=== PATIENT | female | born 1950 | race Two or more races ===

== ENCOUNTER 2020-04-13 10:28 | Outpatient (REF) | payer MEDICARE, SELFPAY ==
--- NOTE | 2020-04-13 10:34 | MM_ITS ---
EXAMINATION: BONE DENSITOMETRY CLINICAL INDICATION: Collapsed vertebra. COMPARISON: Previous BD dated 12/25/2017 and baseline BD dated 03/28/2012. TECHNIQUE: Using a [employer] DXA System (software version: 13.1) manufactured by [employer], dual-energy x-ray absorptiometry was performed of the lumbar spine and left hip. The images are of good technical quality. Summary results are attached. FINDINGS: AP SPINE L1-L4, excluding L1: The data at L1 is excluded due to degenerative changes which may cause overestimation of the lumbar bone mineral density. Current: BMD 0.957 g/cm2, Z-score -0.9, T-score -2.0, osteopenia, 7.9% decrease from previous, 1.7% increase from baseline (<5% change is not significant). Prior: BMD 1.039 g/cm2. Baseline: BMD 0.941 g/cm2. LEFT FEMUR, NECK: Current: BMD 0.922 g/cm2, Z-score 0.6, T-score -0.8, normal. Prior: BMD 0.940 g/cm2. Baseline: BMD 0.954 g/cm2. LEFT FEMUR, TOTAL: Current: BMD 1.115 g/cm2, Z-score 2.0, T-score 0.9, normal, 0.7% increase from previous, 3.0% increase from baseline (<5% change is not significant). Prior: BMD 1.107 g/cm2. Baseline: BMD 1.083 g/cm2. IDENTIFIED RISK FACTORS: None listed. HISTORY OF FRACTURE: None listed. MEDICATIONS: Calcium. IMPRESSION: 1. DIAGNOSIS: Osteopenia based on the lowest T-score value of -2.0 in the lumbar spine applying World Health Organization criteria. 2. 10-YEAR FRACTURE RISK PREDICTION, FRAX: Major osteoporotic fracture (clinical spine, forearm, hip or shoulder) 4.6%. Hip fracture 0.5%. 3. Treatment Recommendations: NOF guidelines recommend consideration for treatment in postmenopausal women and men age 50 and older presenting with the following: -A hip or vertebral (clinical or morphometric) fracture. -T-score less than or equal to -2.5 at the femoral neck or spine after appropriate evaluation to exclude secondary causes. -Low bone mass at the hip or spine and a 10-year fracture probability by FRAX of greater than or equal to 3% for hip fracture or greater than or equal to 20% for major osteoporotic fracture based on the [place] adapted WHO algorithm. 4. Other Recommendations: All treatment decisions require clinical judgment and consideration of individual patient factors, including patient preferences, comorbidities, previous drug use, risk factors not captured in the FRAX model (e.g. frailty, falls, vitamin D deficiency, increased bone turnover, interval significant decline in bone density) and possible under or overestimation of fracture risk by FRAX. Additional medical evaluation for secondary cause of low bone mineral density may be appropriate. FUTURE SCAN RECOMMENDATION: People with diagnosed cases of osteoporosis or at high risk for fracture should have regular bone mineral density tests. For patients eligible for Medicare, routine testing is allowed once every 2 years. The testing frequency can be increased to one year for patients who have rapidly progressing disease, those who are receiving or discontinuing medical therapy to restore bone mass, or have additional risk factors.
== END 2020-04-13 10:29 | disposition home or self-care (01) ==
LOC: HO.MAMMO 10:28
PROVIDERS: PCP Internal Medicine; Visit Provider Internal Medicine
DX: Z13.820 Encounter for screening for osteoporosis (principal); M85.80 Other specified disorders of bone density and structure, unspecified site; M48.54XA Collapsed vertebra, not elsewhere classified, thoracic region, initial encounter for fracture; Z79.899 Other long term (current) drug therapy
CPT/HCPCS: 77080

== ENCOUNTER → 2020-04-15 09:30 | Outpatient (REF) | payer MEDICARE, SELFPAY ==
--- NOTE | 2020-04-15 09:30 | CA_ITS ---
Transthoracic Echocardiogram Patient (Last, First, Middle): Chrissy Graff, Gender: Female Date of : 1950 Age: 70 Procedure Date: 04/15/2020 Procedure Type: Transthoracic Echocardiogram Location: OP Height: 157.48 cm Weight: 82.56 kg BSA: 1.84 m2 Heart Rate: bpm BP: 140 / 72 mmHg Stone Gluer: CHAZ Referring MD: Fidel Love MD Symptoms: l10 Essential hypertension Study Quality: Fair ECG Rhythm: Sinus Conclusions: - The left ventricular systolic function is normal. The visually estimated ejection fraction is between 60-65%. - There is mild calcification of the aortic valve. - There is mild dilatation of the ascending aorta measuring 4.00 cm. Findings Left Ventricle Normal left ventricular cavity size. There is normal left ventricular wall thickness. The left ventricular systolic function is normal. The visually estimated ejection fraction is between 60-65%. There is no evidence of regional wall motion abnormalities. E/E prime ratio is between 8 and 15 consistent with indeterminate filling pressures. Evidence suggests grade I (mild) diastolic dysfunction. Right Ventricle Normal right ventricular cavity size and systolic function. Atria The left atrium is mildly dilated. The right atrium is normal in size. Aortic Valve There is mild calcification of the aortic valve. There is no aortic valve stenosis. There is trace (trivial) aortic valve regurgitation. Mitral Valve The mitral valve appears normal. There is trace mitral valve regurgitation. There is no mitral valve stenosis. Pulmonic Valve The pulmonic valve was not well visualized. Tricuspid Valve Normal tricuspid valve structure. There is mild tricuspid valve regurgitation. The pulmonary artery systolic pressure is normal. Great Vessels There is mild dilatation of the ascending aorta measuring 4.00 cm. Venous The inferior vena cava is normal in size and collapses greater than 50% with inspiration. Pericardium/Pleural There is no evidence of pericardial effusion. Prior Study Comparison No prior study available for comparison. Measurements 2D Linear Measurements IVSd: 0.94 0.6-0.9/0.6-1.0 cm LVIDd: 4.34 3.9-5.3/4.2-5.9 cm LVIDd Index: 2.36 2.4-3.2/2.2-3.1 cm/m2 LVIDs: 3.00 2.0-3.6 cm LVPWd: 1.25 0.7-1.1 cm Ao Root: 3.10 2.1-3.5 cm LA Diam: 4.40 2.7-3.8/3.0-4.0 cm LAIDs Index: 2.39 1.5-2.3 cm/m2 LV Mass: 204.03 67-162/88-224 g LV Mass Index: 110.89 43-95/49-115 g/m2 LVOT Diam: 2.10 3.0+(-)1.3 cm 2D Systolic Function EF 4C: 58.20 >55% EF 2C: 55.50 >55% EF BiP: 56.00 >55% Mitral Valve MV Pk E: 0.62 MV PK A: 0.84 MV Decel Time: 290.00 E/A: 0.70 E'Lateral: 6.67 E'Medial: 5.80 E/E' Med: 10.60 E/E' Lat: 9.20 PHT: 85.00 MVA PHT: 2.59 Decel Fergus: 2.12 Aortic Valve AoV Pk Giancarlo: 1.36 AoV Pk Grad: 7.00 LVOT LVOT Pk Giancarlo: 1.06 LVOT Mn Giancarlo: 0.73 LVOT VTI: 0.26 LVOT Pk Grad: 4.00 LVOT Mn Grad: 2.00 LVOT Diam: 2.10 LVOT Area: 3.46 Diastolic Function MV Pk E: 0.62 MV Pk A: 0.84 E/A: 0.70 E'Medial: 5.80 E/E' Med: 10.60 E' Laterial: 6.67 E/E' Lat: 9.20 Tricuspid Valve TR Pk Giancarlo: 2.29 TR Pk Grad: 21.00 RA Press: 3.00 RVSP: 24.00 Great Vessels Aorta Ao Root-2D: 3.10 2.0-3.7 cm Ao Asc: 4.00 2.1-3.4 cm Ao Arch: 3.40 Updated in Other Vendor System with Status of Final Angelo Medellin MD electronically signed on 04/17/2020 10:23:20 AM with status of Final
== END ==
LOC: HO.CARD 09:30
PROVIDERS: PCP Internal Medicine; Visit Provider Internal Medicine
DX: I10 Essential (primary) hypertension (principal)
CPT/HCPCS: 93306

== ENCOUNTER 2021-02-24 08:09 | Outpatient (REF) | payer MEDICARE, SELFPAY | END 2021-02-24 08:10 | disposition home or self-care (01) | LOC: HO.HOSX 08:09 | PROVIDERS: Visit Provider Physician Assistant | DX: Z13.89 Encounter for screening for other disorder (principal) ==

== ENCOUNTER 2022-03-28 14:22 | Outpatient (REF) | payer OTHER, SELFPAY ==
--- NOTE | ~2022-03-28 | US_ITS ---
EXAMINATION: US RETROPERITONEAL LIMITED (RENAL ONLY) CLINICAL INFORMATION: Abdominal pain. COMPARISON: None TECHNIQUE: Real-time imaging of the kidneys. Technically extremely limited study secondary to body habitus. FINDINGS: RIGHT KIDNEY: 12.2 x 6.9 x 5.6 cm (SAG x AP x TRV). The kidney is normal in size, contour, and echogenicity. Renal cortical thickness is normal. No calculi or focal parenchymal lesions. No hydronephrosis. LEFT KIDNEY: 11.1 x 5.3 x 4.0 cm (SAG x AP x TRV). The kidney is normal in size, contour, and echogenicity. Renal cortical thickness is normal. No renal calculi or hydronephrosis. There is a parapelvic cyst versus pelvic fullness measuring 1.12 x 0.7 x 0.9 cm. US/US renal BI IMPRESSION: There is a parapelvic cyst versus pelvic fullness left kidney measuring 1.1 cm. No radiopaque renal calculi or hydronephrosis in either kidney.
== END 2022-03-28 14:23 | disposition home or self-care (01) ==
LOC: HO.US 14:22
PROVIDERS: Visit Provider Internal Medicine
DX: R10.9 Unspecified abdominal pain (principal)
CPT/HCPCS: 76775

== ENCOUNTER 2022-04-26 08:56 | Outpatient (REF) | payer OTHER, SELFPAY ==
--- NOTE | 2022-04-26 | EMG_ITS ---
Please see scanned EMG / Nerve Conduction Report. MTDD
--- NOTE | ~2022-04-26 | CT_ITS ---
EXAMINATION: CT ABDOMEN AND PELVIS WITHOUT AND WITH CONTRAST CLINICAL INFORMATION: Renal cyst COMPARISON: Previous renal ultrasound March 2022 TECHNIQUE: Multidetector volumetric imaging was performed of the abdomen and pelvis before and after the IV administration of 85 mL of Omnipaque 300 intravenous contrast. Sagittal and coronal reformatted images were obtained on the technologist's workstation. This CT examination was performed using dose optimization techniques as appropriate, variously including the following: *Automated exposure control *Adjustment of mA and/or kV according to patient size (this includes techniques or standardized protocols for targeted exams where dose is matched to indication/reason for exam; i.e. extremities or head) *Use of iterative reconstruction technique DLP: 787 mGy-cm FINDINGS: LUNG BASES: The visualized lung bases are unremarkable. LIVER, GALLBLADDER, AND BILIARY TREE: The liver is normal in size, and shape. The liver is low in attenuation suggestive of fatty infiltration. No focal hepatic lesion or biliary ductal dilatation is present. The gallbladder is unremarkable with no evidence of radiopaque gallstones, gallbladder wall thickening, or obvious pericholecystic inflammatory changes. PANCREAS: Unremarkable SPLEEN: Unremarkable ADRENAL GLANDS: Unremarkable KIDNEYS AND URETERS: There is a small 7 mm low-attenuation lesion in the lower pole of the left kidney. This is not well-visualized precontrast. Hounsfield units postcontrast measure 11 suggestive of a cyst. There is cortical thinning or scarring in the lower pole of the right kidney. The right kidney is otherwise normal. BLADDER: Unremarkable GASTROINTESTINAL TRACT: Diverticulosis of the colon. The small and large bowel are otherwise unremarkable. The appendix is is not seen. ABDOMINAL WALL: No significant hernia is appreciated. LYMPH NODES: Normal VASCULAR: Unremarkable PELVIC VISCERA: Unremarkable OSSEOUS STRUCTURES: Moderate to severe old-appearing T12 vertebral body compression fracture. CT/CT abdomen pelvis wo/w IV con IMPRESSION: Fatty liver. Small left renal cyst. Diverticulosis of the colon. Old T12 vertebral body compression fracture. Fleischner guidelines were followed.
[2022-04-26] MEDS: iohexoL 350 MG/ML 100 ML INFUS..BTL 85 ML IV (09:47)
[2022-04-27 13:21] LABS: Creatinine POC 0.6 mg/dL (0.5-1.4); GFR POC > 60
== END 2022-04-26 08:57 | disposition home or self-care (01) ==
LOC: HO.CT 08:56
PROVIDERS: Visit Provider Internal Medicine
DX: G56.03 Carpal tunnel syndrome, bilateral upper limbs (principal)
CPT/HCPCS: 74178; 82565; 95885; 95910; Q9967

== ENCOUNTER → 2023-07-12 19:00 | Outpatient (BNV) | payer OTHER, SELFPAY | PROVIDERS: Visit Provider Psychiatry & Neurology Neurology | DX: G47.33 Obstructive sleep apnea (adult) (pediatric) (principal) | CPT/HCPCS: 95810 ==

== ENCOUNTER → 2023-07-12 19:30 | Outpatient (REF) | payer OTHER, SELFPAY | LOC: HO.SL 19:30 | PROVIDERS: Visit Provider Internal Medicine | DX: G47.33 Obstructive sleep apnea (adult) (pediatric) (principal) | CPT/HCPCS: 95810 ==

== ENCOUNTER 2023-11-30 12:40 | Outpatient (AMB) | payer OTHER, SELFPAY ==
--- NOTE | 2023-11-30 12:50 | A.OFFVIS_ITS ---
Vital Signs 11/30/23 12:51 Height 5 ft 3 in Weight 199 lb BMI 35.2 BP 150/82 H Blood Pressure Location Lt brachial Position Sitting Pulse 97 Pulse Source Pulse Oximeter Pulse Oximetry (%) 95 Oxygen Delivery Method Room Air Intake Visit Reasons: E-HISTOLOGY TECHNOLOGIST: Sleep Proposal Specialist Required: No Accompanied by: Daughter Allergies No Known Allergies Allergy (Verified 11/30/23 12:54) Medication List - Last Reconciled 11/30/23 by JOEL Luke acetaminophen-codeine 300-30 mg 1 tab PO Q6H PRN alendronate mg PO amlodipine 5 mg PO DAILY calcium carbonate-vitamin D3 600 mg-10 mcg (400 unit) 1 tab PO BID fexofenadine 180 mg PO DAILY levocetirizine 5 mg PO DAILY lisinopril 40 mg PO DAILY metoprolol succinate ER 25 mg PO DAILY paroxetine HCl 20 mg PO DAILY prednisolone acetate 1% drps ophthalmic (eye) simvastatin 40 mg PO BEDTIME HPI Comments Details: 73-yr-old female presents for new in-person patient visit for sleep consultation and to discuss results of her recent in-lab PSG results. Pt is accompanied by her dtr, who assists w/ Bulgarian interprettaion per pt request. Pt underwent in-lab sleep study d/t snoring, apneas, daytime tiredness and fatigue. In-lab PSG results were c/w severe obstructive sleep apnea w/ AHI 37/hr, O2 caleb 82%, and PLMS 38/hr w/ PLMS arousal index of 8/hr. Pt denies s/s restless legs, cramps. She does endorse worsening bilateral hand pain and numbness, especially after waking up. Had normal EMG/NCS approx 2 yrs ago, but the numbness is especially worse now. Has difficulty picking things up as well. States she has [facility] Social History (Updated 11/30/23 @ 13:00 by CLARISA Arthur) Alcohol intake: never Patient Tobacco Use Status: Never used Tobacco Physical Exam Vital Signs: Last Vital Signs Pulse 97 11/30/23 12:51 BP 150/82 H 11/30/23 12:51 Pulse Ox 95 11/30/23 12:51 Oxygen Delivery Method Room Air 11/30/23 12:51 BMI result Body Mass Index 35.2 Const General: no acute distress Orientation/consciousness: patient oriented x3 HEENT Other: Mallampati stage Resp Effort & Inspection: normal respiratory effort and able to speak in complete sentences Auscultation: clear to auscultation bilaterally Cardio Rate: regular rate Rhythm: regular rhythm Heart sounds: S1 normal heart sound present and S2 normal heart sound present Neuro Other: BUE- negative tinnel, phalen, medial compression tests General: patient oriented x3 and deep tendon reflexes 2+ bilaterally Cranial nerves: Yes CN's II-XII intact bilaterally Cognition (Neuro): normal cognition Gait exam (Neuro): Normal gait present Motor exam (neuro): 5/5 motor strength present throughout Psych Mental Status: mental status grossly normal Speech and movement: Clear speech present Attitude: cooperative Assessment & Plan Assessment & Plan (1) Severe obstructive sleep apnea: Code(s): G47.33 - Obstructive sleep apnea (adult) (pediatric) Category: Medical (2) Nocturnal hypoxemia: Code(s): G47.34 - Idiopathic sleep related nonobstructive alveolar hypoventilation Category: Medical (3) Bilateral hand numbness: Code(s): R20.0 - Anesthesia of skin Category: Medical (4) Bilateral hand pain: Code(s): M79.641 - Pain in right hand; M79.642 - Pain in left hand Category: Medical Plan For severe KATHY w/ nocturnal hypoxemia: Pt advised to undergo in-lab PAP titration study to determine optimal pressure settings to reduce severity of severe obstructive sleep apneas and nocturnal hypoxemias, as well as to see if the PLMS arousal index reduces to PAP tx. For BUE numbness and pain: Will order BUE EMG/NCS. In the meantime, pt may try OTC bilateral carpal tunnel splint while sleeping. Will request recent labs from PCP- if not done, consider b-12/folate, TSH, vit D, iron studies f/u upon review of above and in 6 months or sooner prn. Orders: Orders NE electromyogram (EMG) 11/30/23 M79.641 - Pain in right hand, M79.642 - Pain in left hand, R20.0 - Anesthesia of skin NE nerve conduction velocity 11/30/23 M79.641 - Pain in right hand, M79.642 - Pain in left hand, R20.0 - Anesthesia of skin RT PSG in-lab sleep titration 11/30/23 G47.33 - Obstructive sleep apnea (adult) (pediatric), G47.34 - Idiopathic sleep related nonobstructive alveolar hypoventilation Coding Level of Care Code New Pt Level 4 (02732) Diagnoses Severe obstructive sleep apnea G47.33 Nocturnal hypoxemia G47.34 Bilateral hand numbness R20.0 Bilateral hand pain M79.641; M79.642
[2023-11-30 12:51] VITALS: BP 150/82; PULSE 97; O2SAT 95; BMI 35.2
== END 2023-11-30 13:57 | disposition home or self-care (01) ==
PROVIDERS: PCP Internal Medicine; Visit Provider Nurse Practitioner Family
DX: G47.33 Obstructive sleep apnea (adult) (pediatric) (principal); G47.34 Idiopathic sleep related nonobstructive alveolar hypoventilation; R20.0 Anesthesia of skin; M79.641 Pain in right hand; M79.642 Pain in left hand
CPT/HCPCS: 99204

== ENCOUNTER → 2023-11-30 12:40 | Outpatient (BNVA) | payer OTHER, SELFPAY | PROVIDERS: PCP Internal Medicine; Visit Provider Nurse Practitioner Family | DX: G47.33 Obstructive sleep apnea (adult) (pediatric) (principal); G47.34 Idiopathic sleep related nonobstructive alveolar hypoventilation; R20.0 Anesthesia of skin; M79.641 Pain in right hand; M79.642 Pain in left hand | CPT/HCPCS: 99202 ==

== ENCOUNTER 2023-12-06 16:18 | Outpatient (REF) | payer OTHER, SELFPAY ==
--- NOTE | ~2023-12-06 | XR_ITS ---
EXAMINATION: XR CHEST 2 VIEWS CLINICAL INFORMATION: Dyspnea on exertion. COMPARISON: None. TECHNIQUE: Frontal and lateral views of the chest were obtained. FINDINGS: The heart, great vessels, pulmonary vasculature and mediastinum are normal. The lungs show no focal infiltrate, effusion or pneumothorax. There is no acute osseous abnormality. There are left humeral orthopedic anchors. There is a moderate thoracic levoscoliosis. XR/XR chest 2V IMPRESSION: No active cardiopulmonary disease.
[2023-12-06 17:44] LABS: Hematocrit 39.3 % (37.0-47.0); Mean Corpuscular HGB Conc 33.1 g/dl (31.0-35.0); Mean Corpuscular Hemoglobin 29.5 pg (27.0-33.0); Mean Corpuscular Volume 89.1 fL (80.0-98.0); Platelet Count 264 X10*3/uL (160-400); Red Blood Count 4.41 X10*6/uL (4.20-5.50); Red Cell Distribution Width 14.5 % (11.0-16.0)
[2023-12-06 17:46] LABS: Appearance Urine Clear; Color Urine Yellow; Glucose Urine UA Negative (Negative); Leukocyte Esterase Urine Trace (Negative); Nitrite Urine Negative (Negative); PH 5.5 (5.0-9.0); Specific Gravity - Urine 1.015 (1.005-1.025); UMIC TRIGGER UA YES; Urine Blood Negative (Negative); Urine Ketones Negative (Negative); Urine Protein 100 (2+) mg/dL (Neg-Trace)
[2023-12-06 18:18] LABS: TSH reflex Free T4 1.08 uIU/mL (0.32-4.0)
[2023-12-06 18:38] LABS: Bacteria Urine None Seen (None Seen); Hyaline Casts Urine 0-2 /LPF (0-2); Squamous Epithelial Cell Urine 0-2 /HPF (0-2); WBC Urine 0-5 /HPF (0-5)
== END 2023-12-06 16:19 | disposition home or self-care (01) ==
LOC: HO.CHCLDS 16:18
PROVIDERS: PCP Internal Medicine; Visit Provider Internal Medicine
DX: R06.09 Other forms of dyspnea (principal); T14.8XXA Other injury of unspecified body region, initial encounter; X58.XXXA Exposure to other specified factors, initial encounter; Y93.9 Activity, unspecified; Y92.9 Unspecified place or not applicable; Y99.9 Unspecified external cause status
CPT/HCPCS: 36415; 71046; 81001; 84443; 85027

== ENCOUNTER 2024-01-11 12:27 | Outpatient (REF) | payer OTHER, SELFPAY ==
--- NOTE | 2024-01-11 12:32 | EMG_ITS ---
Chief complaint: Bilateral hand numbness. EMG done [place] [address] Borja reviewed, showed bilateral moderate to severe Carpal Tunnel Syndrome. Reason for referral: Evaluate for Carpal Tunnel Syndrome Referred by: Nadine Olvera NP Procedure done: Bilateral upper extremities NCS/EMG Precautions and/or limitations: None Daughter helped with translation. The limb temperature was monitored continuously and remained between 32-36 degrees C during the performance of the NCS. Nerve Conduction Studies Anti Sensory Summary Table ?Stim Site NR Onset (ms) Norm Onset (ms) Peak (ms) Norm Peak (ms) O-P Amp (?V) Norm O-P Amp Site1 Site2 Delta-0 (ms) Dist (cm) Giancarlo (m/s) Norm Giancarlo (m/s) Left Median Anti Sensory (2nd Digit) Wrist NR <3.6 >10 Wrist 2nd Digit 14.0 Right Median Anti Sensory (2nd Digit) Wrist NR <3.6 >10 Wrist 2nd Digit 14.0 Right Radial Anti Sensory (Thumb) Forearm ? 1.5 2.1 <3.1 17.1 Forearm Thumb 1.5 0.0 Left Ulnar Anti Sensory (5th Digit) Wrist ? 1.7 3.0 <3.7 8.0 >15.0 Wrist 5th Digit 1.7 14.0 82 Right Ulnar Anti Sensory (5th Digit) Wrist ? 0.9 2.9 <3.7 16.9 >15.0 Wrist 5th Digit 0.9 14.0 156 Motor Summary Table ?Stim Site NR Onset (ms) Norm Onset (ms) O-P Amp (mV) Norm O-P Amp iAmp (mV) Amp (1st) (%) Site1 Site2 Delta-0 (ms) Dist (cm) Giancarlo (m/s) Norm Giancarlo (m/s) Left Median Motor (Abd Poll Brev) Wrist ? 8.2 <3.9 5.2 >4.5 5.9 100.0 Elbow Wrist 0.5 21.0 420 >45 Elbow ? 8.7 4.5 5.3 86.5 Right Median Motor (Abd Poll Brev) Wrist ? 7.4 <3.9 4.3 >4.5 5.1 100.0 Elbow Wrist 3.1 21.0 68 >45 Elbow ? 10.5 4.0 4.8 93.0 Left Ulnar Motor (Abd Dig Minimi) Wrist ? 2.4 <3.0 5.4 >5 6.3 100.0 B Elbow Wrist 2.9 18.0 62 >45 B Elbow ? 5.3 4.4 5.3 81.5 A Elbow B Elbow 1.9 10.0 53 >45 A Elbow ? 7.2 4.5 5.3 83.3 Right Ulnar Motor (Abd Dig Minimi) Wrist ? 2.5 <3.0 6.9 >5 8.1 100.0 B Elbow Wrist 3.0 18.5 62 >45 B Elbow ? 5.5 5.5 6.7 79.7 A Elbow B Elbow 1.5 10.0 67 >45 A Elbow ? 7.0 5.5 6.8 79.7 EMG ?Side Muscle Nerve Root Ins Act Fibs Psw Amp Dur Poly Recrt Int Pat Comment Right 1stDorInt Ulnar C8-T1 Nml Nml Nml Nml Nml 0 Nml Complete Right FlexCarRad Median C6-7 Nml Nml Nml Nml Nml 0 Nml Complete Right Biceps Musculocut C5-6 Nml Nml Nml Nml Nml 0 Nml Complete Right Triceps Radial C6-7-8 Nml Nml Nml Nml Nml 0 Nml Complete Right Deltoid Axillary C5-6 Nml Nml Nml Nml Nml 0 Nml Complete Left 1stDorInt Ulnar C8-T1 Nml Nml Nml Nml Nml 0 Nml Complete Left FlexCarRad Median C6-7 Nml Nml Nml Nml Nml 0 Nml Complete Left Biceps Musculocut C5-6 Nml Nml Nml Nml Nml 0 Nml Complete Left Triceps Radial C6-7-8 Nml Nml Nml Nml Nml 0 Nml Complete Left Deltoid Axillary C5-6 Nml Nml Nml Nml Nml 0 Nml Complete FINDINGS: Right median motor nerve showed prolonged distal latency, small amplitude and slow conduction velocity. Left median motor nerve showed prolonged distal latency, normal amplitude and normal conduction velocity. Bilateral median sensory nerves showed absent response. All other nerves tested were within normal. Concentric needle EMG was performed in selected muscles of the bilateral upper extremities. Study did not reveal signs of electric abnormalities as shown in the table above. IMPRESSION: 1. This is an abnormal study. 2. There is electrodiagnostic evidence for bilateral moderate-severe median neuropathy at the wrist, consistent with carpal tunnel syndrome. 3. There is no electrodiagnostic evidence for ulnar neuropathy, brachial plexopathy, or cervical radiculopathy. Thank you for your kind referral. Mariana Fernando MD, NNAMDI Board Certified, [place] Board of Physical Medicine and Rehabilitation (ABPMR) Board Certified, [place] Board of Electrodiagnostic Medicine (ABEM) CODIN [id number] x 2 MTDD
== END 2024-01-11 12:28 | disposition home or self-care (01) ==
LOC: HO.NEURO 12:27
PROVIDERS: PCP Internal Medicine; Visit Provider Nurse Practitioner Family
DX: R20.0 Anesthesia of skin (principal); M79.641 Pain in right hand; M79.642 Pain in left hand
CPT/HCPCS: 95886; 95911

== ENCOUNTER → 2024-01-11 12:32 | Outpatient (BNV) | payer OTHER, SELFPAY | PROVIDERS: PCP Internal Medicine; Visit Provider Physical Medicine & Rehabilitation | DX: R20.0 Anesthesia of skin (principal); R20.2 Paresthesia of skin; G56.03 Carpal tunnel syndrome, bilateral upper limbs | CPT/HCPCS: 95886; 95911 ==

== ENCOUNTER → 2024-01-28 19:30 | Outpatient (REF) | payer OTHER, SELFPAY | LOC: HO.SL 19:30 | PROVIDERS: PCP Internal Medicine; Visit Provider Internal Medicine | DX: G47.33 Obstructive sleep apnea (adult) (pediatric) (principal); G47.34 Idiopathic sleep related nonobstructive alveolar hypoventilation | CPT/HCPCS: 95811 ==

== ENCOUNTER → 2024-01-28 22:43 | Outpatient (BNV) | payer OTHER, SELFPAY | PROVIDERS: PCP Internal Medicine; Visit Provider Internal Medicine | DX: G47.33 Obstructive sleep apnea (adult) (pediatric) (principal) | CPT/HCPCS: 95811 ==

== ENCOUNTER 2024-02-22 13:33 | Outpatient (AMB) | payer OTHER, SELFPAY ==
--- NOTE | 2024-02-22 14:07 | MHC.OFFVIS ---
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 EMG done on 01/11/2024. Left is worse than her right hand. Patient reports she has pain, numbness and tingling throughout the entire day. She gets woken up from her sleep because of these symptoms. She occasionally has pain with gripping and grasping but this is not all the time. She is also having pain at the base of her thumb that radiates up the thumb of her right hand. She would like to discuss surgery if necessary and start with her left hand first. Pre-diabetic patient. 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 The patient reports that she experiences dense numbness in bilateral hands, and is regularly awoken from sleep by both numbness and pain. The patient also reports that she experiences significant pain with grasping of bilateral hands. Of note, the patient also complains of locking and catching of the right thumb, that she states has become quite painful over the last 2-3 months. No other acute complaints or concerns at this time. The patient states that if she were to need to have surgery, she would like to start with the left side. [facility] Social History (Updated 02/22/24 @ 14:17 by YOGI Olivarez) Alcohol intake: never Patient Tobacco Use Status: Never used Tobacco Current occupational status: retired Review of Systems Const All systems reviewed & are unremarkable except as noted in HPI and below Physical Exam Extrem Other: Neuro: Decreased sensation in the median nerve distribution of bilateral hands. Normal sensation to all other digits in bilateral hands today. No thenar or intrinsic wasting. Weakened APB muscle firing and good finger cross. Vascular: Capillary refill brisk. ROM: There is noted to be visible and palpable locking and catching of the right thumb, with tenderness to palpation over the A1 jennifer and a palpable defect in the flexor tendon Patient can make a fist and extend all other digits without difficulty. Skin: No lacerations or abrasions noted. General: No ecchymosis. No erythema or evidence of infection. Results Reviewed Results Reviewed: IMPRESSION: 1. This is an abnormal study. 2. There is electrodiagnostic evidence for bilateral moderate-severe median neuropathy at the wrist, consistent with carpal tunnel syndrome. 3. There is no electrodiagnostic evidence for ulnar neuropathy, brachial plexopathy, or cervical radiculopathy. Mariana Fernando MD, NNAMDI 01/11/24 0825 Assessment & Plan Assessment & Plan (1) Bilateral carpal tunnel syndrome: Code(s): G56.03 - Carpal tunnel syndrome, bilateral upper limbs Category: Medical (2) Trigger thumb, right thumb: Code(s): M65.311 - Trigger thumb, right thumb Category: Medical Plan 1. Carpal tunnel syndrome, right Symptoms constant, daily, worse at night 2. Right trigger thumb I educated the patient about the condition. I discussed both operative and nonoperative treatment options. The patient would like to proceed with surgery. Patient initially wanted to proceed with surgical intervention in the left side 1st, however after discussion of treatment options available for trigger thumb, the patient would like to proceed with the right side 1st so that she can have surgical release of the right trigger thumb in addition to right carpal tunnel release The risks and benefits of operative treatment were discussed with the patient and the patient wishes to proceed with surgery. These risks include, but are not limited to, risk of damage to blood vessels, nerves, tendons, infection, recurrence, incomplete relief of preoperative symptoms, persistent pain, possible need for further surgery, and the risks associated with regional blocks and/or anesthesia. Plan is to take the patient to the operating room at some point in the next few weeks for the following procedures: 1. Right carpal tunnel release under local anesthesia 2. Right trigger thumb release under local anesthesia All of the preoperative paperwork including the consent was discussed today. All of the patient's questions were answered in the clinic today. The patient understands that they will be in contact with our surgical nurse to discuss scheduling their procedure. Patient denies diabetes, blood thinners, asthma, heart issues, lung issues, kidney issues, or current smoking. Patient reports that she is prediabetic, but that her A1c readings has been very well controlled 2. Carpal tunnel syndrome, left Symptoms constant, daily, worse at night At this time, after discussion of treatment options for trigger thumb, the patient would like to proceed with surgery on the right side 1st so that she can have surgical release of right trigger thumb Patient would like to proceed with surgical intervention on the left once the right has started its recovery. Patient is informed that we can get her signed up for left carpal tunnel release at postoperative visit from right carpal tunnel release if she is recovering well Patient is amenable to this plan Patient will follow-up after carpal tunnel release for postoperative assessment, sooner with any acute concerns Coding Level of Care Code New Pt Level 4 (10884) Diagnoses Bilateral carpal tunnel syndrome G56.03 Trigger thumb, right thumb M65.311
== END 2024-02-22 14:45 | disposition home or self-care (01) ==
PROVIDERS: PCP Internal Medicine
DX: G56.03 Carpal tunnel syndrome, bilateral upper limbs (principal); M65.311 Trigger thumb, right thumb
CPT/HCPCS: 99204

== ENCOUNTER → 2024-02-22 13:33 | Outpatient (BNVA) | payer OTHER, SELFPAY | PROVIDERS: PCP Internal Medicine | DX: G56.03 Carpal tunnel syndrome, bilateral upper limbs (principal); M65.311 Trigger thumb, right thumb | CPT/HCPCS: 99202 ==

== ENCOUNTER 2024-03-13 13:02 | Outpatient (REF) | payer OTHER, SELFPAY | END 2024-03-13 13:03 | disposition home or self-care (01) | LOC: HO.CHCLNP 13:02 | PROVIDERS: Visit Provider Pediatrics | DX: S81.801A Unspecified open wound, right lower leg, initial encounter (principal) | CPT/HCPCS: 87070; 87205 ==

== ENCOUNTER 2024-03-31 13:00 | Day surgery (SDC) | payer OTHER, SELFPAY ==
--- OUTSIDE RECORDS SUMMARY | 2024-03-31 13:03 | XMS_ITS | Continuity of Care Document ---
Author Organization [facility] Address [address] [facility] [place] [address]- Care Team Providers Care Luster Repairer Name Role Phone Ivan JACKSON, Fidel Primary Care Physician Encounter 12/23/22 - 12/30/22 [facility] [address], [address] [place] [address]- Attending Physician: Fidel Love MD Admitting Physician: Ivan JACKSON , Fidel Referring Physician: Fidel Love MD Allergies, Adverse Reactions, Alerts No Known Allergies Medications fluoxetine 20 mg oral tablet 20, mg, 1, tablet, By Mouth, Daily, 30, tablet, 1, 1, 11/29/07 15:48:55, Print LEO Number, [id number], Constant Indicator Start Date: 11/29/07 Stop Date: 01/28/08 Status: Ordered metoprolol 25 mg oral tablet 25, mg, 1, tablet, By Mouth, 2 times a day, 60, tablet, 6, 6, 01/06/08 10:50:58, Print LEO Number, [address] [address], [id number], Constant Indicator Start Date: 01/06/08 Stop Date: 08/03/08 Status: Ordered multivitamin Multiple Vitamins oral tablet 1, tablet, By Mouth, Daily, 100, 6, 6, 01/06/08 10:53:53, Print LEO Number, [address] [address], [id number], Constant Indicator Start Date: 01/06/08 Status: Ordered NuLYTELY with Flavor Packs oral powder for reconstitution 240 mL, By Mouth, Every 10 minutes, # 4,000 mL, 0 Refills, Maintenance, 04/29/15 9:13:05, 240 mL ByMouth Every 10 minutes Start Date: 04/29/15 Status: Ordered pravastatin 20 mg oral tablet 20, mg, 1, tablet, By Mouth, Daily, 30, tablet, 6, 6, 01/06/08 10:50:17, Print LEO Number, [address] [address], [email or web address], Constant Indicator Start Date: 01/06/08 Stop Date: 08/03/08 Status: Ordered ranitidine 75 mg oral tablet 75, mg, 1, tablet, By Mouth, 2 times a day, 60, tablet, 2, 2, 12/18/07 12:14:01, Print LEO Number, [address] [address], [email or web address], Constant Indicator Start Date: 12/18/07 Stop Date: 03/17/08 Status: Ordered simethicone 80 mg oral tablet, chewable See Instructions, 100, tablet, 1, 1, 12/18/07 12:14:35, sig one or two tabs PO q 6 hrs prn, Print LEO Number, [address] [id number], Constant Indicator Start Date: 12/18/07 Status: Ordered trazodone 50 mg oral tablet 50, mg, 1, tablet, By Mouth, 3 times a day, 0, 0, 12/04/07 10:49:25, Print LEO Number, 68, ConstantIndicator Start Date: 12/04/07 Status: Ordered Problem List Condition Confirmation Course Effective Dates Status Health Status Informant Anal stenosis Confirmed Active Bad memory Confirmed Active Benign hypertension Confirmed Active Burning epigastric pain Confirmed Active Depression Confirmed Active Dyspepsia Confirmed 12/20/07 Active Encounter for diagnostic colonoscopy due to change in bowel habits Confirmed Active Hypercholesterolemia Confirmed 12/20/07 Active Internal hemorrhoids Confirmed Active Onychomycosis Confirmed Active Well female adult Confirmed Active Results Radiology Reports * Exam Date Time Procedure Performing Provider Status 12/23/22 8:54 AM MM Digital Mammo Screening Fozia Sutherland nne; Auth (Verified) Notes: (MM Digital Mammo Screening) Reason For Exam: Z12.31 ROUTINE SCREENING RESULT: MM Digital Mammo Screening PROCEDURE: MM Digital Mammo Screening INDICATION: Screening for breast cancer. COMPARISON: Multiple priors, most recent 08/15/2021 TECHNIQUE: Full-field digital CC and MLO 3D tomosynthesis images of both breasts were acquired. Computer-aided detection (CAD) was utilized in the interpretation of this study. DENSITY: The breast tissue contains scattered areas of fibroglandular density. FINDINGS: No suspicious masses, suspicious microcalcifications, or areas of architectural distortion are seen in either breast to suggest malignancy. IMPRESSION: No mammographic evidence of malignancy. RECOMMENDATION: Annual mammographic screening BI-RADS: 1 (Negative) Lay letter mailed to patient WSN: [id number] Ordering Physician: Fidel Love MD Dictated By: Maurice Walden MD Dictated Date/Time: 12/25/22 3:28 pm Reviewed By: Maurice Walden MD Signed By: Maurice Walden MD Signed Date/Time: 12/25/22 3:28 pm Transcribed By: TWIN Paid Search Analyst Date/Time: 12/25/22 3:26 pm Birads: Patient Care team information Care Team Personnel Name: Fidel Love MD Position: [facility] Outreach Member Role: PCP Address: Address: [address] [place] [address]- Name: Gennaro Multani MD Position: [facility] Renal MD Member Role: Lifetime Consulting Physician Address: Address: [address] [place], [place] [address] [place] [address]- Name: Jenna Bruce RN Position: [facility] Hospital Housekeeping Room Inspector Member Role: Primary Care Nurse Care Team Related Persons Name: RANDOLPH CUNNINGHAM Address: [address] [address]
--- OUTSIDE RECORDS SUMMARY | 2024-03-31 13:03 | XMS_ITS | Continuity of Care Document ---
Author Organization [facility] Address [address] [facility], [address] Floor, [address] [place] [address]- Care Team Providers Care Tap Dancer Name Role Phone Ivan JACKSON, Fidel Primary Care Physician [facility] [id number] Date(s): 04/27/23 - 05/27/23 [facility] [address], [address], [address] [place] [address]- Attending Physician: Estefani Cisneros Admitting Physician: AdmtrEstefani Referring Physician: AdmtrEstefani Allergies, Adverse Reactions, Alerts No Known Allergies Medications calcium-vitamin D 600 mg-400 intl units oral tablet 0 Refills, Maintenance, 04/27/23 12:35:00 EDT, Partial fill upon patient request if the prescription is for a schedule II opioid drug. Start Date: 04/27/23 Status: Ordered fluoxetine 20 mg oral tablet 20, mg, 1, tablet, By Mouth, Daily, 30, tablet, 1, 1, 11/29/07 15:48:55, Print LEO Number, [id number], Constant Indicator Start Date: 11/29/07 Stop Date: 01/28/08 Status: Ordered metoprolol 25 mg oral tablet 25, mg, 1, tablet, By Mouth, 2 times a day, 60, tablet, 6, 6, 01/06/08 10:50:58, Print LEO Number, [address] [address], [id number], Constant Indicator Start Date: 01/06/08 Stop Date: 08/03/08 Status: Ordered multivitamin Multiple Vitamins oral tablet 1, tablet, By Mouth, Daily, 100, 6, 6, 01/06/08 10:53:53, Print LEO Number, [address] [address], [id number], Constant Indicator Start Date: 01/06/08 Status: Ordered NuLYTELY with Flavor Packs oral powder for reconstitution 240 mL, By Mouth, Every 10 minutes, # 4,000 mL, 0 Refills, Maintenance, 04/29/15 9:13:05, 240 mL ByMouth Every 10 minutes Start Date: 04/29/15 Status: Ordered pravastatin 20 mg oral tablet 20, mg, 1, tablet, By Mouth, Daily, 30, tablet, 6, 6, 01/06/08 10:50:17, Print LEO Number, [address] [address], [id number], Constant Indicator Start Date: 01/06/08 Stop Date: 08/03/08 Status: Ordered ranitidine 75 mg oral tablet 75, mg, 1, tablet, By Mouth, 2 times a day, 60, tablet, 2, 2, 12/18/07 12:14:01, Print LEO Number, [address] [address], [id number], Constant Indicator Start Date: 12/18/07 Stop Date: 03/17/08 Status: Ordered simethicone 80 mg oral tablet, chewable See Instructions, 100, tablet, 1, 1, 12/18/07 12:14:35, sig one or two tabs PO q 6 hrs prn, Print LEO Number, [address] [address], Constant Indicator Start Date: 12/18/07 Status: Ordered [...] Internal hemorrhoids Confirmed Active Onychomycosis Confirmed Active Severe obesity (BMI 35.0-39.9) with comorbidity Confirmed Active Well female adult Confirmed Active Social History Social History Type Response Smoking Status Never (less than 100 in lifetime) entered on: 04/27/23 Sex Patient Care team information Care Team Personnel Name: Fidel Love MD Position: [facility] Outreach Member Role: PCP Address: Address: [address] [place] [address]- Name: Gennaro Multani MD Position: [facility] Renal MD Member Role: Lifetime Consulting Physician Address: Address: [address] [place] [address] [address] [facility] [place] [address]- Name: Teo SMART, Jenna Hare Position: [facility] Hospital Employee Counselor Member Role: Primary Care Nurse Care Team Related Persons Name: RANDOLPH CUNNINGHAM Address: [address] [address]
--- OUTSIDE RECORDS SUMMARY | 2024-03-31 13:03 | XMS_ITS | Continuity of Care Document ---
Author Organization [facility] Barbara [facility] Address [address] [facility], 4t [place] [address]- Care Team Providers Care Wastewater Treatment Engineer Name Role Phone Ivan JACKSON, [facility] Primary Care Physician [id number] Date(s): 03/28/23 - 06/30/23 [facility] Barbara [facility]ana[facility] [address] [facility], 4th Floor [place], [place] [address] Attending Physician: Not on Staff, Attending MD Referring Physician: Not on Staff, Referring MD Allergies, Adverse Reactions, Alerts No Known [...] 1, 1, 11/29/07 15:48:55, Print LEO Number, [id number], Constant Indicator Start Date: 11/29/07 Stop Date: 01/28/08 Status: Ordered metoprolol 25 mg oral tablet 25, mg, 1, tablet, By Mouth, 2 times a day, 60, tablet, 6, 6, 01/06/08 10:50:58, Print LEO Number, [address] [address], [id number], Constant Indicator Start Date: 01/06/08 Stop Date: 08/03/08 Status: Ordered multivitamin Multiple Vitamins oral tablet 1, tablet, By Mouth, Daily, 100, 6, 6, 01/06/08 10:53:53, Print LEO Number, [address] [address], [email or web address], Constant Indicator Start Date: 01/06/08 Status: Ordered NuLYTELY with Flavor Packs oral powder for reconstitution 240 mL, By Mouth, Every 10 minutes, # 4,000 mL, 0 Refills, Maintenance, 04/29/15 9:13:05, 240 mL ByMouth Every 10 minutes Start Date: 04/29/15 Status: Ordered pravastatin 20 mg oral tablet 20, mg, 1, tablet, By Mouth, Daily, 30, tablet, 6, 6, 01/06/08 10:50:17, Print LEO Number, [address] [address], [id number], Constant Indicator Start Date: 01/06/08 Stop Date: 08/03/08 Status: Ordered ranitidine 75 mg oral tablet 75, mg, 1, tablet, By Mouth, 2 times a day, 60, tablet, 2, 2, 12/18/07 12:14:01, Print LEO Number, [address] [address], [id number], Constant Indicator Start Date: 12/18/07 Stop Date: 03/17/08 Status: Ordered simethicone 80 mg oral tablet, chewable See Instructions, 100, tablet, 1, 1, 12/18/07 12:14:35, sig one or two tabs PO q 6 hrs prn, Print LEO Number, [address] [address], Constant Indicator Start Date: 12/18/07 Status: Ordered [...] Team Personnel Name: Fidel Love MD Position: [facility] Outreach Member Role: PCP Address: Address: [address] [place] [address]- Name: Gennaro Multani MD Position: [facility] Renal MD Member Role: Lifetime Consulting Physician Address: Address: [address] [place] [address] [address] [facility] [place] [address]- Name: Teo SMART, Jenna Hare Position: [facility] Hospital Vulcan Crewmember Member Role: Primary Care Nurse Care Team Related Persons Name: RANDOLPH CUNNINGHAM Address: [address] [place] [address]
--- OUTSIDE RECORDS SUMMARY | 2024-03-31 13:03 | XMS_ITS | Continuity of Care Document ---
Author Organization [facility] Address [address] [facility], [address] Floor, [address] [place] [address]- Care Team Providers Care Er Registrar Name Role Phone Ivan JACKSON, Fidel Primary Care Physician Encounter [facility] Date(s): 01/03/23 - 02/02/23 [facility] [address] [facility], 3rd Floor, [address] [place] [address]- Allergies, Adverse Reactions, Alerts No Known Allergies Medications fluoxetine 20 mg oral tablet 20, mg, 1, tablet, By Mouth, Daily, 30, tablet, 1, 1, 11/29/07 15:48:55, Print LEO Number, [id number], Constant Indicator Start Date: 11/29/07 Stop Date: 01/28/08 Status: Ordered metoprolol 25 mg oral tablet 25, mg, 1, tablet, By Mouth, 2 times a day, 60, tablet, 6, 6, 01/06/08 10:50:58, Print LEO Number, [address] [address], [id number], Constant Indicator Start Date: 01/06/08 Stop Date: 08/03/08 Status: Ordered multivitamin Multiple Vitamins oral tablet 1, tablet, By Mouth, Daily, 100, 6, 6, 01/06/08 10:53:53, Print LEO Number, [address] [address], [id number], Constant Indicator Start Date: 01/06/08 Status: Ordered NuLYTELY with Flavor Packs oral powder for reconstitution 240 mL, By Mouth, Every 10 minutes, # 4,000 mL, 0 Refills, Maintenance, 04/29/15 9:13:05, 240 mL ByMouth Every 10 minutes Start Date: 04/29/15 Status: Ordered pravastatin 20 mg oral tablet 20, mg, 1, tablet, By Mouth, Daily, 30, tablet, 6, 6, 01/06/08 10:50:17, Print LEO Number, [address] [address], [id number], Constant Indicator Start Date: 01/06/08 Stop Date: 08/03/08 Status: Ordered ranitidine 75 mg oral tablet 75, mg, 1, tablet, By Mouth, 2 times a day, 60, tablet, 2, 2, 12/18/07 12:14:01, Print LEO Number, [address] [address], [id number], Constant Indicator Start Date: 12/18/07 Stop Date: 03/17/08 Status: Ordered simethicone 80 mg oral tablet, chewable See Instructions, 100, tablet, 1, 1, 12/18/07 12:14:35, sig one or two tabs PO q 6 hrs prn, Print LEO Number, [address] [address], Constant Indicator Start Date: 12/18/07 Status: Ordered [...] Confirmed Active Well female adult Confirmed Active Patient Care team information Care Team Personnel Name: Fidel Love MD Position: [facility] Outreach Member Role: PCP Address: Address: [address] [place] [address]- Name: Gennaro Multani MD Position: [facility] Renal MD Member Role: Lifetime Consulting Physician Address: Address: [address] [place], [place] [address]E [facility] [place] [address]- Name: Jenna Bruce RN Position: [facility] Harness Cutter Member Role: Primary Care Nurse Care Team Related Persons Name: RANDOLPH CUNNINGHAM Address: [address] [address]
--- OUTSIDE RECORDS SUMMARY | 2024-03-31 13:03 | XMS_ITS | Continuity of Care Document ---
Author Organization [facility] Manuel [facility] Address [address] [facility], [address] [place] [address]- Care Team Providers Care Tracer Bullet Section Supervisor Name Role Phone Ivan JACKSON, Fidel Primary Care Physician [id number] Date(s): 06/22/23 - 07/22/23 [facility] [address] [facility], 4th Floor [place], [place] [address] Attending Physician: Estefani Cisneros Admitting Physician: Estefani Cisneros Referring Physician: AdmtrEstefani Allergies, Adverse Reactions, Alerts [...] 1, 1, 11/29/07 15:48:55, Print LEO Number, [id number], Constant Indicator Start Date: 11/29/07 Stop Date: 01/28/08 Status: Ordered metoprolol 25 mg oral tablet 25, mg, 1, tablet, By Mouth, 2 times a day, 60, tablet, 6, 6, 01/06/08 10:50:58, Print LEO Number, [address] [address], [id number], Constant Indicator Start Date: 01/06/08 Stop Date: 08/03/08 Status: Ordered multivitamin Multiple Vitamins oral tablet 1, tablet, By Mouth, Daily, 100, 6, 6, 01/06/08 10:53:53, Print LEO Number, [address] [address], [id number], Constant Indicator Start Date: 01/06/08 Status: Ordered NuLYTELY with Flavor Packs oral powder for reconstitution 240 mL, By Mouth, Every 10 minutes, # 4,000 mL, 0 Refills, Maintenance, 04/29/15 9:13:05, 240 mL ByMouth Every 10 minutes Start Date: 04/29/15 Status: Ordered pravastatin 20 mg oral tablet 20, mg, 1, tablet, By Mouth, Daily, 30, tablet, 6, 6, 01/06/08 10:50:17, Print LEO Number, [address] [address], [id number], Constant Indicator Start Date: 01/06/08 Stop Date: 08/03/08 Status: Ordered ranitidine 75 mg oral tablet 75, mg, 1, tablet, By Mouth, 2 times a day, 60, tablet, 2, 2, 12/18/07 12:14:01, Print LEO Number, [address] [address], [id number], Constant Indicator Start Date: 12/18/07 Stop Date: 03/17/08 Status: Ordered simethicone 80 mg oral tablet, chewable See Instructions, 100, tablet, 1, 1, 12/18/07 12:14:35, sig one or two tabs PO q 6 hrs prn, Print LEO Number, [address] [address], Constant Indicator Start Date: 12/18/07 Status: Ordered [...] Name: Fidel Love MD Position: [facility] Outreach Member Role: PCP Address: Address: [address] [place] [address]- Name: Gennaro Multani MD Position: [facility] Renal MD Member Role: Lifetime Consulting Physician Address: Address: [address] [place], [place] [address]E [facility] [place] [address]- Name: Teo SMART, Jenna Hare Position: [facility] Hospital Territory Account Manager Member Role: Primary Care Nurse Care Team Related Persons Name: RANDOLPH CUNNINGHAM Address: [address] [address]
--- OUTSIDE RECORDS SUMMARY | 2024-03-31 13:03 | XMS_ITS | Continuity of Care Document ---
Author Organization [facility] Address [address] [place] [address]- Care Team Providers Care Supervisor Fib[employer]lass Boat Assembly Name Role Phone Fidel Love MD Primary Care Physician [id number] Date(s): 01/01/23 - 01/31/23 [facility] [address] [place] [address]- Allergies, Adverse Reactions, Alerts No Known Allergies Medications fluoxetine 20 mg oral tablet 20, mg, 1, tablet, By Mouth, Daily, 30, tablet, 1, 1, 11/29/07 15:48:55, Print LEO Number, [id number], Constant Indicator Start Date: 11/29/07 Stop Date: 01/28/08 Status: Ordered metoprolol 25 mg oral tablet 25, mg, 1, tablet, By Mouth, 2 times a day, 60, tablet, 6, 6, 01/06/08 10:50:58, Print LEO Number, [address] [address], [id number], Constant Indicator Start Date: 01/06/08 Stop Date: 08/03/08 Status: Ordered multivitamin Multiple Vitamins oral tablet 1, tablet, By Mouth, Daily, 100, 6, 6, 01/06/08 10:53:53, Print LEO Number, [address] [address], [id number], Constant Indicator Start Date: 01/06/08 Status: Ordered NuLYTELY with Flavor Packs oral powder for reconstitution 240 mL, By Mouth, Every 10 minutes, # 4,000 mL, 0 Refills, Maintenance, 04/29/15 9:13:05, 240 mL ByMouth Every 10 minutes Start Date: 04/29/15 Status: Ordered pravastatin 20 mg oral tablet 20, mg, 1, tablet, By Mouth, Daily, 30, tablet, 6, 6, 01/06/08 10:50:17, Print LEO Number, [address] [address], [id number], Constant Indicator Start Date: 01/06/08 Stop Date: 08/03/08 Status: Ordered ranitidine 75 mg oral tablet 75, mg, 1, tablet, By Mouth, 2 times a day, 60, tablet, 2, 2, 12/18/07 12:14:01, Print LEO Number, [address] [address], [id number], Constant Indicator Start Date: 12/18/07 Stop Date: 03/17/08 Status: Ordered simethicone 80 mg oral tablet, chewable See Instructions, 100, tablet, 1, 1, 12/18/07 12:14:35, sig one or two tabs PO q 6 hrs prn, Print LEO Number, [address] [id number], Constant Indicator Start Date: 12/18/07 Status: Ordered [...] Team Personnel Name: Fidel Love MD Position: [facility] Outreach Member Role: PCP Address: Address: [address] [place] [address]- [place] Name: Gennaro Multani MD Position: [facility] Renal MD Member Role: Lifetime Consulting Physician Address: Address: [address] [place] [address] [address] [facility] [place] [address]- Name: Jenna Bruce RN Position: [facility] Hospital Welder Assembler Member Role: Primary Care Nurse Care Team Related Persons Name: RANDOLPH CUNNINGHAM Address: home [address] [place] [address] [place] [address]
--- OUTSIDE RECORDS SUMMARY | 2024-03-31 13:03 | XMS_ITS | Continuity of Care Document ---
Author Organization [facility] Address [address] [place] [address], [address] [place] [address]- Care Team Providers Care Maintenance Mechanic Helper Name Role Phone Fidel Love MD Primary Care Physician [id number] Date(s): 12/29/22 - 06/02/23 [facility] Arana[facility] [address] [place] [address], [address] [place] [address]- Attending Physician: Not on Staff, Attending MD Referring Physician: Fidel Love MD Allergies, Adverse [...] 1, 1, 11/29/07 15:48:55, Print LEO Number, [id number], Constant Indicator Start Date: 11/29/07 Stop Date: 01/28/08 Status: Ordered metoprolol 25 mg oral tablet 25, mg, 1, tablet, By Mouth, 2 times a day, 60, tablet, 6, 6, 01/06/08 10:50:58, Print LEO Number, [address] [address], [id number], Constant Indicator Start Date: 01/06/08 Stop Date: 08/03/08 Status: Ordered multivitamin Multiple Vitamins oral tablet 1, tablet, By Mouth, Daily, 100, 6, 6, 01/06/08 10:53:53, Print LEO Number, [address] [address], [id number], Constant Indicator Start Date: 01/06/08 Status: Ordered NuLYTELY with Flavor Packs oral powder for reconstitution 240 mL, By Mouth, Every 10 minutes, # 4,000 mL, 0 Refills, Maintenance, 04/29/15 9:13:05, 240 mL ByMouth Every 10 minutes Start Date: 04/29/15 Status: Ordered pravastatin 20 mg oral tablet 20, mg, 1, tablet, By Mouth, Daily, 30, tablet, 6, 6, 01/06/08 10:50:17, Print LEO Number, [address] [address], [id number], Constant Indicator Start Date: 01/06/08 Stop Date: 08/03/08 Status: Ordered ranitidine 75 mg oral tablet 75, mg, 1, tablet, By Mouth, 2 times a day, 60, tablet, 2, 2, 12/18/07 12:14:01, Print LEO Number, [address] [address], [id number], Constant Indicator Start Date: 12/18/07 Stop Date: 03/17/08 Status: Ordered simethicone 80 mg oral tablet, chewable See Instructions, 100, tablet, 1, 1, 12/18/07 12:14:35, sig one or two tabs PO q 6 hrs prn, Print LEO Number, [address] [address], Constant Indicator Start Date: 12/18/07 Status: Ordered [...] Team Personnel Name: Fidel Love MD Position: [facility] Outreach Member Role: PCP Address: Address: [address] [place] [address]- Name: Gennaro Multani MD Position: [facility] Renal MD Member Role: Lifetime Consulting Physician Address: Address: [address] [place] [address] [address] [facility] [place] [address]- Name: Teo SMART, Jenna Hare Position: [facility] Hospital Bolter Helper Member Role: Primary Care Nurse Care Team Related Persons Name: RANDOLPH CUNNINGHAM Address: [address] [place] [address]
--- OUTSIDE RECORDS SUMMARY | 2024-03-31 13:03 | XMS_ITS | Continuity of Care Document ---
Author Organization [facility] Address [address] [place] [address]- Care Team Providers Care Lasting Room Supervisor Name Role Phone Fidel Love MD Primary Care Physician [id number] Date(s): 10/26/22 - 11/25/22 [facility] [address] [place] [address]- Allergies, Adverse Reactions, Alerts No Known Allergies Medications fluoxetine 20 mg oral tablet 20, mg, 1, tablet, By Mouth, Daily, 30, tablet, 1, 1, 11/29/07 15:48:55, Print LEO Number, [id number], Constant Indicator Start Date: 11/29/07 Stop Date: 01/28/08 Status: Ordered metoprolol 25 mg oral tablet 25, mg, 1, tablet, By Mouth, 2 times a day, 60, tablet, 6, 6, 01/06/08 10:50:58, Print LEO Number, [address] [address], [id number], Constant Indicator Start Date: 01/06/08 Stop Date: 08/03/08 Status: Ordered multivitamin Multiple Vitamins oral tablet 1, tablet, By Mouth, Daily, 100, 6, 6, 01/06/08 10:53:53, Print LEO Number, [address] [address], [id number], Constant Indicator Start Date: 01/06/08 Status: Ordered NuLYTELY with Flavor Packs oral powder for reconstitution 240 mL, By Mouth, Every 10 minutes, # 4,000 mL, 0 Refills, Maintenance, 04/29/15 9:13:05, 240 mL ByMouth Every 10 minutes Start Date: 04/29/15 Status: Ordered pravastatin 20 mg oral tablet 20, mg, 1, tablet, By Mouth, Daily, 30, tablet, 6, 6, 01/06/08 10:50:17, Print LEO Number, [address] [address], [id number], Constant Indicator Start Date: 01/06/08 Stop Date: 08/03/08 Status: Ordered ranitidine 75 mg oral tablet 75, mg, 1, tablet, By Mouth, 2 times a day, 60, tablet, 2, 2, 12/18/07 12:14:01, Print LEO Number, [address] [address], [id number], Constant Indicator Start Date: 12/18/07 Stop Date: 03/17/08 Status: Ordered simethicone 80 mg oral tablet, chewable See Instructions, 100, tablet, 1, 1, 12/18/07 12:14:35, sig one or two tabs PO q 6 hrs prn, Print LEO Number, [address] [address], Constant Indicator Start Date: 12/18/07 Status: Ordered [...] team information Care Team Personnel Name: Fidel oLve MD [facility] Outreach Member Role: PCP Address: Address: [address] [place] [address]- [place] Name: Gennaro Multani MD [facility] Renal MD Member Role: Lifetime Consulting Physician Address: Address: [address] [place] [address] [address] [facility] [place] [address]- [place] Name: Jenna Bruce RN [facility] Hospital Tubular Riveter Member Role: Primary Care Nurse Care Team Related Persons Name: RANDOLPH CUNNINGHAM Address: [address] [address]
--- OUTSIDE RECORDS SUMMARY | 2024-03-31 13:03 | XMS_ITS | Continuity of Care Document ---
Author Organization [facility] Manuel nSprys [facility] Address [address] [place] [address], [address] [place] [address]- Care Team Providers Care Mix Mill Tender Name Role Phone Ivan JACKSON, Fidel Primary Care Physician [phone] [id number](s): [facility] - [facility] [address] [facility], 4th Floor [place], [place] [address] Attending Physician: Rosemary Rosario MD Referring Physician: Fidel Love MD Allergies, [...] 1, 1, 11/29/07 15:48:55, Print LEO Number, [id number], Constant Indicator Start Date: 11/29/07 Stop Date: 01/28/08 Status: Ordered metoprolol 25 mg oral tablet 25, mg, 1, tablet, By Mouth, 2 times a day, 60, tablet, 6, 6, 01/06/08 10:50:58, Print LEO Number, [address] [address], [id number], Constant Indicator Start Date: 01/06/08 Stop Date: 08/03/08 Status: Ordered multivitamin Multiple Vitamins oral tablet 1, tablet, By Mouth, Daily, 100, 6, 6, 01/06/08 10:53:53, Print LEO Number, [address] [address], [id number], Constant Indicator Start Date: 01/06/08 Status: Ordered NuLYTELY with Flavor Packs oral powder for reconstitution 240 mL, By Mouth, Every 10 minutes, # 4,000 mL, 0 Refills, Maintenance, 04/29/15 9:13:05, 240 mL ByMouth Every 10 minutes Start Date: 04/29/15 Status: Ordered pravastatin 20 mg oral tablet 20, mg, 1, tablet, By Mouth, Daily, 30, tablet, 6, 6, 01/06/08 10:50:17, Print LEO Number, [address] [address], [id number], Constant Indicator Start Date: 01/06/08 Stop Date: 08/03/08 Status: Ordered ranitidine 75 mg oral tablet 75, mg, 1, tablet, By Mouth, 2 times a day, 60, tablet, 2, 2, 12/18/07 12:14:01, Print LEO Number, [address] [address], [id number], Constant Indicator Start Date: 12/18/07 Stop Date: 03/17/08 Status: Ordered simethicone 80 mg oral tablet, chewable See Instructions, 100, tablet, 1, 1, 12/18/07 12:14:35, sig one or two tabs PO q 6 hrs prn, Print LEO Number, [address] [address], Constant Indicator Start Date: 12/18/07 Status: Ordered [...] Confirmed Active Well female adult Confirmed Active Vital Signs Most recent to oldest [Reference Range]: 1 Height 154.00 cm (06/22/23 1:46 PM) Weight 86.36 kg (06/22/23 1:46 PM) Pulse Rate [55-90 bpm] 74 bpm (06/22/23 1:46 PM) Body Mass Index [18.5-24.99 kg/m2] 36.41 kg/m2 *>HHI* (06/22/23 1:46 PM) Blood Pressure [90-138/55-84 mm Hg] 147/ 64mm Hg *H* (06/22/23 1:46 PM) Respiratory Rate [16-30 br/min] 18 br/mi n (06/22/23 1:46 PM) Blood pressure sites Arm, left (06/22/23 1:46 PM) Dry Weight Obtained Via Standing scale (06/22/23 1:46 PM) Social History Social History Type Response Smoking Status Never (less than 100 in lifetime) entered on: 04/27/23 Sex Patient Care team information Care Team Personnel Name: Fidel Love MD Position: [facility] Outreach Member Role: PCP Address: Address: [address] [place] [address]- Name: Gennaro Multani MD Position: [facility] Renal MD Member Role: Lifetime Consulting Physician Address: Address: [address] [place] [address] [address] [facility] [place] [place] [address]- Name: Jenna Bruce RN Position: [facility] Hospital Program Eligibility Specialist Member Role: Primary Care Nurse Care Team Related Persons Name: RANDOLPH CUNNINGHAM Address: home [address] [place] [address]
[2024-03-31 13:44] VITALS: BP 118/63; PULSE 86; RESP 16; TEMP 36.4; O2SAT 95
[2024-03-31 13:58] VITALS: BMI 35.6
--- NOTE | 2024-03-31 14:41 | MHC.SHP ---
Pre-Procedural Eval Section A - 24 Hr Update-Section A only Date of Service: 03/31/24 The patient is an INPATIENT: No Changes since office visit: No Cold of Flu in the past 2 weeks, No New Medical Problems, No Changes in Medication and No Patient answered all questions The patient has been examined within 24 hours of the surgical procedure. The History & Physical has been completed within 30 days and I have reviewed it.: Yes Section B - Complete if H&P > 30 days Chief Complaint: Carpal tunnel syndrome, right upper limb Allergies: Allergies Allergy/AdvReac Type Severity Reaction Status Date / Time latex Allergy Intermediate Rash Verified 02/22/24 14:16 Plan Diagnosis/Plan: Unchanged I have reviewed the history and physical and performed a pertinent physical examination on my patient. No changes have occurred unless specified. Time Spent With Patient Time: Total time managing care of this patient today ____ minutes.
--- NOTE | 2024-03-31 14:42 | W.PM.OPN ---
Operative Note Operative Note Date of Service: 03/31/24 Narrative: Preop diagnosis: 1. Right Carpal tunnel syndrome 2. Right trigger thumb Postop diagnosis: same Procedure: 1. Right Carpal tunnel release 2. Right trigger thumb release Surgeon: Sujata Gates MD Supervisor Agricultural Education: None Anesthesia: local block using 1% lidocaine with epinephrine Findings: Thickened transverse carpal ligament. EBL: Less than 5 mL Specimens: None Complications: None Disposition: Brought to recovery room in stable condition Plan: Follow-up for 10-14 days for wound check and suture removal Indications: The patient is 73 years old, with a right trigger thumb and right carpal tunnel syndrome that has been unresponsive to nonoperative management. The risks and benefits of operative treatment including but not limited to risk of damage to blood vessels, nerves, tendons, infection, persistent pain, persistent symptoms, or possible need for additional surgery were discussed with the patient and the patient wishes to proceed with surgery. Procedure: Once consent was obtained a local block was performed using a combination of 1% lidocaine with epinephrine. The patient was then brought back to the operating suite and placed on the operative table in supine position. The right upper extremity was prepped and draped in a standard surgical fashion. Once assured that we had a good block, a 1.5 cm oblique incision was made centered over the A1 jennifer of the right thumb. The incision was made through the skin to the subcutaneous tissues using a #15 blade. Careful dissection was made down to the level of the A1 jennifer using tenotomy scissors, with care being taken to protect the nearby neurovascular structures. A longitudinal incision was made in the A1 jennifer 1st using a #15 blade, then using tenotomy scissors under direct visualization. The A1 jennifer was noted to be thickened. Following our A1 jennifer release, we no longer saw any locking or catching of the digit with flexion and extension. Once assured that we had a good block, a 2.0 cm longitudinal incision was made centered over the carpal tunnel. The incision was made through the skin to the subcutaneous tissues using a #15 blade. Dissection was made down to the level of the transverse carpal ligament with care being taken to protect the palmar cutaneous nerve. Once the transverse carpal ligament was clearly visualized, a longitudinal incision was made in the transverse carpal ligament 1st using a #15 blade, then using tenotomy scissors under direct visualization. Care was taken to look for and protect the motor branch of the median nerve when seen in this area. Once satisfied with our carpal tunnel release the wound was copiously irrigated with normal saline and hemostasis was obtained with a brief period of local pressure. The skin edges were reapproximated with some 5.0 nylon suture material and a sterile dressing was applied. The patient appears to have tolerated the procedure well and with no complications. All digits were well vascularized at the conclusion of the case.
[2024-03-31 17:19] VITALS: BP 146/72; PULSE 80; RESP 16; TEMP 36.6; O2SAT 95
== END 2024-03-31 17:19 | disposition home or self-care (01) ==
PROVIDERS: PCP Internal Medicine; Visit Provider Orthopaedic Surgery
PROC: (CPT 64721; principal; 2024-03-31 16:50)
PROC: (CPT 26055; 2024-03-31 16:50)
DX: G56.01 Carpal tunnel syndrome, right upper limb (principal); M65.311 Trigger thumb, right thumb; R20.0 Anesthesia of skin; R20.2 Paresthesia of skin; Z91.040 Latex allergy status
CPT/HCPCS: 64721; 26055; J0171; J2003

== ENCOUNTER → 2024-03-31 13:00 | Outpatient (BNV) | payer OTHER, SELFPAY | PROVIDERS: PCP Internal Medicine; Visit Provider Orthopaedic Surgery | DX: M65.311 Trigger thumb, right thumb (principal); G56.01 Carpal tunnel syndrome, right upper limb | CPT/HCPCS: 26055; 64721 ==

== ENCOUNTER 2024-04-15 14:01 | Outpatient (AMB) | payer OTHER, SELFPAY ==
--- NOTE | 2024-04-15 14:04 | A.OFFVIS_ITS ---
Intake Visit Reasons: PO RT CTR/trigger thumb 03/31/24 AR Intake Note: Chrissy is a 74 year old female who presents to the office today for a PO RT CTR/trigger thumb 03/31/24 AR. Pt states she has good ROM and is able to make a fist. Pt denies any numbness or tingling in her fingers. Allergies latex Allergy (Intermediate, Verified 04/15/24 14:06) Rash HPI HPI PO RT CTR/trigger thumb 03/31/24 AR: Details: Patient is a 74 YO F who presents for postoperative evaluation status post right carpal release and trigger thumb release, DOS 03/31/24. Today, the patient reports that she is feeling well, and then the numbness and tingling in her hand has completely resolved. However, the patient states that she has noticed some mild edema and erythema about the incision sites, particularly that of the trigger thumb release. Patient reports no discharge from either incision site. No other acute complaints or concerns at this time. [facility] Surgical History (Updated 03/31/24 @ 13:42 by Isabella Stanton RN) H/O tubal ligation H/O section H/O shoulder surgery Social History (Updated 02/22/24 @ 14:17 by YOGI Olivarez) Alcohol intake: never Patient Tobacco Use Status: Never used Tobacco Current occupational status: retired Review of Systems Const All systems reviewed & are unremarkable except as noted in HPI and below Physical Exam Extrem Other: Patient is alert, oriented, and in no acute distress. Neuro: Normal sensation of the tips of all digits of the right hand at this time Vascular: Cap refill brisk Pain: Patient reports minimal tenderness to palpation of the incision sites over the transverse carpal ligament the level of the A1 jennifer of the right thumb Range of motion painless ROM: Patient is able to make a closed fist and extend all digits of the right hand fully Skin: Well-approximated incision sites on the volar right wrist at the level of the transverse carpal ligament and the A1 jennifer of the right thumb Of note, there is noted to be mild erythema and edema surrounding the incision site, particularly on the thumb No discharge Psych: Appears grossly normal Affect normal Attitude cooperative Assessment & Plan Assessment & Plan (1) Trigger thumb, right thumb: Code(s): M65.311 - Trigger thumb, right thumb Category: Medical (2) Bilateral carpal tunnel syndrome: Code(s): G56.03 - Carpal tunnel syndrome, bilateral upper limbs Category: Medical Plan 1. Right carpal tunnel syndrome status post carpal tunnel release 2. Right trigger thumb status post trigger release Patient appears to be recovering moderately well postoperatively Patient is educated about the typical recovery course Patient is educated that, although my index of suspicion for an acute infection does remain fairly low, due to the erythema and edema surrounding the incision sites, particularly for the trigger thumb release, going to send course of Augmentin Patient understands this and is amenable to this plan Patient will follow-up in 1 week for wound check, sooner with any acute concerns Of note, I did also place the patient in a referral to physiatry, as she stated that she has had some significant issues with sciatic nerve pain Orders: Referrals Physiatry Referral M54.30 - Sciatica, unspecified side Medications: New amoxicillin-pot clavulanate 875-125 mg 1 tab PO BID 14 tabs 0RF 7 days Coding Level of Care Code Global (13441) Diagnoses Trigger thumb, right thumb M65.311 Bilateral carpal tunnel syndrome G56.03
== END 2024-04-15 14:51 | disposition home or self-care (01) ==
PROVIDERS: PCP Internal Medicine
DX: M65.311 Trigger thumb, right thumb (principal); G56.03 Carpal tunnel syndrome, bilateral upper limbs
CPT/HCPCS: 99024

== ENCOUNTER → 2024-04-15 14:01 | Outpatient (BNVA) | payer OTHER, SELFPAY | PROVIDERS: PCP Internal Medicine | DX: G56.02 Carpal tunnel syndrome, left upper limb (principal); M54.30 Sciatica, unspecified side; Z47.89 Encounter for other orthopedic aftercare; Z98.890 Other specified postprocedural states | CPT/HCPCS: 99212 ==

== ENCOUNTER 2024-06-06 10:54 | Outpatient (AMB) | payer OTHER, SELFPAY ==
--- OUTSIDE RECORDS SUMMARY | 2024-06-06 10:56 | XMS_ITS | Continuity of Care Document ---
Author Organization [facility] Address [address] [address] Phone Care Team Providers Care Turbine Operator Name Role Phone Shabbir Yeh PA-C Unavailable Unavaila ble Advance Directives Directive Yes / No Effective Date File Name No Information Encounters Encounter Description Practice Location Reason(s) For Visit Diagnoses Date Provider Providers Copied on Encounter [facility], [address] [address], [place], [place], [id number], [place] tel:[phone] [facility] No Information Ruba Shea. [address] [place], [place], [id number], [place]. tel:[phone] Family History Family Member Type Diagnosis Age At Onset No Information Payers Payer name Insurance type Covered constitution party ID Authoriza tion(s) No Information Social History Type Description Quantity Date Captured Comments Sex Female Smoking Status No Information Chief Complaint And Reason For Visit No Information Reason For Referral Reason For Referral No Information History Of Present Illness Encounter Date Complaint History Of Prese nt Illness No Information Functional Status Date Functional Assessmen t No Information Instructions Date Instruction Additional Infor mation No Information Assessments Type Assessment Date No Information Patient Care Teams Name Effective Dates (start - stop) Status Members No Information
--- NOTE | 2024-06-06 11:06 | MHC.OFFVIS ---
Vital Signs 06/06/24 11:08 Height 5 ft 3 in Weight 175 lb BMI 31.0 Handedness Right Intake Visit Reasons: OV: left hand CTS Intake Note: Chrissy is a 74 year old right hand dominant female who presents today for a follow up of her left hand carpal tunnel syndrome. Hx of right carpal tunnel release 03/31/2024 w/ Dr Gates. Patient reports her left hand is having constant numbness. She wakes up in the morning from her symptoms being at their worse however with activities throughout the day she states the numbness and tingling resolves. She would like to discuss surgical intervention. Allergies latex Allergy (Intermediate, Verified 06/06/24 11:36) Rash HPI HPI OV: left hand CTS: Details: Patient is a 74-year-old female who presents for evaluation of left hand and carpal tunnel syndrome. Patient states that her symptoms are constant, daily, worse at night, however she does state that the symptoms are worst in the morning and do resolve typically by the end of the day. Patient also reports significant pain, particularly at night, that frequently awakens her from sleeping. Patient would like to discuss surgical intervention. No other acute complaints or concerns this time [facility] Surgical History (Updated 03/31/24 @ 13:42 by Isabella Stanton RN) H/O tubal ligation H/O section H/O shoulder surgery Social History (Updated 06/06/24 @ 11:37 by YOGI Moore) Alcohol intake: never Patient Tobacco Use Status: Never used Tobacco Current occupational status: retired Current occupation: right hand Review of Systems Const All systems reviewed & are unremarkable except as noted in HPI and below Physical Exam Vital Signs: BMI result Body Mass Index 31.0 Extrem Other: Patient is alert, oriented, and in no acute distress. Neuro: Normal sensation of the tips of all digits of the left hand at this time Good APB muscle belly firing Good finger cross Vascular: Cap refill brisk Pain: Patient reports minimal tenderness to palpation of the incision sites over the transverse carpal ligament the level of the A1 jennifer of the right thumb Range of motion painless ROM: Patient is able to make a closed fist and extend all digits of the right hand fully Skin: Well-approximated incision sites on the volar right wrist at the level of the transverse carpal ligament and the A1 jennifer of the right thumb No erythema, edema, ecchymosis noted No discharge Psych: Appears grossly normal Affect normal Attitude cooperative Results Reviewed Results Reviewed: IMPRESSION: 1. This is an abnormal study. 2. There is electrodiagnostic evidence for bilateral moderate-severe median neuropathy at the wrist, consistent with carpal tunnel syndrome. 3. There is no electrodiagnostic evidence for ulnar neuropathy, brachial plexopathy, or cervical radiculopathy. Thank you for your kind referral. Mariana Fernando MD, NNAMDI Assessment & Plan Assessment & Plan (1) Bilateral carpal tunnel syndrome: Code(s): G56.03 - Carpal tunnel syndrome, bilateral upper limbs Category: Medical Plan 1. Carpal tunnel syndrome, left Symptoms intermittent, daily, worse night I educated the patient about the condition. I discussed both operative and nonoperative treatment options. The patient would like to proceed with surgery. The risks and benefits of operative treatment were discussed with the patient and the patient wishes to proceed with surgery. These risks include, but are not limited to, risk of damage to blood vessels, nerves, tendons, infection, recurrence, incomplete relief of preoperative symptoms, persistent pain, possible need for further surgery, and the risks associated with regional blocks and/or anesthesia. Plan is to take the patient to the operating room at some point in the next few weeks for the following procedures: 1. Left carpal tunnel release under local anesthesia All of the preoperative paperwork including the consent was discussed today. All of the patient's questions were answered in the clinic today. The patient understands that they will be in contact with our online services manager to discuss scheduling their procedure. Patient denies diabetes, blood thinners, asthma, heart issues, lung issues, kidney issues, or current smoking. 2. Carpal tunnel syndrome, right Status post carpal tunnel release DOS 03/31/2024 Patient appears to be recovering well postoperatively Patient is educated about the typical recovery course At this time, patient is informed that it appears she has recovered very well from her surgery, and requires no acute follow-up for this patient was amenable to this plan Coding Level of Care Code Est Pt Level 4 (15395) Diagnoses Bilateral carpal tunnel syndrome G56.03
[2024-06-06 11:08] VITALS: BMI 31.0
== END 2024-06-06 11:39 | disposition home or self-care (01) ==
LOC: HO.HOS 10:54
PROVIDERS: PCP Internal Medicine
DX: G56.03 Carpal tunnel syndrome, bilateral upper limbs (principal)
CPT/HCPCS: 99214

== ENCOUNTER 2024-06-06 10:54 | Outpatient (REF) | payer OTHER, SELFPAY ==
--- OUTSIDE RECORDS SUMMARY | 2024-06-06 11:46 | XMS_ITS | Continuity of Care Document ---
Author Organization [facility] Address [address] [address] Phone Care Team Providers Care Lpn Rn Name Role Phone Shabbir Yeh PA-C Unavailable Unavaila ble Advance Directives Directive Yes / No Effective Date File Name No Information Encounters Encounter Description Practice Location Reason(s) For Visit Diagnoses Date Provider Providers Copied on Encounter [facility], [address] [address], [place], [place], [id number], [place] tel:[phone] [facility] No Information Ruba Shea. [address], [place], [id number], [place]. tel:[phone] Family History Family Member Type Diagnosis Age [...]
== END 2024-06-06 10:55 | disposition home or self-care (01) ==
LOC: HO.HOSX 10:54
PROVIDERS: PCP Internal Medicine
DX: M54.9 Dorsalgia, unspecified (principal); M54.50 Low back pain, unspecified; G89.29 Other chronic pain; G56.03 Carpal tunnel syndrome, bilateral upper limbs; R20.0 Anesthesia of skin; Z98.890 Other specified postprocedural states
CPT/HCPCS: 72100; 99212

== ENCOUNTER 2024-06-06 11:29 | Outpatient (AMB) | payer OTHER, SELFPAY ==
[2024-06-06 11:30] VITALS: BMI 31.0
--- NOTE | 2024-06-06 11:30 | MHC.OFFVIS ---
Vital Signs 06/06/24 11:30 Height 5 ft 3 in Weight 175 lb BMI 31.0 Intake Visit Reasons: MOBILE PATROL OFFICER-Sciatica, unspecified side Intake Note: Chrissy is a 74 year old female who presents today as a new patient for evaluation of sciatic pain, referred by AFISAL Valdez. States her LBP started about 1 yr ago after a fall down a flight, intermittent fall. Pain is localized in her mid area of her LB, at times she is having radiating pain down her leg to her thigh. Denies injection or P.T Coiler Operator Required: Yes Allergies latex Allergy (Intermediate, Verified 06/06/24 11:36) Rash HPI Comments Details: Previously seen by Pa Grider BA, hand surgery. I have seen patient previously for EMG. Referred to physiatry for evaluation of lower back pain. No past imaging on record. At least 1 year after a fall of back pain. Points to midline. Does not radiate. No groin pain. No numbness on feet. Separately, feels stiffness on posterior thighs with walking, more recently. Separate right ankle pain as well. No PT yet. [facility] Surgical History (Updated 03/31/24 @ 13:42 by Isabella Stanton RN) H/O tubal ligation H/O section H/O shoulder surgery Social History (Updated 06/06/24 @ 11:37 by Blanca Welch [facility]) Alcohol intake: never Patient Tobacco Use Status: Never used Tobacco Current occupational status: retired Current occupation: right hand Review of Systems Const All systems reviewed & are unremarkable except as noted in HPI and below Physical Exam Vital Signs: BMI result Body Mass Index 31.0 Constitutional: Patient appears to be in no acute distress, well nourished and well developed. Patient was appropriately conversant and oriented. Good historian. MSK: No specific abnormalities found on inspection of the spine and all extremities. No tenderness on SI or GT. Paraspinals nontender. Lumbar ROM was full. Bilateral hip, knee and ankle ROM WNL. No ligamentous laxity or crepitance. No increased effusion. Slump sit negative. Strength is 5/5 in all muscle groups tested. No increased tone noted. Neurological: Neurologic examination of the upper and lower extremities was nonfocal with intact sensation, muscle stretch reflexes and without focal motor deficits . Babinski was down going bilaterally. Clonus was negative. Gait is non-antalgic without loss of balance. Results Reviewed Results Reviewed: I reviewed records from the following: Hand surgery Assessment & Plan Assessment & Plan (1) Chronic low back pain: Code(s): M54.50 - Low back pain, unspecified; G89.29 - Other chronic pain Category: Medical Qualifiers: Back pain laterality: midline Sciatica presence: without sciatica Qualified Code(s): M54.50 - Low back pain, unspecified; G89.29 - Other chronic pain Plan Nonradicular lower back pain, chronic. Suspect lumbar spondylosis. Sending for lumbar x-rays today. Referring patient to PT. Assessment and plan discussed with patient, and patient was agreeable. All questions were answered thoroughly. Mariana Fernando MD, NNAMDI Board Certified, [place] [employer] and [employer] (ABPMR) Board Certified, [place] [employer] Electro[employer] (ABEM) Orders: Orders XR lumbar spine 2-3V Today G89.29 - Other chronic pain, M54.50 - Low back pain, unspecified, M54.9 - Dorsalgia, unspecified PT Evaluation and Treatment Today G89.29 - Other chronic pain, M54.50 - Low back pain, unspecified Coding Level of Care Code Est Pt Level 4 (26181) Diagnoses Chronic midline low back pain without sciatica M54.50; G89.29 Back pain laterality: midline Sciatica presence: without sciatica
--- OUTSIDE RECORDS SUMMARY | 2024-06-06 11:31 | XMS_ITS | Continuity of Care Document ---
Author Organization [facility] Address [address] [address] Phone Care Team Providers Care Head Resident Name Role Phone Shabbir Yeh PA-C Unavailable Unavaila ble Advance Directives Directive Yes / No Effective Date File Name No Information Encounters Encounter Description Practice Location Reason(s) For Visit Diagnoses Date Provider Providers Copied on Encounter [facility], [address] [address], [place], [place], [id number], [place] tel:[phone] [facility] No Information Ruba Shea. [address], [place], [id number], [place]. tel:[phone] Family History Family Member Type Diagnosis Age At Onset No Information Payers Payer name Insurance type Covered libertarian ID Authoriza tion(s) No Information Social History [...]
== END 2024-06-06 12:26 | disposition home or self-care (01) ==
LOC: HO.HOS 11:29
PROVIDERS: PCP Internal Medicine; Visit Provider Physical Medicine & Rehabilitation
DX: M54.50 Low back pain, unspecified (principal); G89.29 Other chronic pain
CPT/HCPCS: 99213

== ENCOUNTER 2024-07-04 13:02 | Outpatient (AMB) | payer OTHER, SELFPAY ==
--- NOTE | 2024-07-04 13:09 | A.OFFVIS_ITS ---
Vital Signs 07/04/24 13:10 Height 5 ft 3 in Weight 193 lb 4 oz BMI 34.2 BP 130/80 Blood Pressure Location Lt brachial Position Sitting Intake Visit Reasons: follow up Sleep Intake Note: has CPAP to make sure doing ok Allergies latex Allergy (Intermediate, Verified 07/04/24 13:15) Rash Medication List - Last Reconciled 07/04/24 by Mana Osborn PA-C alendronate mg PO amlodipine 5 mg PO DAILY Brace,wrist (Wrist Brace - one) Bilateral carpal tunnel wrist splints, apply QHS and remove in am. calcium carbonate-vitamin D3 600 mg-10 mcg (400 unit) 1 tab PO BID fexofenadine 180 mg PO DAILY levocetirizine 5 mg PO DAILY lisinopril 40 mg PO DAILY paroxetine HCl 20 mg PO DAILY prednisolone acetate 1% drps ophthalmic (eye) simvastatin 40 mg PO BEDTIME HPI Comments Details: 73-yr-old female presents for new in-person patient visit for sleep consultation and to discuss results of her recent in-lab PSG results. In-lab PSG results were c/w severe obstructive sleep apnea w/ AHI 37/hr, O2 caleb 82%, and PLMS 38/hr w/ PLMS arousal index of 8/hr. Titration was completed in Jan 2024 Pressurs are set to [id number], she continues to have issues with her mask and pressures. Discussed using nose/ pillow and try to get smaller mask if needed. She cleans the mask, changes filters and fills the reservoir as needed. Discussed the importance of compliance as she has hypertension. Her nightmares/ Visual Hallucinations have improved since starting Paroxetine per her daughter. Pt is accompanied by her dtr, who assists w/ Kiswahili interpretation per pt request. Her snoring has decreased. She still has leg pain bilaterally in the hips radiates down her buttocks. (shock like), not muscular. Pt underwent in-lab sleep study d/t snoring, apneas, daytime tiredness and fatigue. Pt denies s/s restless legs, numbness, tingling. She does endorse worsening bilateral hand pain and numbness, especially after waking up. Had normal EMG/NCS approx 2 yrs ago, but the numbness is especially worse now, in the hands bilaterally when picking up items. Mood, memory and diet are stable. PT - Sciatica FINDINGS: Right median motor nerve showed prolonged distal latency, small amplitude and slow conduction velocity. Left median motor nerve showed prolonged distal latency, normal amplitude and normal conduction velocity. Bilateral median sensory nerves showed absent response. All other nerves tested were within normal. Concentric needle EMG was performed in selected muscles of the bilateral upper extremities. Study did not reveal signs of electric abnormalities as shown in the table above. IMPRESSION: 1. This is an abnormal study. 2. There is electrodiagnostic evidence for bilateral moderate-severe median neuropathy at the wrist, consistent with carpal tunnel syndrome. 3. There is no electrodiagnostic evidence for ulnar neuropathy, brachial plexopathy, or cervical radiculopathy. [facility] Surgical History H/O tubal ligation H/O section H/O shoulder surgery Social History Alcohol intake: never Patient Tobacco Use Status: Never used Tobacco Current occupational status: retired Current occupation: right hand Review of Systems Const All systems reviewed & are unremarkable except as noted in HPI and below Physical Exam Vital Signs: Last Vital Signs BP 130/80 07/04/24 13:10 BMI result Body Mass Index 34.2 Const General: cooperative, comfortable and no acute distress Nutritional Appearance: obese (BMI 32) Orientation/consciousness: patient oriented x3 HEENT Face and sinus: Yes face symmetric Eyes Pupils: Equal, round and reactive pupils present Neck Neck: Yes full ROM and Yes supple Resp Effort & Inspection: normal respiratory effort and able to speak in complete sentences Neuro General: patient oriented x3 and moves all extremities Cranial nerves: Yes CN's II-XII intact bilaterally, Yes Facial sensation intact/muscles of mastication intact, Yes Equal, round and reactive pupils present, Yes Normal accommodation reflex present, Yes Bilaterally intact EOM present, Yes Nystagmus not present, Yes Normal facial strength present, Yes Midline tongue present, Yes Ability to bilaterally rotate head present and Yes Ability to bilaterally elevate shoulders present Cognition (Neuro): normal cognition Gait exam (Neuro): Normal gait present Motor exam (neuro): 5/5 motor strength present throughout and Normal motor muscle tone present throughout Deep tendon reflexes (DTR's): Right triceps reflex intensity grade: 2+, Left triceps reflex intensity grade: 2+, Rt Biceps (C5, C6): 2+, Left biceps reflex intensity grade: 2+, Right brachioradialis reflex intensity grade: 2+, Left brachioradialis reflex intensity grade: 2+, Right patellar reflex intensity grade: 2+, Left patellar reflex intensity grade: 2+, Right ankle reflex intensity grade: 2+ and Left ankle reflex intensity grade: 2+ Coordination: [id number] test normal Results Reviewed Results Reviewed: KATHY Compliance Report 03/2024- 07/04/2024 >4 hours 45/90 days 50% Total Avg use 2 hours and 42 min Pressures set at [id number] Leaks 9.9-55.8 AHI is 4.8 Assessment & Plan Assessment & Plan (1) Sciatica neuralgia: Code(s): M54.30 - Sciatica, unspecified side Category: Medical Qualifiers: Laterality: bilateral Qualified Code(s): M54.31 - Sciatica, right side; M54.32 - Sciatica, left side Plan Compliance of CPAP is stressed: #1 modifiable RF for Cardiovascular event is Hypertension. Good BP control along with Mediterranean diet/ or Dash Diet will help with blood pressure. Monitor Blood Pressure, if low you may consult with PCP re: orthostatic BP, if she continues to have balance and gait problems. F/U in 6 months or you may call or message the clinic as needed. Orders: Orders PT Evaluation and Treatment Today M54.30 - Sciatica, unspecified side Coding Level of Care Code Est Pt Level 4 (67784) Diagnoses Bilateral sciatica M54.31; M54.32 Laterality: bilateral
[2024-07-04 13:10] VITALS: BP 130/80; BMI 34.2
== END 2024-07-04 14:33 | disposition home or self-care (01) ==
PROVIDERS: PCP Internal Medicine; Visit Provider Physician Assistant Medical
DX: M54.31 Sciatica, right side (principal); M54.32 Sciatica, left side
CPT/HCPCS: 99214

== ENCOUNTER → 2024-07-04 13:02 | Outpatient (BNVA) | payer OTHER, SELFPAY | PROVIDERS: PCP Internal Medicine; Visit Provider Physician Assistant Medical | DX: M54.31 Sciatica, right side (principal); M54.32 Sciatica, left side | CPT/HCPCS: 99212 ==

== ENCOUNTER 2024-07-17 13:56 | Outpatient (REF) | payer OTHER, SELFPAY ==
--- OUTSIDE RECORDS SUMMARY | 2024-07-18 15:40 | XMS_ITS | Clinical Summary ---
Author Organization [employer] Address [address] [place] [address] Care Team Providers Care Risk And Insurance Consultant Name Role Phone Fidel Love MD Primary Care Provider [phone] Allergies No known active allergies Medications * This document contains information received from the source organization and may not represent a complete record from that organization. lisinopril 40 MG tablet 12/23/19 23 Active Blood Pressure kitIndications: Primary hypertension To check the BP daily 1 kit 06/15/20 23 Active Diclofenac Sodium 1 % gelIndications: Achilles tendinitis of right lower extremity To apply to the affected area 3 times a day 100 g 06/15/20 23 Active doxepin (SINEquan) 150 MG capsule Take 1 capsule (150 mg) by mouth at bedtime. 30 capsule 11 01/11/20 24 025 Active Calcium + Vitamin D3 600-10 MG-MCG tablet Place 600 mg into mouth between cheek and gum Once per day. TAKE 1 TABLET BY MOUTH TWICE A DAILY 60 tablet 5 02/18/20 24 Active alendronate (Fosamax) 70 MG tablet Take 1 tablet (70 mg) by mouth every 7 (seven) days. Take in the morning with a full glass of water, on an empty stomach, and do not take anything else by mouth or lie down for the next 30 min. 30 tablet 3 02/18/20 24 Active hydrocortisone acetate 1 % ointment Apply 1 Application. topically if needed in the morning and at bedtime (rectal pain/itching ). 30 g 3 03/13/20 24 Active PARoxetine (Paxil) 20 MG tabletIndicatio ns:Moderate episode of recurrent major depressive disorder (CMS/HCC) TAKE 1 TABLET BY MOUTH EVERY DAY 30 tablet 11 04/04/20 24 Active simvastatin (Zocor) 40 MG tabletIndicatio ns:Hypercholest erolemia TAKE 1 TABLET BY MOUTH AT BEDTIME 30 tablet 11 04/04/20 24 Active nystatin (Nystop) 223672 UNIT/GM powderIndicatio ns:Skin rash Apply topically 2 times daily. 60 g 1 06/23/20 24 025 Active Tirzepatide-Vikas ght Management (Zepbound) 2.5 MG/0.5ML solution auto-injectorIn dications:Obesi ty (BMI 30-39.9) Inject 0.5 mL (2.5 mg) under the skin 1 (one) time per week. 2 mL 1 07/01/19 25 Active fexofenadine (Gogo Allergy) 180 MG tabletIndicatio ns:Rash due to allergy TAKE 1 TABLET BY MOUTH EVERY MORNING 30 tablet 5 07/03/19 25 Active Phentermine-Top iramate 3.75-23 MG capsule sustained-relea se 24 hrIndications:O besity (BMI 30-39.9) 1 tab daily 30 capsule 3 07/10/19 25 Active fexofenadine (Gogo Allergy) 180 MG tabletIndicatio ns:Rash due to allergy TAKE 1 TABLET BY MOUTH EVERY MORNING 30 tablet 3 02/29/20 24 025 Discontinued(Re order (will not trigger notification to Pharmacy)) bisacodyl (Dulcolax) 5 MG EC tabletIndicatio ns:Constipation , unspecified constipation type Take 1 tablet (5 mg) by mouth if needed each day for constipation . Do not crush, chew, or split. 30 tablet 05/27/20 24 025 Tirzepatide-Vikas ght Management (Zepbound) 2.5 MG/0.5ML solution auto-injectorIn dications:Obesi ty (BMI 30-39.9) Inject 0.5 mL (2.5 mg) under the skin 1 (one) time per week. 2 mL 1 05/27/20 24 025 Discontinued(Re order (will not trigger notification to Pharmacy)) Phentermine-Top iramate 3.75-23 MG capsule sustained-relea se 24 hrIndications:O besity (BMI 30-39.9) 1 tab daily 30 capsule 3 07/07/19 25 025 Discontinued(Re order (will not trigger notification to Pharmacy)) Active Problems Problem Noted Date Diagnosed Date Epigastric burning sensation 03/06/2024 Fracture of twelfth thoracic vertebra 03/06/2024 Internal hemorrhoids 03/06/2024 Microalbuminuria 03/06/2024 Severe obesity (BMI 35.0-39.9) with comorbidity 03/06/2024 Stricture of anus 03/06/2024 Benign hypertension 03/06/2024 Chronic kidney disease, stage 2 (mild) Dysuria 01/01/2023 Assessment & Plan (01/01/2023 2:11 PM EDT): Will send urine for culture. Skin rash 01/01/2023 Assessment & Plan (01/01/2023 2:11 PM EDT): Patient with erythema and irritation under abdominal skin folds. Will refer to dermatology for further evaluation and start on antifungal cream. Advised to keep area dry. Abdominal distension 01/01/2023 Leser-Trelat sign present 01/01/2023 Assessment & Plan (01/01/2023 10:52 PM EDT): Patient with Seborrheic Keratosis under abdominal skin folds. With associated erythema and irritation, and abdominal distention. Will send for abdominal pelvic image to r/o intraabdominal malignancy. She also has a referral to GI already sent by PCP Tremor 01/01/2023 Assessment & Plan (01/01/2023 2:07 PM EDT): Patient with voluntary and involuntary tremors. Will refer to neurologist for further evaluation. Parapelvic renal cyst 03/31/2022 Hyperlipidemia 02/09/2022 Proteinuria 12/23/2021 Pain in female pelvis 11/21/2017 Vaginal dryness 05/15/2013 Depression 09/29/2011 Diarrhea 09/29/2011 Hypertension 09/29/2011 Pure hypercholesterolemia 09/29/2011 Urinary incontinence 09/29/2011 Bad memory 09/29/2011 Dyspepsia 12/20/2007 Hypercholesterolemia 12/20/2007 Encounters Date Type Department Care Team Description 07/08/2024 Telephone [facility] [address] [place] [address] Fidel Love MD 07/07/2024 Orders Only [facility] [address] [place] [address] Fidel Love MD Obesity (BMI 30-39.9) (Primary Dx) 07/03/2024 Refill [facility] [address] [place] [address] Fidel Love MD Rash due to allergy 06/30/2024 Refill [facility] [address] [place] [address] Fidel Love MD Obesity (BMI 30-39.9) 06/23/2024 Orders Only [facility] [address] [place] [address] Fidel Love MD Skin rash (Primary Dx) 06/03/2024 Telephone [facility] [address] [place] [address] Fidel Love MD Prior Authorization 05/30/2024 Telephone [facility] [address] [place] [phone] Peggy Loja, retention manager 05/28/2024 Telephone [facility] [address] [place] [address] Fidel Love MD 05/27/2024 3:45 PM EST Office Visit [facility] [address] [place] [address] Fidel Love MD Constipation, unspecified constipation type (Primary Dx); Intractable right heel pain; Obesity (BMI 30-39.9) 05/27/2024 Travel 05/16/2024 Orders Only [facility] [address] [place] [address] ProviderChris MD 05/07/2024 Telephone [facility] [address] [place] [address] Fidel Love MD Appointment Request from Last 3 Months Social History Tobacco Use Types Packs/Day Years Used Date Smoking Tobacco: Never Passive Smoke Exposure: Never Smokeless Tobacco: Never Tobacco Cessation:Counseling Given: Not Answered Depression Answer Date Recorded Patient Health Questionnaire-9 Score 0 05/27/2024 Patient Health Questionnaire-9 Score 0 05/27/2024 Last PHQ-9: Questionnaire Data Not on file 1 07/28/2023 Housing Stability Answer Date Recorded What is your housing situation today? I have otisyazmin lundy [address] you li ve. Do you have problems with any of the following? None of the above 2023 Food Insecurity Answer Date Recorded Within the past 12 months, y ou worried that your food would run out before you got money to buy more: Not on file 2023 Within the past 12 months,th e food you bought just didn't last and you didn't have enough money to get more: Never True Transportation Answer Date Recorded In the past 12 months, has l ack of transportation kept you from medical appts, meetings, work or from getting things needed for daily living? No 2023 Utilities Answer Date Recorded In the past 12 months, has t he electric, gas, oil or water company threatened to shut off services in your home? No 2023 Depression Answer Date Recorded Patient Health Questionnaire-2 Score 0 05/27/2024 Comments Unknown Sex and Gender Information Value Date Recorded Sex Assigned at Female 04/24/2022 10:18 AM EDT Legal Sex Female 10:18 AM EDT Gender Identity Female 02/12/2023 10:14 AM EDT Sexual Orientation Straight 04/24/2022 10 :18 AM EDT Last Filed Vital Signs Vital Sign Reading Time Taken Comments Blood Pressure 130/73 05/27/2024 1:18 PM EST Pulse 78 05/27/2024 1:18 PM EST Temperature 36.6 ??C (97.8 ??F) 05/27/2024 1:18 PM ES T Respiratory Rate 18 05/27/2024 1:18 PM EST Oxygen Saturation 98% 05/27/2024 1:18 PM EST Inhaled Oxygen Concentration - - Weight 89.4 kg (197 lb 3.2 oz) 05/27/2024 1:18 P M EST Height 154.9 cm (5' 1 ) 05/27/2024 1:18 PM EST Body Mass Index 37.26 05/27/2024 1:18 PM EST Plan of Treatment Health Maintenance Due Date Last Done Comments Hepatitis C Screening 1968 DTaP/Tdap/Td Vaccines (2 - Td or Tdap) 07/22/2020 07/22/2010 Zoster Vaccines (3 of 3) 03/02/2022 01/05/2022, 09/24 RSV Patients and Patients Aged 60 years or older (1 - 1-dose 75+ series) 2023 SDOH Screening 11/07/2023 11/06/2022 COVID-19 Vaccine ( season) 2024 04/22/2022, 06/23/2021, 10/20/2020, Additional history exists Influenza Vaccine (#1) 2024 8, 05/07/2017, 2014, Additional history exists Tobacco Screening 03/13/2025 03/13/2024 Alcohol/Substance Use Screening 05/27/2025 05/27/2024 Depression Screening 05/27/2025 05/27/2024, 05/27/20 24 Lipid Panel 12/21/2026 12/21/2021, 07/26, 08/30/2020 Colonoscopy Discontinued 06/08/2015 Colorectal Cancer Screening Discontinued Pneumococcal Vaccine: 65+ Years Completed 01/05/2022, 05/07/2017, 05/17/2010 CT Colonography Discontinued FIT DNA/Cologuard Discontinued FIT Discontinued FOBT Discontinued HIB Vaccines Aged Out No longer eligi ble based on patient's age to complete this topic HPV Vaccines Aged Out No longer eligi ble based on patient's age to complete this topic Hepatitis A Vaccines Aged Out No long er eligible based on patient's age to complete this topic Hepatitis B Vaccines Aged Out No long er eligible based on patient's age to complete this topic IPV Vaccines Aged Out No longer eligi ble based on patient's age to complete this topic Meningococcal Vaccine Aged Out No gaby justina eligible based on patient's age to complete this topic RSV under 20 months Aged Out No longe r eligible based on patient's age to complete this topic Rotavirus Vaccines Aged Out No longer eligible based on patient's age to complete this topic Sigmoidoscopy Discontinued Procedures Procedure Name Priority Date/Time Associated Diagnosis Comments AMB REFERRAL TO ORTHOPAEDIC SURGERY Routine 07/04/2024 Intractable right heel pain TRANSTHORACIC ECHO (TTE) COMPLETE Routine 05/15/2024 10:24 AM EST LIPID PANEL, STANDARD Routine 12/21/2021 8:39 AM EDT HM COLONOSCOPY Routine 06/08/2015 from Last 3 Months or Most Recently Relevant to Health Maintenance Results * Referral to Orthopaedic Surgery (07/04/2024) Fidel Love MD OUTPATIENT REFERRAL ORDERAB LES Final Result * Transthoracic echo (TTE) complete (05/15/2024 10:24 AM EST) Historical Provider CV ECHO PROCEDURES Final Result * (ABNORMAL) LIPID PANEL, STANDARD (12/21/2021 8:39 AM EDT) Chol/HDLC Ratio 3.2 <5.0 (calc) [facility] Cholesterol, Total 188 <200 mg/dL [facility] HDL Cholesterol 58 > OR = 50 mg/dL [facility] LDL Cholesterol 98 mg/dL (calc) [facility] Comment: Reference range: <100 ?? Desirable range <100 mg/dL for primary prevention; ?? <70 mg/dL for patients with CHD or diabetic patients ?? with > or = 2 CHD risk factors. ?? LDL-C is now calculated using the Sofie ?? calculation, which is a validated novel method providing ?? better accuracy than the Friedewald equation in the ?? estimation of LDL-C. ?? Darion YODER et al. JAIME. 2013;310(19): 4263-6060 ?? (http://education.[employer]/faq/JTO958) Non-HDL Cholesterol 130(H) <130 mg/dL (calc) [facility] Comment: For patients with diabetes plus 1 major ASCVD risk ?? factor, treating to a non-HDL-C goal of <100 mg/dL ?? (LDL-C of <70 mg/dL) is considered a therapeutic ?? option. Triglycerides 201(H) <150 mg/dL [facility] Comment: ?? If a non-fasting specimen was collected, consider repeat triglyceride testing on a fasting specimen if clinically indicated. ?? Stu et al. J. of Clin. Lipidol. 2015;9:129-169. ?? 12/21/2021 8:39 AM EDT Fidel Love MD LAB BLOOD ORDERABLES Final Result [facility] [address] * Colonoscopy (06/08/2015) Colonoscopy Normal Normal Narrative Ericka Liao - 06/08/2015 Recommended 10 year follow up Historical Provider HEALTH MAINTENANCE Final Result from Last 3 Months or Most Recently Relevant to Health Maintenance Insurance [facility] Care Teams Risk And Insurance Consultant Relationship Specialty Start Date End Date Fidel Love MD [address] [place] [id number] PCP - General Internal Medicine 04/25/12
--- OUTSIDE RECORDS SUMMARY | 2024-07-18 15:40 | XMS_ITS | Encounter Summary ---
Author Organization [employer] Address [address] [place] [address] Care Team Providers Care Cinder Block Maker Name Role Phone Fidel Love MD Primary Care Provider [phone] Encounter Details Date Type Department Care Team ([facility] st Contact Info) Description 11/16/2023 Orders Only [facility] [address] [place], [place] [phone] Fidel Love MD [address] [place] [address] Seasonal allergies (Primary Dx); Achilles tendinitis of right lower extremity Social History Tobacco Use Types Packs/Day Years Used Date Smoking Tobacco: Never Passive Smoke Exposure: Never Smokeless Tobacco: Never Depression Answer Date Recorded Patient Health Questionnaire-9 Score 9 11/06/2022 Housing Stability Answer Date Recorded What is your housing situation today? I have otis lundy [address] you [...] Answer Date Recorded Patient Health Questionnaire-2 Score 3 11/06/2022 Comments Unknown Sex and Gender Information Value Date Recorded Sex Assigned at Female 04/24/2022 10:18 AM EDT Legal Sex Female 10:18 AM EDT Gender Identity Female 02/12/2023 10:14 AM EDT Sexual Orientation Straight 04/24/2022 10 :18 AM EDT documented as of this encounter Plan of Treatment Not on file documented as of this encounter Visit Diagnoses Diagnosis Seasonal allergies- Primary Allergic rhinitis, cause unspecified Achilles tendinitis of right lower extremity documented in this encounter Additional Health Concerns Assessment Noted Time PHQ-9 Depression Total Score: 9 11/07/19 23 4:10 PM EDT documented as of this encounter Care Teams Cinder Block Maker Relationship Specialty Start Date End Date Fidel Love MD [address] [place] [address] PCP - General Internal Medicine 04/25/12 documented as of this encounter
--- OUTSIDE RECORDS SUMMARY | 2024-07-18 15:40 | XMS_ITS | Encounter Summary ---
Author Organization [facility] Address [address] [place] [address] Phone Care Team Providers Care Attic Fans Mechanic Name Role Phone Fidel Love MD Primary Care Provider [phone] Encounter Details Date Type Department Care Team (Late Contact Info) Description 05/01/2024 Documentation Only [facility] [address] [place] [address] Jenna Tapia [address] [place] [address] Social History Tobacco Use Types Packs/Day Years Used Date Smoking Tobacco: Never Assessed Comments Unknown Sex and Gender Information Value Date Recorded Sex Assigned at Not on file Legal Sex Female 4:12 PM EDT Gender Identity Not on file Sexual Orientation Not on file documented as of this encounter Plan of Treatment Upcoming Encounters Date Type Department Care Team (Late Contact Info) Description 10/31/2024 3:30 PM EDT Office Visit [facility] [address] [place] [address] Gennaro Multani MD [address] [place] [address] [place] [address] documented as of this encounter Visit Diagnoses Not on filedocumented in this encounter Care Teams Attic Fans Mechanic Relationship Specialty Start Date End Date Fidel Love MD PCP - General Internal Medicine 12/30/21 documented as of this encounter
--- OUTSIDE RECORDS SUMMARY | 2024-07-18 15:40 | XMS_ITS | Encounter Summary ---
Author Organization [employer] Address [address], [place] [address] Care Team Providers Care Cook Frozen Dessert Name Role Phone Fidel Love MD Primary Care Provider [phone] Reason for Referral * Consultation (Routine) - Closed Specialty Diagnoses / Procedures Referred By Contgallo t Referred To Contact Neurology Diagnoses Tremor Fidel Love MD [address] [place] [address] Phone: tel: fax: Laura Minaya MD [address] [place] [address] Phone: tel: fax: Referral ID Status Reason Start Date Expiration Date V isits Requested Visits Authorized [id number] Closed Specialty Services Required 07/17/2023 07/16/2024 1 1 Encounter Details Date Type Department Care Team (Late st Contact Info) Description 07/17/2023 Orders Only [facility] [address] [place], [place] [phone] Fidel Love MD [address] [place], [place] [phone] Tremor (Primary Dx) Social History Tobacco Use Types Packs/Day Years [...] as of this encounter Plan of Treatment Scheduled Referrals Name Type Priority Associated Diagnoses Orde r Schedule Referral to Neurology Outpatient Referral Routine Tremor Expected: 07/17/2023 (Approximate), Expires: 07/17/2024 documented as of this encounter Visit Diagnoses Diagnosis Tremor- Primary Abnormal involuntary movements documented in this encounter Additional Health Concerns Assessment Noted Time PHQ-9 Depression Total Score: 9 11/07/19 23 4:10 PM EDT documented as of this encounter Care Teams Cook Frozen Dessert Relationship Specialty Start Date End Date Fidel Love MD [address] [place] [address] PCP - General Internal Medicine 04/25/12 documented as of this encounter
--- OUTSIDE RECORDS SUMMARY | 2024-07-18 15:40 | XMS_ITS | Clinical Summary ---
Author Organization [facility] Address [address] [place] [address] [place] [address] Phone Care Team Providers Care Tube Operator Name Role Phone Fidel Love MD Primary Care Provider [phone] Allergies No known active allergies Medications Calcium 600-200 MG-UNIT per tablet Take 1 tablet by mouth 1 (one) time each day Active naproxen (NAPROSYN) 375 MG tablet Take 375 mg by mouth in the morning and 375 mg in the evening. Take with meals. Active simvastatin (ZOCOR) 40 MG tablet Take 40 mg by mouth every night Active fexofenadine (SUSIE) 180 MG tablet Take 180 mg by mouth 1 (one) time each day Active metoprolol tartrate 25 MG tablet Take 25 mg by mouth in the morning and 25 mg in the evening. Active aspirin (ST SARAH) 81 MG EC tablet Take 81 mg by mouth 1 (one) time each day Active escitalopram (LEXAPRO) 10 MG tablet Take 10 mg by mouth 1 (one) time each day Active memantine (NAMENDA) 10 MG tablet Take 10 mg by mouth in the morning and 10 mg in the evening. Active lisinopril 40 MG tablet Take 1 tablet (40 mg total) by mouth 1 (one) time each day 90 tablet 3 02/22/2024 02/22/20 25 Active amLODIPine (NORVASC) 5 MG tablet Take 1 tablet (5 mg total) by mouth 1 (one) time each day 30 tablet 11 04/07/2024 04/07/20 25 Active Dapagliflozin Propanediol 5 MG tablet Take 5 mg by mouth 1 (one) time each day 30 tablet 3 05/09/2024 Active Active Problems Problem Noted Date Diagnosed Date Chronic kidney disease, stage 2 (mild) Hypertension 02/09/2022 Hyperlipidemia 02/09/2022 Proteinuria 02/09/2022 Microalbuminuria Encounters Date Type Department Care Team Description 05/09/2024 4:00 PM EST Office Visit [facility] [address] [place] [phone] Gennaro Multani MD Hypertension (Primary Dx) 05/01/2024 Documentation Only [facility] [address] [place] [address] Jenna Tapia 05/01/2024 Documentation Only [facility] [address] [place] [phone] Jenna Tapia 05/01/2024 Documentation Only [facility] [address] [place] [phone] Jenna Tapia from Last 3 Months Immunizations Name Administration Dates Next Due Moderna SARS-COV-2 10/20/2020,09/22/2020 Social History Tobacco Use Types Packs/Day Years Used Date Smoking Tobacco: Never Assessed Comments Unknown Sex and Gender Information Value Date Recorded Sex Assigned at Not on file Legal Sex Female 4:12 PM EDT Gender Identity Not on file Sexual Orientation Not on file Last Filed Vital Signs Vital Sign Reading Time Taken Comments Blood Pressure 102/64 05/09/2024 4:13 PM EST Pulse 90 05/09/2024 4:13 PM EST Temperature - - Respiratory Rate - - Oxygen Saturation - - Inhaled Oxygen Concentration - - Weight 89.4 kg (197 lb) 02/08/2024 3:04 PM EDT Height - - Body Mass Index - - Plan of Treatment Upcoming Encounters Date Type Department Care Team (Late st Contact Info) Description 10/31/2024 3:30 PM EDT Office Visit [facility] [address] [place] [address] Gennaro Multani MD [address] [place] [address] [place] [address] Health Maintenance Due Date Last Done Comments Pneumococcal Vaccine: 65+ Ye ars (1 of 2 - PCV) 1956 Influenza Vaccine (#1) 2024 Hepatitis B Vaccine Aged Out No longe r eligible based on patient's age to complete this topic Insurance [facility] C[employer] DUAL SNP ([id number]) [place]ISAL [place]UEVA [phone] Care Teams Tube Operator Relationship Specialty Start Date End Date Fidel Love MD PCP - General Internal Medicine 12/30/21
--- OUTSIDE RECORDS SUMMARY | 2024-07-18 15:40 | XMS_ITS | Continuity of Care Document ---
Author Organization [facility] Address [address] [address] Phone Care Team Providers Care Silk Screener Name Role Phone Shabbir Yeh PA-C Unavailable Unavaila ble Advance Directives Directive Yes / No Effective Date File Name No Information Encounters Encounter Description Practice Location Reason(s) For Visit Diagnoses Date Provider Providers Copied on Encounter [facility], [address], [id number], [place] tel:[phone] [facility] No Information Ruba Shea. [address] [place], [id number], [place]. tel:[phone] Family History Family Member Type Diagnosis Age [...]
--- OUTSIDE RECORDS SUMMARY | 2024-07-18 15:40 | XMS_ITS | Data Portability ---
Author Organization [employer] [facility], [facility] Address [address] [place] [address] Care Team Providers Care Automotive Paint Technician Name Role Phone [facility] Referring Provider [phone] [facility] [employer] [facility] [employer] Referring Provider Assessment Encounter Date Assessment Date Assessment LastModified by Organization Details LastModified Time 10/19/2021 10/19/2021 I have reviewed and agree with the Assessment and Plan as documented by the Development Representative. I provided real -time medical direction via phone for this encounter, and was available for additional phone based assistance as needed. Patient given the opportunity to ask questions. She aware if develops CP/ significant SOB/ cyanosis/acute AMS/ very hi fever dexter unresponsive to Tylenol should go immediately to the ER- call 911 [email or web address] Not available 10/19/2021 18:07:56 Plan of Treatment Reminders Order Date Submit Date Provider Last Modified By Organization Details Last Modified Time Details Appointments None recorded. Lab rapid flu (A+B) 2021 022 [email or web address], [id number], 17:17:01 rapid SARS CoV 2 Ag, QL IA, respiratory specimen 2021 022 [email or web address] 0 [facility], [address] [place] [address], [id number], 17:17:01 Referral None recorded. Procedures None recorded. Surgeries None recorded. Imaging None recorded. Medication Orders None recorded. Patient TargetsNo targets recorded. Patient InstructionsNo instructions recorded. Reason for Referral None Reported. Results Created Date Observation Date Name Description Value Unit Range Abnormal Flag Note LastModifiedBy Organization Detail LastModifiedTime 10/20/1910/19/2021 rapid SARS CoV 2 Ag, QL IA, respi rator y speci men rapid SARS CoV 2 Ag, QL IA, respiratory specimen positi ve Not Available Main - [facility] [address] [place], [address], 10/19/2021 17:16:36 10/20/19 22 10/19/2021 rapid flu (A+B) Flu negati ve Not Available Main - [facility] ed [address] [place], [address], 10/19/2021 17:16:34 Result Notes None recorded. Medical Equipment None Reported. Allergies No known drug allergies Medications Name Sig Start Date Stop Date Status Note LastModified by Organization Details LastModified Time delivery fee active Not Available Not Available Not Available naproxen 375 mg tablet active Not Available Not Available No t Available lisinopril 20 mg tablet active Not Available Not Available No t Available fexofenadine 180 mg tablet active Not Available Not Availabl e Not Available simvastatin 40 mg tablet active Not Available Not Available No t Available lidocaine-pril ocaine 2.5 %-2.5 % topical cream active Not Available Not Availabl e Not Available simvastatin 20 mg tablet active Not Available Not Available No t Available lisinopril 30 mg tablet active Not Available Not Available No t Available aspirin 81 mg chewable tablet active Not Available Not Available Not Available metoprolol succinate ER 25 mg tablet,extende d release 24 hr active Not Available Not Available Not Available loratadine 10 mg tablet active Not Available Not Available No t Available Arthritis Pain Relief (capsaicin) 0.075 % topical cream active Not Available Not Availabl e Not Available escitalopram 10 mg tablet active Not Available Not Available Not Available memantine 10 mg tablet active Not Available Not Available No t Available calcium 600 mg (as carbonate)-vit giraldo D3 10 mcg (400 unit) tablet active Not Available Not Available Not Available diclofenac 1 % topical gel active Not Available Not Available Not Available melatonin 5 mg tablet active Not Available Not Available Not Available Procto-Med HC 2.5 % topical cream perineal applicator active Not Available Not Available N ot Available Vitals Date Recorded Heart rate Body temperature Oxygen saturation Oxygen saturation in Arterial blood by Pulse oximetry Respiratory rate Heart rate Oxygen saturation Oxygen saturation in Arterial blood by Pulse oximetry Respiratory rate Body temperature Systolic blood pressure Diastolic blood pressure Systolic blood pressure Diastolic blood pressure Provider Name and Address Organization Details Last Updated DateTime 2 80 /min 99.7 [degF] 97 % 97 % 20 /min 80 /min 97 % 97 % 20 /min 99.7 [degF] 132 mm[Hg] 74 mm[Hg] 132 mm[Hg] 74 mm[Hg] Not Available [facility] - production 2 17:39:36 Social History None recorded. Functional Status None recorded. Mental Status None recorded. Family History Nothing Reported. Medical History No medical history recorded. Gynecological HistoryNo gynecological history recorded. Obstetrics History GPAL:G 0 P 0 0 0 0 Past Encounters Encounter ID Performer Location Encounter Start Date Encounter Closed Date Diagnosis/Indication Diagnosis SNOMED-CT Code Diagnosis ICD10 Code Diagnosis Note [id number] Sylvia Caldera MD Main - [facility] [address] [place] [phone] 10/19/2021 17:15:28 03/02/2022 18:07:53 Viral syndrome 453779266 B34.9 COVID + Health Concerns Section Related Observation LastModified by Organization Detai ls LastModified Time None Recorded Concern Status LastModified by Organization Details LastModified Time None Recorded Advance Directives Directive None Recorded Payers Encounter Date Sequence Insurance Name Policy Number Policy Ochoa Covered Member ID Ochoa Member ID Guarantor Name 10/19/2021 1 [facility] - DOS PRIOR TO 2022 - DUAL ELIGIBLE (MEDICARE REPLACEMENT/ADV ANTAGE - HMO) Chrissy Graff [id number] Chrissy Graff Notes Date Note Type Note Provider Name and Address Organization Details Recorded Time 10/19/2021 text/html HPI: Call received from member's daughter, Berta (ph# [phone]) to the [facility]. Berta reports mbr has not felt well with flu like symptoms and PCP would not see member d/t symptoms and recommended home visit through [facility]. Berta reports mbr with sx for the past week and a half, myalgias, non productive cough, CP, decreased appetite, chills, and congestion. Denies SOB. Reports mbr with chills though unsure if she has a temp as she does not have a thermometer at home. Denies exposure to Covid-19. Mbr has not taken been tested for Covid-19 or flu. Reports mbr fully vaccinated. Reports mbr has been taking OTC cold medication without effect. Berta request for home visit for both member and mbr's who is also sick. Advised referral would be placed for each member separately .................. .................. .................. .................. .................. .................. .................. ............... Development Representative Note: Patient is a 71 year old female with flu like symptoms. Patient alert, oriented and ambulatory. Patient in no acute distress, airway patent, breathing normally, skin WPD. Patient state symptoms began x3 days ago. Cough, congestion, headache, bodyaches, fever, chills, sleeplessness, fatigue. Patient denies contact with any sick people( except her ). Patient is fully vaccinated and boosted. Patient also has flu shot. No further complaints. Rapid flu obtained; negative. Rapid Covid obtained; Positive. Vital signs obtained and all within normal limits. Red flags discussed. Consulted with Dr. Caldera. Patient is to follow up with PCP/care team regarding signs, symptoms and todays visit. Since the patient is positive for Covid, patient is to quarantine until cleared by PCP. Monitor health and symptoms for any changes. Contact [facility] for re-visit if symptoms persist. Contact 911 for any discussed red flags or other emergencies. .................. .................. .................. .................. .................. .................. .................. ............... Disposition: Fulfilled Sylvia Caldera MD [address] [facility] [facility], [place], [address], SY - [employer] 10/19/2021 18:08:08 OBGyn Episode No OBEpisode recorded.
--- OUTSIDE RECORDS SUMMARY | 2024-07-18 15:40 | XMS_ITS | Encounter Summary ---
Author Organization [employer] Address [address] [place] [address] Care Team Providers Care Pricing Consultant Name Role Phone Fidel Love MD Primary Care Provider Reason for Visit * Reason Onset Date Comments Medication Question 01/14/2024 Encounter Details Date Type Department Care Team (Late st Contact Info) Description 01/14/2024 Telephone [facility] [address] [place] [address] Fidel Love MD [address] [place] [address] Medication Question Social History Tobacco Use Types Packs/Day Years [...] AM EDT documented as of this encounter Miscellaneous Notes * Telephone Encounter - Lakshmi Anderson RN - 01/16/2024 1:39 PM EDT Telephone call to Mateo pharmacist at [facility] pharmacy . Mateo was advised that Dr. Love is ok with the pt trying the 2 medications together . Mateo verbalized understanding ,and statedhe will give the message to the other pharmacist , Stoney. * Telephone Encounter - Jaime Grier - 01/14/2024 3:00 PM EDT Tc from pharmacy calling to see if it is okay for the patient can take doxepin (SINEquan) 150 MG capsule while on PARoxetine (Paxil) 20 MG tablet please call pharmacy to clarify documented in this encounter Plan of Treatment Not on file documented as of this encounter Visit Diagnoses Diagnosis SERRANO (dyspnea on exertion) Other dyspnea and respiratory abnormality documented in this encounter Additional Health Concerns Assessment Noted Time PHQ-9 Depression Total Score: 9 11/07/19 23 4:10 PM EDT documented as of this encounter Care Teams Pricing Consultant Relationship Specialty Start Date End Date Fidel Love MD [address] [place] [address] PCP - General Internal Medicine 04/25/12 documented as of this encounter
--- OUTSIDE RECORDS SUMMARY | 2024-07-18 15:40 | XMS_ITS | Encounter Summary ---
Author Organization [facility] Address [address] [place] [address] Phone Care Team Providers Care Tool Design Engineer Name Role Phone Fidel Love MD Primary Care Provider [phone]- [phone] Encounter Details Date Type Department Care Team (Late Contact Info) Description 05/01/2024 Documentation Only [facility] [address] [place] [address] Jenna Tapia [address] [place] [address] Social History Tobacco Use Types [...] Visit [facility] [address] [place] [address] Gennaro Multani MD [address] [place] [address] [place] [address] documented as of this encounter Visit Diagnoses Not on filedocumented in this encounter Care Teams Tool Design Engineer Relationship Specialty Start Date End Date Fidel Love MD PCP - General Internal Medicine 12/30/21 documented as of this encounter
--- OUTSIDE RECORDS SUMMARY | 2024-07-18 15:40 | XMS_ITS | Encounter Summary ---
Author Organization [facility] Address [address] [place] [address] Phone Care Team Providers Care Flow Trader Name Role Phone Fidel Love MD Primary Care Provider [phone]- [phone] Encounter Details Date Type Department Care Team (Late Contact Info) Description 05/01/2024 Documentation Only [facility] [address] [place] [address] Jenna Tapia [address] [place] [address] Social History Tobacco Use Types [...] Visit [facility] [address] [place] [address] Gennaro Multani MD [address] [place] [address] [place] [address] documented as of this encounter Visit Diagnoses Not on filedocumented in this encounter Care Teams Flow Trader Relationship Specialty Start Date End Date Fiedl Love MD PCP - General Internal Medicine 12/30/21 documented as of this encounter
--- OUTSIDE RECORDS SUMMARY | 2024-07-18 15:40 | XMS_ITS | Encounter Summary ---
Author Organization [employer] Address [address] 7[address] [place] [address] Care Team Providers Care Ice Guard Skating Rink Name Role Phone Fidel Love MD Primary Care Provider [phone]- [phone] Reason for Visit * Reason Onset Date Comments Referral 08/01/2023 Encounter Details Date Type Department Care Team (Late st Contact Info) Description 08/01/2023 Telephone [facility] [address] [place] [address] Fidel Love MD [address] [place] [address] Referral Social History Tobacco Use Types Packs/Day Years [...] encounter Miscellaneous Notes * Telephone Encounter - Taran Dias - 10/24/2023 8:33 AM EDT Tc from [facility] neurology requesting office notes and demographic information for referral on neurology, please see notes. * Telephone Encounter - Taran Dias - 08/01/2023 11:26 AM EST Tc from [facility] ([facility], states they received referral however location waller is incorrect they are located at [address] [place] [address] [place] [address] pt needs a referral with correct location also confirmed that Laura Minaya MD is associated with [facility] and [place] facility. Please re -fax to [phone] documented in this encounter Plan of Treatment Not on file documented as of this encounter Visit Diagnoses Not on filedocumented in this encounter Additional Health Concerns Assessment Noted Time PHQ-9 Depression Total Score: 9 11/07/19 23 4:10 PM EDT documented as of this encounter Care Teams Ice Guard Skating Rink Relationship Specialty Start Date End Date Fidel Love MD [address] [place] [address] PCP - General Internal Medicine 04/25/12 documented as of this encounter
--- OUTSIDE RECORDS SUMMARY | 2024-07-18 15:40 | XMS_ITS | Encounter Summary ---
Author Organization [employer] Address [address] 7[address] [place] [address] Care Team Providers Care Crime Scene Investigator Name Role Phone Fidel Love MD Primary Care Provider [phone]- [phone] Reason for Visit * Reason Onset Date Comments Referral 05/29/2023 Encounter Details Date Type Department Care Team (Late st Contact Info) Description 05/29/2023 Telephone [facility] [address] [place] [address] Fidel Love MD [address] [place] [address] Referral Social History Tobacco Use Types Packs/Day [...] encounter Miscellaneous Notes * Telephone Encounter - Paloma Sweet RN - 05/30/2023 6:36 PM EST Noted. Thank you * Telephone Encounter - Paloma Sweet RN - 05/30/2023 11:48 AM EST No mention of need for sleep study in prior notes. Please advise if this was consulted with you or if pt would need to be seen for this. * Telephone Encounter - Taran Dias - 05/29/2023 1:05 PM EST Tc from pt daughter requesting a referral for a sleep apnea study for [facility] [address] [place] [address] Dr [address], [place] [address], states has previously discussed with PCP during last visit also is requesting a call back once referral has been submitted. documented in this encounter Plan of Treatment Not on file documented as of this encounter Visit Diagnoses Diagnosis Snoring- Primary Other dyspnea and respiratory abnormality Sleep apnea in adult documented in this encounter Additional Health Concerns Assessment Noted Time PHQ-9 Depression Total Score: 9 11/07/19 23 4:10 PM EDT documented as of this encounter Care Teams Crime Scene Investigator Relationship Specialty Start Date End Date Fidel Love MD [address] [place] [address] PCP - General Internal Medicine 04/25/12 documented as of this encounter
--- OUTSIDE RECORDS SUMMARY | 2024-07-18 15:41 | XMS_ITS | Encounter Summary ---
Author Organization [employer] Address [address] 7[address] [place] [address] Care Team Providers Care Director Of Pupil Personnel Program Name Role Phone Fidel Love MD Primary Care Provider [phone]- [phone] Encounter Details Date Type Department Care Team ([facility] st Contact Info) Description 06/23/2024 Orders Only [facility] PEDS [address] [place] [address] Fidel Love MD [address] [place] [address] Skin rash (Primary Dx) Social History Tobacco Use Types [...] AM EDT documented as of this encounter Progress Notes * Fidel Love MD - 06/23/2024 7:49 PM EST Nystop prescribed for an abdominal fold erythema documented in this encounter Plan of Treatment Not on file documented as of this encounter Visit Diagnoses Diagnosis Skin rash- Primary Rash and other nonspecific skin eruption documented in this encounter Additional Health Concerns Assessment Noted Time PHQ-9 Depression Total Score: 0 05/27/20 24 1:20 PM EST documented as of this encounter Care Teams Director Of Pupil Personnel Program Relationship Specialty Start Date End Date Fidel Love MD [address] [place] [address] PCP - General Internal Medicine 04/25/12 documented as of this encounter
--- OUTSIDE RECORDS SUMMARY | 2024-07-18 15:41 | XMS_ITS | Encounter Summary ---
Author Organization [employer] Address [address] [place] [address] Care Team Providers Care Blasting Helper Name Role Phone Fidel Love MD Primary Care Provider Encounter Details Date Type Department Care Team ([facility] st Contact Info) Description 04/02/2024 Orders Only [facility] MED & PEDS [address] [place], [place] [phone] Fidel Love MD [address] [place], [place] [phone] Low back pain at multiple sites (Primary Dx) Social History Tobacco Use Types [...] as of this encounter Visit Diagnoses Diagnosis Low back pain at multiple sites- Primary documented in this encounter Additional Health Concerns Assessment Noted Time PHQ-9 Depression Total Score: 9 11/07/19 23 4:10 PM EDT documented as of this encounter Care Teams Blasting Helper Relationship Specialty Start Date End Date Fidel Love MD [address] [place] [address] PCP - General Internal Medicine 04/25/12 documented as of this encounter
--- OUTSIDE RECORDS SUMMARY | 2024-07-18 15:41 | XMS_ITS | Encounter Summary ---
Author Organization [employer] Address [address] [facility] 7t [place] [address] Care Team Providers Care Soft Boarder Name Role Phone Fidel Love MD Primary Care Provider [phone]- [phone] Reason for Visit * Reason Onset Date Comments Med Refill 07/03/2024 Encounter Details Date Type Department Care Team ([facility] st Contact Info) Description 07/03/2024 Refill [facility]EDS [address] [place], [place] [phone] Fidel Love MD [address] [place] [address] Rash due to allergy Social History Tobacco Use Types Packs/Day Years [...] encounter Miscellaneous Notes * Telephone Encounter - Perla Warren LPN - 07/03/2024 3:01 PM EST Last seen 05/27/24. documented in this encounter Plan of Treatment Not on file documented as of this encounter Visit Diagnoses Diagnosis Rash due to allergy documented in this encounter Additional Health Concerns Assessment Noted Time PHQ-9 Depression Total Score: 0 05/27/20 1:20 PM EST documented as of this encounter Care Teams Soft Boarder Relationship Specialty Start Date End Date Fidel Love MD [address] [place] [address] PCP - General Internal Medicine 04/25/12 documented as of this encounter
--- OUTSIDE RECORDS SUMMARY | 2024-07-18 15:41 | XMS_ITS | Encounter Summary ---
Author Organization [facility] Address [address] [place] [address] Phone Care Team Providers Care Medical Data Analyst Name Role Phone Fidel Love MD Primary Care Provider [phone]- [phone] Encounter Details Date Type Department [facility] Description 12/30/2021 Documentation Only [facility] [address] [place] [address] Fidel Love MD [address] [place] [phone] Social History Tobacco Use Types Packs/Day Years Used Date Smoking Tobacco: Never Assessed Comments Unknown Sex and Gender Information Value Date Recorded Sex Assigned at Not on file Legal Sex Female 4:12 PM EDT Gender Identity Not on file Sexual Orientation Not on file documented as of this encounter Plan of Treatment Upcoming Encounters Date Type Department Care [facility] Description 10/31/2024 3:30 PM EDT Office Visit [facility] [address] [place] [address] Gennaro Multani MD [address] [place] [address] [place] [address] documented as of this encounter Visit Diagnoses Not on filedocumented in this encounter Care Teams Medical Data Analyst Relationship Specialty Start Date End Date Fidel Love MD PCP - General Internal Medicine 12/30/21 documented as of this encounter
--- OUTSIDE RECORDS SUMMARY | 2024-07-18 15:41 | XMS_ITS | Encounter Summary ---
Author Organization [employer] Address [address] [facility] [address] [place] [address] Care Team Providers Care First Aid Teacher Name Role Phone Fidel Love MD Primary Care Provider Reason for Visit * Reason Onset Date Comments Med Refill 03/26/2023 Encounter Details Date Type Department Care Team ([facility] st Contact Info) Description 03/26/2023 Telephone [facility] MED & PEDS [address] [place], [place] [phone] Fidel Love MD [address] [place] [address] Med Refill Social History Tobacco Use Types Packs/Day Years Used Date Smoking Tobacco: Never Passive Smoke Exposure: Never Smokeless Tobacco: Never Depression Answer Date Recorded Patient Health Questionnaire-9 Score 9 11/06/2022 Depression Answer Date Recorded Patient Health Questionnaire-2 Score 3 11/06/2022 Comments Unknown Sex and Gender Information Value Date Recorded Sex Assigned at Female 04/24/2022 10:18 AM EDT Legal Sex Female 10:18 AM EDT Gender Identity Female 02/12/2023 10:14 AM EDT Sexual Orientation Straight 04/24/2022 10 :18 AM EDT documented as of this encounter Miscellaneous Notes * Telephone Encounter - Perla Warren LPN - 03/26/2023 2:41 PM EDT Medication is prescribed by Janee Graves (Nephrology) * Telephone Encounter - Giovanna Stephani - 03/26/2023 2:30 PM EDT Tc from [facility] requesting med refill for medication lisinopril 40 MG tablet. documented in this encounter Plan of Treatment Not on file documented as of this encounter Visit Diagnoses Not on filedocumented in this encounter Additional Health Concerns Assessment Noted Time PHQ-9 Depression Total Score: 9 11/07/19 23 4:10 PM EDT documented as of this encounter Care Teams First Aid Teacher Relationship Specialty Start Date End Date Fidel Love MD [address] [place] [address] PCP - General Internal Medicine 04/25/12 documented as of this encounter
--- OUTSIDE RECORDS SUMMARY | 2024-07-18 15:41 | XMS_ITS | Encounter Summary ---
Author Organization [employer] Address [address] [facility] [address] 7[address] [place] [address] Care Team Providers Care Cheese Tester Name Role Phone Fidel Love MD Primary Care Provider [phone] Encounter Details Date Type Department Care Team (Late st Contact Info) Description 04/19/2023 Abstract [facility] MEDICINE [address] [place] [address] Ericka Liao Social History Tobacco Use Types Packs/Day Years [...] on file documented as of this encounter Procedures Procedure Name Priority Date/Time Associated Diagnosis Comments COLONOSCOPY Routine 06/08/2015 documented in this encounter Results * Colonoscopy (06/08/2015) Colonoscopy Normal Normal Narrative Ericka Liao - 06/08/2015 Recommended 10 year follow up Historical Provider HEALTH MAINTENANCE Final Result documented in this encounter Visit Diagnoses Not on filedocumented in this encounter Additional Health Concerns Assessment Noted Time PHQ-9 Depression Total Score: 9 11/07/19 23 4:10 PM EDT documented as of this encounter Care Teams Cheese Tester Relationship Specialty Start Date End Date Fidel Love MD [address] [place] [id number] PCP - General Internal Medicine 04/25/12 documented as of this encounter
--- OUTSIDE RECORDS SUMMARY | 2024-07-18 15:41 | XMS_ITS | Encounter Summary ---
Author Organization [employer] Address [address] [facility] [address] [facility] [address] [place] [address] Care Team Providers Care Extrusion Machine Operator Name Role Phone Fidel Love MD Primary Care Provider [phone]- [phone] Encounter Details Date Type Department Care Team ([facility] Contact Info) Description 07/08/2024 Telephone [facility] MED & PEDS [address] [place], [place] [phone] Fidel Love MD [address] [place] [address] Social History Tobacco Use Types Packs/Day Years [...] encounter Miscellaneous Notes * Telephone Encounter - Giovanna Styles - 07/08/2024 3:23 PM EST Tc from karen with [facility] calling to inform medication Phentermine- Topiramate 3.75-23 MG capsule sustained-release 24 hr would need to be order to a specialty pharmacy . Any question may contact phone # [phone]. documented in this encounter Plan of Treatment Not on file documented as of this encounter Visit Diagnoses Not on filedocumented in this encounter Additional Health Concerns Assessment Noted Time PHQ-9 Depression Total Score: 0 05/27/20 24 1:20 PM EST documented as of this encounter Care Teams Extrusion Machine Operator Relationship Specialty Start Date End Date Fidel Love MD [address] [place] [address] PCP - General Internal Medicine 04/25/12 documented as of this encounter
--- OUTSIDE RECORDS SUMMARY | 2024-07-18 15:41 | XMS_ITS | Encounter Summary ---
Author Organization [employer] Address [address] [facility] 7t [place] [address] Care Team Providers Care Career Agent Name Role Phone Fidel Love MD Primary Care Provider [phone] Reason for Visit * Reason Onset Date Comments Med Refill 06/30/2024 Encounter Details Date Type Department Care Team ([facility] st Contact Info) Description 06/30/2024 Refill [facility] MED & PEDS [address] [place], [place] [phone] Fidel Love MD [address] [place] [address] Obesity (BMI 30-39.9) Social History Tobacco Use Types Packs/Day Years [...] as of this encounter Visit Diagnoses Diagnosis Obesity (BMI 30-39.9) documented in this encounter Additional Health Concerns Assessment Noted Time PHQ-9 Depression Total Score: 0 05/27/20 24 1:20 PM EST documented as of this encounter Care Teams Career Agent Relationship Specialty Start Date End Date Fidel Love MD [address] [place] [address] PCP - General Internal Medicine 04/25/12 documented as of this encounter
--- OUTSIDE RECORDS SUMMARY | 2024-07-18 15:41 | XMS_ITS | Encounter Summary ---
Author Organization [employer] Address [address] 7[address] [place] [address] Care Team Providers Care Aerial Survey Technician Name Role Phone Fidel Love MD Primary Care Provider [phone]- [phone] Encounter Details Date Type Department Care Team (Late st Contact Info) Description 05/16/2024 Orders Only [facility] [address] [place] [address] Provider, MD Chris Social History Tobacco Use Types Packs/Day Years [...] Procedure Name Priority Date/Time Associated Diagnosis Comments TRANSTHORACIC ECHO (TTE) COMPLETE Routine 05/15/2024 10:24 AM EST documented in this encounter Results * Transthoracic echo (TTE) complete (05/15/2024 10:24 AM EST) us Historical Provider MD MARIA ECHO PROCEDURES Final Result documented in this encounter Visit Diagnoses Not on filedocumented in this encounter Additional Health Concerns Assessment Noted Time PHQ-9 Depression Total Score: 9 11/07/19 23 4:10 PM EDT documented as of this encounter Care Teams Aerial Survey Technician Relationship Specialty Start Date End Date Fidel Love MD [address] [place] [address] PCP - General Internal Medicine 04/25/12 documented as of this encounter
--- OUTSIDE RECORDS SUMMARY | 2024-07-18 15:41 | XMS_ITS | Encounter Summary ---
Author Organization [facility] Address [address] [place] [address] Phone Care Team Providers Care Tip Banding Machine Operator Name Role Phone Fidel Love MD Primary Care Provider [phone]- [phone] Encounter Details Date Type Department Care Team ([facility] Contact Info) Description 12/30/2021 Documentation Only [facility] [address] [place] [address] Fidel Love MD [address] [place] [address] [id number] Social History Tobacco Use Types Packs/Day Years Used Date Smoking Tobacco: Never Assessed Comments Unknown Sex and Gender Information Value Date Recorded Sex Assigned at Not on file Legal Sex Female 4:12 PM EDT Gender Identity Not on file Sexual Orientation Not on file documented as of this encounter Plan of Treatment Upcoming Encounters Date Type Department Care Team ([facility] Contact Info) Description 10/31/2024 3:30 PM EDT Office Visit [facility] [address] [place] [address] Gennaro Multani MD [address] [place] [address] [place] [address] documented as of this encounter Visit Diagnoses Not on filedocumented in this encounter Care Teams Tip Banding Machine Operator Relationship Specialty Start Date End Date Fidel Love MD PCP - General Internal Medicine 12/30/21 documented as of this encounter
--- OUTSIDE RECORDS SUMMARY | 2024-07-18 15:41 | XMS_ITS | Encounter Summary ---
Author Organization [employer] Address [address] [facility] [address] [place] [address] Care Team Providers Care Braiding Machine Operator Name Role Phone Fidel Love MD Primary Care Provider [phone]- [phone] Encounter Details Date Type Department Care Team ([facility] st Contact Info) Description 07/07/2024 Orders Only [facility] MED & PEDS [address] [place] [address] Fidel Love MD [address] [place] [address] Obesity (BMI 30-39.9) (Primary Dx) Social History Tobacco Use Types [...] this encounter Visit Diagnoses Diagnosis Obesity (BMI 30-39.9)- Primary documented in this encounter Additional Health Concerns Assessment Noted Time PHQ-9 Depression Total Score: 0 05/27/20 24 1:20 PM EST documented as of this encounter Care Teams Braiding Machine Operator Relationship Specialty Start Date End Date Fidel Love MD [address] [place] [address] PCP - General Internal Medicine 04/25/12 documented as of this encounter
== END 2024-07-17 13:57 | disposition home or self-care (01) ==
LOC: HO.HOSX 13:56
PROVIDERS: Visit Provider Physician Assistant
DX: Z13.89 Encounter for screening for other disorder (principal)

== ENCOUNTER → 2024-07-31 15:25 | Outpatient (BNV) | payer OTHER, SELFPAY | PROVIDERS: Visit Provider Radiology Diagnostic Radiology | DX: S22.000A Wedge compression fracture of unspecified thoracic vertebra, initial encounter for closed fracture (principal) | CPT/HCPCS: 72146 ==

== ENCOUNTER 2024-08-13 10:30 | Day surgery (SDC) | payer OTHER, SELFPAY ==
--- OUTSIDE RECORDS SUMMARY | 2024-06-10 06:50 | XMS_ITS | Continuity of Care Document ---
Author Organization [facility] Address [address] [address] Phone Care Team Providers Care Data Analytics Architect Name Role Phone Shabbir Yeh PA-C Unavailable Unavaila ble Advance Directives Directive Yes / No Effective Date File Name No Information Encounters Encounter Description Practice Location Reason(s) For Visit Diagnoses Date Provider Providers Copied on Encounter [facility], [address] [address], [place], [place], [id number], [place] tel:[phone] [facility] No Information Ruba Shea. [address], [place], [id number], [place]. tel:[phone] Family History Family Member Type Diagnosis Age At Onset No Information Payers Payer name Insurance type Covered alliance party ID Authoriza tion(s) No Information Social [...]
[2024-08-13 10:52] VITALS: BMI 37.1
[2024-08-13 10:53] VITALS: BP 144/72; PULSE 79; RESP 16; TEMP 36.3; O2SAT 93
--- NOTE | 2024-08-13 11:28 | MHC.SHP ---
Pre-Procedural Eval Section A - 24 Hr Update-Section A only Date of Service: 08/13/24 The patient is an INPATIENT: No Changes since office visit: No Cold of Flu in the past 2 weeks, No New Medical Problems, No Changes in Medication and No Patient answered all questions The patient has been examined within 24 hours of the surgical procedure. The History & Physical has been completed within 30 days and I have reviewed it.: Yes Section B - Complete if H&P > 30 days Chief Complaint: Carpal tunnel syndrome, left upper limb Allergies: Allergies Allergy/AdvReac Type Severity Reaction Status Date / Time latex Allergy Intermediate Rash Verified 07/04/24 13:15 Plan Diagnosis/Plan: Unchanged I have reviewed the history and physical and performed a pertinent physical examination on my patient. No changes have occurred unless specified. Time Spent With Patient Time: Total time managing care of this patient today ____ minutes.
--- NOTE | 2024-08-13 11:29 | P.OP_ITS ---
Operative Note Operative Note Date of Service: 08/13/24 Narrative: Preop diagnosis: 1. Left Carpal tunnel syndrome Postop diagnosis: same Procedure: 1. Left Carpal tunnel release Surgeon: Sujata Gates MD Health Evaluator: Pa MALONE Anesthesia: local block using 1% lidocaine with epinephrine Findings: Thickened transverse carpal ligament. EBL: Less than 5 mL Specimens: None Complications: None Disposition: Brought to recovery room in stable condition Plan: Follow-up for 10-14 days for wound check and suture removal Indications: The patient is 74 years old, with left carpal tunnel syndrome that has been unresponsive to nonoperative management. The risks and benefits of operative treatment including but not limited to risk of damage to blood vessels, nerves, tendons, infection, persistent pain, persistent symptoms, or possible need for additional surgery were discussed with the patient and the patient wishes to proceed with surgery. Procedure: Once consent was obtained a local block was performed using a combination of 1% lidocaine with epinephrine. The patient was then brought back to the operating suite and placed on the operative table in supine position. The left upper extremity was prepped and draped in a standard surgical fashion. Once assured that we had a good block, a 2.0 cm longitudinal incision was made centered over the carpal tunnel. The incision was made through the skin to the subcutaneous tissues using a #15 blade. Dissection was made down to the level of the transverse carpal ligament with care being taken to protect the palmar cutaneous nerve. Once the transverse carpal ligament was clearly visualized, a longitudinal incision was made in the transverse carpal ligament 1st using a #15 blade, then using tenotomy scissors under direct visualization. Care was taken to look for and protect the motor branch of the median nerve when seen in this area. Once satisfied with our carpal tunnel release the wound was copiously irrigated with normal saline and hemostasis was obtained with a brief period of local pressure. The skin edges were reapproximated with some 5.0 nylon suture material and a sterile dressing was applied. The patient appears to have tolerated the procedure well and with no complications. All digits were well vascularized at the conclusion of the case.
[2024-08-13 12:34] VITALS: BP 140/73; PULSE 76; RESP 18; O2SAT 96
== END 2024-08-13 12:48 | disposition home or self-care (01) ==
PROVIDERS: PCP Internal Medicine; Visit Provider Orthopaedic Surgery
PROC: (CPT 64721; principal; 2024-08-13 11:30)
DX: G56.02 Carpal tunnel syndrome, left upper limb (principal); R20.0 Anesthesia of skin; R20.2 Paresthesia of skin; Z98.890 Other specified postprocedural states; Z91.040 Latex allergy status
CPT/HCPCS: 64721; J0171; J2003

== ENCOUNTER → 2024-08-13 10:30 | Outpatient (BNV) | payer OTHER, SELFPAY | PROVIDERS: PCP Internal Medicine; Visit Provider Orthopaedic Surgery | DX: G56.02 Carpal tunnel syndrome, left upper limb (principal) | CPT/HCPCS: 64721 ==

== ENCOUNTER 2024-08-26 10:12 | Outpatient (AMB) | payer OTHER, SELFPAY ==
--- NOTE | 2024-08-26 10:13 | A.OFFVIS_ITS ---
Intake Visit Reasons: PO LT CTR 08/13/24 AR Intake Note: Chrissy is a 74 year old right hand dominant female who presents today for a post operative visit s/p left carpal tunnel release, DOS 08/13/2024 w/ Dr Gates. Sutures Removed and Steri Strips applied. Patient reports that she is doing well, she has some itching at the incision site with very mild redness. Allergies latex Allergy (Intermediate, Verified 07/04/24 13:15) Rash HPI HPI PO LT CTR 08/13/24 AR: Details: Chrissy is a 74 year old right hand dominant female who presents today for a post operative visit s/p left carpal tunnel release, DOS 08/13/2024 w/ Dr Gates. Sutures Removed and Steri Strips applied. Patient reports that she is doing well, she has some itching at the incision site with very mild redness. [facility] Surgical History H/O tubal ligation H/O section H/O shoulder surgery Social History Alcohol intake: never Patient Tobacco Use Status: Never used Tobacco Current occupational status: retired Current occupation: right hand Review of Systems Const All systems reviewed & are unremarkable except as noted in HPI and below Physical Exam Extrem Other: Patient is alert, oriented, and in no acute distress. Neuro: Normal sensation of the tips of all digits of the left hand at this time Good APB muscle belly firing Good finger cross Vascular: Cap refill brisk Pain: No tenderness to palpation over the volar left wrist at the level of the incision Range of motion painless ROM: Patient is able to make a closed fist and extend all digits of the right hand fully Skin: Well-approximated incision sites on the volar left wrist No erythema, edema, ecchymosis noted No discharge Psych: Appears grossly normal Affect normal Attitude cooperative Assessment & Plan Assessment & Plan (1) Bilateral carpal tunnel syndrome: Code(s): G56.03 - Carpal tunnel syndrome, bilateral upper limbs Category: Medical Plan 1. Status post left carpal tunnel release DOS 07/1924 Patient appears to be recovering well postoperatively Patient is educated about the typical recovery course Sutures removed, Steri-Strips applied Patient was informed that due to her good recovery, she requires no further acute follow-up Patient was amenable to this plan Patient will follow-up as needed with any acute concerns Coding Level of Care Code Global (86782) Diagnoses Bilateral carpal tunnel syndrome G56.03
--- OUTSIDE RECORDS SUMMARY | 2024-08-26 12:09 | XMS_ITS | Encounter Summary ---
Author Organization [facility] [place], Address [address] [place] [address] Phone Care Team Providers Care Want Ad Receiver Name Role Phone Fidel Love MD Primary Care Provider [phone] Encounter Details Date Type Department Care Team ([facility] Contact Info) Description 07/30/2024 Documentation Only [facility] [address] [place] [address] Gennaro Multani MD [address] [place] [address] [place] [phone] Social History Tobacco Use Types Packs/Day Years [...] Visit [facility] [address] [place] [address] Gennaro Multani MD [address] [place] [address] [place] [address] documented as of this encounter Visit Diagnoses Not on filedocumented in this encounter Care Teams Want Ad Receiver Relationship Specialty Start Date End Date Fidel Love MD PCP - General Internal Medicine 12/30/21 documented as of this encounter
--- OUTSIDE RECORDS SUMMARY | 2024-08-26 12:09 | XMS_ITS | Encounter Summary ---
Author Organization [employer] Address [address] [facility] [address]t [place] [address] Care Team Providers Care Media Marketing Manager Name Role Phone Fidel Love MD Primary Care Provider [phone] [phone] Encounter Details Date Type Department Care Team (Late st Contact Info) Description 04/19/2023 Abstract [facility] MEDICINE [address] [place] [address] Ericka Liao Social History Tobacco Use Types [...] documented as of this encounter Care Teams Media Marketing Manager Relationship Specialty Start Date End Date Fidel Love MD [address] [place] [id number] PCP - General Internal Medicine 04/25/12 documented as of this encounter
--- OUTSIDE RECORDS SUMMARY | 2024-08-26 12:09 | XMS_ITS | Encounter Summary ---
Author Organization [employer] Address [address] [facility] [address] 7[address] [place] [address] Care Team Providers Care Emergency Medicine Name Role Phone Fidel Love MD Primary Care Provider [phone]- [phone] Reason for Visit * Reason Onset Date Comments Medication Question 01/14/2024 Encounter Details Date Type Department Care Team (Late st Contact Info) Description 01/14/2024 Telephone [facility] MEDICINE [address] [place] [address] Fidel Love MD [address] [place] [address] Medication Question Social History Tobacco Use Types [...] EDT Telephone call to [place] pharmacist at [facility] pharmacy . Mateo was advised that Dr. [...] documented as of this encounter Care Teams Emergency Medicine Relationship Specialty Start Date End Date Fidel Love MD [address] [place] [address] PCP - General Internal Medicine 04/25/12 documented as of this encounter
--- OUTSIDE RECORDS SUMMARY | 2024-08-26 12:09 | XMS_ITS | Encounter Summary ---
Author Organization [facility] Address [address] [place] [address] Phone Care Team Providers Care Manager Of Photography Name Role Phone Fidel Love MD Primary Care Provider [phone]- [phone] Encounter Details Date Type Department Care Team (Late Contact Info) Description 05/01/2024 Documentation Only [facility] [address] [place] [address] Jenna Tapia [address] [place] [address] Social History Tobacco Use Types [...] Visit [facility] [address] [place] [address] Gennaro Multani MD [address] [place] [address] [address]. [place] [address] documented as of this encounter Visit Diagnoses Not on filedocumented in this encounter Care Teams Manager Of Photography Relationship Specialty Start Date End Date Fidel Love MD PCP - General Internal Medicine 12/30/21 documented as of this encounter
--- OUTSIDE RECORDS SUMMARY | 2024-08-26 12:09 | XMS_ITS | Clinical Summary ---
Author Organization [facility] [place], Address [address] [place] [address] [place] [address] Phone Care Team Providers Care Visiting Professor Name Role Phone Fidel Love MD Primary Care Provider +1- [phone] Allergies No known active allergies Medications Calcium [...] (one) time each day 90 tablet 3 4 02/22/20 25 Active amLODIPine (NORVASC) 5 MG tablet Take 1 tablet (5 mg total) by mouth 1 (one) time each day 30 tablet 11 4 04/07/20 25 Active Dapagliflozin Propanediol 5 MG tablet Take 5 mg by mouth 1 (one) time each day 30 tablet 3 5 Active Dapagliflozin Propanediol 5 MG tablet Take 5 mg by mouth 1 (one) time each day 30 tablet 3 4 08/14/19 25 Discontinu ed(Reorder (does not appear on AVS)) Active Problems Problem Noted Date Diagnosed Date Chronic kidney disease, stage 2 (mild) 4 Hypertension 02/09/2022 Hyperlipidemia 02/09/2022 Proteinuria 02/09/2022 Microalbuminuria Encounters Date Type Department Care Team Description 08/14/2024 Refill [facility] [address] [place] [address] Jenna Tapia 07/30/2024 Documentation Only [facility] [address] [place] [address] Gennaro Multani MD from Last 3 Months Immunizations Name Administration [...] Visit [facility] [address] [place] [address] Gennaro Multani MD [address] [place] [address] [place] [address] Health Maintenance Due Date Last Done Comments Pneumococcal Vaccine: 65+ Ye ars (1 of 2 - PCV) 1956 Influenza Vaccine (#1) 2024 Hepatitis B Vaccine Aged Out No longe r eligible based on patient's age to complete this topic Insurance [facility] ONE CARE DUAL SNP ([id number]) [place] [phone] Care Teams Visiting Professor Relationship Specialty Start Date End Date Fidel Love MD PCP - General Internal Medicine 12/30/21
--- OUTSIDE RECORDS SUMMARY | 2024-08-26 12:09 | XMS_ITS | Encounter Summary ---
Author Organization [facility] Address [address] [place] [address] Phone Care Team Providers Care Workers Compensation Claims Adjuster Name Role Phone Fidel Love MD Primary Care Provider +- [phone] Reason for Visit * Reason Onset Date Comments Med Refill 08/14/2024 Encounter Details Date Type Department Care Team (Late Contact Info) Description 08/14/2024 Refill [facility] [address] [place] [address] Jenna Tapia [address] [place] [address] Social History Tobacco Use Types [...] Visit [facility] [address] [place] [address] Gennaro Multani MD [address] [place] [phone] documented as of this encounter Visit Diagnoses Not on filedocumented in this encounter Care Teams Workers Compensation Claims Adjuster Relationship Specialty Start Date End Date Fidel Love MD PCP - General Internal Medicine 12/30/21 documented as of this encounter
--- OUTSIDE RECORDS SUMMARY | 2024-08-26 12:09 | XMS_ITS | Data Portability ---
Author Organization [employer] [facility], [facility] Address [address] [place] [address] Care Team Providers Care Cryogenics Repairer Name Role Phone [facility] PRIMARY [facility]ARE Referring Provider [facility] Referring Provider Assessment Encounter Date Assessment Date Assessment LastModified by Organization Details LastModified Time 10/19/2021 10/19/2021 I have reviewed and agree with the Assessment and Plan as documented by the Dealer Support Technician. I provided real -time medical direction via phone for this encounter, and was available for additional phone based assistance as needed. Patient given the opportunity to ask questions. She aware if develops CP/ significant SOB/ cyanosis/acute AMS/ very hi fever dexter unresponsive to Tylenol should go immediately to the ER- call 911 [email or web address] Not available 10/19/2021 18:07:56 Plan of Treatment Reminders Order Date Submit Date Provider Last Modified By Organization Details Last Modified Time Details Appointments None recorded. Lab rapid flu (A+B) 2021 022 [email or web address], [phone], 17:17:01 rapid SARS CoV 2 Ag, QL IA, respiratory specimen 2021 022 [email or web address] 0 [facility], [address] [place] [address], [phone], 17:17:01 Referral None recorded. Procedures None recorded. [...] Not Available Main - Inst ed [address] [place], [address], 10/19/2021 17:16:36 10/20/19 22 10/19/2021 rapid flu (A+B) Flu negati ve Not Available Main - [facility] ed [address] [place], [address], 10/19/2021 17:16:34 Result Notes None recorded. Medical [...] 1218 Sylvia Caldera MD Main - instED [address] [place] [phone] 10/19/2021 17:15:28 03/02/2022 18:07:53 Viral syndrome [id number] B34.9 COVID + Health Concerns Section Related Observation LastModified by Organization Detai ls LastModified Time None Recorded Concern Status LastModified by Organization Details LastModified Time None Recorded Advance Directives Directive None Recorded Payers Encounter Date Sequence Insurance Name Policy Number Policy Ochoa Covered Member ID Ochoa Member ID Guarantor Name 10/19/2021 1 [facility] - DOS PRIOR TO 2022 - DUAL ELIGIBLE (MEDICARE REPLACEMENT/ADV ANTAGE - HMO) Chrissy Graff [id number] Chrissy Graff Notes Date Note Type Note Provider Name and Address Organization Details Recorded Time 10/19/2021 text/html HPI: Call received from member's daughter, Berta (ph# [phone]) to the CRU. Berta reports mbr has not felt well with flu like symptoms and PCP would not see member d/t symptoms and recommended home visit through [facility]. Berta reports mbr with sx for the [...] .................. .................. .................. .................. .................. .................. ............... Dealer Support Technician Note: Patient is a 71 year old [...] ............... Disposition: Fulfilled Sylvia Caldera MD 30 [facility],[address] [facility], [place], [address], SY - [employer] Medical[facility]DRES CODY 10/19/2021 18:08:08 OBGyn Episode No OBEpisode recorded.
--- OUTSIDE RECORDS SUMMARY | 2024-08-26 12:09 | XMS_ITS | Encounter Summary ---
Author Organization [employer] Address [address] [facility] [address] 7t [place] [address] Care Team Providers Care Drum Reel Cutter Name Role Phone Fidel Love MD Primary Care Provider [phone]- [phone] Encounter Details Date Type Department Care Team ([facility] st Contact Info) Description 11/16/2023 Orders Only [facility] MED & PEDS [address] [place], [place] [phone] Fidel Love MD [address] [place] [address] Seasonal allergies (Primary Dx); Achilles tendinitis of [...] documented as of this encounter Care Teams Drum Reel Cutter Relationship Specialty Start Date End Date Fidel Love MD [address] [place] [address] PCP - General Internal Medicine 04/25/12 documented as of this encounter
--- OUTSIDE RECORDS SUMMARY | 2024-08-26 12:09 | XMS_ITS | Encounter Summary ---
Author Organization [facility] Address [address] [place] [address] Phone Care Team Providers Care Scientific Database Curator Name Role Phone Fidel Love MD Primary Care Provider [phone]- [phone] Encounter Details Date Type Department Care Team (Late Contact Info) Description 05/01/2024 Documentation Only [facility] [address] [place] [address] Jenna Tapia [address] [place] [address] Social History Tobacco Use Types [...] Visit [facility] [address] [place] [address] Gennaro Multani MD [address] [place] [address] [place] [address] documented as of this encounter Visit Diagnoses Not on filedocumented in this encounter Care Teams Scientific Database Curator Relationship Specialty Start Date End Date Fidel Love MD PCP - General Internal Medicine 12/30/21 documented as of this encounter
--- OUTSIDE RECORDS SUMMARY | 2024-08-26 12:09 | XMS_ITS | Encounter Summary ---
Author Organization [employer] Address 75 [facility] 7t [place] [address] Care Team Providers Care Sample Stitcher Name Role Phone Fidel Love MD Primary Care Provider Reason for Visit * Reason Onset Date Comments Med Refill 03/26/2023 Encounter Details Date Type Department Care Team ([facility] st Contact Info) Description 03/26/2023 Telephone [facility] CHC MED & PEDS [address] [place], [place] [phone] Fidel Love MD [address] [place] [address] Med Refill Social History Tobacco Use Types [...] - 03/26/2023 2:30 PM EDT Tc from [place] requesting med refill for medication lisinopril 40 MG tablet. documented in this encounter Plan of Treatment Not on file documented as of this encounter Visit Diagnoses Not on filedocumented in this encounter Additional Health Concerns Assessment Noted Time PHQ-9 Depression Total Score: 9 11/07/19 23 4:10 PM EDT documented as of this encounter Care Teams Sample Stitcher Relationship Specialty Start Date End Date Fidel Love MD [address] [place] [address] PCP - General Internal Medicine 04/25/12 documented as of this encounter
--- OUTSIDE RECORDS SUMMARY | 2024-08-26 12:09 | XMS_ITS | Encounter Summary ---
Author Organization [employer] Address [address] [facility] [address] 7t [place] [address] Care Team Providers Care Coal Miner Name Role Phone Fidel Love MD Primary Care Provider Encounter Details Date Type Department Care Team ([facility] st Contact Info) Description 07/17/2023 Orders Only [facility] CHC MED & PEDS [address] [place] [address] Fidel Love MD [address] [place] [address] Tremor (Primary Dx) Social History Tobacco Use [...] documented as of this encounter Care Teams Coal Miner Relationship Specialty Start Date End Date Fidel Love MD [address] [place] [address] PCP - General Internal Medicine 04/25/12 documented as of this encounter
--- OUTSIDE RECORDS SUMMARY | 2024-08-26 12:09 | XMS_ITS | Encounter Summary ---
Author Organization [facility] Address [address] [place] [address] Phone Care Team Providers Care Law Researcher Name Role Phone Fidel Love MD Primary Care Provider [phone]- [phone] Encounter Details Date Type Department Care Team ([facility] Contact Info) Description 12/30/2021 Documentation Only [facility] [address] [place] [address] Fidel Love MD [address] [place] [phone] Social History Tobacco Use Types Packs/Day Years Used Date Smoking Tobacco: Never Assessed Comments Unknown Sex and Gender Information Value Date Recorded Sex Assigned at Not on file Legal Sex Female 4:12 PM EDT Gender Identity Not on file Sexual Orientation Not on file documented as of this encounter Plan of Treatment Upcoming Encounters Date Type Department Care Team ([facility] Contact Info) Description 10/31/2024 3:30 PM EDT Office Visit [facility] [address] [place] [address] Gennaro Multani MD [address] [place] [address] [place] [address] documented as of this encounter Visit Diagnoses Not on filedocumented in this encounter Care Teams Law Researcher Relationship Specialty Start Date End Date Fidel Love MD PCP - General Internal Medicine 12/30/21 documented as of this encounter
--- OUTSIDE RECORDS SUMMARY | 2024-08-26 12:09 | XMS_ITS | Encounter Summary ---
Author Organization [facility] Address [address] [place] [address] Phone Care Team Providers Care Seasoner Name Role Phone Fidel Love MD Primary Care Provider +1- [phone] Encounter Details Date Type Department Care Team (Late Contact Info) Description 05/01/2024 Documentation Only [facility] [address] [place] [address] Jenna Tapia [address] [place] [address] Social History Tobacco Use Types [...] Visit [facility] [address] [place] [address] Gennaro Multani MD [address] [place] [address] [place] [address] documented as of this encounter Visit Diagnoses Not on filedocumented in this encounter Care Teams Seasoner Relationship Specialty Start Date End Date Fidel Love MD PCP - General Internal Medicine 12/30/21 documented as of this encounter
--- OUTSIDE RECORDS SUMMARY | 2024-08-26 12:09 | XMS_ITS | Clinical Summary ---
Author Organization [employer] Address [address] [facility] [address] 7t [place] [address] Care Team Providers Care Under Presser Name Role Phone Fidel Love MD Primary Care Provider [phone] Allergies No known active allergies Medications * [...] 30 capsule 11 01/11/20 24 025 Active alendronate (Fosamax) 70 MG tablet Take [...] tablet 11 04/04/20 24 Active nystatin (Nystop) 844159 UNIT/GM powderIndicatio ns:Skin rash Apply topically 2 times daily. 60 g 1 06/23/20 24 025 Active fexofenadine (Gogo Allergy) 180 MG tabletIndicatio ns:Rash due to allergy TAKE 1 TABLET BY MOUTH EVERY MORNING 30 tablet 5 07/03/19 25 Active Phentermine-Top iramate 3.75-23 MG capsule sustained-relea se 24 hrIndications:O besity (BMI 30-39.9) 1 tab daily 30 capsule 3 07/10/19 25 Active Calcium + Vitamin D3 600-10 MG-MCG tablet Place 600 mg into mouth between cheek and gum Once per day. TAKE 1 TABLET BY MOUTH TWICE A DAILY 60 tablet 5 08/04/19 25 Active Tirzepatide-Vikas ght Management (Zepbound) 2.5 MG/0.5ML solution auto-injectorIn dications:Obesi ty (BMI 30-39.9) Inject 0.5 mL (2.5 mg) under the skin 1 (one) time per week. 2 mL 1 08/22/19 25 Active Calcium + Vitamin D3 600-[address] 600 mg into mouth between cheek and gum Once per day. TAKE 1 TABLET BY MOUTH TWICE A DAILY 60 tablet 5 02/18/20 24 025 Discontinued(Re order (will not trigger notification to Pharmacy)) Tirzepatide-Vikas ght Management (Zepbound) 2.5 MG/0.5ML solution auto-injectorIn dications:Obesi ty (BMI 30-39.9) Inject 0.5 mL (2.5 mg) under the skin 1 (one) time per week. 2 mL 1 07/01/19 25 025 Discontinued(Re order (will not trigger [...] Encounters Date Type Department Care Team Description 08/21/2024 Refill [facility] MED & PEDS [address] [place] [address] Fidel Love MD Obesity (BMI 30-39.9) 08/04/2024 Refill [facility] [address] [place] [address] Fidel Love MD 07/08/2024 Telephone [facility] [address] [place] [address] Fidel Love MD 07/07/2024 Orders Only [facility] [address] [place] [address] Fidel Love MD Obesity (BMI 30-39.9) (Primary Dx) 07/03/2024 Refill [facility] [address] [place] [address] Fidel Love MD Rash due to allergy 06/30/2024 Refill [facility] [address] [place] [address] Fidel Love MD Obesity (BMI 30-39.9) 06/23/2024 Orders Only [facility] [address] [place] [address] Fidel Love MD Skin rash (Primary Dx) 06/03/2024 Telephone [facility] [address] [place] [address] Fidel Love MD Prior Authorization 05/30/2024 Telephone [facility] [address] [place] [address] Peggy Loja RNbottle capping machine operator 05/28/2024 [facility] Health Information Management [address] [place] [address] Fidel Love MD from Last 3 Months Social History Tobacco [...] 06/08/2015 Colorectal Cancer Screening Discontinued Pneumococcal Vaccine: 50+ Years Completed 01/05/2022, 05/07/2017, 05/17/2010 CT Colonography [...] SURGERY Routine 07/04/2024 Intractable right heel pain XR LUMBAR SPINE 2-3 VIEWS Routine 06/06/2024 12:03 PM EST LIPID PANEL, STANDARD Routine 12/21/2021 8:39 AM EDT HM COLONOSCOPY Routine 06/08/2015 from Last 3 Months or Most Recently Relevant to Health Maintenance Results * Referral to Orthopaedic Surgery (07/04/2024) us Fidel Love MD OUTPATIENT REFERRAL ORDERAB LES Final Result * XR Lumbar Spine 2-3 Views (06/06/2024 12:03 PM EST) Anatomical Region Laterality Modality Spine, L-spine Radiographic Kenna ging 06/06/2024 12:0 3 PM EST Narrative 07/24/2024 11:17 AM EST ? [facility] ? [address] ?[place] [address] ?XRay Report ? Signed ? Patient: Graff,Chrissy ?MR#: [id number] ? : 1950 ?Acct:[id number] ? Age/Sex: 74 / F ?ADM Date: 06/06/24 ? Loc: HO.HOSX ? Attending Dr: Pa MALONE ? Ordering Physician: Mariana Haji ?? Date of Service: 06/06/24 ?? Procedure(s): XR lumbar spine 2-3V ?? Accession Number(s): [id number] ? cc: Fidel Love MD; Mariana Haji ? EXAMINATION: ?? XR LUMBAR SPINE ? CLINICAL INFORMATION: ?? Dorsalgia, unspecified M54.9. ? COMPARISON: ?? CT Abdomen pelvis without then with IV contrast 04/26/2022 ? TECHNIQUE: ?? Three views of the lumbosacral spine. ? FINDINGS: ?? 5 lumbar type vertebral bodies are identified. Prominent compression ?? deformity of the T12 vertebral body with 50-75% overall loss of ?? craniocaudal height and inward deformity of the superior endplate is ?? unchanged compared with 04/26/2022. No lumbar vertebral body compression ?? deformities identified. 2 mm degenerative appearing anterolisthesis of ?? L4 on L5 is present. Moderate scattered aortic calcific atherosclerotic ?? plaques are visualized. Mild-moderate bilateral facet hypertrophic ?? changes are present at L4-L5 and L5-S1 grossly corresponding to ?? findings noted contemporaneously on 04/26/2022 examination. The ?? sacroiliac joints are grossly normal in appearance. ? XR/XR lumbar spine 2-3V ?? IMPRESSION: ?? *No acute abnormalities identified. ? *Chronic benign-appearing compression deformity of the T12 vertebral ?? body with 5775% loss of craniocaudal height unchanged compared with ?? 04/26/2022. Findings are associated with approximately 3 mm retropulsion ?? of the superior margin of the vertebral body. ? *Mild-moderate bilateral facet hypertrophic degenerative changes L4-L5 ?? and L5-S1 grossly unchanged compared with 04/26/2022. ? *Minimal 2 mm degenerative anterolisthesis L4-L5 appears progressed ?? compared with 04/26/2022. ? Electronically signed by: ??Casimiro Aceves MD ??07/24/2024 11:15 AM EST RP ? Dictated By: ?Casimiro Aceves MD ? Signed By: ?<Electronically signed by Casimiro Aceves MD in OV> ? 07/24/24 1115 ? DD/ 1203 ? TD/TT: 06/06/24 1209 ? Floor Worker: EF ? Procedure Note Tara, Image - 07/24/2024 [facility] [address] [place] [address] [address] [place] [address] XRay Report Signed Patient: Duane Graff#: [id number] : 8Acct:[id number] Age/Sex: 74 / FADM Date: 06/06/24 Loc: HO.HOSX Attending Dr: Pa MALONE Ordering Physician: Mariana Haji Date of Service: 06/06/24 Procedure(s): XR lumbar spine 2-3V Accession Number(s): [id number] cc: Fidel Love MD; Mariana Haji EXAMINATION: XR LUMBAR SPINE CLINICAL INFORMATION: Dorsalgia, unspecified M54.9. COMPARISON: CT Abdomen pelvis without then with IV contrast 04/26/2022 TECHNIQUE: Three views of the lumbosacral spine. FINDINGS: 5 lumbar type vertebral bodies are identified. Prominent compression deformity of the T12 vertebral body with 50-75% overall loss of craniocaudal height and inward deformity of the superior endplate is unchanged compared with 04/26/2022. No lumbar vertebral body compression deformities identified. 2 mm degenerative appearing anterolisthesis of L4 on L5 is present. Moderate scattered aortic calcific atherosclerotic plaques are visualized. Mild-moderate bilateral facet hypertrophic changes are present at L4-L5 and L5-S1 grossly corresponding to findings noted contemporaneously on 04/26/2022 examination. The sacroiliac joints are grossly normal in appearance. XR/XR lumbar spine 2-3V IMPRESSION: *No acute abnormalities identified. *Chronic benign-appearing compression deformity of the T12 vertebral body with 5775% loss of craniocaudal height unchanged compared with 04/26/2022. Findings are associated with approximately 3 mm retropulsion of the superior margin of the vertebral body. *Mild-moderate bilateral facet hypertrophic degenerative changes L4-L5 and L5-S1 grossly unchanged compared with 04/26/2022. *Minimal 2 mm degenerative anterolisthesis L4-L5 appears progressed compared with 04/26/2022. Electronically signed by: Casimiro Aceves MD 07/24/2024 11:15 AM EST Dictated By: Casimiro Aceves MD Signed By: <Electronically signed by Casimiro Aceves MD in OV> 07/24/24 1115 DD/ 1203 TD/TT: 06/06/24 1209 Floor Worker: ZACH[facility] External Provider IMG XR PROCEDURES Final Result * (ABNORMAL) LIPID PANEL, STANDARD (12/21/2021 8:39 AM EDT) Chol/HDLC Ratio 3.2 <5.0 (calc) [facility] Cholesterol, Total 188 <200 mg/dL [facility] HDL Cholesterol 58 > OR = 50 mg/dL [facility] LDL Cholesterol 98 mg/dL (calc) [facility] Comment: Reference range: <100 ?? [...] ?? Darion YODER et al. JAIME. 2013;310(19): 7999-7595 ?? (http://[employer]/faq/WNY281) Non-HDL Cholesterol 130(H) <130 mg/dL (calc) [facility] Comment: For patients with diabetes plus 1 major ASCVD risk ?? factor, treating to a non-HDL-C goal of <100 mg/dL ?? (LDL-C of <70 mg/dL) is considered a therapeutic ?? option. Triglycerides 201(H) <150 mg/dL [facility] Comment: ?? If a non-fasting specimen was collected, consider repeat triglyceride testing on a fasting specimen if clinically indicated. ?? Stu et al. J. of Clin. Lipidol. 2015;9:129-169. ?? 12/21/2021 8:39 AM EDT Fidel Love MD LAB BLOOD ORDERABLES Final Result Performing Organization Address City/State/[facility] [[email or web address]] Co de Phone Number [facility] [address] * Colonoscopy (06/08/2015) Colonoscopy Normal Normal Narrative Ericka Liao - 06/08/2015 Recommended 10 year follow up Historical Provider HEALTH MAINTENANCE Final Result from Last 3 Months or Most Recently Relevant to Health Maintenance Insurance [facility] Care Teams Under Presser Relationship Specialty Start Date End Date Fidel Love MD [address] [place] [address] [place] [address] PCP - General Internal Medicine 04/25/12
--- OUTSIDE RECORDS SUMMARY | 2024-08-26 12:10 | XMS_ITS | Encounter Summary ---
Author Organization [employer] Address [address] [facility] [address]t [place] [address] Care Team Providers Care Rug Receiving Clerk Name Role Phone Fidel Love MD Primary Care Provider +1- [phone] Encounter Details Date Type Department Care Team ([facility] st Contact Info) Description 07/07/2024 Orders Only [facility] CH[facility] MED & PEDS [address] [place] [address] Fidel Love MD [address] [place] [address] Obesity (BMI 30-39.9) (Primary Dx) Social History [...] documented as of this encounter Care Teams Rug Receiving Clerk Relationship Specialty Start Date End Date Fidel Love MD [address] [place] [address] PCP - General Internal Medicine 04/25/12 documented as of this encounter
--- OUTSIDE RECORDS SUMMARY | 2024-08-26 12:10 | XMS_ITS | Encounter Summary ---
Author Organization [employer] Address 75 [facility] 7t [place] [address] Care Team Providers Care Customer Contact Specialist Name Role Phone Fidel Love MD Primary Care Provider +1- [phone] Reason for Visit * Reason Onset Date Comments Med Refill 08/04/2024 Encounter Details Date Type Department Care Team (Late st Contact Info) Description 08/04/2024 Refill [facility] [address] [place] [address] Fidel Love MD [address] [place] [address] Social History Tobacco Use Types Packs/Day Years [...] encounter Miscellaneous Notes * Telephone Encounter - Yoli Shaw - 08/04/2024 12:13 PM EST TC from pt requesting medication refill. Medications needing refill : Calcium + Vitamin D3 600-10 MG-MCG tablet To be sent to: [facility] [address] [place] [address] documented in this encounter Plan of Treatment Not on file documented as of this encounter Visit Diagnoses Not on filedocumented in this encounter Additional Health Concerns Assessment Noted Time PHQ-9 Depression Total Score: 0 05/27/20 24 1:20 PM EST documented as of this encounter Care Teams Customer Contact Specialist Relationship Specialty Start Date End Date Fidel Love MD [address] [place] [address] PCP - General Internal Medicine 04/25/12 documented as of this encounter
--- OUTSIDE RECORDS SUMMARY | 2024-08-26 12:10 | XMS_ITS | Encounter Summary ---
Author Organization [facility] Address [address] [place] [address] Phone Care Team Providers Care Commissioning Editor Name Role Phone Fidel Love MD Primary Care Provider +1- [phone] Encounter Details Date Type Department Care Team ([facility] Contact Info) Description 12/30/2021 Documentation Only [facility] [address] [place] [address] Fidel Love MD [address] [place] [phone] Social History Tobacco Use Types Packs/Day Years Used Date Smoking Tobacco: Never Assessed Comments Unknown Sex and Gender Information Value Date Recorded Sex Assigned at Not on file Legal Sex Female 4:12 PM EDT Gender Identity Not on file Sexual Orientation Not on file documented as of this encounter Plan of Treatment Upcoming Encounters Date Type Department Care Team ([facility] Contact Info) Description 10/31/2024 3:30 PM EDT Office Visit [facility] [address] [place] [address] Gennaro Multani MD [address] [place] [address] Dr. [place] [address] documented as of this encounter Visit Diagnoses Not on filedocumented in this encounter Care Teams Commissioning Editor Relationship Specialty Start Date End Date iFdel Love MD PCP - General Internal Medicine 12/30/21 documented as of this encounter
--- OUTSIDE RECORDS SUMMARY | 2024-08-26 12:10 | XMS_ITS | Encounter Summary ---
Author Organization [employer] Address [facility] [address] [place] [address] Care Team Providers Care Manufacturing Business Analyst Name Role Phone Fidel Love MD Primary Care Provider Encounter Details Date Type Department Care Team ([facility] st Contact Info) Description 04/02/2024 Orders Only [facility] MED & PEDS [address] [place], [place] [phone] Fidel Love MD [address] [place], [place] [phone] Low back pain at multiple sites (Primary [...] documented as of this encounter Care Teams Manufacturing Business Analyst Relationship Specialty Start Date End Date Fidel Love MD [address] [place] [address] PCP - General Internal Medicine 04/25/12 documented as of this encounter
--- OUTSIDE RECORDS SUMMARY | 2024-08-26 12:10 | XMS_ITS | Encounter Summary ---
Author Organization [employer] Address [address] [facility] [address] [place] [address] Care Team Providers Care Pharmacy Picking Tech Name Role Phone Fidel Love MD Primary Care Provider [phone] Encounter Details Date Type Department Care Team (Late st Contact Info) Description 05/16/2024 Orders Only [facility] [address] [place] [address] Provider, MD Chris Social History Tobacco Use [...] t he electric, gas, oil or water [employer] threatened to shut off services in your [...] Procedure Name Priority Date/Time Associated Diagnosis Comments XR LUMBAR SPINE 2-3 VIEWS Routine 06/06/2024 12:03 PM EST TRANSTHORACIC ECHO (TTE) COMPLETE Routine 05/15/2024 10:24 AM EST documented in this encounter Results * XR Lumbar Spine 2-3 Views (06/06/2024 12:03 PM EST) Anatomical Region Laterality Modality Spine, L-spine Radiographic Kenna ging 06/06/2024 12:0 3 PM EST Narrative 07/24/2024 11:17 AM EST ? [facility] ? [address] ?[place] [address] ?XRay Report ? Signed ? Patient: Chrissy Graff ?MR#: [id number] ? : 1950 ?Acct:[id number] ? Age/Sex: 74 / F ?ADM Date: 06/06/24 ? Loc: HO.HOSX ? Attending Dr: Pa MALONE ? Ordering Physician: Mariana Haji ?? Date of Service: 06/06/24 ?? Procedure(s): XR lumbar spine 2-3V ?? Accession Number(s): [id number] ? cc: Fidel Love MD; Mariana aHji ? EXAMINATION: ?? XR LUMBAR SPINE ? [...] DD/ 1203 ? TD/TT: 06/06/24 1209 ? [place]: EF ? Procedure Note Tara, Macey - 07/24/2024 [facility] [address] [place] [address] [address] [place] [address] XRay Report Signed Patient: Chrissy GraffMR#: [id number] : 8Acct:[id number] Age/Sex: 74 / FADM Date: 06/06/24 Loc: ANALI Attending Dr: Pa MALONE Ordering Physician: Mariana Haji Date of Service: 06/06/24 Procedure(s): XR lumbar spine 2-3V Accession Number(s): [id number] cc: Fidel Love MD; Mariana Haji EXAMINATION: [...] 07/24/24 1115 DD/ 1203 TD/TT: 06/06/24 1209 [place]: [facility] External Provider IMG XR PROCEDURES Final Result * Transthoracic echo (TTE) complete (05/15/2024 10:24 AM EST) Historical Provider CV ECHO PROCEDURES Final Result documented in this encounter Visit Diagnoses Not on filedocumented in this encounter Additional Health Concerns Assessment Noted Time PHQ-9 Depression Total Score: 9 11/07/19 23 4:10 PM EDT documented as of this encounter Care Teams Pharmacy Picking Tech Relationship Specialty Start Date End Date Fidel Love MD [address] [place] [address] PCP - General Internal Medicine 04/25/12 documented as of this encounter
--- OUTSIDE RECORDS SUMMARY | 2024-08-26 12:10 | XMS_ITS | Continuity of Care Document ---
Author Organization [facility] Address [address] [address] Phone Care Team Providers Care Armed Guard Name Role Phone Shabbir Yeh PA-C Unavailable Unavaila ble Advance Directives Directive Yes / No Effective Date File Name No Information Encounters Encounter Description Practice Location Reason(s) For Visit Diagnoses Date Provider [facility], [address] [address], [place], [place], [id number], [place] tel:[phone] [facility] No Information [address] [place], [place], [id number], [place]. tel:[phone] Family History Family Member Type Diagnosis Age At Onset No Information Payers Payer name Insurance type Covered republican ID Authoriza tion(s) No Information Social History Type Description Quantity Date Captured Comments Sex Female Smoking Status No Information Chief Complaint And Reason For Visit No Information History Of Present Illness Encounter Date Complaint History Of Prese nt Illness No Information Instructions Date Instruction Additional Infor mation No Information Assessments Type Assessment Date No Information
--- OUTSIDE RECORDS SUMMARY | 2024-08-26 12:10 | XMS_ITS | Encounter Summary ---
Author Organization [employer] Address [address] [facility] [address] [place] [address] Care Team Providers Care Field Producer Name Role Phone Fidel Love MD Primary Care Provider Reason for Visit * Reason Onset Date Comments Med Refill 08/21/2024 Encounter Details Date Type Department Care Team ([facility] st Contact Info) Description 08/21/2024 Refill [facility] MED & PEDS [address] [place], [place] [phone] Fidel Love MD [address] [place] [address] Obesity (BMI 30-39.9) Social History Tobacco Use [...] documented as of this encounter Care Teams Field Producer Relationship Specialty Start Date End Date Fidel Love MD [address] [place] [address] PCP - General Internal Medicine 04/25/12 documented as of this encounter
--- OUTSIDE RECORDS SUMMARY | 2024-08-26 12:10 | XMS_ITS | Encounter Summary ---
Author Organization [employer] Address [address] [facility] [address] [place] [address] Care Team Providers Care Water Plumber Name Role Phone Fidel Love MD Primary Care Provider [phone] Encounter Details Date Type Department Care Team ([facility] Contact Info) Description 07/08/2024 Telephone [facility] MED & PEDS [address] [place], [place] [phone] Fidel Love MD [address] [place] [address] Social History Tobacco Use Types Packs/Day Years [...] . Any question may contact phone # [phone]. documented in this encounter Plan of Treatment Not on file documented as of this encounter Visit Diagnoses Not on filedocumented in this encounter Additional Health Concerns Assessment Noted Time PHQ-9 Depression Total Score: 0 05/27/20 24 1:20 PM EST documented as of this encounter Care Teams Water Plumber Relationship Specialty Start Date End Date Fidel Love MD [address] [place] [address] PCP - General Internal Medicine 04/25/12 documented as of this encounter
== END 2024-08-26 10:33 | disposition home or self-care (01) ==
PROVIDERS: PCP Internal Medicine
DX: G56.03 Carpal tunnel syndrome, bilateral upper limbs (principal)
CPT/HCPCS: 99024

== ENCOUNTER → 2024-08-26 10:12 | Outpatient (BNVA) | payer OTHER, SELFPAY | PROVIDERS: PCP Internal Medicine | DX: Z47.89 Encounter for other orthopedic aftercare (principal); G56.03 Carpal tunnel syndrome, bilateral upper limbs | CPT/HCPCS: 99212 ==

== ENCOUNTER 2024-09-04 09:13 | Outpatient (AMB) | payer OTHER, SELFPAY ==
[2024-09-04 09:22] VITALS: BMI 37.1
--- NOTE | 2024-09-04 09:22 | MHC.OFFVIS ---
Vital Signs 09/04/24 09:22 Height 5 ft Weight 190 lb BMI 37.1 Intake Visit Reasons: OV-Sciatica, Midback-follow up Intake Note: Chrissy 74 yr old female presents today with her daughter Berta for her follow up visit for her Sciatica, Midback pain s/p P.T. States she is attending P.T and now is able to bear weight on her right heel however she continues to have back pain. Accompanied by: daughter Berta Allergies latex Allergy (Intermediate, Verified 09/04/24 09:26) Rash Medication List - Last Reconciled 09/04/24 by Mariana Fernando MD alendronate mg PO amlodipine 5 mg PO DAILY Brace,wrist (Wrist Brace - one) Bilateral carpal tunnel wrist splints, apply QHS and remove in am. calcium carbonate-vitamin D3 600 mg-10 mcg (400 unit) 1 tab PO BID fexofenadine 180 mg PO DAILY levocetirizine 5 mg PO DAILY lisinopril 40 mg PO DAILY oxycodone-acetaminophen 5-325 mg 1 tab PO Q6H PRN paroxetine HCl 20 mg PO DAILY prednisolone acetate 1% drps ophthalmic (eye) simvastatin 40 mg PO BEDTIME HPI Comments Details: Chronic thoracic back pain. Fall several years ago, sustaining T12 fracture. Seeing fracture seen on more recent x-ray and MRI. Points to midline. Does not radiate. No groin pain. No numbness on feet. She says today that the ankle pain on the right that she was referring to is now improved. Although pain still constant 6/10. History of osteopenia. Ongoing PT. [facility] Surgical History H/O tubal ligation H/O section H/O shoulder surgery Social History Alcohol intake: never Patient Tobacco Use Status: Never used Tobacco Current occupational status: retired Current occupation: right hand Physical Exam Vital Signs: BMI result Body Mass Index 37.1 Constitutional: Patient appears to be in no acute distress, well nourished and well developed. Patient was appropriately conversant and oriented. Good historian. MSK: No specific abnormalities found on inspection of the spine and all extremities. No tenderness on SI or GT. Paraspinals nontender. Slump sit negative. Strength is 5/5 in all muscle groups tested. No increased tone noted. Neurological: Neurologic examination of the upper and lower extremities was nonfocal with intact sensation, muscle stretch reflexes and without focal motor deficits . Babinski was down going bilaterally. Clonus was negative. Gait is non-antalgic without loss of balance. Results Reviewed Results Reviewed: Ordering Physician: Mariana Haji Date of Service: 07/31/24 Procedure(s): MR thoracic spine wo [facility] Accession Number(s): [id number] cc: Mariana Haji~ FINDINGS: MR THORACIC SPINE WITH CONTRAST CLINICAL INFORMATION: T12 compression fracture seen on x-ray. Patient complaining of numbness left hand, and pain around the waist, and left leg pain. COMPARISON: No prior MRI. Correlation with x-ray lumbar 06/06/2024. TECHNIQUE: Multiplanar multisequence MR imaging of the thoracic spine was done without IV gadolinium. Examination performed on a 1.5 Dorys Siemens high-field magnet. FINDINGS: ALIGNMENT: Mild to moderate levoconvex scoliosis, apex at T6. Normal thoracic kyphosis. No thoracic subluxation. VERTEBRAL BODIES AND BONE MARROW: Chronic appearing 50-60% compression deformity superior endplate of T12. No associated bone marrow edema. Mild focal kyphosis at this level. Retropulsion of the superior endplate of T12 approximately 3 mm into the canal, without resultant central stenosis. No additional compression deformities. No suspicious focal bone marrow lesions. DISCS: Mild to moderate diffuse loss of disc height and signal, most significant spanning T3-T10. Incidental note of severe disc degeneration at C6-7. PARASPINAL SOFT TISSUES: Descending aorta is mildly tortuous without aneurysm. No pleural effusions. Limited imaging of the liver, all viscera demonstrate no abnormality. Paraspinous and paravertebral soft tissues and muscles appear normal. SPINAL CORD: Normal in caliber and signal throughout the thoracic region. The conus terminates at the superior endplate of L1. Incidentally noted is a dorsal disc bulge at C6-7 which indents upon the appears to mildly impinge the cervical cord. No definite signal alteration within the cord. SPINAL LEVELS: C7-T1: Mild facet degeneration bilaterally. No central canal narrowing. Mild bilateral neural foraminal narrowing. T1-T2: Shallow disc bulging is present, indenting on the ventral thecal sac but not contacting the cord. Moderate bilateral facet degeneration, and moderate posterior ligamentous thickening/infolding. There is mild central canal narrowing, and there is mild to moderate bilateral neural foraminal narrowing. T2-T3: Trace disc bulging. Left greater than right degenerative facet changes with mild posterior ligamentous infolding. No central canal narrowing. There is moderate left neural foraminal narrowing. T3-T4: Left greater than right hypertrophic degenerative facet changes. Trace disc bulging. No central canal narrowing. Moderate left neural foraminal narrowing. T4-T5: Minimal bulging disc, without mass effect. Mild to moderate hypertrophic degenerative facet changes left greater than right, without central canal stenosis. There is mild to moderate left and mild right neural foraminal stenosis. T5-T6: Facet degeneration bilaterally with mild posterior ligamentous thickening. No significant disc bulge. No central canal narrowing. Minimal neural foraminal narrowing. T6-T7: There is a left paracentral and lateral minimal protrusion of disc material. No significant mass effect. Minimal facet degeneration bilaterally. No central canal narrowing. There is mild right greater than left neural foraminal narrowing. T7-T8: Mild degenerative facet changes. Mild posterior ligamentous thickening/infolding. No central canal or neural foraminal narrowing. T8-T9: Trace disc bulge, with no mass effect. Mild right greater than left hypertrophic degenerative facet changes. Mild posterior ligamentous thickening/infolding. No central canal or neural foraminal narrowing. T9-T10: Left lateral and foraminal disc bulge, mild hypertrophic degenerative facet changes bilaterally, mild posterior ligamentous thickening/infolding. No central canal narrowing. There is mild bilateral neural foraminal narrowing. T10-T11: There is severe right facet hypertrophy and spurring. There is mild left. Mild posterior ligamentous thickening/infolding. No central canal narrowing. There is severe right neural foraminal stenosis. There is a small nerve root sleeve cyst in the left neural foramen. T11-T12: Minimal retropulsion of the superior endplate of T12. Associated trace diffuse concentric disc bulge. Mild hypertrophic degenerative facet changes left greater than right. There is minimal central canal narrowing, however no significant neural foraminal narrowing. There are nerve root sleeve cysts in both neural foramen. T12-L1: There is a prominent broad-based disc bulge with a superimposed central extrusion of disc material. This indents upon the ventral thecal sac but does not contact the conus. Coupled with mild to moderate hypertrophic degenerative facet changes and mild posterior ligamentous infolding, there is mild central canal narrowing, mild left greater than right subarticular recess narrowing, and moderate bilateral neural foraminal narrowing. MR/MR thoracic spine wo con IMPRESSION: 1. Chronic T12 compression deformity superior endplate with approximately 50-60% loss of height. Minimal retropulsion of bone into the central canal without significant central canal narrowing. 2. No evidence of acute or new compression deformity. 3. Multilevel spondylosis of the thoracic spine with associated levoconvex scoliosis. No high-grade thoracic canal stenosis or cord abnormality or impingement. There is severe right neural foraminal narrowing at T10-11 due to severe right facet hypertrophy and spurring. No additional levels of high-grade neural foraminal narrowing. 4. Incidentally noted is C6-7, dorsal disc bulge indents upon a mildly impinges the cervical cord, without definite cord signal alteration. This is only imaged at the superior edge of the examination. Would correlate with dedicated cervical MRI. 5. See the body the report for details on individual levels. Electronically signed by: Jose Mir MD 07/31/2024 04:23 PM [facility] Assessment & Plan Assessment & Plan (1) Chronic low back pain: Code(s): M54.50 - Low back pain, unspecified; G89.29 - Other chronic pain Category: Medical Qualifiers: Back pain laterality: midline Sciatica presence: without sciatica Qualified Code(s): M54.50 - Low back pain, unspecified; G89.29 - Other chronic pain (2) Thoracic compression fracture: Code(s): S22.000A - Wedge compression fracture of unspecified thoracic vertebra, initial encounter for closed fracture Category: Medical Qualifiers: Encounter type: subsequent encounter Fracture healing: with routine healing Thoracic vertebra fracture level: T12 Qualified Code(s): S22.080D - Wedge compression fracture of T11-T12 vertebra, subsequent encounter for fracture with routine healing (3) Pain of thoracic facet joint: Code(s): M54.6 - Pain in thoracic spine Category: Medical Plan Chronic T12 compression fracture, no red flags, not tender to touch. We looked at MRI images together. No further intervention at this time. May continue PT. Facet pain suspect to be cause of back pain. They are interested in MBB and eventual RF. Referral to Pain Management placed. Assessment and plan discussed with patient, and patient was agreeable. All questions were answered thoroughly. Mariana Fernando MD, NNAMDI Board Certified, [place] Board of Physical Medicine and Rehabilitation (ABPMR) Board Certified, [place] Board of Electrodiagnostic Medicine (ABEM) Orders: Referrals Pain Management Referral G89.29 - Other chronic pain, M54.50 - Low back pain, unspecified, M54.6 - Pain in thoracic spine, S22.000A - Wedge compression fracture of unspecified thoracic vertebra, initial encounter for closed fracture Coding Level of Care Code Est Pt Level 3 (36720) Diagnoses Chronic midline low back pain without sciatica M54.50; G89.29 Back pain laterality: midline Sciatica presence: without sciatica Compression fracture of T12 vertebra with routine healing, subsequent encounter S22.080D Encounter type: subsequent encounter Fracture healing: with routine healing Thoracic vertebra fracture level: T12 Pain of thoracic facet joint M54.6
--- OUTSIDE RECORDS SUMMARY | 2024-09-04 10:41 | XMS_ITS | Clinical Summary ---
Author Organization [facility], Address [address] [place] [address] [place] [address] Phone Care Team Providers Care Supervisor Diagnostic Name Role Phone Fidel Love MD Primary Care Provider [phone]- [phone] Allergies No known active allergies Medications Calcium [...] Refill [facility] [address] [place] [address] Jenna Tapia 07/30/2024 Documentation Only [facility] [address] [place] [address] Gennaro Multani MD from Last 3 [...] Visit [facility] [address] [place] [address] Gennaro Multani MD [address] [place] [address] [place] [address] Health Maintenance Due Date Last Done Comments Pneumococcal Vaccine: 65+ Ye ars (1 of 2 - PCV) 1956 Influenza Vaccine (#1) 2024 Hepatitis B Vaccine Aged Out No longe r eligible based on patient's age to complete this topic Procedures Procedure Name Priority Date/Time Associated Diagnosis Comments URINE ALBUMIN / CREATININE RATIO Routine 08/29/2024 9:12 AM EST PROTEIN / CREATININE RATIO, URINE Routine 08/29/2024 9:12 AM EST RENAL FUNCTION PANEL Routine 08/29/2024 9:12 AM EST URINALYSIS WITH MICROSCOPIC Routine 08/29/2024 9:12 AM EST CBC AND DIFFERENTIAL Routine 08/29/2024 9:12 AM EST MICROSCOPIC EXAMINATION - DO NOT USE Routine 08/29/2024 9:12 AM EST from Last 3 Months Results * Microscopic Examination (08/29/2024 9:12 AM EST) WBC, Urine 0-5 0 - 5 /hpf [facility] RBC, Urine 0-2 0 - 2 /hpf [facility] Squamous Epithelial, Urine 0-10 0 - 10 /hpf [facility] Casts None seen None seen /lpf [facility] Bacteria, Urine None seen None seen/Few [facility] 08/29/2024 9:12 AM EST 08/29/2024 us Gennaro Multani MD LAB MICROBIOLOGY - GENERAL OR DERABLES Final Result [facility] [address] [place] [address] * (ABNORMAL) Protein, Total, Random Urine w/Creatinine (Protein/Creat Ratio) (08/29/2024 9:12 AM EST) Creatinine, Ur 132.9 Not Estab. mg/dL [facility] Protein, Ur 145.9 Not Estab. mg/dL [facility] Urine Protein/Creati nine Ratio 1,098(H) 0 - 200 mg/g creat [facility] 08/29/2024 9:12 AM EST 08/29/2024 Gennaro Multani MD LAB URINE ORDERABLES Final Re sult Performing Organization Address [facility] de Phone Number [facility] [address] [place] [address] * (ABNORMAL) Urine Albumin / Creatinine Ratio (08/29/2024 9:12 AM EST) Albumin, Urine 278.3 Not Estab. ug/mL [facility] Albumin/Creatin ine Ratio 209(H) 0 - 29 mg/g creat [facility] Comment: ? Normal: ?0 - ??29 ? Moderately increased: 30 - 300 ? Severely increased: ? >300 08/29/2024 9:12 AM EST 08/29/2024 Gennaro Multani MD LAB URINE ORDERABLES Final Re sult Performing Organization Address [facility] de Phone Number [facility] [address] [place] [address] * (ABNORMAL) Urinalysis with microscopic (08/29/2024 9:12 AM EST) Specific [place], Urine 1.021 1.005 - 1.030 [facility] pH Urine 6.5 5.0 - 7.5 [facility] [phone] Color, Urine Yellow Yellow [facility] Appearance Urine Clear Clear [facility] WBC Esterase Urine Negative Negative [facility] Protein, Ur 2+(A) Negative/Tra ce [facility] Glucose, Ur 3+(A) Negative [facility] Ketones, Urine Negative Negative [facility] Blood Urine Negative Negative [facility] [phone] Bilirubin Urine Negative Negative [facility] Urobilinogen Urine 0.2 0.2 - 1.0 mg/dL [facility] Nitrite, Urine Negative Negative [facility] Microscopic Examination See below: [facility] Comment:Microscopic was cruz cated and was performed. 08/29/2024 9:12 AM EST 08/29/2024 us Gennaro Multani MD LAB URINE ORDERABLES Final Re sult [facility] [address] [place] [address] * CBC and Differential (08/29/2024 9:12 AM EST) Pathologist [facility] WBC 7.6 3.4 - 10.8 x10E3/uL [facility] RBC 4.45 3.77 - 5.28 x10E6/uL [facility] Hemoglobin 12.8 11.1 - 15.9 g/dL [facility] Hematocrit 39.2 34.0 - 46.6 % [facility] MCV 88 79 - 97 fL [facility] MCH 28.8 26.6 - 33.0 pg [facility] MCHC 32.7 31.5 - 35.7 g/dL [facility] RDW 13.5 11.7 - 15.4 % [facility] Platelets 236 150 - 450 x10E3/uL [facility] Neutrophils Relative 59 Not Estab. % [facility] Lymphocytes Relative 28 Not Estab. % [facility] Monocytes 7 Not Estab. % [facility] Eosinophils Relative 5 Not Estab. % [facility] Basophils Relative 1 Not Estab. % [facility] Neutrophils Absolute 4.5 1.4 - 7.0 x10E3/uL [facility] Lymphocytes Absolute 2.2 0.7 - 3.1 x10E3/uL [facility] Monocytes Absolute 0.6 0.1 - 0.9 x10E3/uL [facility] Eosinophils Absolute 0.3 0.0 - 0.4 x10E3/uL [facility] Basophils Absolute 0.1 0.0 - 0.2 x10E3/uL [facility] Immature Granulocytes 0 Not Estab. % [facility] Immature Grans (Absolute) 0.0 0.0 - 0.1 x10E3/uL [facility] 08/29/2024 9:12 AM EST 08/29/2024 us Gennaro Multani MD LAB BLOOD ORDERABLES Final Re sult [facility] [address] [place] [address] * (ABNORMAL) Renal Function Panel (08/29/2024 9:12 AM EST) Glucose 91 70 - 99 mg/dL [facility] BUN 13 8 - 27 mg/dL [facility] Creatinine 1.13(H) 0.57 - 1.00 mg/dL [facility] eGFR CKD-EPI CR 2020 50(L) >59 mL/min/1.7 3 [facility] BUN/Creatinine Ratio 12 12 - 28 [facility] Sodium 141 134 - 144 mmol/L [facility] Potassium 4.2 3.5 - 5.2 mmol/L [facility] Chloride 105 96 - 106 mmol/L [facility] Bicarbonate (CO2) 23 20 - 29 mmol/L [facility] Calcium 8.7 8.7 - 10.3 mg/dL [facility] Albumin 4.3 3.8 - 4.8 g/dL [facility] Phosphorus 2.8(L) 3.0 - 4.3 mg/dL [facility] 08/29/2024 9:12 AM EST 08/29/2024 Gennaro Multani MD LAB BLOOD ORDERABLES Final Re sult [facility] [address] [place] [address] from Last 3 Months Insurance [employer] ONE CARE DUAL SNP ([id number]) [place]ISAL [place]UEVA [id number] Care Teams Supervisor Diagnostic Relationship Specialty Start Date End Date Fidel Love MD PCP - General Internal Medicine 12/30/21
--- OUTSIDE RECORDS SUMMARY | 2024-09-04 10:41 | XMS_ITS | Encounter Summary ---
Author Organization [facility] [place], Address [address] [place] [address] Phone Care Team Providers Care Entrepreneurial Finance Professor Name Role Phone Fidel Love MD Primary Care Provider +1- [phone] Encounter Details Date Type Department Care Team ([facility] Contact Info) Description 07/30/2024 Documentation Only [facility] [address] [address] Gennaro Multani MD [address] [place] [address] [place] [phone] Social History Tobacco Use Types Packs/Day Years [...] Visit [facility] [address] [place] [address] Gennaro Multani MD [address] [place] [address] [place] [address] documented as of this encounter Visit Diagnoses Not on filedocumented in this encounter Care Teams Entrepreneurial Finance Professor Relationship Specialty Start Date End Date Fidel Love MD PCP - General Internal Medicine 12/30/21 documented as of this encounter
--- OUTSIDE RECORDS SUMMARY | 2024-09-04 10:41 | XMS_ITS | Continuity of Care Document ---
Author Organization [facility] Address [address] [address] Phone Care Team Providers Care Facility Security Officer Name Role Phone Shabbir Yeh PA-C Unavailable Unavaila ble Advance Directives Directive Yes / No Effective Date File Name No Information Encounters Encounter Description Practice Location Reason(s) For Visit Diagnoses Date Provider [facility], [address] [address], [place], [place], [id number], [place] tel:[phone] [facility] No Information [address] [place], [place], [id number], [place]. tel:[phone] Family History Family Member Type Diagnosis Age [...]
--- OUTSIDE RECORDS SUMMARY | 2024-09-04 10:41 | XMS_ITS | Encounter Summary ---
Author Organization [facility] Address [address] [place] [address] Phone Care Team Providers Care Shipping Lead Name Role Phone Fidel Love MD Primary Care Provider [phone]- [phone] Encounter Details Date Type Department Care Team (Late Contact Info) Description 05/01/2024 Documentation Only [facility] [address] [place] [address] Jenna Tapia [address] [place] [address] Social History Tobacco Use Types [...] Visit [facility] [address] [place] [address] Gennaro Multani MD [address] [place] [address] [place] [address] documented as of this encounter Visit Diagnoses Not on filedocumented in this encounter Care Teams Shipping Lead Relationship Specialty Start Date End Date Fidel Love MD PCP - General Internal Medicine 12/30/21 documented as of this encounter
--- OUTSIDE RECORDS SUMMARY | 2024-09-04 10:41 | XMS_ITS | Encounter Summary ---
Author Organization [facility] Address [address] [place] [address] Phone Care Team Providers Care Dead Mail Checker Name Role Phone Fidel Love MD Primary Care Provider [phone]- [phone] Encounter Details Date Type Department Care Team (Late Contact Info) Description 05/01/2024 Documentation Only [facility] [address] [place] [address] Jenna Tapia [address] [place] [address] Social History Tobacco Use Types [...] Visit [facility] [address] [place] [address] Gennaro Multani MD [address] [place] [address] [place] [address] documented as of this encounter Visit Diagnoses Not on filedocumented in this encounter Care Teams Dead Mail Checker Relationship Specialty Start Date End Date Fidel Love MD PCP - General Internal Medicine 12/30/21 documented as of this encounter
--- OUTSIDE RECORDS SUMMARY | 2024-09-04 10:41 | XMS_ITS | Encounter Summary ---
Author Organization [facility] Address [address] [place] [address] Phone Care Team Providers Care Certified Ophthalmic Medical Technician Name Role Phone Fidel Love MD Primary Care Provider [phone]- [phone] Reason for Visit * Reason Onset Date Comments Med Refill 08/14/2024 Encounter Details Date Type Department Care Team (Late Contact Info) Description 08/14/2024 Refill [facility] [address] [place] [address] Jenna Tapia [address] [place] [address] Social History Tobacco Use Types [...] Visit [facility] [address] [place] [address] Gennaro Multani MD [address] [address] [place] [phone] documented as of this encounter Visit Diagnoses Not on filedocumented in this encounter Care Teams Certified Ophthalmic Medical Technician Relationship Specialty Start Date End Date Fidel Love MD PCP - General Internal Medicine 12/30/21 documented as of this encounter
--- OUTSIDE RECORDS SUMMARY | 2024-09-04 10:41 | XMS_ITS | Encounter Summary ---
Author Organization [facility] Address [address] [place] [address] Phone Care Team Providers Care Optical Dispenser Name Role Phone Fidel Love MD Primary Care Provider +1- [phone] Encounter Details Date Type Department Care Team (Late Contact Info) Description 05/01/2024 Documentation Only [facility] [address] [place] [address] Jenna Tapia [address] [place] [address] Social History Tobacco Use Types [...] Visit [facility] [address] [place] [address] Gennaro Multani MD [address] [place] [address] [place] [address] documented as of this encounter Visit Diagnoses Not on filedocumented in this encounter Care Teams Optical Dispenser Relationship Specialty Start Date End Date Fidel Love MD PCP - General Internal Medicine 12/30/21 documented as of this encounter
--- OUTSIDE RECORDS SUMMARY | 2024-09-04 10:41 | XMS_ITS | Encounter Summary ---
Author Organization [facility] Address [address] [place] [address] Phone Care Team Providers Care Features Reporter Name Role Phone Fidel Love MD Primary Care Provider [phone]- [phone] Encounter Details Date Type Department Care Team ([facility] Contact Info) Description 12/30/2021 Documentation Only [facility] [address] [place] [address] Fidel Love MD [address] [place] [address] [phone] Social History Tobacco Use Types Packs/Day Years Used Date Smoking Tobacco: Never Assessed Comments Unknown Sex and Gender Information Value Date Recorded Sex Assigned at Not on file Legal Sex Female 4:12 PM EDT Gender Identity Not on file Sexual Orientation Not on file documented as of this encounter Plan of Treatment Upcoming Encounters Date Type Department Care Team ([facility] Contact Info) Description 10/31/2024 3:30 PM EDT Office Visit [facility] [address] [place] [address] Gennaro Multani MD [address] [place] [address] [place] [address] documented as of this encounter Visit Diagnoses Not on filedocumented in this encounter Care Teams Features Reporter Relationship Specialty Start Date End Date Fidel Love MD PCP - General Internal Medicine 12/30/21 documented as of this encounter
--- OUTSIDE RECORDS SUMMARY | 2024-09-04 10:41 | XMS_ITS | Encounter Summary ---
Author Organization [facility] Address [address] [place] [address] Phone Care Team Providers Care Senior Project Leader/Team Lead Name Role Phone Fidel Love MD Primary Care Provider [phone]- [phone] Encounter Details Date Type Department Care Team ([facility] Contact Info) Description 12/30/2021 Documentation Only [facility] [address] [place] [address] Fidel Love MD [address] [place] [phone] Social History Tobacco Use Types Packs/Day Years Used Date Smoking Tobacco: Never Assessed Comments Unknown Sex and Gender Information Value Date Recorded Sex Assigned at Not on file Legal Sex Female 4:12 PM EDT Gender Identity Not on file Sexual Orientation Not on file documented as of this encounter Plan of Treatment Upcoming Encounters Date Type Department Care Team ([facility] Contact Info) Description 10/31/2024 3:30 PM EDT Office Visit [facility] [address] [place] [address] Gennaro Multani MD [address] [place] [address] Dr. [place] [address] documented as of this encounter Visit Diagnoses Not on filedocumented in this encounter Care Teams Senior Project Leader/Team Lead Relationship Specialty Start Date End Date Fidel Love MD PCP - General Internal Medicine 12/30/21 documented as of this encounter
== END 2024-09-04 09:49 | disposition home or self-care (01) ==
LOC: HO.HOS 09:14
PROVIDERS: PCP Internal Medicine; Visit Provider Physical Medicine & Rehabilitation
DX: M54.50 Low back pain, unspecified (principal); G89.29 Other chronic pain; S22.080D Wedge compression fracture of T11-T12 vertebra, subsequent encounter for fracture with routine healing; M54.6 Pain in thoracic spine
CPT/HCPCS: 99213

== ENCOUNTER → 2024-09-04 09:13 | Outpatient (BNVA) | payer OTHER, SELFPAY | PROVIDERS: PCP Internal Medicine; Visit Provider Physical Medicine & Rehabilitation | DX: M54.50 Low back pain, unspecified (principal); S22.080D Wedge compression fracture of T11-T12 vertebra, subsequent encounter for fracture with routine healing; G89.29 Other chronic pain; M54.6 Pain in thoracic spine; X58.XXXD Exposure to other specified factors, subsequent encounter | CPT/HCPCS: 99212 ==

== ENCOUNTER → 2024-09-19 19:30 | Outpatient (REF) | payer OTHER, SELFPAY | LOC: HO.SL 19:30 | PROVIDERS: PCP Internal Medicine; Visit Provider Nurse Practitioner Family | DX: G47.33 Obstructive sleep apnea (adult) (pediatric) (principal); G47.34 Idiopathic sleep related nonobstructive alveolar hypoventilation; Z99.89 Dependence on other enabling machines and devices | CPT/HCPCS: 95811 ==

== ENCOUNTER 2024-10-03 11:46 | Outpatient (AMB) | payer OTHER, SELFPAY ==
--- NOTE | 2024-10-03 12:14 | A.OFFVIS_ITS ---
Vital Signs 10/03/24 12:15 Height 5 ft Weight 187 lb BMI 36.5 BP 165/80 H Blood Pressure Location Lt brachial Position Sitting Respiration 16 Pulse 86 Pulse Source Pulse Oximeter Pulse Oximetry (%) 96 Oxygen Delivery Method Room Air Intake Visit Reasons: Low back pain, unspecified Generator Switchboard Operator Required: Yes Generator Switchboard Operator Services: Generator Switchboard Operator Offered & Declined Generator Switchboard Operator Name: prefers son in law Allergies latex Allergy (Intermediate, Verified 10/03/24 12:17) Rash Medication List - Last Reconciled 10/03/24 by Selene Joshua LPN alendronate mg PO Brace,wrist (Wrist Brace - one) Bilateral carpal tunnel wrist splints, apply QHS and remove in am. dapagliflozin propanediol 5 mg PO DAILY doxepin 150 mg PO DAILY fexofenadine 180 mg PO DAILY lisinopril 40 mg PO DAILY paroxetine HCl 20 mg PO DAILY prednisolone acetate 1% drps ophthalmic (eye) simvastatin 40 mg PO BEDTIME HPI HPI Low back pain, unspecified: Details: History of Present Illness The patient is a 74-year-old female presenting with chronic back pain. The pain initially began around a year ago following a fall, and it predominantly affects her lower and mid-back. She describes the pain as intense, reaching 9/10, with an increased severity of 8/10 during night. Efforts to alleviate the pain include oral medication, which provides some relief, while cold applications exacerbate it. On her current regimen, she takes alendronate for osteoporosis and uses Tylenol to manage acute pain symptoms. The patient has participated in physical therapy without significant improvement. MRI findings indicate a chronic T12 compression deformity, thoracic spondylosis, neuroforaminal narrowing, and disc herniation. Treatment to date has not fully addressed her discomfort, necessitating further investigation and management. Pain Description - Onset: Following a slip approximately one year ago. - Quality: Described as severe pain, mainly in the lower and mid-back. - Intensity: 9/10 generally; 8/10 predominantly at night. - Location: Lower back and mid-back regions. - Exacerbating Factors: Cold application worsens the pain. - Relieving Factors: Oral medications provide some relief. - Impact: Interferes with daily activities and quality of life. - Treatment History: Engaged in physical therapy with minimal benefit. Physical Exam - Appears afebrile. - Alert and oriented. - Mood and affect appropriate. - Follows and participates in conversation appropriately. - Respiratory effort is unlabored. - Able to transition from sit to stand unassisted. - Ambulates with bilaterally normal heel strike and toe off. - Able to stand and walk on toes and heels. - Musculoskeletal: Positive for pain with lumbar extension in lower back and on forward flexion in the midback T12 region. Results - Imaging: MRI of the thoracic spine shows chronic T12 compression deformity with 50-60% height loss, multilevel thoracic spondylosis, severe right neuroforaminal narrowing at T10/11, and a C6-7 disc herniation. Pain Management - Affect: Chronic pain affecting daily activities and wellbeing. - Analgesia: Currently on alendronate, takes Tylenol as needed; pain remains at 9/10. - Adverse Effects: Not explicitly discussed. - Activities of Daily Living: Pain impacts functionality and quality of life. - Aberrant Drug Related Behaviors: None reported. [facility] Surgical History H/O tubal ligation H/O section H/O shoulder surgery Social History Alcohol intake: never Patient Tobacco Use Status: Never used Tobacco Current occupational status: retired Current occupation: right hand Physical Exam Vital Signs: Last Vital Signs Pulse 86 10/03/24 12:15 Resp 16 10/03/24 12:15 BP 165/80 H 10/03/24 12:15 Pulse Ox 96 10/03/24 12:15 Oxygen Delivery Method Room Air 10/03/24 12:15 BMI result Body Mass Index 36.5 Assessment & Plan Assessment & Plan (1) Thoracic compression fracture: Code(s): S22.000A - Wedge compression fracture of unspecified thoracic vertebra, initial encounter for closed fracture Category: Medical Qualifiers: Encounter type: subsequent encounter Thoracic vertebra fracture level: T12 Fracture healing: with routine healing Qualified Code(s): S22.080D - Wedge compression fracture of T11-T12 vertebra, subsequent encounter for fracture with routine healing (2) Lumbar spondylosis: Code(s): M47.816 - Spondylosis without myelopathy or radiculopathy, lumbar region Category: Medical Plan Plan Insurance authorization will be sought for lumbar medial branch diagnostic blocks, followed by radiofrequency ablation upon confirming effectiveness. A lumbar MRI may be conducted to strategize appropriate injections if MBBs -ve. If MBB/RFA do not suffice, explore peripheral nerve stimulation is a subsequent consideration. Patient was informed and verbally consented to the use of an ambient scribe for clinic note documentation during this visit. Discussion Notes Discussed with the patient the likelihood of chronic lower back pain originating from small joint issues in the lumbar region. Confirmed the use of lumbar medial branch blocks for localized pain assessment and the subsequent possibility of radiofrequency ablation for sustained relief if successful. Ensured understanding of the procedural benefits and risks, including necessary imaging to facilitate precise treatment delivery. Agreed upon progressing stepwise with intervention plans and the possibility of alternate strategies like peripheral nerve stimulation if required. Patient consented to the proposed management and diagnostic steps. Patient Instructions - Await authorization for lumbar medial branch block procedures. - Continue current medication regimen. - Physical therapy may continue as guided by results. - Report any changes in pain or new symptoms. - Schedule follow-up after diagnostic procedure completion. - Rest and avoid exacerbating activities as much as possible. Coding Level of Care Code New Pt Level 4 (53578) Diagnoses Compression fracture of T12 vertebra with routine healing, subsequent encounter S22.080D Encounter type: subsequent encounter Thoracic vertebra fracture level: T12 Fracture healing: with routine healing Lumbar spondylosis M47.816
[2024-10-03 12:15] VITALS: BP 165/80; PULSE 86; RESP 16; O2SAT 96; BMI 36.5
--- OUTSIDE RECORDS SUMMARY | 2024-10-03 12:42 | XMS_ITS | Data Portability ---
Author Organization [facility], [facility] Address [address] [place] [address] Care Team Providers Care Dado Operator Name Role Phone [facility] Referring Provider [facility] Referring Provider Assessment Encounter Date Assessment Date Assessment LastModified by Organization Details LastModified Time 10/19/2021 10/19/2021 I have reviewed and agree with the Assessment and Plan as documented by the Rehab Manager. I provided real -time medical direction via phone for this encounter, and was available for additional phone based assistance as needed. Patient given the opportunity to ask questions. She aware if develops CP/ significant SOB/ cyanosis/acute AMS/ very hi fever dexter unresponsive to Tylenol should go immediately to the ER- call 911 [email or web address] Not available 10/19/2021 18:07:56 Plan of Treatment Reminders Order Date Submit Date Provider Last Modified By Organization Details Last Modified Time Details Appointments None recorded. Lab rapid flu (A+B) 2021 [address]22 [email or web address], [phone] 17:17:01 rapid SARS CoV 2 Ag, QL IA, respiratory specimen 2021 022 [email or web address] [address], [phone] 17:17:01 Referral None recorded. Procedures None recorded. Surgeries None recorded. Imaging None recorded. Medication Orders None recorded. Patient TargetsNo targets recorded. Patient InstructionsNo instructions recorded. Reason for Referral None Reported. Results Created Date Observation Date Name Description Value Unit Range Abnormal Flag Note LastModifiedBy Organization Detail LastModifiedTime 10/20/19 22 10/19/2021 rapid SARS CoV 2 Ag, QL IA, respi rator y speci men rapid SARS CoV 2 Ag, QL IA, respiratory specimen positi ve Not Available [facility] ed [address] [place] [address], [phone] 10/19/2021 17:16:36 10/20/19 22 10/19/2021 rapid flu (A+B) Flu negati ve Not Available [facility] ed [address] [place] [address], [phone] 10/19/2021 17:16:34 Result Notes None recorded. Medical [...] 74 mm[Hg] Not Available [facility] - production 17:39:36 Social History None recorded. Functional Status [...] [address]18 Sylvia Caldera MD Main - inst[facility] [address] [place] [address] 10/19/2021 17:15:28 03/02/2022 18:07:53 Viral syndrome [id number] B34.9 COVID + Health Concerns Section Related Observation LastModified by Organization Detai ls LastModified Time None Recorded Concern Status LastModified by Organization Details LastModified Time None Recorded Advance Directives Directive None Recorded Payers Encounter Date Sequence Insurance Name Policy Number Policy Ochoa Covered Member ID Ochoa Member ID Guarantor Name 10/19/2021 1 [facility] - DOS PRIOR TO 2022 - DUAL ELIGIBLE (MEDICARE REPLACEMENT/ADV ANTAGE - HMO) Chrissy Graff [id number] Chrissy Graff Notes Date Note Type Note Provider Name and Address Organization Details Recorded Time 10/19/2021 text/html HPI: Call received from member's daughter, Berta (ph# [phone]) to the CRU. Berta reports mbr has not felt well with flu like symptoms and PCP would not see member d/t symptoms and recommended home visit through [facility]. Berta reports mbr with sx for [...] .................. .................. .................. .................. .................. .................. ............... Rehab Manager Note: Patient is a 71 year old [...] .................. .................. .................. .................. .................. ............... Disposition: Js Caldera MD [address] [facility], [place], [address], SY Santiago StereotypesANDRES CODY 10/19/2021 18:08:08 OBGyn Episode No OBEpisode recorded.
--- OUTSIDE RECORDS SUMMARY | 2024-10-03 12:42 | XMS_ITS | Encounter Summary ---
Author Organization [email or web address] Address [address] [place] [address] Care Team Providers Care Apn Name Role Phone Fidel Love MD Primary Care Provider Encounter Details Date Type Department Care Team ([facility] st Contact Info) Description 07/17/[address] [facility] [address] [place] [address] Fidel Love MD [address] [place] [address] Tremor (Primary Dx) Social History Tobacco Use [...] documented as of this encounter Care Teams Apn Relationship Specialty Start Date End Date Fidel Love MD [address] [place] [address] PCP - General Internal Medicine 04/25/12 documented as of this encounter
--- OUTSIDE RECORDS SUMMARY | 2024-10-03 12:42 | XMS_ITS | Encounter Summary ---
Author Organization [employer] Address [address] [place] [address] Care Team Providers Care Pre K Special Education Teacher Name Role Phone Fidel Love MD Primary Care Provider [phone] Encounter Details Date Type Department Care Team ([facility] st Contact Info) Description 11/16/2023 Orders Only [facility] [address] [place], [place] [phone] Fidel Love MD [address] [place] [address] Seasonal allergies (Primary Dx); Achilles tendinitis of [...] documented as of this encounter Care Teams Pre K Special Education Teacher Relationship Specialty Start Date End Date Fidel Love MD [address] [place] [id number] PCP - General Internal Medicine 04/25/12 documented as of this encounter
--- OUTSIDE RECORDS SUMMARY | 2024-10-03 12:42 | XMS_ITS | Encounter Summary ---
Author Organization [facility] [place], Address [address] [place] [address] Phone Care Team Providers Care Chain Person Name Role Phone Fidel Love MD Primary Care Provider [phone]- [phone] Encounter Details Date Type Department Care Team ([facility] Contact Info) Description 07/30/2024 Documentation Only [facility] [address] [place] [address] Gennaro Multani MD [address] [place] [address] [place] [phone] Social History Tobacco Use Types Packs/Day Years [...] Visit [facility] [address] [place] [address] Gennaro Multani MD [address] [place] [address] [place] [address] documented as of this encounter Visit Diagnoses Not on filedocumented in this encounter Care Teams Chain Person Relationship Specialty Start Date End Date Fidel Love MD PCP - General Internal Medicine 12/30/21 documented as of this encounter
--- OUTSIDE RECORDS SUMMARY | 2024-10-03 12:42 | XMS_ITS | Clinical Summary ---
Author Organization [employer] Address [address] 7[address] [place] [address] Care Team Providers Care First Beater Name Role Phone Fidel Love MD Primary Care Provider Allergies No known active allergies Medications * This document contains information received from the source organization and may not represent a complete record from that organization. lisinopril 40 MG tablet 3 Active Blood Pressure kitIndications:Pr imary hypertension To check the BP daily 1 kit 3 Active Diclofenac Sodium 1 % gelIndications:Ac hilles tendinitis of right lower extremity To apply to the affected area 3 times a day 100 g 3 Active doxepin (SINEquan) 150 MG capsule Take 1 capsule (150 mg) by mouth at bedtime. 30 capsule 11 4 01/11/20 25 Active alendronate (Fosamax) 70 MG tablet Take 1 tablet (70 mg) by mouth every 7 (seven) days. Take in the morning with a full glass of water, on an empty stomach, and do not take anything else by mouth or lie down for the next 30 min. 30 tablet 3 4 Active hydrocortisone acetate 1 % ointment Apply 1 Application. topically if needed in the morning and at bedtime (rectal pain/itching). 30 g 3 4 Active PARoxetine (Paxil) 20 MG tabletIndications :Moderate episode of recurrent major depressive disorder (CMS/HCC) TAKE 1 TABLET BY MOUTH EVERY DAY 30 tablet 11 4 Active simvastatin (Zocor) 40 MG tabletIndications :Hypercholesterol emia TAKE 1 TABLET BY MOUTH AT BEDTIME 30 tablet 11 4 Active nystatin (Nystop) 617672 UNIT/GM powderIndications :Skin rash Apply topically 2 times daily. 60 g 1 4 06/23/20 25 Active fexofenadine (Gogo Allergy) 180 MG tabletIndications :Rash due to allergy TAKE 1 TABLET BY MOUTH EVERY MORNING 30 tablet 5 5 Active Phentermine-Topir amate 3.75-23 MG capsule sustained-release 24 hrIndications:Obe sity (BMI 30-39.9) 1 tab daily 30 capsule 3 5 Active Calcium + Vitamin D3 600-10 MG-MCG tablet Place 600 mg into mouth between cheek and gum Once per day. TAKE 1 TABLET BY MOUTH TWICE A DAILY 60 tablet 5 5 Active Tirzepatide-Weigh t Management (Zepbound) 2.5 MG/0.5ML solution auto-injectorIndi cations:Obesity (BMI 30-39.9) Inject 0.5 mL (2.5 mg) under the skin 1 (one) time per week. 2 mL 1 5 Active Active Problems Problem Noted Date Diagnosed Date Epigastric burning sensation 03/06/2024 Fracture of twelfth thoracic vertebra 03/06/2024 Internal hemorrhoids 03/06/2024 Microalbuminuria 03/06/2024 Severe obesity (BMI 35.0-39.9) with comorbidity 03/06/2024 Stricture of anus 03/06/2024 Benign hypertension 03/06/2024 Chronic kidney disease, stage 2 (mild) 4 Dysuria 01/01/2023 Assessment & Plan (01/01/2023 2:11 [...] Encounters Date Type Department Care Team Description 09/11/2024 Refill [facility] MED & PEDS [address] [place] [address] Fidel Love MD Obesity (BMI 30-39.9) 09/02/2024 Refill [facility] PEDS [address] [place] [address] Fidel Love MD Obesity (BMI 30-39.9) 08/21/2024 Refill [facility] PEDS [address] [place] [address] Fidel Love MD Obesity (BMI 30-39.9) 08/04/2024 Refill [facility] MEDICINE [address] [place] [address] Fidel Love MD 07/08/2024 Telephone [facility] PEDS [address] [place] [address] Fidel Love MD 07/07/2024 Orders Only [facility] MED [facility] PEDS [address] [place] [address] Fidel Love MD Obesity (BMI 30-39.9) (Primary Dx) from Last 3 Months Social History Tobacco [...] Procedure Name Priority Date/Time Associated Diagnosis Comments LIPID PANEL, STANDARD Routine 12/21/2021 8:39 AM EDT HM COLONOSCOPY Routine 06/08/2015 from Last 3 Months or Most Recently Relevant to Health Maintenance Results * (ABNORMAL) LIPID PANEL, STANDARD (12/21/2021 8:39 [...] ?? LDL-C is now calculated using the Darion-Schmidt ?? calculation, which is a validated novel method providing ?? better accuracy than the Friedewald equation in the ?? estimation of LDL-C. ?? Darion YODER et al. JAIME. 2013;310(19): 2960-1081 ?? (http://education.Remotium.Given.to/faq/RVZ350) Non-HDL Cholesterol 130(H) <130 mg/dL (calc) [facility] Comment: For patients with diabetes plus 1 major ASCVD risk ?? factor, treating to a non-HDL-C goal of <100 mg/dL ?? (LDL-C of <70 mg/dL) is considered a therapeutic ?? option. Triglycerides 201(H) <150 mg/dL [facility] Comment: ?? If a non-fasting specimen was collected, consider repeat triglyceride testing on a fasting specimen if clinically indicated. ?? Stu et al. J. of Clin. Lipidol. 2015;9:129-169. ?? 12/21/2021 8:39 AM EDT Fidel Love MD LAB BLOOD ORDERABLES Final Result [facility] [address] [place] [address], * Colonoscopy (06/08/2015) Colonoscopy Normal Normal Narrative Ericka Liao - 06/08/2015 Recommended 10 year follow up Historical Provider HEALTH MAINTENANCE Final Result from Last 3 Months or Most Recently Relevant to Health Maintenance Insurance [facility] Care Teams First Beater Relationship Specialty Start Date End Date Fidel Love MD [address] [place] [address] PCP - General Internal Medicine 04/25/12
--- OUTSIDE RECORDS SUMMARY | 2024-10-03 12:42 | XMS_ITS | Encounter Summary ---
Author Organization [employer] Address [address] [facility] 7t [place] [address] Care Team Providers Care Sales And Management Trainee Name Role Phone Fidel Love MD Primary Care Provider Reason for Visit * Reason Onset Date Comments Med Refill 09/11/2024 Encounter Details Date Type Department Care Team ([facility] st Contact Info) Description 09/11/2024 Refill [facility] CH[facility] MED & PEDS [address] [place], [place] [phone] Fidel Love MD [address] [place] [address] Obesity (BMI 30-39.9) Social History Tobacco Use [...] documented as of this encounter Care Teams Sales And Management Trainee Relationship Specialty Start Date End Date Fidel Love MD [address] [place] [id number] PCP - General Internal Medicine 04/25/12 documented as of this encounter
--- OUTSIDE RECORDS SUMMARY | 2024-10-03 12:42 | XMS_ITS | Encounter Summary ---
Author Organization [facility] Address [address] [place] [address] Phone Care Team Providers Care Fur Dry Cleaner Name Role Phone Fidel Love MD Primary Care Provider +1- [phone] Encounter Details Date Type Department Care Team (Late Contact Info) Description 05/01/2024 Documentation Only [facility] [address] [place] [address] Jenna Tapia [address] [place] [address] Social History Tobacco Use Types [...] Visit [facility] [address] [place] [address] Gennaro Multani MD [address] [place] [address] [place] [address] documented as of this encounter Visit Diagnoses Not on filedocumented in this encounter Care Teams Fur Dry Cleaner Relationship Specialty Start Date End Date Fidel Love MD PCP - General Internal Medicine 12/30/21 documented as of this encounter
--- OUTSIDE RECORDS SUMMARY | 2024-10-03 12:42 | XMS_ITS | Encounter Summary ---
Author Organization [facility] Address [address] [place] [address] Phone Care Team Providers Care Program Support Assistant Name Role Phone Fidel Love MD Primary Care Provider +1- [phone] Encounter Details Date Type Department Care Team (Late Contact Info) Description 05/01/2024 Documentation Only [facility] [address] [place] [address] Jenna Tapia [address] [place] [address] Social History Tobacco Use Types [...] Visit [facility] [address] [place] [address] Gennaro Multani MD [address] [place] [address] [place] [address] documented as of this encounter Visit Diagnoses Not on filedocumented in this encounter Care Teams Program Support Assistant Relationship Specialty Start Date End Date Fidel Love MD PCP - General Internal Medicine 12/30/21 documented as of this encounter
--- OUTSIDE RECORDS SUMMARY | 2024-10-03 12:42 | XMS_ITS | Encounter Summary ---
Author Organization [facility] Address [address] [place] [address] Phone Care Team Providers Care Blood Bank Credit Clerk Name Role Phone Fidel Love MD Primary Care Provider [phone]- [phone] Encounter Details Date Type Department Care Team (Late Contact Info) Description 05/01/2024 Documentation Only [facility] [address] [place] [address] Jenna Tapia [address] [place] [address] Social History Tobacco Use Types [...] Visit [facility] [address] [place] [address] Gennaro Multani MD [address] [place] [address] [place] [address] documented as of this encounter Visit Diagnoses Not on filedocumented in this encounter Care Teams Blood Bank Credit Clerk Relationship Specialty Start Date End Date Fidel Love MD PCP - General Internal Medicine 12/30/21 documented as of this encounter
--- OUTSIDE RECORDS SUMMARY | 2024-10-03 12:42 | XMS_ITS | Encounter Summary ---
Author Organization [employer] Address [address] 7[address] [place] [address] Care Team Providers Care Day Care Aide Name Role Phone Fidel Love MD Primary Care Provider Reason for Visit * Reason Onset Date Comments Medication Question 01/14/2024 Encounter Details Date Type Department Care Team (Late st Contact Info) Description 01/14/2024 Telephone [facility] MEDICINE [address] [place] [address] Fidel Love MD [address] [place] [address] Medication Question Social History Tobacco Use Types [...] EDT Telephone call to [place] pharmacist at [facility] pharmacy . Mateo was advised that Dr. [...] documented as of this encounter Care Teams Day Care Aide Relationship Specialty Start Date End Date Fidel Love MD [address] [place] [address] PCP - General Internal Medicine 04/25/12 documented as of this encounter
--- OUTSIDE RECORDS SUMMARY | 2024-10-03 12:43 | XMS_ITS | Encounter Summary ---
Author Organization [facility] Address [address] [place] [address] Phone Care Team Providers Care Adjunct Psychology Faculty Member Name Role Phone Fidel Love MD Primary Care Provider [phone]- [phone] Encounter Details Date Type Department Care Team ([facility] Contact Info) Description 12/30/2021 Documentation Only [facility] [address] [place] [address] Fidel Love MD [address] [place] [phone] Social History Tobacco Use Types Packs/Day Years Used Date Smoking Tobacco: Never Assessed Comments Unknown Sex and Gender Information Value Date Recorded Sex Assigned at Not on file Legal Sex Female 4:12 PM EDT Gender Identity Not on file Sexual Orientation Not on file documented as of this encounter Plan of Treatment Upcoming Encounters Date Type Department Care Team ([facility] Contact Info) Description 10/31/2024 3:30 PM EDT Office Visit [facility] [address] [place] [address] Gennaro Multani MD [address] [place] [address] [place] [address] documented as of this encounter Visit Diagnoses Not on filedocumented in this encounter Care Teams Adjunct Psychology Faculty Member Relationship Specialty Start Date End Date Fidel Love MD PCP - General Internal Medicine 12/30/21 documented as of this encounter
--- OUTSIDE RECORDS SUMMARY | 2024-10-03 12:43 | XMS_ITS | Encounter Summary ---
Author Organization [employer] Address [address] 7[address] [place] [address] Care Team Providers Care Automatic Folder Seamer Name Role Phone Fidel Love MD Primary Care Provider +1- [phone] Encounter Details Date Type Department Care Team ([facility] st Contact Info) Description 07/07/2024 Orders Only [facility] CHC MED & PEDS [address] [place] [address] Fidel Love MD [address] [place] [address] Obesity (BMI 30-39.9) (Primary Dx) Social History [...] documented as of this encounter Care Teams Automatic Folder Seamer Relationship Specialty Start Date End Date Fidel Love MD [address] [place] [phone] PCP - General Internal Medicine 04/25/12 documented as of this encounter
--- OUTSIDE RECORDS SUMMARY | 2024-10-03 12:43 | XMS_ITS | Encounter Summary ---
Author Organization [employer] Address [address] [facility] [address] [address] 7t [place] [address] Care Team Providers Care Lan/Wan Engineer Name Role Phone Fidel Love MD Primary Care Provider [phone]- [phone] Encounter Details Date Type Department Care Team ([facility] Contact Info) Description 07/08/2024 Telephone [facility] [address] [place], [place] [phone] Fidel Love MD [address] [place] [address] Social History Tobacco Use Types Packs/Day Years [...] . Any question may contact phone # [phone]. documented in this encounter Plan of Treatment Not on file documented as of this encounter Visit Diagnoses Not on filedocumented in this encounter Additional Health Concerns Assessment Noted Time PHQ-9 Depression Total Score: 0 05/27/20 24 1:20 PM EST documented as of this encounter Care Teams Lan/Wan Engineer Relationship Specialty Start Date End Date Fidel Love MD [address] [place] [id number] PCP - General Internal Medicine 04/25/12 documented as of this encounter
--- OUTSIDE RECORDS SUMMARY | 2024-10-03 12:43 | XMS_ITS | Encounter Summary ---
Author Organization [facility] Address [address] [place] [address] Phone Care Team Providers Care Industrial Welder Name Role Phone Fidel Love MD Primary Care Provider +1- [phone] Encounter Details Date Type Department Care Team ([facility] Contact Info) Description 12/30/2021 Documentation Only [facility] [address] [place] [address] Fidel Love MD [address] [place] [phone] Social History Tobacco Use Types Packs/Day Years Used Date Smoking Tobacco: Never Assessed Comments Unknown Sex and Gender Information Value Date Recorded Sex Assigned at Not on file Legal Sex Female 4:12 PM EDT Gender Identity Not on file Sexual Orientation Not on file documented as of this encounter Plan of Treatment Upcoming Encounters Date Type Department Care Team ([facility] Contact Info) Description 10/31/2024 3:30 PM EDT Office Visit [facility] [address] [place] [address] Gennaro Multani MD [address] [place] [address] [place] [address] documented as of this encounter Visit Diagnoses Not on filedocumented in this encounter Care Teams Industrial Welder Relationship Specialty Start Date End Date Fidel Love MD PCP - General Internal Medicine 12/30/21 documented as of this encounter
--- OUTSIDE RECORDS SUMMARY | 2024-10-03 12:43 | XMS_ITS | Encounter Summary ---
Author Organization [employer] Address [address] 7t [place] [address] Care Team Providers Care Pharmacy Benefit Manager Name Role Phone Fidel Love MD Primary Care Provider [phone]- [phone] Encounter Details Date Type Department Care Team (Late st Contact Info) Description 05/16/2024 Orders Only [facility] [address] [place] [address] Provider, MD Chris Social History Tobacco Use [...] t he electric, gas, oil or water [employer] threatened to shut off services in your [...] [address] ?[place] [address] ?XRay Report ? Signed ? Patient: Chrissy Graff ?MR#: [id number] ? : 1950 ?Acct:[id number] ? Age/Sex: 74 / F ?ADM Date: 06/06/24 ? Loc: HO.HOSX ? Attending Dr: Pa MALONE ? Ordering Physician: Mariana Haji ?? Date of Service: 06/06/24 ?? Procedure(s): XR lumbar spine 2-3V ?? Accession Number(s): [id number] ? cc: Fidel Love MD; Mariana Haji [...] DD/ 1203 ? TD/TT: 06/06/24 1209 ? Long Filler Cigar Roller Machine: EF ? Procedure Note Tara, Macey - 07/24/2024 [facility] [address] [place] [address] [address] [place] [address] XRay Report Signed Patient: Chrissy GraffMR#: [id number] : 8Acct:[id number] Age/Sex: 74 / FADM Date: 06/06/24 Loc: [facility] Attending Dr: Pa MALONE Ordering Physician: Mariana Haji Date of Service: 06/06/24 Procedure(s): XR lumbar spine 2-3V Accession Number(s): [id number] cc: Fidel Love MD; Mariana Haji EXAMINATION: [...] 07/24/24 1115 DD/ 1203 TD/TT: 06/06/24 1209 Long Filler Cigar Roller Machine: [facility] External Provider IMG XR PROCEDURES Final Result * Transthoracic echo (TTE) complete (05/15/2024 10:24 AM EST) Historical Provider CV ECHO PROCEDURES Final Result documented in this encounter Visit Diagnoses Not on filedocumented in this encounter Additional Health Concerns Assessment Noted Time PHQ-9 Depression Total Score: 9 11/07/19 23 4:10 PM EDT documented as of this encounter Care Teams Pharmacy Benefit Manager Relationship Specialty Start Date End Date Fidel Love MD [address] [place] [address] PCP - General Internal Medicine 04/25/12 documented as of this encounter
--- OUTSIDE RECORDS SUMMARY | 2024-10-03 12:43 | XMS_ITS | Encounter Summary ---
Author Organization [employer] Address [address] [facility] [address] [place] [address] Care Team Providers Care Roll Weigher Name Role Phone Fidel Love MD Primary Care Provider [phone] Reason for Visit * Reason Onset Date Comments Med Refill 03/26/2023 Encounter Details Date Type Department Care Team ([facility] st Contact Info) Description 03/26/2023 Telephone [facility] MED & PEDS [address] [place], [place] [phone] Fidel Love MD [address] [place] [address] Med Refill Social History Tobacco Use Types [...] - 03/26/2023 2:30 PM EDT Tc from [place] requesting med refill for medication lisinopril 40 MG tablet. documented in this encounter Plan of Treatment Not on file documented as of this encounter Visit Diagnoses Not on filedocumented in this encounter Additional Health Concerns Assessment Noted Time PHQ-9 Depression Total Score: 9 11/07/19 23 4:10 PM EDT documented as of this encounter Care Teams Roll Weigher Relationship Specialty Start Date End Date Fidel Love MD [address] [place] [address] PCP - General Internal Medicine 04/25/12 documented as of this encounter
--- OUTSIDE RECORDS SUMMARY | 2024-10-03 12:43 | XMS_ITS | Encounter Summary ---
Author Organization [employer] Address [address] [facility] [address] 7[address] [place] [address] Care Team Providers Care Lace Winder Name Role Phone Fidel Love MD Primary Care Provider [phone] [phone] Encounter Details Date Type Department Care Team (Late st Contact Info) Description 04/19/2023 Abstract [facility] MEDICINE [address] [place] [address] Ericka Liao Social History Tobacco Use Types [...] documented as of this encounter Care Teams Lace Winder Relationship Specialty Start Date End Date Fidel Love MD [address] [place] [id number] PCP - General Internal Medicine 04/25/12 documented as of this encounter
--- OUTSIDE RECORDS SUMMARY | 2024-10-03 12:43 | XMS_ITS | Clinical Summary ---
Author Organization [facility], Address [address] [place] [address] [place] [address] Phone Care Team Providers Care Shipping And Receiving Specialist Name Role Phone Fidel Love MD Primary Care Provider [phone] Allergies No known active allergies Medications Calcium [...] (one) time each day 30 tablet 3 08/14/2024 Active Active Problems Problem Noted Date Diagnosed Date Chronic kidney disease, stage 2 (mild) Hypertension 02/09/2022 Hyperlipidemia 02/09/2022 Proteinuria 02/09/2022 Microalbuminuria Encounters Date Type Department Care Team Description 08/14/2024 Refill [facility] [address] [place] [address] ReginaJenna 07/30/2024 Documentation Only [facility] [address] [place] [address] Gennaro Multani MD from Last 3 Months Immunizations Immunization Administration Dates Next Due Moderna SARS-COV-2 10/20/2020,09/22/2020 [...] Visit [facility] [address] [place] [address] Gennaro Multani MD [address] [place] [address] [place] [address] Health Maintenance Due Date Last Done Comments Pneumococcal Vaccine: 50+ Ye ars (1 of 2 - PCV) 1956 Influenza Vaccine (Season Ended) 2025 Hepatitis B Vaccine Aged Out No longe [...] Urine 0-5 0 - 5 /hpf [facility] RBC, Urine 0-2 0 - 2 /hpf [facility] Squamous Epithelial, Urine 0-10 0 - 10 /hpf [facility] Casts None seen None seen /lpf [facility] Bacteria, Urine None seen None seen/Few [facility] 08/29/2024 9:12 AM EST 08/29/2024 us Gennaro Multani MD LAB MICROBIOLOGY - GENERAL OR DERABLES Final Result [facility] [address] [place] [address] * (ABNORMAL) Protein, Total, Random Urine w/Creatinine (Protein/Creat Ratio) (08/29/2024 9:12 AM EST) Creatinine, Ur 132.9 Not Estab. mg/dL [facility] Protein, Ur 145.9 Not Estab. mg/dL [facility] Urine Protein/Creati nine Ratio 1,098(H) 0 - 200 mg/g creat [facility] 08/29/2024 9:12 AM EST 08/29/2024 Gennaro Multani MD LAB URINE ORDERABLES Final Re sult Performing Organization Address [facility] Co de Phone Number [facility] [address] [place] [address] * (ABNORMAL) Urine Albumin / Creatinine Ratio (08/29/2024 9:12 AM EST) Pathologist [facility] Albumin, Urine 278.3 Not Estab. ug/mL [facility] Albumin/Creatin ine Ratio 209(H) 0 - 29 mg/g creat [facility] Comment: ? Normal: ?0 - ??29 ? Moderately increased: 30 - 300 ? Severely increased: ? >300 08/29/2024 9:12 AM EST 08/29/2024 Gennaro Multani MD LAB URINE ORDERABLES Final Re sult Performing Organization Address [facility] de Phone Number [facility] [address] [place] [address] * (ABNORMAL) Urinalysis with microscopic (08/29/2024 9:12 AM EST) Pathologist [facility] Specific [place], Urine 1.021 1.005 - 1.030 [facility] [phone] pH Urine 6.5 5.0 - 7.5 [facility] [phone] Color, Urine Yellow Yellow [facility] Appearance Urine Clear Clear [facility] [place] WBC Esterase Urine Negative Negative [facility] [phone] Protein, Ur 2+(A) Negative/Tra ce [facility] Glucose, Ur 3+(A) Negative [facility] Ketones, Urine Negative Negative [facility] [place] [phone] Blood Urine Negative Negative [facility] Bilirubin Urine Negative Negative [facility] [place] Urobilinogen Urine 0.2 0.2 - 1.0 mg/dL [facility] Nitrite, Urine Negative Negative [facility] [place] [phone] Microscopic Examination See below: [facility] Comment:Microscopic was cruz cated and was performed. 08/29/2024 9:12 AM EST 08/29/2024 us Gennaro Multani MD LAB URINE ORDERABLES Final Re sult [facility] [address] [place] [address] * CBC and Differential (08/29/2024 9:12 AM EST) WBC 7.6 3.4 - 10.8 x10E3/uL [facility] RBC 4.45 3.77 - 5.28 x10E6/uL [facility] Hemoglobin 12.8 11.1 - 15.9 g/dL [facility] Hematocrit 39.2 34.0 - 46.6 % [facility] MCV 88 79 - 97 fL [facility] MCH 28.8 26.6 - 33.0 pg [facility] MCHC 32.7 31.5 - 35.7 g/dL [facility] RDW 13.5 11.7 - 15.4 % [facility] Platelets 236 150 - 450 x10E3/uL [facility] Neutrophils Relative 59 Not Estab. % [facility] Lymphocytes Relative 28 Not Estab. % [facility] Monocytes 7 Not Estab. % [facility] Eosinophils Relative 5 Not Estab. % [facility] Basophils Relative 1 Not Estab. % [facility] Neutrophils Absolute 4.5 1.4 - 7.0 x10E3/uL [facility] Lymphocytes Absolute 2.2 0.7 - 3.1 x10E3/uL [facility] Monocytes Absolute 0.6 0.1 - 0.9 x10E3/uL [facility] Eosinophils Absolute 0.3 0.0 - 0.4 x10E3/uL [facility] Basophils Absolute 0.1 0.0 - 0.2 x10E3/uL [facility] Immature Granulocytes 0 Not Estab. % [facility] Immature Grans (Absolute) 0.0 0.0 - 0.1 x10E3/uL [facility] 08/29/2024 9:12 AM EST 08/29/2024 us Gennaro Multani MD LAB BLOOD ORDERABLES Final Re sult [facility] [address] [place] [address] * (ABNORMAL) Renal Function Panel (08/29/2024 9:12 AM EST) Glucose 91 70 - 99 mg/dL [facility] BUN 13 8 - 27 mg/dL [facility] Creatinine 1.13(H) 0.57 - 1.00 mg/dL [facility] eGFR CKD-EPI CR 2020 50(L) >59 mL/min/1.7 3 [facility] BUN/Creatinine Ratio 12 12 - 28 [facility] Sodium 141 134 - 144 mmol/L [facility] Potassium 4.2 3.5 - 5.2 mmol/L [facility] Chloride 105 96 - 106 mmol/L [facility] Bicarbonate (CO2) 23 20 - 29 mmol/L [facility] Calcium 8.7 8.7 - 10.3 mg/dL [facility] Albumin 4.3 3.8 - 4.8 g/dL [facility] Phosphorus 2.8(L) 3.0 - 4.3 mg/dL [facility] 08/29/2024 9:12 AM EST 08/29/2024 us Gennaro Multani MD LAB BLOOD ORDERABLES Final Re sult [facility] [address] [place] [address] from Last 3 Months Insurance [facility] One [employer] Dual SNP ([id number]) FAISAL VILLANUEVA [id number] Care Teams Shipping And Receiving Specialist Relationship Specialty Start Date End Date Fidel Love MD PCP - General Internal Medicine 12/30/21
--- OUTSIDE RECORDS SUMMARY | 2024-10-03 12:43 | XMS_ITS | Encounter Summary ---
Author Organization [employer] Address [address] [place] [address] Care Team Providers Care Instructor Modeling Name Role Phone Fidel Love MD Primary Care Provider Encounter Details Date Type Department Care Team ([facility] st Contact Info) Description 04/02/2024 Orders Only [facility] MED & PEDS [address] [place], [place] [phone] Fidel Love MD [address] [place], [place] [phone] Low back pain at multiple sites (Primary [...] documented as of this encounter Care Teams Instructor Modeling Relationship Specialty Start Date End Date Fidel Love MD [address] [place] [address] PCP - General Internal Medicine 04/25/12 documented as of this encounter
--- OUTSIDE RECORDS SUMMARY | 2024-10-03 12:43 | XMS_ITS | Continuity of Care Document ---
Author Organization [facility] Address [address] [address] Phone Care Team Providers Care Application Support Consultant Name Role Phone Shabbir Yeh PA-C Unavailable Unavaila ble Advance Directives Directive Yes / No Effective Date File Name No Information Encounters Encounter Description Practice Location Reason(s) For Visit Diagnoses Date Provider [facility], [address] [address], [place], [place], [id number], [place] tel:[phone] [facility] No Information [address] [place], [place], [id number], [place]. tel:[phone] Family History Family Member Type Diagnosis Age [...]
== END 2024-10-03 13:11 | disposition home or self-care (01) ==
LOC: HO.PMC 11:46
PROVIDERS: PCP Internal Medicine; Referring Provider Physical Medicine & Rehabilitation; Visit Provider Internal Medicine
DX: M47.816 Spondylosis without myelopathy or radiculopathy, lumbar region (principal); S22.080D Wedge compression fracture of T11-T12 vertebra, subsequent encounter for fracture with routine healing
CPT/HCPCS: 99204

== ENCOUNTER → 2024-10-03 11:46 | Outpatient (BNVA) | payer OTHER, SELFPAY | PROVIDERS: PCP Internal Medicine; Referring Provider Physical Medicine & Rehabilitation; Visit Provider Internal Medicine | DX: S22.080D Wedge compression fracture of T11-T12 vertebra, subsequent encounter for fracture with routine healing (principal); M47.816 Spondylosis without myelopathy or radiculopathy, lumbar region; X58.XXXD Exposure to other specified factors, subsequent encounter | CPT/HCPCS: 99202 ==

== ENCOUNTER 2024-10-09 08:35 | Outpatient (AMB) | payer OTHER, SELFPAY ==
--- NOTE | 2024-10-09 08:37 | A.OFFVIS_ITS ---
Vital Signs 10/09/24 08:38 Height 5 ft Weight 185 lb 4 oz BMI 36.2 BP 126/82 Blood Pressure Location Rt brachial Position Sitting Pulse 88 Pulse Source Pulse Oximeter Pulse Oximetry (%) 96 Oxygen Delivery Method Room Air Intake Visit Reasons: increasing tremors Intake Note: patient added to schedule by evans for increase tremors. increase when patient is sitting and or writing. Allergies latex Allergy (Intermediate, Verified 10/09/24 08:41) Rash HPI Comments Details: 73-yr-old female comes for evaluation of tremors.Her daughter helps with history . she was seen here for sleep apnea and is on CPAP. she had a repeat titration study 3 weeks ago and is waiting for results. SHe has margo hand tremors started 5 years ago - mild and intermittent. now the tremors are worse. Her paternal grandfather had parkinsons and she is concerned. she has rest and action tremors. she has trouble writing, holding a cup of coffee. she also has margo severe Carpal tunnel and had surgery last year. In-lab PSG results were c/w severe obstructive sleep apnea w/ AHI 37/hr, O2 caleb 82%, and PLMS 38/hr w/ PLMS arousal index of 8/hr. Her nightmares have improved since starting Paroxetine per her daughter. Pt is accompanied by her dtr, who assists w/ Kiswahili interpretation per pt request she was seen at [facility] for her back. . [facility] Medical History (Updated 10/09/24 @ 09:47 by Laura Minaya MD) Coarse tremors Surgical History H/O tubal ligation H/O section H/O shoulder surgery Social History Alcohol intake: never Patient Tobacco Use Status: Never used Tobacco Current occupational status: retired Current occupation: right hand Physical Exam Vital Signs: Last Vital Signs Pulse 88 10/09/24 08:38 BP 126/82 10/09/24 08:38 Pulse Ox 96 10/09/24 08:38 Oxygen Delivery Method Room Air 10/09/24 08:38 BMI result Body Mass Index 36.2 Const General: cooperative, comfortable and no acute distress Nutritional Appearance: obese (BMI 32) Orientation/consciousness: patient oriented x3 HEENT Face and sinus: Yes face symmetric Eyes Pupils: Equal, round and reactive pupils present Neck Neck: Yes full ROM and Yes supple Resp Effort & Inspection: normal respiratory effort and able to speak in complete sentences Neuro Other: mild postural and action tremors- margo hands Normal blink and facial expression No cog wheel rigidity Mild margo hand weakness FFM and foot taps decreased margo gait- antalgic General: patient oriented x3, moves all extremities and deep tendon reflexes 2+ bilaterally Cranial nerves: Yes CN's II-XII intact bilaterally, Yes Facial sensation intact/muscles of mastication intact, Yes Equal, round and reactive pupils present, Yes Normal accommodation reflex present, Yes Bilaterally intact EOM present, Yes Nystagmus not present, Yes Normal facial strength present, Yes Midline tongue present, Yes Ability to bilaterally rotate head present and Yes Ability to bilaterally elevate shoulders present Assessment & Plan Assessment & Plan (1) Coarse tremors: Comment: no evidence of parkinsons, likely exaggerated physiologic tremors, essential tremors Code(s): G25.2 - Other specified forms of tremor Category: Medical (2) Severe obstructive sleep apnea: Code(s): G47.33 - Obstructive sleep apnea (adult) (pediatric) Category: Medical Plan The diagnosis was discussed in detail with patient and her daughter- I will refer her to Occupational therapy for hand strenthening . Will review her repeat titration study and restart CPAP F/U in 6 months or you may call or message the clinic as needed. Orders: Orders OT Evaluation and Treatment Today G56.03 - Carpal tunnel syndrome, bilateral upper limbs, R29.898 - Other symptoms and signs involving the musculoskeletal system Coding Level of Care Code Est Pt Level 4 (17594) Complex EM visit Add On G2211 Diagnoses Coarse tremors G25.2 Severe obstructive sleep apnea G47.33
[2024-10-09 08:38] VITALS: BP 126/82; PULSE 88; O2SAT 96; BMI 36.2
--- OUTSIDE RECORDS SUMMARY | 2024-10-09 09:05 | XMS_ITS | Encounter Summary ---
Author Organization [employer] Address [address] [facility] 7t [place] [address] Care Team Providers Care Knotter Name Role Phone Fidel Love MD Primary Care Provider Reason for Visit * Reason Onset Date Comments Med Refill 09/11/2024 Encounter Details Date Type Department Care Team ([facility] st Contact Info) Description 09/11/2024 Refill [facility] CHC MED & PEDS [address] [place], [place] [phone] Fidel Love MD [address] [place] [address] Obesity (BMI 30-39.9) Social History Tobacco Use [...] documented as of this encounter Care Teams Knotter Relationship Specialty Start Date End Date Fidel Love MD [address] [place] [address] PCP - General Internal Medicine 04/25/12 documented as of this encounter
--- OUTSIDE RECORDS SUMMARY | 2024-10-09 09:05 | XMS_ITS | Encounter Summary ---
Author Organization [employer] Address [address] 7[address] [place] [address] Care Team Providers Care Heading And Priming Tool Setter Name Role Phone Fidel Love MD Primary Care Provider Encounter Details Date Type Department Care Team ([facility] st Contact Info) Description 07/17/2023 Orders Only [facility] CH[facility] MED & PEDS [address] [place] [address] Fidel Love MD [address] [place] [address] Tremor (Primary Dx) Social History Tobacco Use [...] documented as of this encounter Care Teams Heading And Priming Tool Setter Relationship Specialty Start Date End Date Fidel Love MD [address] [place] [address] PCP - General Internal Medicine 04/25/12 documented as of this encounter
--- OUTSIDE RECORDS SUMMARY | 2024-10-09 09:05 | XMS_ITS | Encounter Summary ---
Author Organization [facility] Address [address] [place] [address] Phone Care Team Providers Care Termite Treater Helper Name Role Phone Fidel Love MD Primary Care Provider [phone] Encounter Details Date Type Department Care Team (Late Contact Info) Description 05/01/2024 Documentation Only [facility] [address] [place] [address] Jenna Tapia [address] [place] [address] Social History Tobacco Use Types [...] Visit [facility] [address] [place] [address] Gennaor Multani MD [address] [place] [address] [place] [address] documented as of this encounter Visit Diagnoses Not on filedocumented in this encounter Care Teams Termite Treater Helper Relationship Specialty Start Date End Date Fidel Love MD PCP - General Internal Medicine 12/30/21 documented as of this encounter
--- OUTSIDE RECORDS SUMMARY | 2024-10-09 09:05 | XMS_ITS | Encounter Summary ---
Author Organization [facility] Address [address] [place] [address] Phone Care Team Providers Care Ekg Tech Name Role Phone Fidel Love MD Primary Care Provider [phone] Encounter Details Date Type Department Care Team (Late Contact Info) Description 05/01/2024 Documentation Only [facility] [address] [place] [address] Jenna Tapia [address] [place] [address] Social History Tobacco Use Types [...] Visit [facility] [address] [place] [address] Gennaro Multani MD [address] [place] [address] [place] [address] documented as of this encounter Visit Diagnoses Not on filedocumented in this encounter Care Teams Ekg Tech Relationship Specialty Start Date End Date Fidel Love MD PCP - General Internal Medicine 12/30/21 documented as of this encounter
--- OUTSIDE RECORDS SUMMARY | 2024-10-09 09:05 | XMS_ITS | Data Portability ---
Author Organization [employer] [facility] Address [address] [place] [address] Care Team Providers Care Experience Designer Name Role Phone [facility] Referring Provider [facility] Referring Provider Assessment Encounter Date Assessment Date Assessment LastModified by Organization Details LastModified Time 10/19/2021 10/19/2021 I have reviewed and agree with the Assessment and Plan as documented by the Environmental Protection Geologist. I provided real -time medical direction via phone for this encounter, and was available for additional phone based assistance as needed. Patient given the opportunity to ask questions. She aware if develops CP/ significant SOB/ cyanosis/acute AMS/ very hi fever dexter unresponsive to Tylenol should go immediately to the ER- call 911 [email or web address] Not available 10/19/2021 18:07:56 Plan of Treatment Reminders Order Date Submit Date Provider Last Modified By Organization Details Last Modified Time Details Appointments None recorded. Lab rapid flu (A+B) 2021 [email or web address], [address] 17:17:01 rapid SARS CoV 2 Ag, QL [place], respiratory specimen 2021 022 [email or web address], [address] 17:17:01 Referral None recorded. Procedures None recorded. [...] IA, respiratory specimen positi ve Not Available [facility] ed [address] [place] [address], [phone] 10/19/2021 17:16:36 10/20/19 22 10/19/2021 rapid flu (A+B) Flu negati ve Not Available [facility] ed [address] [place] [address], [phone] 10/19/2021 17:16:34 Result Notes None recorded. Medical [...] Sylvia Caldera MD Main - instED [address] [place] [address] 10/19/2021 17:15:28 03/02/2022 18:07:53 Viral syndrome [id number] B34.9 COVID + Health Concerns Section Related Observation LastModified by Organization Detai ls LastModified Time None Recorded Concern Status LastModified by Organization Details LastModified Time None Recorded Advance Directives Directive None Recorded Payers Encounter Date Sequence Insurance Name Policy Number Policy Ochoa Covered Member ID Ochoa Member ID Guarantor Name 10/19/2021 1 [facility] - DOS PRIOR TO 2022 - DUAL ELIGIBLE (MEDICARE REPLACEMENT/ADV ANTAGE - HMO) Chrissy Graff [id number] Chrissy Graff Notes Date Note Type Note Provider Name and Address Organization Details Recorded Time 10/19/2021 text/html HPI: Call received from member's daughter, Berta (ph# [phone]) to the CRU. Berta reports mbr has not felt well with flu like symptoms and PCP would not see member d/t symptoms and recommended home visit through [facility]. Berta reports mbr with sx for [...] .................. .................. .................. .................. .................. .................. ............... Environmental Protection Geologist Note: Patient is a 71 year old [...] .................. ............... Disposition: Js Caldera MD [address] [facility],[address], [place], [address], SY [place] [employer] List[employer] ServiceANDRES CODY 10/19/2021 18:08:08 OBGyn Episode No OBEpisode recorded.
--- OUTSIDE RECORDS SUMMARY | 2024-10-09 09:05 | XMS_ITS | Clinical Summary ---
Author Organization [employer] Address [address] [place] [address] Care Team Providers Care Head Turning Machine Operator Name Role Phone Fidel Love [...] 30 tablet 11 4 Active nystatin (Nystop) 129635 UNIT/GM powderIndications :Skin rash Apply topically 2 [...] Type Department Care Team Description 09/11/2024 Refill [facility] CHC MED & PEDS [address] [place] [address] Fidel Love MD Obesity (BMI 30-39.9) 09/02/2024 Refill [facility] CHC MED & PEDS [address] [place] [address] Fidel Love MD Obesity (BMI 30-39.9) 08/21/2024 Refill [facility] MED & PEDS [address] [place], [place] [phone] Fidel Love MD Obesity (BMI 30-39.9) 08/04/2024 Refill [facility] MEDICINE [address] [place] [address] Fidel Love MD from Last 3 Months [...] PANEL, STANDARD Routine 12/21/2021 8:39 AM EDT COLONOSCOPY Routine 06/08/2015 from Last 3 Months or Most Recently Relevant to Health Maintenance Results * (ABNORMAL) LIPID PANEL, STANDARD (12/21/2021 8:39 AM EDT) Chol/HDLC Ratio 3.2 <5.0 (calc) [facility] Cholesterol, Total 188 <200 mg/dL [facility] HDL Cholesterol 58 > OR = 50 mg/dL [facility] LDL Cholesterol 98 mg/dL (calc) [facility] Comment: Reference range: <100 [...] ?? Darion YODER et al. JAIME. 2013;310(19): 5764-1405 ?? (http://education.SleepOut/faq/PXG951) Non-HDL Cholesterol 130(H) <130 mg/dL (calc) [facility] Comment: For patients with diabetes plus 1 major ASCVD risk ?? factor, treating to a non-HDL-C goal of <100 mg/dL ?? (LDL-C of <70 mg/dL) is considered a therapeutic ?? option. Triglycerides 201(H) <150 mg/dL [facility] Comment: ?? If a non-fasting specimen was collected, consider repeat triglyceride testing on a fasting specimen if clinically indicated. ?? Stu et al. J. of Clin. Lipidol. 2015;9:129-169. ?? 12/21/2021 8:39 AM EDT us Fidel Love MD LAB BLOOD ORDERABLES Final Result [facility] [address] * Hm Colonoscopy (06/08/2015) Colonoscopy Normal Normal Narrative Ericka Liao - 06/08/2015 Recommended 10 year follow up Historical Provider HEALTH MAINTENANCE Final Result from Last 3 Months or Most Recently Relevant to Health Maintenance Insurance [facility] Care Teams Head Turning Machine Operator Relationship Specialty Start Date End Date Fidel Love MD [address] [place] [address] [place] [address] PCP - General Internal Medicine 04/25/12
--- OUTSIDE RECORDS SUMMARY | 2024-10-09 09:05 | XMS_ITS | Encounter Summary ---
Author Organization [employer] Address [address] [place] [address] Care Team Providers Care Procurement Clerk Name Role Phone Fidel Love MD Primary Care Provider Encounter Details Date Type Department Care Team ([facility] st Contact Info) Description 11/16/2023 Orders Only [facility] MED & PEDS [address] [place], [place] [phone] Fidel Love MD [address] [place] [address] Seasonal allergies (Primary Dx); Achilles tendinitis of [...] documented as of this encounter Care Teams Procurement Clerk Relationship Specialty Start Date End Date Fidel Love MD [address] [place] [address] PCP - General Internal Medicine 04/25/12 documented as of this encounter
--- OUTSIDE RECORDS SUMMARY | 2024-10-09 09:05 | XMS_ITS | Encounter Summary ---
Author Organization [employer] Address [address] [facility] [address] [place] [address] Care Team Providers Care Truck Driver Flatbed Name Role Phone Fidel Love MD Primary Care Provider Reason for Visit * Reason Onset Date Comments Med Refill 03/26/2023 Encounter Details Date Type Department Care Team ([facility] st Contact Info) Description 03/26/2023 Telephone [facility] MED & PEDS [address] [place], [place] [phone] Fidel Love MD [address] [place] [address] Med Refill Social History Tobacco Use Types [...] - 03/26/2023 2:30 PM EDT Tc from [facility] requesting med refill for medication lisinopril 40 MG tablet. documented in this encounter Plan of Treatment Not on file documented as of this encounter Visit Diagnoses Not on filedocumented in this encounter Additional Health Concerns Assessment Noted Time PHQ-9 Depression Total Score: 9 11/07/19 23 4:10 PM EDT documented as of this encounter Care Teams Truck Driver Flatbed Relationship Specialty Start Date End Date Fidel Love MD [address] [place] [address] PCP - General Internal Medicine 04/25/12 documented as of this encounter
--- OUTSIDE RECORDS SUMMARY | 2024-10-09 09:05 | XMS_ITS | Encounter Summary ---
Author Organization [employer] Address [address] [facility] [address] 7t [place] [address] Care Team Providers Care Survey Research Manager Name Role Phone Fidel Love MD Primary Care Provider [phone] Encounter Details Date Type Department Care Team (Late st Contact Info) Description 04/19/2023 Abstract [facility] MEDICINE [address] [place] [address] Ericka Liao Social History Tobacco Use Types [...] documented as of this encounter Care Teams Survey Research Manager Relationship Specialty Start Date End Date Fidel Love MD [address] [place] [address] PCP - General Internal Medicine 04/25/12 documented as of this encounter
--- OUTSIDE RECORDS SUMMARY | 2024-10-09 09:05 | XMS_ITS | Continuity of Care Document ---
Author Organization [facility] Address [address] [address] Phone Care Team Providers Care Mica Paster Name Role Phone Shabbir Yeh PA-C Unavailable Unavaila ble Advance Directives Directive Yes / No Effective Date File Name No Information Encounters Encounter Description Practice Location Reason(s) For Visit Diagnoses Date Provider [facility], [address] [address], [place], [place], [id number], [place] tel:[phone] [facility] No Information [address] [place], [place], [id number], [place]. tel:[phone] Family History Family Member Type Diagnosis Age [...]
--- OUTSIDE RECORDS SUMMARY | 2024-10-09 09:05 | XMS_ITS | Encounter Summary ---
Author Organization [facility], Address [address] [place] [address] Phone Care Team Providers Care Conveyor Tender Concrete Mixing Plant Name Role Phone Fidel Love MD Primary Care Provider [phone] Encounter Details Date Type Department Care Team ([facility] Contact Info) Description 07/30/2024 Documentation Only [facility] [address] [place] [address] Gennaro Multani MD [address] [place] [address] [place] [id number] Social History Tobacco Use Types Packs/Day Years [...] Visit [facility] [address] [place] [address] Gennaro Multani MD [address] [place] [address] [place] [address] documented as of this encounter Visit Diagnoses Not on filedocumented in this encounter Care Teams Conveyor Tender Concrete Mixing Plant Relationship Specialty Start Date End Date Fidel Love MD PCP - General Internal Medicine 12/30/21 documented as of this encounter
--- OUTSIDE RECORDS SUMMARY | 2024-10-09 09:05 | XMS_ITS | Encounter Summary ---
Author Organization [employer] Address [address] [facility] [address] 7t [place] [address] Care Team Providers Care Signal Apprentice Name Role Phone Fidel Love MD Primary Care Provider Reason for Visit * Reason Onset Date Comments Medication Question 01/14/2024 Encounter Details Date Type Department Care Team (Late st Contact Info) Description 01/14/2024 Telephone [facility] MEDICINE [address] [place] [address] Fidel Love MD 505 [place] [address] Medication Question Social History Tobacco Use Types [...] EDT Telephone call to [place] pharmacist at [facility] pharmacy . Mateo was advised that [...] documented as of this encounter Care Teams Signal Apprentice Relationship Specialty Start Date End Date Fidel Love MD [address] [place] [address] PCP - General Internal Medicine 04/25/12 documented as of this encounter
--- OUTSIDE RECORDS SUMMARY | 2024-10-09 09:05 | XMS_ITS | Encounter Summary ---
Author Organization [facility] Address [address] [place] [address] Phone Care Team Providers Care Head Of Academic Technology Name Role Phone Fidel Love MD Primary Care Provider [phone]- [phone] Encounter Details Date Type Department Care Team ([facility] Contact Info) Description 12/30/2021 Documentation Only [facility] [address] [place] [address] Fidel Love MD [address] [place] [address] [phone] Social History Tobacco Use Types Packs/Day Years Used Date Smoking Tobacco: Never Assessed Comments Unknown Sex and Gender Information Value Date Recorded Sex Assigned at Not on file Legal Sex Female 4:12 PM EDT Gender Identity Not on file Sexual Orientation Not on file documented as of this encounter Plan of Treatment Upcoming Encounters Date Type Department Care Team ([facility] Contact Info) Description 10/31/2024 3:30 PM EDT Office Visit [facility] [address] [place] [address] Gennaro Multani MD [address] [place] [address] [place] [address] documented as of this encounter Visit Diagnoses Not on filedocumented in this encounter Care Teams Head Of Academic Technology Relationship Specialty Start Date End Date Fidel Love MD PCP - General Internal Medicine 12/30/21 documented as of this encounter
--- OUTSIDE RECORDS SUMMARY | 2024-10-09 09:05 | XMS_ITS | Encounter Summary ---
Author Organization [facility] Address [address] [place] [address] Phone Care Team Providers Care Medical Front Desk Specialist Name Role Phone Fidel Love MD Primary Care Provider [phone]- [phone] Encounter Details Date Type Department Care Team (Late Contact Info) Description 05/01/2024 Documentation Only [facility] [address] [place] [address] Jenna Tapia [address] [place] [address] Social History Tobacco Use Types [...] Visit [facility] [address] [place] [address] Gennaro Multani MD [address] [place] [address] [place] [address] documented as of this encounter Visit Diagnoses Not on filedocumented in this encounter Care Teams Medical Front Desk Specialist Relationship Specialty Start Date End Date Fidel Love MD PCP - General Internal Medicine 12/30/21 documented as of this encounter
--- OUTSIDE RECORDS SUMMARY | 2024-10-09 09:05 | XMS_ITS | Encounter Summary ---
Author Organization [facility] Address [address] [place] [address] Phone Care Team Providers Care Ski Lift Mechanic Name Role Phone Fidel Love MD Primary Care Provider [phone]- [phone] Encounter Details Date Type Department Care Team ([facility] Contact Info) Description 12/30/2021 Documentation Only [facility] [address] [place] [address] Fidel Love MD [address] [place] [address] [phone] Social History Tobacco Use Types Packs/Day Years Used Date Smoking Tobacco: Never Assessed Comments Unknown Sex and Gender Information Value Date Recorded Sex Assigned at Not on file Legal Sex Female 4:12 PM EDT Gender Identity Not on file Sexual Orientation Not on file documented as of this encounter Plan of Treatment Upcoming Encounters Date Type Department Care Team ([facility] Contact Info) Description 10/31/2024 3:30 PM EDT Office Visit [facility] [address] [place] [address] Gennaro Multani MD [address] [place] [address] [place] [address] documented as of this encounter Visit Diagnoses Not on filedocumented in this encounter Care Teams Ski Lift Mechanic Relationship Specialty Start Date End Date Fidel Love MD PCP - General Internal Medicine 12/30/21 documented as of this encounter
--- OUTSIDE RECORDS SUMMARY | 2024-10-09 09:05 | XMS_ITS | Clinical Summary ---
Author Organization [facility] [place], Address [address] [place] [address] [place] [address] Phone Care Team Providers Care Business Machine Operator Name Role Phone Fidel Love MD Primary Care Provider +1- [phone] Allergies No known active allergies Medications Calcium [...] Refill [facility] [address] [place] [address] ReginaJenna 07/30/2024 Documentation Only [facility] [address] [place] [address] Gennaro Multani MD from Last [...] Visit [facility] [address] [place] [address] Gennaro Multani MD [address] [place] [address] [place] [phone] Health Maintenance Due Date Last Done Comments Pneumococcal Vaccine: 50+ Ye ars (1 of 2 - PCV) 1969 Influenza Vaccine (Season Ended) 2025 Hepatitis B [...] Urine 0-5 0 - 5 /hpf [facility] RBC, Urine 0-2 0 - 2 /hpf [facility] Squamous Epithelial, Urine 0-10 0 - 10 /hpf [facility] Casts None seen None seen /lpf [facility] Bacteria, Urine None seen None seen/Few [facility] 08/29/2024 9:12 AM EST 08/29/2024 us Gennaro Multani MD LAB MICROBIOLOGY - GENERAL OR DERABLES Final Result [facility] [address] [place] [address] * (ABNORMAL) Protein, Total, Random Urine w/Creatinine (Protein/Creat Ratio) (08/29/2024 9:12 AM EST) Creatinine, Ur 132.9 Not Estab. mg/dL [facility] Protein, Ur 145.9 Not Estab. mg/dL [facility] Urine Protein/Creati nine Ratio 1,098(H) 0 - 200 mg/g creat [facility] 08/29/2024 9:12 AM EST 08/29/2024 us Gennaro Multani MD LAB URINE ORDERABLES Final Re sult Performing Organization Address City[facility] Co de Phone Number [facility] [address] [place] [address] * (ABNORMAL) Urine Albumin / Creatinine Ratio (08/29/2024 9:12 AM EST) Pathologist [facility] Albumin, Urine 278.3 Not Estab. ug/mL [facility] Albumin/Creatin ine Ratio 209(H) 0 - 29 mg/g creat [facility] Comment: ? Normal: ?0 - ??29 ? Moderately increased: 30 - 300 ? Severely increased: ? >300 08/29/2024 9:12 AM EST 08/29/2024 us Gennaro Multani MD LAB URINE ORDERABLES Final Re sult Performing Organization Address [facility] de Phone Number [employer] [facility] [address] [place] [address] * (ABNORMAL) Urinalysis with microscopic (08/29/2024 9:12 AM EST) Pathologist [facility] Specific [place], Urine 1.021 1.005 - 1.030 [facility] [phone] pH Urine 6.5 5.0 - 7.5 [facility] Color, Urine Yellow Yellow [facility] [phone] Appearance Urine Clear Clear [facility] WBC Esterase Urine Negative Negative [facility] Protein, Ur 2+(A) Negative/Tra ce [facility] Glucose, Ur 3+(A) Negative [facility] Ketones, Urine Negative Negative [facility] Blood Urine Negative Negative [facility] Bilirubin Urine Negative Negative [facility] Urobilinogen Urine 0.2 0.2 - 1.0 mg/dL [facility] [phone] Nitrite, Urine Negative Negative [facility] Microscopic Examination See below: [facility] Comment:Microscopic was cruz cated and was performed. 08/29/2024 9:12 AM EST 08/29/2024 us Gennaro Multani MD LAB URINE ORDERABLES Final Re sult [facility] [address] [place] [address] * CBC and Differential (08/29/2024 9:12 AM EST) WBC 7.6 3.4 - 10.8 x10E3/uL [facility] RBC 4.45 3.77 - 5.28 x10E6/uL [facility] Hemoglobin 12.8 11.1 - 15.9 g/dL [facility] Hematocrit 39.2 34.0 - 46.6 % [facility] MCV 88 79 - 97 fL [facility] MCH 28.8 26.6 - 33.0 pg [facility] MCHC 32.7 31.5 - 35.7 g/dL [facility] RDW 13.5 11.7 - 15.4 % [facility] Platelets 236 150 - 450 x10E3/uL [facility] Neutrophils Relative 59 Not Estab. % [facility] Lymphocytes Relative 28 Not Estab. % [facility] Monocytes 7 Not Estab. % [facility] Eosinophils Relative 5 Not Estab. % [facility] Basophils Relative 1 Not Estab. % [facility] Neutrophils Absolute 4.5 1.4 - 7.0 x10E3/uL [facility] Lymphocytes Absolute 2.2 0.7 - 3.1 x10E3/uL [facility] Monocytes Absolute 0.6 0.1 - 0.9 x10E3/uL [facility] Eosinophils Absolute 0.3 0.0 - 0.4 x10E3/uL [facility] Basophils Absolute 0.1 0.0 - 0.2 x10E3/uL [facility] Immature Granulocytes 0 Not Estab. % [facility] Immature Grans (Absolute) 0.0 0.0 - 0.1 x10E3/uL [facility] 08/29/2024 9:12 AM EST 08/29/2024 us Gennaro Multani MD LAB BLOOD ORDERABLES Final Re sult [facility] [address] [place] [address] * (ABNORMAL) Renal Function Panel (08/29/2024 9:12 AM EST) Glucose 91 70 - 99 mg/dL [facility] BUN 13 8 - 27 mg/dL [facility] Creatinine 1.13(H) 0.57 - 1.00 mg/dL [facility] eGFR CKD-EPI CR 2020 50(L) >59 mL/min/1.7 3 [facility] BUN/Creatinine Ratio 12 12 - 28 [facility] Sodium 141 134 - 144 mmol/L [facility] Potassium 4.2 3.5 - 5.2 mmol/L [facility] Chloride 105 96 - 106 mmol/L [facility] Bicarbonate (CO2) 23 20 - 29 mmol/L [facility] Calcium 8.7 8.7 - 10.3 mg/dL [facility] Albumin 4.3 3.8 - 4.8 g/dL [facility] Phosphorus 2.8(L) 3.0 - 4.3 mg/dL [facility] 08/29/2024 9:12 AM EST 08/29/2024 us Gennaro Multani MD LAB BLOOD ORDERABLES Final Re sult [facility] [address] [place] [address] from Last 3 Months Insurance [facility] [employer] Dual SNP ([id number]) FAISAL [place] [id number] Care Teams Business Machine Operator Relationship Specialty Start Date End Date Fidel Love MD PCP - General Internal Medicine 12/30/21
--- OUTSIDE RECORDS SUMMARY | 2024-10-09 09:06 | XMS_ITS | Encounter Summary ---
Author Organization [employer] Address [address] [facility] [address] 7[address] [place] [address] Care Team Providers Care Regular Senior Care Provider Name Role Phone Fidel Love MD Primary Care Provider [phone]- [phone] Encounter Details Date Type Department Care Team ([facility] st Contact Info) Description 07/07/2024 Orders Only [facility] MED & PEDS [address] [place] [address] Fidel Love MD [address] [place] [address] Obesity (BMI 30-39.9) (Primary Dx) Social History [...] documented as of this encounter Care Teams Regular Senior Care Provider Relationship Specialty Start Date End Date Fidel Love MD [address] [place] [address] PCP - General Internal Medicine 04/25/12 documented as of this encounter
--- OUTSIDE RECORDS SUMMARY | 2024-10-09 09:06 | XMS_ITS | Encounter Summary ---
Author Organization [employer] Address [address] [facility] [address] 7[address] [place] [address] Care Team Providers Care Automatic Line Set Up Mechanic Name Role Phone Fidel Love MD Primary Care Provider [phone]- [phone] Encounter Details Date Type Department Care Team (Late st Contact Info) Description 05/16/2024 Orders Only [facility] [address] [place] [address] Provider, MD Chris Social History Tobacco Use [...] t he electric, gas, oil or water [employer] threatened to shut off services in your [...] [address] ?[place] [address] ?XRay Report ? Signed ? Patient: Chrissy Graff ?MR#: [id number] ? : 1950 ?Acct:[id number] ? Age/Sex: 74 / F ?ADM Date: 06/06/24 ? Loc: HO.HOSX ? Attending Dr: Pa MALONE ? Ordering Physician: Mariana Haji ?? Date of Service: 06/06/24 ?? Procedure(s): XR lumbar spine 2-3V ?? Accession Number(s): [id number] ? cc: Fidel Love MD; Mariana Haji [...] DD/ 1203 ? TD/TT: 06/06/24 1209 ? Hedge Fund Trader: EF ? Procedure Note Tara, Macey - 07/24/2024 [facility] [address] [place] [address] [address] [place] [address] XRay Report Signed Patient: Chrissy GraffMR#: [id number] : 8Acct:[id number] Age/Sex: 74 / FADM Date: 06/06/24 Loc: ANALI Attending Dr: Pa MALONE Ordering Physician: Mariana Haji Date of Service: 06/06/24 Procedure(s): XR lumbar spine 2-3V Accession Number(s): [id number] cc: Fidel Love MD; Mariana Haji EXAMINATION: [...] 07/24/24 1115 DD/ 1203 TD/TT: 06/06/24 1209 Hedge Fund Trader: [facility] External Provider IMG XR PROCEDURES Final Result * Transthoracic echo (TTE) complete (05/15/2024 10:24 AM EST) Historical Provider CV ECHO PROCEDURES Final Result documented in this encounter Visit Diagnoses Not on filedocumented in this encounter Additional Health Concerns Assessment Noted Time PHQ-9 Depression Total Score: 9 11/07/19 23 4:10 PM EDT documented as of this encounter Care Teams Automatic Line Set Up Mechanic Relationship Specialty Start Date End Date Fidel Love MD [address] [place] [address] PCP - General Internal Medicine 04/25/12 documented as of this encounter
--- OUTSIDE RECORDS SUMMARY | 2024-10-09 09:06 | XMS_ITS | Encounter Summary ---
Author Organization [employer] Address [address] [facility] [address] 7[address] [place] [address] Care Team Providers Care Fender Mechanic Apprentice Name Role Phone Fidel Love MD Primary Care Provider [phone]- [phone] Encounter Details Date Type Department Care Team ([facility] Contact Info) Description 07/08/2024 Telephone [facility] MED & PEDS [address] [place], [place] [phone] Fidel Love MD 505 [place] [address] Social History Tobacco Use Types Packs/Day Years [...] . Any question may contact phone # [phone]. documented in this encounter Plan of Treatment Not on file documented as of this encounter Visit Diagnoses Not on filedocumented in this encounter Additional Health Concerns Assessment Noted Time PHQ-9 Depression Total Score: 0 05/27/20 24 1:20 PM EST documented as of this encounter Care Teams Fender Mechanic Apprentice Relationship Specialty Start Date End Date Fidel Love MD [address] [place] [address] PCP - General Internal Medicine 04/25/12 documented as of this encounter
--- OUTSIDE RECORDS SUMMARY | 2024-10-09 09:06 | XMS_ITS | Encounter Summary ---
Author Organization [employer] Address [address] [facility] [address] 7[address] [place] [address] Care Team Providers Care Fish Bait Processing Supervisor Name Role Phone Fidel Love MD Primary Care Provider Encounter Details Date Type Department Care Team ([facility] st Contact Info) Description 04/02/2024 Orders Only [facility] CHC MED & PEDS [address] [place], [place] [phone] Fidel Love MD [address] [place], [place] [phone] Low back pain at multiple sites (Primary [...] documented as of this encounter Care Teams Fish Bait Processing Supervisor Relationship Specialty Start Date End Date Fidel Love MD [address] [place] [address] PCP - General Internal Medicine 04/25/12 documented as of this encounter
== END 2024-10-09 09:19 | disposition home or self-care (01) ==
LOC: HO.HSMS 08:35
PROVIDERS: PCP Internal Medicine; Visit Provider Psychiatry & Neurology Neurology
DX: G25.2 Other specified forms of tremor (principal); G47.33 Obstructive sleep apnea (adult) (pediatric)
CPT/HCPCS: 99214; G2211

== ENCOUNTER → 2024-10-09 08:35 | Outpatient (BNVA) | payer OTHER, SELFPAY | PROVIDERS: PCP Internal Medicine; Visit Provider Psychiatry & Neurology Neurology | DX: G47.33 Obstructive sleep apnea (adult) (pediatric) (principal); G25.2 Other specified forms of tremor; Z99.89 Dependence on other enabling machines and devices | CPT/HCPCS: 99212 ==

== ENCOUNTER 2024-10-30 06:20 | Outpatient (REF) | payer OTHER, SELFPAY ==
--- OUTSIDE RECORDS SUMMARY | 2024-10-30 06:23 | XMS_ITS | Encounter Summary ---
Author Organization [employer] Address [address] [facility] [address] 7t [place] [address] Care Team Providers Care Engineer Chief Name Role Phone Fidel Love MD Primary Care Provider [phone] Encounter Details Date Type Department Care Team ([facility] st Contact Info) Description 04/02/2024 Orders Only [facility] CHC MED & PEDS [address] [place], [place] [phone] Fidel Love MD [address] [place], [place] [phone] Low back pain at multiple sites (Primary [...] Upcoming Encounters Date Type Department Care Team ([facility] st Contact Info) Description 12/10/2024 10:00 AM EDT Office Visit [facility] MED & PEDS [address] [place] [address] Fidel Love MD [address] [place] [address] documented as of this encounter Visit Diagnoses Diagnosis Low back pain at multiple sites- Primary documented in this encounter Additional Health Concerns Assessment Noted Time PHQ-9 Depression Total Score: 9 11/07/19 23 4:10 PM EDT documented as of this encounter Care Teams Engineer Chief Relationship Specialty Start Date End Date Fidel Love MD [address] [place] [address] PCP - General Internal Medicine 04/25/12 documented as of this encounter
--- OUTSIDE RECORDS SUMMARY | 2024-10-30 06:23 | XMS_ITS | Encounter Summary ---
Author Organization [employer] Address 75 [facility] 7t [place] [address] Care Team Providers Care College Instructor Name Role Phone Fidel Love MD Primary Care Provider Reason for Visit * Reason Onset Date Comments Med Refill 03/26/2023 Encounter Details Date Type Department Care Team ([facility] st Contact Info) Description 03/26/2023 Telephone [facility] CHC MED & PEDS [address] [place], [place] [phone] Fidel Love MD 505 [place] [address] Med Refill Social History Tobacco Use Types [...] Graves (Nephrology) * Telephone Encounter - Giovanna Styles - 03/26/2023 2:30 PM EDT Tc from [place] requesting med refill for medication lisinopril 40 MG tablet. documented in this encounter Plan of Treatment Upcoming Encounters Date Type Department Care Team (Late st Contact Info) Description 12/10/2024 10:00 AM EDT Office Visit [facility] MED [facility]ED[facility] [address] [place] [address] Fidel Love MD [address] [place] [address] documented as of this encounter Visit Diagnoses Not on filedocumented in this encounter Additional Health Concerns Assessment Noted Time PHQ-9 Depression Total Score: 9 11/07/19 23 4:10 PM EDT documented as of this encounter Care Teams College Instructor Relationship Specialty Start Date End Date Fidel Love MD [address] [place] [address] PCP - General Internal Medicine 04/25/12 documented as of this encounter
--- OUTSIDE RECORDS SUMMARY | 2024-10-30 06:23 | XMS_ITS | Continuity of Care Document ---
Author Organization [facility] Address [address] [address] Phone Care Team Providers Care Senior Net Software Engineer Name Role Phone Shabbir Yeh PA-C Unavailable Unavaila ble Advance Directives Directive Yes / No Effective Date File Name No Information Encounters Encounter Description Practice Location Reason(s) For Visit Diagnoses Date Provider [facility], [address] [address], [place], [place], [id number], [place] tel:[phone] [facility] No Information [address] [place], [place], [id number], [place]. tel:[phone] Family History Family Member Type Diagnosis Age [...]
--- OUTSIDE RECORDS SUMMARY | 2024-10-30 06:23 | XMS_ITS | Encounter Summary ---
Author Organization [employer] Address [address] [facility] [address] 7[address] [place] [address] Care Team Providers Care Lap Grinder Name Role Phone Fidel Love MD Primary Care Provider Encounter Details Date Type Department Care Team ([facility] st Contact Info) Description 11/16/2023 Orders Only [facility] MED & PEDS 505 [place], [place] [phone] Fidel Love MD [address] [place] [address] Seasonal allergies (Primary Dx); Achilles tendinitis of [...] Upcoming Encounters Date Type Department Care Team ([facility] st Contact Info) Description 12/10/2024 10:00 AM EDT Office Visit [facility] MED & PEDS [address] [place] [address] Fidel Love MD [address] [place] [address] documented as of this encounter Visit Diagnoses Diagnosis Seasonal allergies- Primary Allergic rhinitis, cause unspecified Achilles tendinitis of right lower extremity documented in this encounter Additional Health Concerns Assessment Noted Time PHQ-9 Depression Total Score: 9 11/07/19 23 4:10 PM EDT documented as of this encounter Care Teams Lap Grinder Relationship Specialty Start Date End Date Fidel Love MD [address] [place] [address] PCP - General Internal Medicine 04/25/12 documented as of this encounter
--- OUTSIDE RECORDS SUMMARY | 2024-10-30 06:23 | XMS_ITS | Encounter Summary ---
Author Organization [employer] Address [address] [facility] [address] 7t [place] [address] Care Team Providers Care Mild Disabilities Teacher Name Role Phone Fidel Love MD Primary Care Provider +1 [phone] Encounter Details Date Type Department Care Team (Latest Contact Info) Description 10/27/2024 Travel Social History Tobacco Use Types Packs/Day Years [...] 12/10/2024 10:00 AM EDT Office Visit [facility] [address] [place] [address] Fidel Love MD 505 [place] [address] documented as of this encounter Visit Diagnoses Not on filedocumented in this encounter Additional Health Concerns Assessment Noted Time PHQ-9 Depression Total Score: 0 05/27/20 24 1:20 PM EST documented as of this encounter Care Teams Mild Disabilities Teacher Relationship Specialty Start Date End Date Fidel Love MD [address] [place] [address] PCP - General Internal Medicine 04/25/12 documented as of this encounter
--- OUTSIDE RECORDS SUMMARY | 2024-10-30 06:23 | XMS_ITS | Encounter Summary ---
Author Organization [employer] Address [address] [facility] [address] [address] 7[address] [place] [address] Care Team Providers Care Waste Collection Driver Name Role Phone Fidel Love MD Primary Care Provider Encounter Details Date Type Department Care Team ([facility] st Contact Info) Description 07/07/2024 Orders Only [facility] MED & PEDS [address] [place], [place] [phone] Fidel Love MD 505 [place] [address] Obesity (BMI 30-39.9) (Primary Dx) Social History [...] Description 12/10/2024 10:00 AM EDT Office Visit [facility] MED & PEDS [address] [place] [address] Fidel Love MD [address] [place] [address] documented as of this encounter Visit Diagnoses Diagnosis Obesity (BMI 30-39.9)- Primary documented in this encounter Additional Health Concerns Assessment Noted Time PHQ-9 Depression Total Score: 0 05/27/20 24 1:20 PM EST documented as of this encounter Care Teams Waste Collection Driver Relationship Specialty Start Date End Date Fidel Love MD [address] [place] [address] PCP - General Internal Medicine 04/25/12 documented as of this encounter
--- OUTSIDE RECORDS SUMMARY | 2024-10-30 06:23 | XMS_ITS | Encounter Summary ---
Author Organization [facility], Address [address] [place] [address] Phone Care Team Providers Care Rotor Winder Name Role Phone Fidel Love MD Primary Care Provider +1- [phone] Encounter Details Date Type Department Care Team ([facility] Contact Info) Description 07/30/2024 Documentation Only [facility] [address] [place] [address] Gennaro Multani MD [address] [place] [address] [place] [phone] Social History Tobacco Use Types Packs/Day Years [...] Visit [facility] [address] [place] [address] Gennaro Multani MD [address] [place] [address] [place] [address] documented as of this encounter Visit Diagnoses Not on filedocumented in this encounter Care Teams Rotor Winder Relationship Specialty Start Date End Date Fidel Love MD PCP - General Internal Medicine 12/30/21 documented as of this encounter
--- OUTSIDE RECORDS SUMMARY | 2024-10-30 06:23 | XMS_ITS | Encounter Summary ---
Author Organization [employer] Address [address] [facility] 7t [place] [address] Care Team Providers Care Drafter Apprentice Name Role Phone Fidel Love MD Primary Care Provider Reason for Visit * Reason Onset Date Comments Med Refill 09/11/2024 Encounter Details Date Type Department Care Team ([facility] st Contact Info) Description 09/11/2024 Refill [facility] CH[facility] MED & PEDS [address] [place], [place] [phone] Fidel Love MD 505 [place] [address] Obesity (BMI 30-39.9) Social History Tobacco Use [...] Description 12/10/2024 10:00 AM EDT Office Visit [facility] CH[facility] MED & PEDS [address] [place] [address] Fidel Love MD 505 [place] [address] documented as of this encounter Visit Diagnoses Diagnosis Obesity (BMI 30-39.9) documented in this encounter Additional Health Concerns Assessment Noted Time PHQ-9 Depression Total Score: 0 05/27/20 24 1:20 PM EST documented as of this encounter Care Teams Drafter Apprentice Relationship Specialty Start Date End Date Fidel Love MD 505 [place] [address] PCP - General Internal Medicine 04/25/12 documented as of this encounter
--- OUTSIDE RECORDS SUMMARY | 2024-10-30 06:23 | XMS_ITS | Encounter Summary ---
Author Organization [employer] Address [address] [facility] [address] 7t [place] [address] Care Team Providers Care Senior Report Developer Name Role Phone Fidel Love MD Primary Care Provider Encounter Details Date Type Department Care Team ([facility] st Contact Info) Description 07/17/2023 Orders Only [facility] CHC MED & PEDS [address] [place], [place] [phone] Fidel Love MD 505 [place] [address] Tremor (Primary Dx) Social History Tobacco Use [...] Description 12/10/2024 10:00 AM EDT Office Visit [facility] MED & PEDS 505 [place] [address] Fidel Love MD [address] [place] [address] documented as of this encounter Visit Diagnoses Diagnosis Tremor- Primary Abnormal involuntary movements documented in this encounter Additional Health Concerns Assessment Noted Time PHQ-9 Depression Total Score: 9 11/07/19 23 4:10 PM EDT documented as of this encounter Care Teams Senior Report Developer Relationship Specialty Start Date End Date Fidel Love MD [address] [place] [address] PCP - General Internal Medicine 04/25/12 documented as of this encounter
--- OUTSIDE RECORDS SUMMARY | 2024-10-30 06:23 | XMS_ITS | Data Portability ---
Author Organization [employer] [facility] Address [address] [place] [address] Care Team Providers Care Director Of Loss Prevention Name Role Phone [facility] Referring Provider [phone] [facility] Referring Provider Assessment Encounter Date Assessment Date Assessment LastModified by Organization Details LastModified Time 10/19/2021 10/19/2021 I have reviewed and agree with the Assessment and Plan as documented by the Gold Tooler. I provided real -time medical direction via phone for this encounter, and was available for additional phone based assistance as needed. Patient given the opportunity to ask questions. She aware if develops CP/ significant SOB/ cyanosis/acute AMS/ very hi fever dexter unresponsive to Tylenol should go immediately to the ER- call 911 [email or web address] Not available 10/19/2021 18:07:56 Plan of Treatment Reminders Order Date Submit Date Provider Last Modified By Organization Details Last Modified Time Details Appointments None recorded. Lab rapid flu (A+B) 2021 022 [email or web address], [address] 17:17:01 rapid SARS CoV 2 Ag, QL IA, respiratory specimen 2021 022 [email or web address] [address], [address] 17:17:01 Referral None recorded. Procedures None recorded. [...] IA, respiratory specimen positi ve Not Available [facility] ed [address] [place] [address], [phone] 10/19/2021 17:16:36 10/20/19 22 10/19/2021 rapid flu (A+B) Flu negati ve Not Available [facility] ed [address] [place] [address], [phone] 10/19/2021 17:16:34 Result Notes None recorded. Medical [...] Sylvia Caldera MD Main - instED [address] [place] [address] 10/19/2021 17:15:28 03/02/2022 18:07:53 Viral syndrome [id number] B34.9 COVID + Health Concerns Section Related Observation LastModified by Organization Detai ls LastModified Time None Recorded Concern Status LastModified by Organization Details LastModified Time None Recorded Advance Directives Directive None Recorded Payers Insurance Date Sequence Insurance Name Policy Number Policy Ochoa Covered Member ID Ochoa Member ID Guarantor Name 10/19/2021 1 [facility] - DOS PRIOR TO 2022 - DUAL ELIGIBLE (MEDICARE REPLACEMENT/ADV ANTAGE - HMO) Chrissy Graff [id number] Chrissy Graff Notes Date Note Type Note Provider Name and Address Organization Details Recorded Time 10/19/2021 text/html HPI: Call received from member's daughter, Berta (ph# [phone]) to the CRU. Berta reports mbr has not felt well with flu like symptoms and PCP would not see member d/t symptoms and recommended home visit through [facility]. Berta reports mbr with sx [...] .................. .................. .................. .................. .................. .................. ............... Gold Tooler Note: Patient is a 71 year old [...] .................. ............... Disposition: Js Caldera MD [address] [facility], [place], [address], SY Santiago KILTRANDRES CODY 10/19/2021 18:08:08 OBGyn Episode No OBEpisode recorded.
--- OUTSIDE RECORDS SUMMARY | 2024-10-30 06:23 | XMS_ITS | Clinical Summary ---
Author Organization [facility], Address [address] [place] [address] [place] [address] Phone Care Team Providers Care Vehicle Monitor Technician Name Role Phone Fidel Love MD Primary Care Provider +1- [phone] Allergies No known active allergies Medications Calcium [...] Refill [facility] [address] [place] [phone] Jenna Tapia from Last 3 Months Immunizations Immunization Administration [...] Visit [facility] [address] [place] [address] Gennaro Multani MD [address] [place] [address] [place] [phone] Health Maintenance Due Date Last Done Comments [...] Urine 0-5 0 - 5 /hpf [facility] RBC, Urine 0-2 0 - 2 /hpf [facility] Squamous Epithelial, Urine 0-10 0 - 10 /hpf [facility] Casts None seen None seen /lpf [facility] Bacteria, Urine None seen None seen/Few [facility] 08/29/2024 9:12 AM EST 08/29/2024 us Gennaro Multani MD LAB MICROBIOLOGY - GENERAL OR DERABLES Final Result [facility] [address] [place] [address] * (ABNORMAL) Protein, Total, Random Urine w/Creatinine (Protein/Creat Ratio) (08/29/2024 9:12 AM EST) Creatinine, Ur 132.9 Not Estab. mg/dL [facility] Protein, Ur 145.9 Not Estab. mg/dL [facility] Urine Protein/Creati nine Ratio 1,098(H) 0 - 200 mg/g creat [facility] 08/29/2024 9:12 AM EST 08/29/2024 Gennaro Multani MD LAB URINE ORDERABLES Final Re [facility] Performing Organization Address [facility] de Phone Number GINNA [facility] [address] [place] [address] * (ABNORMAL) Urine Albumin / Creatinine Ratio (08/29/2024 9:12 AM EST) Pathologist [facility] Albumin, Urine 278.3 Not Estab. ug/mL [facility] Albumin/Creatin ine Ratio 209(H) 0 - 29 mg/g creat [facility] Comment: ? Normal: ?0 - ??29 ? Moderately increased: 30 - 300 ? Severely increased: ? >300 08/29/2024 9:12 AM EST 08/29/2024 Gennaro Multani MD LAB URINE ORDERABLES Final Re [facility] Performing Organization Address [facility] de Phone Number [facility] [employer] [facility] [address] [place] [address] * (ABNORMAL) Urinalysis with microscopic (08/29/2024 9:12 AM EST) [facility] Specific [place], Urine 1.021 1.005 - 1.030 [facility] [phone] pH Urine 6.5 5.0 - 7.5 [facility] Color, Urine Yellow Yellow [facility] [phone] Appearance Urine Clear Clear [facility] WBC Esterase Urine Negative Negative [facility] [phone] Protein, Ur 2+(A) Negative/Tra ce [facility] Glucose, Ur 3+(A) Negative [facility] Ketones, Urine Negative Negative [facility] Blood Urine Negative Negative [facility] Bilirubin Urine Negative Negative [facility] [phone] Urobilinogen Urine 0.2 0.2 - 1.0 mg/dL [facility] Nitrite, Urine Negative Negative [facility] Microscopic Examination See below: [facility] [phone] Comment:Microscopic was cruz cated and was performed. 08/29/2024 9:12 AM EST 08/29/2024 us Gennaro Multani MD LAB URINE ORDERABLES Final Re sult [facility] [address] [place] [address] * CBC and Differential (08/29/2024 9:12 AM EST) WBC 7.6 3.4 - 10.8 x10E3/uL [facility] RBC 4.45 3.77 - 5.28 x10E6/uL [facility] Hemoglobin 12.8 11.1 - 15.9 g/dL [facility] Hematocrit 39.2 34.0 - 46.6 % [facility] MCV 88 79 - 97 fL [facility] MCH 28.8 26.6 - 33.0 pg [facility] MCHC 32.7 31.5 - 35.7 g/dL [facility] RDW 13.5 11.7 - 15.4 % [facility] Platelets 236 150 - 450 x10E3/uL [facility] Neutrophils Relative 59 Not Estab. % [facility] Lymphocytes Relative 28 Not Estab. % [facility] Monocytes 7 Not Estab. % [facility] Eosinophils Relative 5 Not Estab. % [facility] Basophils Relative 1 Not Estab. % [facility] Neutrophils Absolute 4.5 1.4 - 7.0 x10E3/uL [facility] Lymphocytes Absolute 2.2 0.7 - 3.1 x10E3/uL [facility] Monocytes Absolute 0.6 0.1 - 0.9 x10E3/uL [facility] Eosinophils Absolute 0.3 0.0 - 0.4 x10E3/uL [facility] Basophils Absolute 0.1 0.0 - 0.2 x10E3/uL [facility] Immature Granulocytes 0 Not Estab. % [facility] Immature Grans (Absolute) 0.0 0.0 - 0.1 x10E3/uL [facility] 08/29/2024 9:12 AM EST 08/29/2024 us Gennaro Multani MD LAB BLOOD ORDERABLES Final Re sult [facility] [address] [place] [address] * (ABNORMAL) Renal Function Panel (08/29/2024 9:12 AM EST) Glucose 91 70 - 99 mg/dL [facility] BUN 13 8 - 27 mg/dL [facility] Creatinine 1.13(H) 0.57 - 1.00 mg/dL [facility] eGFR CKD-EPI CR 2020 50(L) >59 mL/min/1.7 3 [facility] BUN/Creatinine Ratio 12 12 - 28 [facility] Sodium 141 134 - 144 mmol/L [facility] Potassium 4.2 3.5 - 5.2 mmol/L [facility] Chloride 105 96 - 106 mmol/L [facility] Bicarbonate (CO2) 23 20 - 29 mmol/L [facility] Calcium 8.7 8.7 - 10.3 mg/dL [facility] Albumin 4.3 3.8 - 4.8 g/dL [facility] Phosphorus 2.8(L) 3.0 - 4.3 mg/dL [facility] 08/29/2024 9:12 AM EST 08/29/2024 Gennaro Multani MD LAB BLOOD ORDERABLES Final Re sult [facility] [address] [place] [address] from Last 3 Months Insurance [employer] Dual SNP ([id number]) FAISAL VILLANUEVA [phone] Care Teams Vehicle Monitor Technician Relationship Specialty Start Date End Date Fidel Love MD PCP - General Internal Medicine 12/30/21
--- OUTSIDE RECORDS SUMMARY | 2024-10-30 06:23 | XMS_ITS | Encounter Summary ---
Author Organization [employer] Address [address] [facility] 7t [place] [address] Care Team Providers Care Lead Shop Operator Name Role Phone Fidel Love MD Primary Care Provider +1- [phone] Encounter Details Date Type Department Care Team (Late st Contact Info) Description 05/16/2024 Orders Only [facility] [address] [place] [address] Provider, MD Chris Social History Tobacco Use [...] Description 12/10/2024 10:00 AM EDT Office Visit [facility] MED & PEDS [address] [place] [address] Fidel Love MD [address] [place] [address] documented as of this encounter Procedures Procedure [...] [address] ?[place] [address] ?XRay Report ? Signed ? Patient: Graff,Chrissy ?MR#: [id number] ? : 1950 ?Acct:[id number] ? Age/Sex: 74 / F ?ADM Date: 12/13/24 ? Loc: HO.HOSX ? Attending Dr: Pa MALONE ? Ordering Physician: Mariana Haji ?? Date of Service: 06/06/24 ?? Procedure(s): XR lumbar spine 2-3V ?? Accession Number(s): [id number] ? cc: Fidel Love MD; Mariana Haji [...] DD/ 1203 ? TD/TT: 06/06/24 1209 ? Director Of Special Education: EF ? Procedure Note Macey Pacheco - 07/24/2024 [facility] [address] [facility] [address] [place] [address] XRay Report Signed Patient: Chrissy GraffMR#: [id number] : 8Acct:[id number] Age/Sex: 74 / FADM Date: 06/06/24 Loc: ANA[facility] Attending Dr: Pa MALONE Ordering Physician: Mariana Haji Date of Service: 06/06/24 Procedure(s): XR lumbar spine 2-3V Accession Number(s): [id number] cc: Fidel Love MD; Mariana Haji EXAMINATION: [...] 07/24/24 1115 DD/ 1203 TD/TT: 06/06/24 1209 Director Of Special Education: ZACHERY [facility] External Provider IMG XR PROCEDURES Final Result * Transthoracic echo (TTE) complete (05/15/2024 10:24 AM EST) Historical Provider CV ECHO PROCEDURES Final Result documented in this encounter Visit Diagnoses Not on filedocumented in this encounter Additional Health Concerns Assessment Noted Time PHQ-9 Depression Total Score: 9 11/07/19 23 4:10 PM EDT documented as of this encounter Care Teams Lead Shop Operator Relationship Specialty Start Date End Date Fidel Love MD [address] [place] [address] PCP - General Internal Medicine 04/25/12 documented as of this encounter
--- OUTSIDE RECORDS SUMMARY | 2024-10-30 06:23 | XMS_ITS | Encounter Summary ---
Author Organization [employer] Address [address] [facility] [address] 7[address] [place] [address] Care Team Providers Care Crusher Tender Name Role Phone Fidel Love MD Primary Care Provider +1- [phone] Encounter Details Date Type Department Care Team ([facility] st Contact Info) Description 10/29/2024 Orders Only [facility] MED & PEDS [address] [place], [place] [phone] Fidel Love MD 505 [place] [address] Obesity (BMI 30-39.9) (Primary Dx) Social History [...] Description 12/10/2024 10:00 AM EDT Office Visit [facility] MED & PEDS [address] [place] [address] Fidel Love MD [address] [place] [address] documented as of this encounter Visit Diagnoses Diagnosis Obesity (BMI 30-39.9)- Primary documented in this encounter Additional Health Concerns Assessment Noted Time PHQ-9 Depression Total Score: 0 05/27/20 24 1:20 PM EST documented as of this encounter Care Teams Crusher Tender Relationship Specialty Start Date End Date Fidel Love MD [address] [place] [address] PCP - General Internal Medicine 04/25/12 documented as of this encounter
--- OUTSIDE RECORDS SUMMARY | 2024-10-30 06:23 | XMS_ITS | Encounter Summary ---
Author Organization [employer] Address [address] [facility] [address] [place] [address] Care Team Providers Care Garden Center Manager Name Role Phone Fidel Love MD Primary Care Provider +1- [phone] Encounter Details Date Type Department Care Team (Late st Contact Info) Description 04/19/[address] [facility] [address] [place] [address] Ericka Liao Social History Tobacco Use Types [...] t he electric, gas, oil or water [employer]or[employer] threatened to shut off services in your [...] Description 12/10/2024 10:00 AM EDT Office Visit [facility] MED & PEDS [address] [place], [place] [phone] Fidel Love MD [address] [place] [address] documented as of this encounter Procedures Procedure Name Priority Date/Time Associated Diagnosis Comments HM COLONOSCOPY Routine 06/08/2015 documented in this encounter Results * Hm Colonoscopy (06/08/2015) Colonoscopy Normal Normal Narrative rEicka Liao - 06/08/2015 Recommended 10 year follow up Historical Provider HEALTH MAINTENANCE Final Result documented in this encounter Visit Diagnoses Not on filedocumented in this encounter Additional Health Concerns Assessment Noted Time PHQ-9 Depression Total Score: 9 11/07/19 23 4:10 PM EDT documented as of this encounter Care Teams Garden Center Manager Relationship Specialty Start Date End Date Fidel Love MD [address] [place] [address] PCP - General Internal Medicine 04/25/12 documented as of this encounter
--- OUTSIDE RECORDS SUMMARY | 2024-10-30 06:23 | XMS_ITS | Encounter Summary ---
Author Organization [facility] Address [address] [place] [address] Phone Care Team Providers Care Jackhammer Splitter Operator Name Role Phone Fidel Love MD Primary Care Provider +1- [phone] Encounter Details Date Type Department Care Team ([facility] Contact Info) Description 12/30/2021 Documentation Only [facility] [address] [place] [address] Fidel Love MD [address] [place] [phone] Social History Tobacco Use Types Packs/Day Years Used Date Smoking Tobacco: Never Assessed Comments Unknown Sex and Gender Information Value Date Recorded Sex Assigned at Not on file Legal Sex Female 4:12 PM EDT Gender Identity Not on file Sexual Orientation Not on file documented as of this encounter Plan of Treatment Upcoming Encounters Date Type Department Care Team ([facility] Contact Info) Description 10/31/2024 3:30 PM EDT Office Visit [facility] [address] [place] [address] Gennaro Multani MD [address] [place] [address] [place] [address] documented as of this encounter Visit Diagnoses Not on filedocumented in this encounter Care Teams Jackhammer Splitter Operator Relationship Specialty Start Date End Date Fidel Love MD PCP - General Internal Medicine 12/30/21 documented as of this encounter
--- OUTSIDE RECORDS SUMMARY | 2024-10-30 06:23 | XMS_ITS | Encounter Summary ---
Author Organization [employer] Address [address] [facility] [address] [place] [address] Care Team Providers Care Cutter Grinder Operator Name Role Phone Fidel Love MD Primary Care Provider +1- [phone] Encounter Details Date Type Department Care Team (Latest Contact Info) Description 10/27/2024 11:30 AM EDT Clinical Support [facility] MED & P[facility]S [address] [place] [address] Aria Vance RN Severe obesity (BMI 35.0-39.9) with comorbidity (CMS/HCC) [E66.01] Social History Tobacco Use Types Packs/Day Years [...] AM EDT documented as of this encounter Last Filed Vital Signs Vital Sign Reading Time Taken Comments Blood Pressure - - Pulse - - Temperature - - Respiratory Rate - - Oxygen Saturation - - Inhaled Oxygen Concentration - - Weight 83.1 kg (183 lb 3.2 oz) 10/27/2024 11:40 AM EDT Height 157.5 cm (5' 2 ) 10/27/2024 11:40 AM EDT Body Mass Index 33.51 10/27/2024 11:40 AM EDT documented in this encounter Progress Notes * Aria Vance RN - 10/27/2024 11:30 AM EDT S- Chrissy Graff is a 74 year old female here for a weight check. O- Wt 183.2 lbs Ht- 5'2 1/2 inches BMI 33.5 A- Pt walking with ease, NAD noted. Pt reports that he is not having any side effects from the medications and that she it doing PT and walking for exercise but no diet changes. P- Weight check sent to provider for review. documented in this encounter Plan of Treatment Upcoming Encounters Date Type Department Care Team ([facility] st Contact Info) Description 12/10/2024 10:00 AM EDT Office Visit [facility] MED & PEDS [address] [place] [address] Fidel Love MD 505 [place] [address] documented as of this encounter Visit Diagnoses Diagnosis Severe obesity (BMI 35.0-39.9) with comorbidity (CMS/HCC) [E66.01] documented in this encounter Additional Health Concerns Assessment Noted Time PHQ-9 Depression Total Score: 0 05/27/20 24 1:20 PM EST documented as of this encounter Care Teams Cutter Grinder Operator Relationship Specialty Start Date End Date Fidel Love MD [address] [place] [address] PCP - General Internal Medicine 04/25/12 documented as of this encounter
--- OUTSIDE RECORDS SUMMARY | 2024-10-30 06:23 | XMS_ITS | Encounter Summary ---
Author Organization [employer] Address [address] [facility] 7t [place] [address] Care Team Providers Care Petroleum Refining Equipment Operator Name Role Phone Fidel Love MD Primary Care Provider [phone]- [phone] Encounter Details Date Type Department Care Team ([facility] st Contact Info) Description 07/08/2024 Telephone [facility] MED & PEDS [address] [place], [place] [phone] Fidel Love MD [address] [place] [address] Social History Tobacco Use Types Packs/Day Years [...] - 07/08/2024 3:23 PM EST Tc from [facility] calling to inform medication Phentermine- Topiramate 3.75-23 MG capsule sustained-release 24 hr would need to be order to a specialty pharmacy . Any question may contact phone # [phone]. documented in this encounter Plan of Treatment Upcoming Encounters Date Type Department Care Team ([facility] st Contact Info) Description 12/10/2024 10:00 AM EDT Office Visit [facility] MED [facility] PEDS 505 [place] [address] Fidel Love MD [address] [place] [address] documented as of this encounter Visit Diagnoses Not on filedocumented in this encounter Additional Health Concerns Assessment Noted Time PHQ-9 Depression Total Score: 0 05/27/20 24 1:20 PM EST documented as of this encounter Care Teams Petroleum Refining Equipment Operator Relationship Specialty Start Date End Date Fidel Love MD [address] [place] [address] PCP - General Internal Medicine 04/25/12 documented as of this encounter
--- OUTSIDE RECORDS SUMMARY | 2024-10-30 06:23 | XMS_ITS | Encounter Summary ---
Author Organization [facility] Address [address] [place] [address] Phone Care Team Providers Care Butter Grader Name Role Phone Fidel Love MD Primary Care Provider [phone]- [phone] Encounter Details Date Type Department Care Team (Late Contact Info) Description 05/01/2024 Documentation Only [facility] [address] [place] [address] Jenna Tapia [address] [place] [address] Social History Tobacco Use Types [...] Visit [facility] [address] [place] [address] Gennaro Multani MD [address] [place] [address] [place] [address] documented as of this encounter Visit Diagnoses Not on filedocumented in this encounter Care Teams Butter Grader Relationship Specialty Start Date End Date Fidel Love MD PCP - General Internal Medicine 12/30/21 documented as of this encounter
--- OUTSIDE RECORDS SUMMARY | 2024-10-30 06:23 | XMS_ITS | Encounter Summary ---
Author Organization [facility] Address [address] [place] [address] Phone Care Team Providers Care Senior Clinical Sas Programmer Name Role Phone Fidel Love MD Primary Care Provider [phone]- [phone] Encounter Details Date Type Department Care Team ([facility] Contact Info) Description 12/30/2021 Documentation Only [facility] [address] [place] [address] Fidel Love MD [address] [place] [phone] Social History Tobacco Use Types Packs/Day Years Used Date Smoking Tobacco: Never Assessed Comments Unknown Sex and Gender Information Value Date Recorded Sex Assigned at Not on file Legal Sex Female 4:12 PM EDT Gender Identity Not on file Sexual Orientation Not on file documented as of this encounter Plan of Treatment Upcoming Encounters Date Type Department Care Team ([facility] Contact Info) Description 10/31/2024 3:30 PM EDT Office Visit [facility] [address] [place] [address] Gennaro Multani MD [address] [place] [address] [place] [address] documented as of this encounter Visit Diagnoses Not on filedocumented in this encounter Care Teams Senior Clinical Sas Programmer Relationship Specialty Start Date End Date Fidel Love MD PCP - General Internal Medicine 12/30/21 documented as of this encounter
--- OUTSIDE RECORDS SUMMARY | 2024-10-30 06:23 | XMS_ITS | Encounter Summary ---
Author Organization [facility] Address [address] [place] [address] Phone Care Team Providers Care Machined Parts Quality Inspector Name Role Phone Fidel Love MD Primary Care Provider +1- [phone] Encounter Details Date Type Department Care Team (Late Contact Info) Description 05/01/2024 Documentation Only [facility] [address] [place] [address] Jenna Tapia [address] [place] [address] Social History Tobacco Use Types [...] Visit [facility] [address] [place] [address] Gennaro Multani MD [address] [place] [address] [place] [address] documented as of this encounter Visit Diagnoses Not on filedocumented in this encounter Care Teams Machined Parts Quality Inspector Relationship Specialty Start Date End Date Fidel Love MD PCP - General Internal Medicine 12/30/21 documented as of this encounter
--- OUTSIDE RECORDS SUMMARY | 2024-10-30 06:23 | XMS_ITS | Clinical Summary ---
Author Organization [employer] Address [address] [facility] [address] 7t [place] [address] Care Team Providers Care Pipe Setter Name Role Phone Fidel Love MD Primary Care Provider [phone] Allergies No known active allergies Medications * This document contains information received from the source organization and may not represent a complete record from that organization. lisinopril 40 MG tablet 3 Active Blood Pressure kitIndications:P rimary hypertension To check the BP daily 1 kit 3 Active Diclofenac Sodium 1 % gelIndications:A chilles tendinitis of right lower extremity To apply [...] in the morning and at bedtime (rectal pain/itching) . 30 g 3 4 Active PARoxetine (Paxil) 20 MG tabletIndication s:Moderate episode of recurrent major depressive disorder (CMS/HCC) TAKE 1 TABLET BY MOUTH EVERY DAY 30 tablet 11 4 Active simvastatin (Zocor) 40 MG tabletIndication s:Hypercholester olemia TAKE 1 TABLET BY MOUTH AT BEDTIME 30 tablet 11 4 Active nystatin (Nystop) 680612 UNIT/GM powderIndication s:Skin rash Apply topically 2 times daily. 60 g 1 4 06/23/20 25 Active fexofenadine (Gogo Allergy) 180 MG tabletIndication s:Rash due to allergy TAKE 1 TABLET BY MOUTH EVERY MORNING 30 tablet 5 5 Active Phentermine-Topi ramate 3.75-23 MG capsule sustained-releas e 24 hrIndications:Ob esity (BMI 30-39.9) 1 tab daily 30 capsule 3 5 Active Calcium + Vitamin D3 600-10 MG-MCG tablet Place 600 mg into mouth between cheek and gum Once per day. TAKE 1 TABLET BY MOUTH TWICE A DAILY 60 tablet 5 5 Active Tirzepatide-Weig ht Management (Zepbound) 5 MG/0.5ML solutionIndicati ons:Obesity (BMI 30-39.9) Inject 5 mg under the skin 1 (one) time per week. 2 mL 2 5 Active Tirzepatide-Weig ht Management (Zepbound) 2.5 MG/0.5ML solution auto-injectorInd ications:Obesity (BMI 30-39.9) Inject 0.5 mL (2.5 mg) under the skin 1 (one) time per week. 2 mL 1 5 10/30/19 25 Discontin ued(Thera py completed ) Active Problems Problem Noted Date Diagnosed Date [...] Encounters Date Type Department Care Team Description 10/29/2024 Orders Only [facility] MED & PEDS [address] [place] [address] Fidel Love MD Obesity (BMI 30-39.9) (Primary Dx) 10/27/2024 11:30 AM EDT Clinical Support [facility] MED & PEDS [address] [place] [address] Aria Vance RN Severe obesity (BMI 35.0-39.9) with comorbidity (CMS/HCC) [E66.01] 10/27/2024 Travel 10/24/2024 Telephone [facility] MED [facility] PEDS [address] [place] [address] Fidel Love MD No Show 09/11/2024 Refill [facility] PEDS [address] [place] [address] Fidel Love MD Obesity (BMI 30-39.9) 09/02/2024 Refill [facility] [address] [place] [address] Fidel Love MD Obesity (BMI 30-39.9) 08/21/2024 Refill [facility] [address] [place] [address] Fidel Love MD Obesity (BMI 30-39.9) 08/04/2024 Refill [facility] MEDICINE [address] [place] [address] Fidel Love MD from Last 3 Months [...] EST Inhaled Oxygen Concentration - - Weight 83.1 kg (183 lb 3.2 oz) 10/27/2024 11:40 AM EDT Height 157.5 cm (5' 2 ) 10/27/2024 11:40 AM EDT Body Mass Index 33.51 10/27/2024 11:40 AM EDT Plan of Treatment Upcoming Encounters Date Type Department Care Team (Late st Contact Info) Description 12/10/2024 10:00 AM EDT Office Visit [facility] MED & PEDS [address] [place] [address] Fidel Love MD [address] [place] [address] Health Maintenance Due Date Last Done Comments [...] 05/27/2025 05/27/2024 Depression Screening 05/27/2025 05/27/2024, 05/27/20 Lipid Panel 12/21/2026 12/21/2021, 07/26, 08/30/2020 Colonoscopy [...] ?? Darion YODER et al. JAIME. 2013;310(19): 6531-7065 ?? ([email or web address]) Non-HDL Cholesterol 130(H) <130 mg/dL (calc) FOUNDATION [...] Love MD LAB BLOOD ORDERABLES Final Result [facility] [address] * Colonoscopy (06/08/2015) Colonoscopy Normal Normal Narrative Ericka Liao - 06/08/2015 Recommended 10 year follow up Historical Provider HEALTH MAINTENANCE Final Result from Last 3 Months or Most Recently Relevant to Health Maintenance Insurance [facility] C[facility] HOME OPTIONS (O D-SNP) FAISAL VILLANUEVA [id number] Care Teams Pipe Setter Relationship Specialty Start Date End Date Fidel Love MD [address] [place] [address] PCP - General Internal Medicine 04/25/12
--- OUTSIDE RECORDS SUMMARY | 2024-10-30 06:23 | XMS_ITS | Encounter Summary ---
Author Organization [facility] Address [address] [place] [address] Phone Care Team Providers Care Parimutuel Cashier Name Role Phone Fidel Love MD Primary Care Provider [phone]- [phone] Encounter Details Date Type Department Care Team (Late Contact Info) Description 05/01/2024 Documentation Only [facility] [address] [place] [address] Jenna Tapia [address] [place] [address] Social History Tobacco Use Types [...] [facility] [address] [place] [address] Gennaro Multani MD [address] [place] [address] [place] [address] documented as of this encounter Visit Diagnoses Not on filedocumented in this encounter Care Teams Parimutuel Cashier Relationship Specialty Start Date End Date Fidel Love MD PCP - General Internal Medicine 12/30/21 documented as of this encounter
--- OUTSIDE RECORDS SUMMARY | 2024-10-30 06:23 | XMS_ITS | Encounter Summary ---
Author Organization [employer] Address [address] [facility] [address] 7t [place] [address] Care Team Providers Care Clinical Investigator Name Role Phone Fidel Love MD Primary Care Provider Reason for Visit * Reason Onset Date Comments Medication Question 01/14/2024 Encounter Details Date Type Department Care Team (Late st Contact Info) Description 01/14/2024 Telephone [facility] MEDICINE [address] [place] [address] Fidel Love MD [address] [place] [address] Medication Question Social History Tobacco Use Types [...] 1:39 PM EDT Telephone call to Mateo , pharmacist at [facility] pharmacy . Mateo was advised that [...] Upcoming Encounters Date Type Department Care Team ([facility] st Contact Info) Description 12/10/2024 10:00 AM EDT Office Visit [facility] MED & PEDS 505 [place] [address] Fidel Love MD [address] [place] [address] documented as of this encounter Visit Diagnoses Diagnosis SERRANO (dyspnea on exertion) Other dyspnea and respiratory abnormality documented in this encounter Additional Health Concerns Assessment Noted Time PHQ-9 Depression Total Score: 9 11/07/19 23 4:10 PM EDT documented as of this encounter Care Teams Clinical Investigator Relationship Specialty Start Date End Date Fidel Love MD [address] [place] [address] PCP - General Internal Medicine 04/25/12 documented as of this encounter
== END 2024-10-30 06:21 | disposition home or self-care (01) ==
LOC: CF 06:20
PROVIDERS: Visit Provider Internal Medicine
DX: Z13.89 Encounter for screening for other disorder (principal)

== ENCOUNTER 2024-10-31 11:17 | Outpatient (REF) | payer OTHER, SELFPAY ==
[2024-10-31 11:38] LABS: MANUAL DIFF FLAG NO
--- OUTSIDE RECORDS SUMMARY | 2024-10-31 11:45 | XMS_ITS | Encounter Summary ---
Author Organization [employer] Address [address] [facility] [address] 7t [place] [address] Care Team Providers Care Sap Security Architect Name Role Phone Fidel Love MD Primary Care Provider Encounter Details Date Type Department Care Team ([facility] st Contact Info) Description 07/17/2023 Orders Only [facility] MED & PEDS [address] [place], [place] [phone] Fidel Love MD 505 [place] [address] Tremor (Primary Dx) Social History Tobacco Use [...] Description 12/10/2024 10:00 AM EDT Office Visit [facility] MED & PEDS 505 [place] [address] Fidel Love MD [address] [place] [address] documented as of this encounter Visit Diagnoses Diagnosis Tremor- Primary Abnormal involuntary movements documented in this encounter Additional Health Concerns Assessment Noted Time PHQ-9 Depression Total Score: 9 11/07/19 23 4:10 PM EDT documented as of this encounter Care Teams Sap Security Architect Relationship Specialty Start Date End Date Fidel Love MD [address] [place] [address] PCP - General Internal Medicine 04/25/12 documented as of this encounter
--- OUTSIDE RECORDS SUMMARY | 2024-10-31 11:45 | XMS_ITS | Encounter Summary ---
Author Organization [facility] Address [address] [place] [address] Phone Care Team Providers Care Director Of Optimization Name Role Phone Fidel Love MD Primary Care Provider +1- [phone] Encounter Details Date Type Department Care Team (Late Contact Info) Description 05/01/2024 Documentation Only [facility] [address] [place] [address] Jenna Tapia [address] [place] [address] Social History Tobacco Use Types [...] [facility] [address] [place] [address] Gennaro Multani MD [address] [place] [address] [place] [address] documented as of this encounter Visit Diagnoses Not on filedocumented in this encounter Care Teams Director Of Optimization Relationship Specialty Start Date End Date Fidel Love MD PCP - General Internal Medicine 12/30/21 documented as of this encounter
--- OUTSIDE RECORDS SUMMARY | 2024-10-31 11:45 | XMS_ITS | Encounter Summary ---
Author Organization [employer] Address [address] [facility] [address] 7t [place] [address] Care Team Providers Care Cycling Instructor Name Role Phone Fidel Love MD Primary Care Provider +1- [phone] Encounter Details Date Type Department Care Team (Latest Contact Info) Description 10/27/2024 11:30 AM EDT Clinical Support [facility] MED & PEDS [address] [place] [address] Aria Vance RN Severe obesity (BMI 35.0-39.9) [...] Upcoming Encounters Date Type Department Care Team ([facility] st Contact Info) Description 12/10/2024 10:00 AM EDT Office Visit [facility] MED & PEDS [address] [place] [address] Fidel Love MD [address] [place] [address] documented as of this encounter Visit Diagnoses Diagnosis Severe obesity (BMI 35.0-39.9) with comorbidity (CMS/HCC) [E66.01] documented in this encounter Additional Health Concerns Assessment Noted Time PHQ-9 Depression Total Score: 0 05/27/20 24 1:20 PM EST documented as of this encounter Care Teams Cycling Instructor Relationship Specialty Start Date End Date Fidel Love MD [address] [place] [address] PCP - General Internal Medicine 04/25/12 documented as of this encounter
--- OUTSIDE RECORDS SUMMARY | 2024-10-31 11:45 | XMS_ITS | Encounter Summary ---
Author Organization [employer] Address [address] [facility] 7t [place] [address] Care Team Providers Care Yard Associate Name Role Phone Fidel Love MD Primary Care Provider [phone] Reason for Visit * Reason Onset Date Comments Med Refill 09/11/2024 Encounter Details Date Type Department Care Team ([facility] st Contact Info) Description 09/11/2024 Refill [facility] MED & PEDS [address] [place], [place] [phone] Fidel Love MD [address] [place] [address] Obesity (BMI 30-39.9) Social History Tobacco Use [...] Description 12/10/2024 10:00 AM EDT Office Visit [facility] MED & PEDS [address] [place] [address] Fidel Love MD [address] [place] [address] documented as of this encounter Visit Diagnoses Diagnosis Obesity (BMI 30-39.9) documented in this encounter Additional Health Concerns Assessment Noted Time PHQ-9 Depression Total Score: 0 05/27/20 24 1:20 PM EST documented as of this encounter Care Teams Yard Associate Relationship Specialty Start Date End Date Fidel Love MD [address] [place] [address] PCP - General Internal Medicine 04/25/12 documented as of this encounter
--- OUTSIDE RECORDS SUMMARY | 2024-10-31 11:45 | XMS_ITS | Continuity of Care Document ---
Author Organization [facility] Address [address] [address] Phone Care Team Providers Care Edi Architect Name Role Phone Shabbir Yeh PA-C Unavailable Unavaila ble Advance Directives Directive Yes / No Effective Date File Name No Information Encounters Encounter Description Practice Location Reason(s) For Visit Diagnoses Date Provider [facility], [address] [address], [place], [place], [id number], [place] tel:[phone] [facility] No Information [address] [place], [place], [id number], [place]. tel:[phone] Family History Family Member Type Diagnosis Age [...]
--- OUTSIDE RECORDS SUMMARY | 2024-10-31 11:45 | XMS_ITS | Data Portability ---
Author Organization [employer] [facility], [facility] Address [address] [place] [address] Care Team Providers Care Shelf Filler Name Role Phone [facility] Referring Provider [phone] [facility] Referring Provider Assessment Encounter Date Assessment Date Assessment LastModified by Organization Details LastModified Time 10/19/2021 10/19/2021 I have reviewed and agree with the Assessment and Plan as documented by the Cross Country/Track And Field Coach. I provided real -time medical direction via phone for this encounter, and was available for additional phone based assistance as needed. Patient given the opportunity to ask questions. She aware if develops CP/ significant SOB/ cyanosis/acute AMS/ very hi fever dexter unresponsive to Tylenol should go immediately to the ER- call 911 [email or web address] Not available 10/19/2021 18:07:56 Plan of Treatment Reminders Order Date Submit Date Provider Last Modified By Organization Details Last Modified Time Details Appointments None recorded. Lab rapid flu (A+B) 2021 [address]22 [email or web address], [id number] 17:17:01 rapid SARS CoV 2 Ag, QL [place], respiratory specimen 2021 022 [email or web address], [phone] 17:17:01 Referral None recorded. Procedures None recorded. [...] IA, respiratory specimen positi ve Not Available [facility] ed [address] [place] [address], [phone] 10/19/2021 17:16:36 10/20/19 22 10/19/2021 rapid flu (A+B) Flu negati ve Not Available [facility] ed [address] [place] [address], [phone] 10/19/2021 17:16:34 Result Notes None recorded. Medical [...] Sylvia Caldera MD Main - instED [address] [place] [address] 10/19/2021 17:15:28 03/02/2022 18:07:53 Viral syndrome [id number] B34.9 COVID + Health Concerns Section Related Observation LastModified by Organization Detai ls LastModified Time None Recorded Concern Status LastModified by Organization Details LastModified Time None Recorded Advance Directives Directive None Recorded Payers Insurance Date Sequence Insurance Name Policy Number Policy Ochoa Covered Member ID Ochoa Member ID Guarantor Name 10/19/2021 1 [facility] - DOS PRIOR TO 2022 - DUAL ELIGIBLE (MEDICARE REPLACEMENT/ADV ANTAGE - HMO) Chrissy Graff [id number] Chrissy Graff Notes Date Note Type Note Provider Name and Address Organization Details Recorded Time 10/19/2021 text/html HPI: Call received from member's daughter, Berta (ph# [phone]) to the CRU. Berta reports mbr has not felt well with flu like symptoms and PCP would not see member d/t symptoms and recommended home visit through [facility]. Berta reports mbr with sx for [...] .................. .................. .................. .................. .................. .................. ............... Cross Country/Track And Field Coach Note: Patient is a 71 year old [...] .................. ............... Disposition: Js Caldera MD [address] [facility],[address], [place], [address], SY Santiago EdRoverANDRES CODY 10/19/2021 18:08:08 OBGyn Episode No OBEpisode recorded.
--- OUTSIDE RECORDS SUMMARY | 2024-10-31 11:45 | XMS_ITS | Encounter Summary ---
Author Organization [facility] [place], Address [address] [place] [address] Phone Care Team Providers Care Permit Review Assistant Name Role Phone Fidel Love MD Primary Care Provider +1- [phone] Encounter Details Date Type Department Care Team ([facility] Contact Info) Description 07/30/2024 Documentation Only [facility] [address] [place] [address] Gennaro Multani MD [address] [place] [address] [place] [id number] Social History Tobacco Use Types Packs/Day Years [...] Visit [facility] [address] [place] [address] Gennaro Multani MD [address] [place] [address] [place] [address] documented as of this encounter Visit Diagnoses Not on filedocumented in this encounter Care Teams Permit Review Assistant Relationship Specialty Start Date End Date Fidel Love MD PCP - General Internal Medicine 12/30/21 documented as of this encounter
--- OUTSIDE RECORDS SUMMARY | 2024-10-31 11:45 | XMS_ITS | Encounter Summary ---
Author Organization [employer] Address [address] [facility] [address] 7t [place] [address] Care Team Providers Care Communications Writer Name Role Phone Fidel Love MD Primary Care Provider [phone] Reason for Visit * Reason Onset Date Comments Medication Question 01/14/2024 Encounter Details Date Type Department Care Team (Late st Contact Info) Description 01/14/2024 Telephone [facility] MEDICINE [address] [place] [address] Fidel Love MD [address] [place] [address] Medication Question Social History Tobacco Use Types [...] Telephone call to Mateo , pharmacist at [facility] pharmacy . Mateo was advised that [...] Upcoming Encounters Date Type Department Care Team ([facility] st Contact Info) Description 12/10/2024 10:00 AM EDT Office Visit [facility] MED & PEDS [address] [place] [address] Fidel Love MD [address] [place] [address] documented as of this encounter Visit Diagnoses Diagnosis SERRANO (dyspnea on exertion) Other dyspnea and respiratory abnormality documented in this encounter Additional Health Concerns Assessment Noted Time PHQ-9 Depression Total Score: 9 11/07/19 23 4:10 PM EDT documented as of this encounter Care Teams Communications Writer Relationship Specialty Start Date End Date Fidel Love MD [address] [place] [address] PCP - General Internal Medicine 04/25/12 documented as of this encounter
--- OUTSIDE RECORDS SUMMARY | 2024-10-31 11:45 | XMS_ITS | Encounter Summary ---
Author Organization [employer] Address [address] 7[address] [place] [address] Care Team Providers Care Manager Commercial Real Estate Name Role Phone Fidel Love MD Primary Care Provider Encounter Details Date Type Department Care Team ([facility] st Contact Info) Description 11/16/2023 Orders Only [facility] MED & PEDS [address] [place], [place] [phone] Fidel Love MD [address] [place] [address] Seasonal allergies (Primary Dx); Achilles tendinitis of [...] Upcoming Encounters Date Type Department Care Team ([facility] st Contact Info) Description 12/10/2024 10:00 AM EDT Office Visit [facility] MED [facility]S [address] [place] [address] Fidel Love MD [address] [place] [address] documented as of this encounter Visit Diagnoses Diagnosis Seasonal allergies- Primary Allergic rhinitis, cause unspecified Achilles tendinitis of right lower extremity documented in this encounter Additional Health Concerns Assessment Noted Time PHQ-9 Depression Total Score: 9 11/07/19 23 4:10 PM EDT documented as of this encounter Care Teams Manager Commercial Real Estate Relationship Specialty Start Date End Date Fidel Love MD [address] [place] [address] PCP - General Internal Medicine 04/25/12 documented as of this encounter
--- OUTSIDE RECORDS SUMMARY | 2024-10-31 11:45 | XMS_ITS | Encounter Summary ---
Author Organization [facility] Address [address] [place] [address] Phone Care Team Providers Care Central Supply Clerk Name Role Phone Fidel Love MD Primary Care Provider +1- [phone] Encounter Details Date Type Department Care Team (Late Contact Info) Description 05/01/2024 Documentation Only [facility] [address] [place] [address] Jenna Tapia [address] [place] [address] Social History Tobacco Use Types [...] Visit [facility] [address] [place] [address] Gennaro Multani MD [address] [place] [address] Dr. [place] [address] documented as of this encounter Visit Diagnoses Not on filedocumented in this encounter Care Teams Central Supply Clerk Relationship Specialty Start Date End Date Fidel Love MD PCP - General Internal Medicine 12/30/21 documented as of this encounter
--- OUTSIDE RECORDS SUMMARY | 2024-10-31 11:45 | XMS_ITS | Encounter Summary ---
Author Organization [employer] Address [address] 7[address] [place] [address] Care Team Providers Care Coating Supervisor Name Role Phone Fidel Love MD Primary Care Provider [phone] [phone] Encounter Details Date Type Department Care Team [...] 10:00 AM EDT Office Visit [facility] MED & PEDS [address] [place] [address] Fidel Love MD [address] [place] [address] documented as of this encounter Visit Diagnoses Not on filedocumented in this encounter Additional Health Concerns Assessment Noted Time PHQ-9 Depression Total Score: 0 05/27/20 24 1:20 PM EST documented as of this encounter Care Teams Coating Supervisor Relationship Specialty Start Date End Date Fidel Love MD [address] [place] [address] PCP - General Internal Medicine 04/25/12 documented as of this encounter
--- OUTSIDE RECORDS SUMMARY | 2024-10-31 11:45 | XMS_ITS | Clinical Summary ---
Author Organization [employer] Address [address] 7[address] [place] [address] Care Team Providers Care Multicultural Manager Name Role Phone Fidel Love MD Primary Care Provider [phone] Allergies No known active allergies Medications * [...] 30 tablet 11 4 Active nystatin (Nystop) 653709 UNIT/GM powderIndication s:Skin rash Apply topically 2 [...] Department Care Team Description 10/29/2024 Orders Only [facility]EDS [address] [place] [address] Fidel Love MD Obesity (BMI 30-39.9) (Primary Dx) 10/27/2024 11:30 AM EDT Clinical Support [facility]S [address] [place] [address] Aria Vance RN Severe obesity (BMI 35.0-39.9) with comorbidity (CMS/HCC) [E66.01] 10/27/2024 Travel 10/24/2024 Telephone [facility] [address] [place] [address] Fidel Love MD No Show 09/11/2024 Refill [facility] [address] [place] [address] Fidel Love MD Obesity (BMI 30-39.9) 09/02/2024 Refill [facility] [address] [place] [address] Fidel Love MD Obesity (BMI 30-39.9) 08/21/2024 Refill [facility] [address] [place] [address] Fidel Love MD Obesity (BMI 30-39.9) 08/04/2024 Refill [facility]IC[facility] [address] [place] [address] Fidel Love MD from Last 3 Months [...] [facility] [address] [place] [address] Fidel Love MD 505 [place] [address] Health Maintenance Due Date Last Done Comments [...] ?? Darion YODER et al. JAIME. 2013;310(19): 4672-4648 ?? (http://Compos[employer].[email or web address] Software/faq/WTV390) Non-HDL Cholesterol 130(H) <130 mg/dL (calc) [facility] [...] [facility] [address] * Colonoscopy (06/08/2015) Colonoscopy Normal Normal Narrative Ericka Liao - 06/08/2015 Recommended 10 year follow up Historical Provider HEALTH MAINTENANCE Final Result from Last 3 Months or Most Recently Relevant to Health Maintenance Insurance [facility] CARE HOME OPTIONS (O D-SNP) [place] [id number] Care Teams Multicultural Manager Relationship Specialty Start Date End Date Fidel Love MD [address] [place] [address] PCP - General Internal Medicine 04/25/12
--- OUTSIDE RECORDS SUMMARY | 2024-10-31 11:45 | XMS_ITS | Encounter Summary ---
Author Organization [facility] Address [address] [place] [address] Phone Care Team Providers Care Glue Spreading Machine Operator Name Role Phone Fidel Love MD Primary Care Provider [phone]- [phone] Encounter Details Date Type Department Care Team (Late Contact Info) Description 05/01/2024 Documentation Only [facility] [address] [place] [address] Jenna Tapia [address] [place] [address] Social History Tobacco Use Types [...] Visit [facility] [address] [place] [address] Gennaro Multani MD [address] [place] [address] [place] [address] documented as of this encounter Visit Diagnoses Not on filedocumented in this encounter Care Teams Glue Spreading Machine Operator Relationship Specialty Start Date End Date Fidel Love MD PCP - General Internal Medicine 12/30/21 documented as of this encounter
--- OUTSIDE RECORDS SUMMARY | 2024-10-31 11:45 | XMS_ITS | Encounter Summary ---
Author Organization [employer] Address [address] 7t [place] [address] Care Team Providers Care Water Control Supervisor Name Role Phone Fidel Love MD Primary Care Provider +1- [phone] Encounter Details Date Type Department Care Team ([facility] st Contact Info) Description 10/29/2024 Orders Only [facility] MED & PEDS [address] [place], [place] [phone] Fidel Love MD 505 [place] [address] Obesity (BMI 30-39.9) (Primary Dx) Social History [...] Description 12/10/2024 10:00 AM EDT Office Visit [facility] MED & PEDS [address] [place] [address] Fidel Love MD [address] [place] [address] documented as of this encounter Visit Diagnoses Diagnosis Obesity (BMI 30-39.9)- Primary documented in this encounter Additional Health Concerns Assessment Noted Time PHQ-9 Depression Total Score: 0 05/27/20 24 1:20 PM EST documented as of this encounter Care Teams Water Control Supervisor Relationship Specialty Start Date End Date Fidel Love MD [address] [place] [address] PCP - General Internal Medicine 04/25/12 documented as of this encounter
--- OUTSIDE RECORDS SUMMARY | 2024-10-31 11:46 | XMS_ITS | Encounter Summary ---
Author Organization [employer] Address [address] 7t [place] [address] Care Team Providers Care Bilingual Inside Sales Representative Name Role Phone Fidel Love MD Primary Care Provider Reason for Visit * Reason Onset Date Comments Med Refill 03/26/2023 Encounter Details Date Type Department Care Team ([facility] st Contact Info) Description 03/26/2023 Telephone [facility] MED & PEDS [address] [place], [place] [phone] Fidel Love MD 505 [place] [address] Med Refill Social History Tobacco Use Types [...] - 03/26/2023 2:30 PM EDT Tc from [place] requesting med refill for medication lisinopril 40 MG tablet. documented in this encounter Plan of Treatment Upcoming Encounters Date Type Department Care Team (Late st Contact Info) Description 12/10/2024 10:00 AM EDT Office Visit [facility] [address] [place] [address] Fidel Love MD 505 [place] [address] documented as of this encounter Visit Diagnoses Not on filedocumented in this encounter Additional Health Concerns Assessment Noted Time PHQ-9 Depression Total Score: 9 11/07/19 23 4:10 PM EDT documented as of this encounter Care Teams Bilingual Inside Sales Representative Relationship Specialty Start Date End Date Fidel Love MD [address] [place] [address] PCP - General Internal Medicine 04/25/12 documented as of this encounter
--- OUTSIDE RECORDS SUMMARY | 2024-10-31 11:46 | XMS_ITS | Encounter Summary ---
Author Organization [employer] Address [address] 7t [place] [address] Care Team Providers Care Environmental Tech Name Role Phone Fidel Love MD Primary Care Provider [phone]- [phone] Encounter Details Date Type Department Care Team ([facility] st Contact Info) Description 07/08/2024 Telephone [facility] MED & PEDS [address] [place], [place] [phone] Fidel Love MD [address] [place] [address] Social History Tobacco Use Types Packs/Day Years [...] - 07/08/2024 3:23 PM EST Tc from [facility] calling to inform medication Phentermine- Topiramate 3.75-23 MG capsule sustained-release 24 hr would need to be order to a specialty pharmacy . Any question may contact phone # [phone]. documented in this encounter Plan of Treatment Upcoming Encounters Date Type Department Care Team ([facility] st Contact Info) Description 12/10/2024 10:00 AM EDT Office Visit [facility] MED & PEDS [address] [place] [address] Fidel Love MD [address] [place] [address] documented as of this encounter Visit Diagnoses Not on filedocumented in this encounter Additional Health Concerns Assessment Noted Time PHQ-9 Depression Total Score: 0 05/27/20 24 1:20 PM EST documented as of this encounter Care Teams Environmental Tech Relationship Specialty Start Date End Date Fidel Love MD [address] [place] [address] PCP - General Internal Medicine 04/25/12 documented as of this encounter
--- OUTSIDE RECORDS SUMMARY | 2024-10-31 11:46 | XMS_ITS | Encounter Summary ---
Author Organization [employer] Address [address] [facility] 7t [place] [address] Care Team Providers Care Reinforcing Iron Worker Helper Name Role Phone Fidel Love MD Primary Care Provider +1- [phone] Encounter Details Date Type Department Care Team (Late st Contact Info) Description 05/16/2024 Orders Only [facility] [address] [place] [address] Provider, MD Chris Social History Tobacco Use [...] Description 12/10/2024 10:00 AM EDT Office Visit [facility] MED & PEDS [address] [place] [address] Fidel Love MD [address] [place] [address] documented as of this encounter Procedures Procedure [...] ? [address] ?[place] [address] ?XRay Report ? Signed ? Patient: Graff,Chrissy ?MR#: [id number] ? : 1950 ?Acct:[id number] ? Age/Sex: 74 / F ?ADM Date: 12/13/24 ? Loc: HO.HOSX ? Attending Dr: Pa MALONE ? Ordering Physician: Mariana Haji ?? Date of Service: 06/06/24 ?? Procedure(s): XR lumbar spine 2-3V ?? Accession Number(s): [id number] ? cc: Fidel Love MD; Mariana Haji [...] DD/ 1203 ? TD/TT: 06/06/24 1209 ? Blast Furnace Tender: EF ? Procedure Note Macey Pacheco - 07/24/2024 [facility] [address] [place] [address] XRay Report Signed Patient: Chrissy GraffMR#: [id number] : 8Acct:[id number] Age/Sex: 74 / FADM Date: 06/06/24 Loc: [facility] Attending Dr: Pa MALONE Ordering Physician: Mariana Haji Date of Service: 06/06/24 Procedure(s): XR lumbar spine 2-3V Accession Number(s): [id number] cc: Fidel Love MD; Mariana Haji EXAMINATION: [...] 07/24/24 1115 DD/ 1203 TD/TT: 06/06/24 1209 Blast Furnace Tender: [facility] External Provider IMG XR PROCEDURES Final Result * Transthoracic echo (TTE) complete (05/15/2024 10:24 AM EST) Historical Provider CV ECHO PROCEDURES Final Result documented in this encounter Visit Diagnoses Not on filedocumented in this encounter Additional Health Concerns Assessment Noted Time PHQ-9 Depression Total Score: 9 11/07/19 23 4:10 PM EDT documented as of this encounter Care Teams Reinforcing Iron Worker Helper Relationship Specialty Start Date End Date Fidel Love MD [address] [place] [address] PCP - General Internal Medicine 04/25/12 documented as of this encounter
--- OUTSIDE RECORDS SUMMARY | 2024-10-31 11:46 | XMS_ITS | Encounter Summary ---
Author Organization [employer] Address [address] 7t [place] [address] Care Team Providers Care Licensed Nuclear Control Room Operator Name Role Phone Fidel Love MD Primary Care Provider Encounter Details Date Type Department Care Team ([facility] st Contact Info) Description 04/02/2024 Orders Only [facility] MED & PEDS [address] [place], [place] [phone] Fidel Love MD [address] [place], [place] [phone] Low back pain at multiple sites (Primary [...] Upcoming Encounters Date Type Department Care Team ([facility] st Contact Info) Description 12/10/2024 10:00 AM EDT Office Visit [facility]ED[facility] [address] [place] [address] Fidel Love MD [address] [place] [address] documented as of this encounter Visit Diagnoses Diagnosis Low back pain at multiple sites- Primary documented in this encounter Additional Health Concerns Assessment Noted Time PHQ-9 Depression Total Score: 9 11/07/19 23 4:10 PM EDT documented as of this encounter Care Teams Licensed Nuclear Control Room Operator Relationship Specialty Start Date End Date Fidel Love MD [address] [place] [address] PCP - General Internal Medicine 04/25/12 documented as of this encounter
--- OUTSIDE RECORDS SUMMARY | 2024-10-31 11:46 | XMS_ITS | Clinical Summary ---
Author Organization [facility] [place] Address [address] [place] [address] [place] [address] Phone Care Team Providers Care Area Forester Name Role Phone Fidel Love MD Primary Care Provider +1- [phone] Allergies No known active allergies Medications Calcium [...] Refill [facility] [address] [place] [address] Jenna Tapia from Last 3 Months Immunizations [...] [facility] [address] [place] [address] Gennaro Multani MD [address] [place] [address] [place] [address] Health Maintenance Due Date Last Done Comments [...] Urine 0-5 0 - 5 /hpf [facility] RBC, Urine 0-2 0 - 2 /hpf [facility] Squamous Epithelial, Urine 0-10 0 - 10 /hpf [facility] Casts None seen None seen /lpf [facility] Bacteria, Urine None seen None seen/Few [facility] 08/29/2024 9:12 AM EST 08/29/2024 us Gennaro Multani MD LAB MICROBIOLOGY - GENERAL OR DERABLES Final Result [facility] [address] [place] [address] * (ABNORMAL) Protein, Total, Random Urine w/Creatinine (Protein/Creat Ratio) (08/29/2024 9:12 AM EST) Creatinine, Ur 132.9 Not Estab. mg/dL [facility] Protein, Ur 145.9 Not Estab. mg/dL [facility] Urine Protein/Creati nine Ratio 1,098(H) 0 - 200 mg/g creat [facility] 08/29/2024 9:12 AM EST 08/29/2024 Gennaro Multani MD LAB URINE ORDERABLES Final [facility] Performing Organization Address [facility] de Phone Number GINNA [facility] [address] [place] [address] * (ABNORMAL) Urine Albumin / Creatinine Ratio (08/29/2024 9:12 AM EST) Pathologist [facility] Albumin, Urine 278.3 Not Estab. ug/mL [facility] Albumin/Creatin ine Ratio 209(H) 0 - 29 mg/g creat [facility] Comment: ? Normal: ?0 - ??29 ? Moderately increased: 30 - 300 ? Severely increased: ? >300 08/29/2024 9:12 AM EST 08/29/2024 Gennaro Multani MD LAB URINE ORDERABLES Final [facility] Performing Organization Address [facility] de Phone Number [facility] [address] [place] [address] * (ABNORMAL) Urinalysis with microscopic (08/29/2024 9:12 AM EST) [facility] Specific [place], Urine 1.021 1.005 - 1.030 [facility] [phone] pH Urine 6.5 5.0 - 7.5 [facility] Color, Urine Yellow Yellow [facility] Appearance Urine Clear Clear [facility] WBC Esterase Urine Negative Negative [facility] [phone] Protein, Ur 2+(A) Negative/Tra ce [facility] [phone] Glucose, Ur 3+(A) Negative [facility] Ketones, Urine Negative Negative [facility] [phone] Blood Urine Negative Negative [facility] Bilirubin Urine Negative Negative [facility] Urobilinogen Urine 0.2 0.2 - 1.0 mg/dL [facility] Nitrite, Urine Negative Negative [facility] Microscopic Examination See below: [facility] [phone] Comment:Microscopic was cruz cated and was performed. 08/29/2024 9:12 AM EST 08/29/2024 us Gennaro Multani MD LAB URINE ORDERABLES Final Re sult [facility] [address] [place] [address] * CBC and Differential (08/29/2024 9:12 AM EST) WBC 7.6 3.4 - 10.8 x10E3/uL [facility] RBC 4.45 3.77 - 5.28 x10E6/uL [facility] Hemoglobin 12.8 11.1 - 15.9 g/dL [facility] Hematocrit 39.2 34.0 - 46.6 % [facility] MCV 88 79 - 97 fL [facility] MCH 28.8 26.6 - 33.0 pg [facility] MCHC 32.7 31.5 - 35.7 g/dL [facility] RDW 13.5 11.7 - 15.4 % [facility] Platelets 236 150 - 450 x10E3/uL [facility] Neutrophils Relative 59 Not Estab. % [facility] Lymphocytes Relative 28 Not Estab. % [facility] Monocytes 7 Not Estab. % [facility] Eosinophils Relative 5 Not Estab. % [facility] Basophils Relative 1 Not Estab. % [facility] Neutrophils Absolute 4.5 1.4 - 7.0 x10E3/uL [facility] Lymphocytes Absolute 2.2 0.7 - 3.1 x10E3/uL [facility] Monocytes Absolute 0.6 0.1 - 0.9 x10E3/uL [facility] Eosinophils Absolute 0.3 0.0 - 0.4 x10E3/uL [facility] Basophils Absolute 0.1 0.0 - 0.2 x10E3/uL [facility] Immature Granulocytes 0 Not Estab. % [facility] Immature Grans (Absolute) 0.0 0.0 - 0.1 x10E3/uL [facility] 08/29/2024 9:12 AM EST 08/29/2024 us Gennaro Multani MD LAB BLOOD ORDERABLES Final Re sult [facility] [address] [place] [address] * (ABNORMAL) Renal Function Panel (08/29/2024 9:12 AM EST) Glucose 91 70 - 99 mg/dL [facility] BUN 13 8 - 27 mg/dL [facility] Creatinine 1.13(H) 0.57 - 1.00 mg/dL [facility] eGFR CKD-EPI CR 2020 50(L) >59 mL/min/1.7 3 [facility] BUN/Creatinine Ratio 12 12 - 28 [facility] Sodium 141 134 - 144 mmol/L [facility] Potassium 4.2 3.5 - 5.2 mmol/L [facility] Chloride 105 96 - 106 mmol/L [facility] Bicarbonate (CO2) 23 20 - 29 mmol/L [facility] Calcium 8.7 8.7 - 10.3 mg/dL [facility] Albumin 4.3 3.8 - 4.8 g/dL [facility] Phosphorus 2.8(L) 3.0 - 4.3 mg/dL [facility] 08/29/2024 9:12 AM EST 08/29/2024 Gennaro Multani MD LAB BLOOD ORDERABLES Final Re sult [facility] [address] [place] [address] from Last 3 Months Insurance [employer] Dual SNP ([id number]) [place] [id number] Care Teams Area Forester Relationship Specialty Start Date End Date Fidel Love MD PCP - General Internal Medicine 12/30/21
--- OUTSIDE RECORDS SUMMARY | 2024-10-31 11:46 | XMS_ITS | Encounter Summary ---
Author Organization [facility] Address [address] [place] [address] Phone Care Team Providers Care Pressed Or Blown Glass Worker Name Role Phone Fidel Love MD Primary Care Provider +1- [phone] Encounter Details Date Type Department Care Team ([facility] Contact Info) Description 12/30/2021 Documentation Only [facility] [address] [place] [address] Fidel Love MD [address] [place] [phone] Social History Tobacco Use Types Packs/Day Years Used Date Smoking Tobacco: Never Assessed Comments Unknown Sex and Gender Information Value Date Recorded Sex Assigned at Not on file Legal Sex Female 4:12 PM EDT Gender Identity Not on file Sexual Orientation Not on file documented as of this encounter Plan of Treatment Upcoming Encounters Date Type Department Care Team ([facility] Contact Info) Description 10/31/2024 3:30 PM EDT Office Visit [facility] [address] [place] [address] Gennaro Multani MD [address] [place] [address] [place] [address] documented as of this encounter Visit Diagnoses Not on filedocumented in this encounter Care Teams Pressed Or Blown Glass Worker Relationship Specialty Start Date End Date Fidel Love MD PCP - General Internal Medicine 12/30/21 documented as of this encounter
--- OUTSIDE RECORDS SUMMARY | 2024-10-31 11:46 | XMS_ITS | Encounter Summary ---
Author Organization [facility] Address [address] [place] [address] Phone Care Team Providers Care Electric Tripper Machine Operator Name Role Phone Fidel Love MD Primary Care Provider +1- [phone] Encounter Details Date Type Department Care Team ([facility] Contact Info) Description 12/30/2021 Documentation Only [facility] [address] [place] [address] Fidel Love MD [address] [place] [phone] Social History Tobacco Use Types Packs/Day Years Used Date Smoking Tobacco: Never Assessed Comments Unknown Sex and Gender Information Value Date Recorded Sex Assigned at Not on file Legal Sex Female 4:12 PM EDT Gender Identity Not on file Sexual Orientation Not on file documented as of this encounter Plan of Treatment Upcoming Encounters Date Type Department Care Team ([facility] Contact Info) Description 10/31/2024 3:30 PM EDT Office Visit [facility] [address] [place] [address] Gennaro Multani MD [address] [place] [address] [place] [address] documented as of this encounter Visit Diagnoses Not on filedocumented in this encounter Care Teams Electric Tripper Machine Operator Relationship Specialty Start Date End Date Fidel Love MD PCP - General Internal Medicine 12/30/21 documented as of this encounter
--- OUTSIDE RECORDS SUMMARY | 2024-10-31 11:46 | XMS_ITS | Encounter Summary ---
Author Organization [employer] Address [address] [facility] [address] 7[address] [place] [address] Care Team Providers Care Biochemist Name Role Phone Fidel Love MD Primary Care Provider +[phone] Encounter Details Date Type Department Care Team (Late st Contact Info) Description 04/19/2023 Abstract [facility] MEDICINE [address] [place] [address] Ericka Liao Social History Tobacco Use Types [...] t he electric, gas, oil or water [employer] threatened to shut off services in your [...] Description 12/10/2024 10:00 AM EDT Office Visit [facility] MED & PEDS [address] [place], [place] [phone] Fidel Love MD [address] [place] [address] documented as of this encounter Procedures Procedure [...] documented as of this encounter Care Teams Biochemist Relationship Specialty Start Date End Date Fidel Love MD [address] [place] [address] PCP - General Internal Medicine 04/25/12 documented as of this encounter
--- OUTSIDE RECORDS SUMMARY | 2024-10-31 11:46 | XMS_ITS | Encounter Summary ---
Author Organization [employer] Address [address] [facility] [address] [place] [address] Care Team Providers Care Director Volunteer Services Name Role Phone Fidel Love MD Primary Care Provider +1- [phone] Encounter Details Date Type Department Care Team ([facility] st Contact Info) Description 07/07/2024 Orders Only [facility] MED & PEDS [address] [place], [place] [phone] Fidel Love MD [address] [place] [address] Obesity (BMI 30-39.9) (Primary Dx) Social History [...] Description 12/10/2024 10:00 AM EDT Office Visit [facility] MED & PEDS [address] [place] [address] Fidel Love MD [address] [place] [address] documented as of this encounter Visit Diagnoses Diagnosis Obesity (BMI 30-39.9)- Primary documented in this encounter Additional Health Concerns Assessment Noted Time PHQ-9 Depression Total Score: 0 05/27/20 24 1:20 PM EST documented as of this encounter Care Teams Director Volunteer Services Relationship Specialty Start Date End Date Fidel Love MD [address] [place] [address] PCP - General Internal Medicine 04/25/12 documented as of this encounter
[2024-10-31 12:20] LABS: Basophils Absolute Auto 0.1 X10*3/uL (0.0-0.2); Basophils Percent Auto 0.7 % (0-2); Eosinophils Absolute Auto 0.3 X10*3/uL (0.0-0.4); Eosinophils Percent Auto 3.5 % (0-4); Hematocrit 39.3 % (37.0-47.0); Imm Gran Abs Auto 0.05 X10*3/uL (0.00-0.03); Imm Gran Pct Auto 0.6 % (0.0-0.4); Lymphocytes Absolute Auto 2.7 X10*3/uL (1.2-4.9); Lymphocytes Percent Auto 33.3 % (20-40); Mean Corpuscular HGB Conc 33.1 g/dl (31.0-35.0); Mean Corpuscular Hemoglobin 28.6 pg (27.0-33.0); Mean Corpuscular Volume 86.6 fL (80.0-98.0); Mean Platelet Volume 10.4 fL (9.4-12.3); Monocytes Absolute Auto 0.6 X10*3/uL (0.1-1.2); Monocytes Percent Auto 6.8 % (2-11); Neutrophils Absolute Auto 4.5 x10*3/uL (2.0-8.3); Neutrophils Percent Auto 55.1 % (45-73); Platelet Count 245 X10*3/uL (160-400); Red Blood Count 4.54 X10*6/uL (4.20-5.50); White Blood Count 8.1 X10*3/uL (4.8-10.8)
[2024-10-31 12:59] LABS: Alanine Aminotransferase 25 U/L (0-31); Albumin Level 4.1 g/dL (3.5-5.0); Alkaline Phosphatase 69 U/L (39-117); Anion Gap 9 (12-20); Aspartate Amino Transferase 24 U/L (5-31); Bilirubin Total 0.4 mg/dL (0.0-1.0); Blood Urea Nitrogen 17 mg/dL (9-16); Calcium 9.4 mg/dL (8.4-10.2); Carbon Dioxide 26 mmol/L (22-29); Chloride 105 mmol/L (96-108); Estimated Glomerular Filt Rate > 60; Glucose Random 83 mg/dL (60-115); Iron 61 mcg/dL (30-160); Percent Iron Saturation 27 % (15-50); Potassium 4.2 mmol/L (3.3-5.1); Sodium 136 mmol/L (135-145); Total Iron Binding Capacity 227 mcg/dL (228-428); Total Protein 7.4 g/dL (6.5-8.0); Unsaturated Iron Binding 166 ug/dL
[2024-10-31 13:16] LABS: Ferritin 434 ng/mL (10-250); TSH reflex Free T4 1.51 uIU/mL (0.32-4.0)
[2024-10-31 13:20] LABS: Vitamin B12 623 pg/mL (200-900)
[2024-10-31 14:05] LABS: Folate 10.2 ng/mL (> or = 4.0)
[2024-11-04 17:33] LABS: Vitamin D 25-OH, D2 <4 ng/mL; Vitamin D 25-OH, D3 26 ng/mL; Vitamin D 25-OH, Total 26 ng/mL (30-100)
[2024-11-06 15:17] LABS: Vitamin B6 12.8 ng/mL (2.1-21.7)
== END 2024-10-31 11:18 | disposition home or self-care (01) ==
LOC: HO.LAB 11:17
PROVIDERS: PCP Internal Medicine; Visit Provider Nurse Practitioner Family
DX: G47.61 Periodic limb movement disorder (principal); G47.34 Idiopathic sleep related nonobstructive alveolar hypoventilation; G25.2 Other specified forms of tremor; M19.90 Unspecified osteoarthritis, unspecified site; D64.9 Anemia, unspecified
CPT/HCPCS: 36415; 80053; 82306; 82607; 82728; 82746; 83540; 84207; 84443; 85025

== ENCOUNTER 2024-12-10 11:21 | Outpatient (REF) | payer OTHER, SELFPAY ==
--- OUTSIDE RECORDS SUMMARY | 2024-12-10 13:18 | XMS_ITS | Data Portability ---
Author Organization [employer] [facility], [facility] Address [address] [place] [phone] Care Team Providers Care Trucking Contractor Name Role Phone [facility] Referring Provider [facility] Referring Provider Assessment Encounter Date Assessment Date Assessment LastModified by Organization Details LastModified Time 10/19/2021 10/19/2021 I have reviewed and agree with the Assessment and Plan as documented by the Instrumentation Technologist. I provided real -time medical direction via phone for this encounter, and was available for additional phone based assistance as needed. Patient given the opportunity to ask questions. She aware if develops CP/ significant SOB/ cyanosis/acute AMS/ very hi fever dexter unresponsive to Tylenol should go immediately to the ER- call 911 [email or web address] Not available 10/19/2021 18:07:56 Plan of Treatment Reminders Order Date Submit Date Provider Last Modified By Organization Details Last Modified Time Details Appointments None recorded. Lab rapid flu (A+B) 2021 [email or web address], [address] 17:17:01 rapid SARS CoV 2 Ag, QL IA, respiratory specimen 2021 022 [email or web address], [address] 17:17:01 Referral None recorded. Procedures None recorded. [...] specimen positi ve Not Available Main - [facility] ed [address] [place] [address], [phone] 10/19/2021 17:16:36 10/20/19 22 10/19/2021 rapid flu (A+B) Flu negati ve Not Available [facility] ed [address] [place] [address], [phone] 10/19/2021 17:16:34 Result Notes None recorded. Medical [...] Sylvia Caldera MD Main - [facility] [address] [place] [address] 10/19/2021 17:15:28 03/02/2022 18:07:53 Viral syndrome 889868076 B34.9 COVID + Health Concerns Section Related Observation LastModified by Organization Detai ls LastModified Time None Recorded Concern Status LastModified by Organization Details LastModified Time None Recorded Advance Directives Directive None Recorded Payers Insurance Date Sequence Insurance Name Policy Number Policy Ochoa Covered Member ID Ochoa Member ID Guarantor Name 10/19/2021 1 [facility] - DOS PRIOR TO 2022 - DUAL ELIGIBLE (MEDICARE REPLACEMENT/ADV ANTAGE - HMO) Chrissy Graff [id number] Chrissy Graff Notes Date Note Type Note Provider Name and Address Organization Details Recorded Time 10/19/2021 text/html HPI: Call received from member's daughter, Berta (ph# [phone]) to the CRU. Berta reports cruzitor has not felt well with flu like symptoms and PCP would not see member d/t symptoms and recommended home visit through [facility]. Berta reports mbr with sx for [...] .................. .................. .................. .................. .................. .................. ............... Instrumentation Technologist Note: Patient is a 71 year old [...] ............... Disposition: Fulfilled Sylvia Caldera MD [address] [facility],[address], , [address], SY - [employer] 10/19/2021 18:08:08 OBGyn Episode No OBEpisode recorded.
[2024-12-10 14:20] LABS: MANUAL DIFF FLAG NO
[2024-12-10 14:30] LABS: Basophils Percent Auto 0.6 % (0-2); Eosinophils Absolute Auto 0.3 X10*3/uL (0.0-0.4); Eosinophils Percent Auto 3.7 % (0-4); Hematocrit 39.6 % (37.0-47.0); Hemoglobin 12.9 g/dl (12.0-16.0); Imm Gran Abs Auto 0.03 X10*3/uL (0.00-0.03); Imm Gran Pct Auto 0.4 % (0.0-0.4); Lymphocytes Absolute Auto 2.3 X10*3/uL (1.2-4.9); Lymphocytes Percent Auto 33.8 % (20-40); Mean Corpuscular HGB Conc 32.6 g/dl (31.0-35.0); Mean Corpuscular Hemoglobin 28.5 pg (27.0-33.0); Mean Corpuscular Volume 87.4 fL (80.0-98.0); Mean Platelet Volume 11.2 fL (9.4-12.3); Monocytes Absolute Auto 0.5 X10*3/uL (0.1-1.2); Monocytes Percent Auto 7.6 % (2-11); Neutrophils Absolute Auto 3.6 x10*3/uL (2.0-8.3); Neutrophils Percent Auto 53.9 % (45-73); Platelet Count 241 X10*3/uL (160-400); Red Blood Count 4.53 X10*6/uL (4.20-5.50); Red Cell Distribution Width 14.9 % (11.0-16.0); White Blood Count 6.7 X10*3/uL (4.8-10.8)
[2024-12-10 14:42] LABS: Alanine Aminotransferase 28 U/L (0-31); Albumin Level 4.2 g/dL (3.5-5.0); Alkaline Phosphatase 74 U/L (39-117); Anion Gap 10 (12-20); Aspartate Amino Transferase 29 U/L (5-31); Bilirubin Total 0.7 mg/dL (0.0-1.0); Blood Urea Nitrogen 18 mg/dL (9-16); Calcium 9.9 mg/dL (8.4-10.2); Carbon Dioxide 28 mmol/L (22-29); Chloride 109 mmol/L (96-108); Cholesterol 154 mg/dL (<200); Estimated Glomerular Filt Rate > 60; Glucose Random 87 mg/dL (60-115); HDL Cholesterol 54 mg/dL (>40); LDL Cholesterol Calculated 78 mg/dL (<100); Potassium 4.3 mmol/L (3.3-5.1); Sodium 143 mmol/L (135-145); Total Protein 7.3 g/dL (6.5-8.0); Triglycerides 113 mg/dL (<150)
[2024-12-10 15:02] LABS: TSH reflex Free T4 1.59 uIU/mL (0.32-4.0); Vitamin D 25-OH Total 51.4 ng/mL (>30)
[2024-12-10 15:09] LABS: Folate 9.4 ng/mL (> or = 4.0); Vitamin B12 560 pg/mL (200-900)
[2024-12-11 08:54] LABS: ~HepC Num1 0.11 S/CO (0.00-0.79); ~Hepatitis C Antibody Nonreactive (Nonreactive)
[2024-12-15 15:18] LABS: Vitamin D 25-OH, D2 <4 ng/mL; Vitamin D 25-OH, D3 19 ng/mL; Vitamin D 25-OH, Total 19 ng/mL (30-100)
== END 2024-12-10 11:22 | disposition home or self-care (01) ==
LOC: HO.CHCLDS 11:21
PROVIDERS: Nurse Practitioner Family; Visit Provider Internal Medicine
DX: E55.9 Vitamin D deficiency, unspecified (principal); N18.2 Chronic kidney disease, stage 2 (mild)
CPT/HCPCS: 36415; 80053; 80061; 82306; 82607; 82746; 84443; 85025; 86803

== ENCOUNTER 2025-01-16 10:18 | Outpatient (AMB) | payer OTHER, SELFPAY ==
--- OUTSIDE RECORDS SUMMARY | 2020-11-23 10:14 | XMS_ITS | Continuity of Care Document ---
Author Organization [facility] Address [address] [address] Phone Care Team Providers Care Assistant Professor Of Biology Name Role Phone Shabbir Yeh PA-C Unavailable Unavaila ble Advance Directives Directive Yes / No Effective Date File Name No Information Encounters Encounter Description Practice Location Reason(s) For Visit Diagnoses Date Provider [facility], [address] [address], [place], [place], [id number], [place] tel:[phone] [facility] No Information [address] [place], [place], [id number], [place]. tel:[phone] Family History Family Member Type Diagnosis Age [...]
[2025-01-16 09:53] VITALS: BP 130/78; PULSE 76; O2SAT 98; BMI 35.2
--- NOTE | 2025-01-16 09:53 | A.OFFVIS_ITS ---
Vital Signs 01/16/25 09:53 Height 5 ft Intake Visit Reasons: Follow Up 6mo Fishing Tool Technician Oil Well Required: No Fishing Tool Technician Oil Well Services: Fishing Tool Technician Oil Well Offered & Declined Accompanied by: Self / Same As Patient Allergies latex Allergy (Intermediate, Verified 01/16/25 09:53) Rash PFSH Medical History (Updated 11/05/24 @ 21:51 by JOEL Luke) Osteoarthritis Coarse tremors Surgical History H/O tubal ligation H/O section H/O shoulder surgery Social History Alcohol intake: never Patient Tobacco Use Status: Never used Tobacco Current occupational status: retired Current occupation: right hand Coding
--- NOTE | 2025-01-16 10:19 | A.OFFVIS_ITS ---
Vital Signs 01/16/25 09:53 Height 5 ft Weight 180 lb BMI 35.2 BP 130/78 Blood Pressure Location Lt brachial Position Sitting Pulse 76 Pulse Source Pulse Oximeter Pulse Oximetry (%) 98 Oxygen Delivery Method Room Air Intake Visit Reasons: Follow Up 6mo Intake Note: Patient presents follow up tremor/KATHY. Compliance in chart Grass Cutter Required: No Accompanied by: Self / Same As Patient Allergies latex Allergy (Intermediate, Verified 01/16/25 10:25) Rash HPI Comments Details: Zcuyrlg-hdl-ro-old female presents for follow-up visit of sleep apnea. Patient was last seen in September 2024 for evaluation of increasing tremors. Pt denies any significant interval medical history changes. However, daughter is concerned that patient is having memory issues or symptoms of untreated ADD/ADHD. Patient does state that looking back she thinks she probably has had ADD symptoms her entire life. 09/19/2024, in-lab PSG PAP titration study, showed best resolution of obstructive sleep apnea with application of CPAP 9 cm H2O. During the study, patient was also found to have frequent periodic limb movements of sleep with Periodic limb movement of sleep (PLMS) index of 94 per hour and a PLMS arousal index of 9.5 per hour- though, there was marked decrease in recorded limb movements while patient was using CPAP 9 cm H2O. Patient states that when she is using her CPAP, she feels like she is sleeping better and has more daytime energy. Her daughter states that patient does move a lot in her sleep, however patient states she is unaware of this and this does not bother her. There are times, when the patient is not free applying her CPAP, as she is receiving an alert stating that the machine is not working correctly. I have access to her [employer] view portal, which indicates that the machine is working as expected. However, patient does at time have very high mask leaks, which I suspect is what is triggering the CPAP notification. Patient does endorse that her CPAP mask can have bothersome leaks. [facility] CPAP compliance report, December 21, 2019 27 December 2026 [employer] 11 [employer] Serial number [id number] CPAP 9 cm H2O with EPR 3 Overall usage 87% Usage greater than 4 hours 80% Median leaks 12.6 per hour, maximum leaks 99.6 L/min. Residual AHI 6/hr [facility] Medical History (Updated 01/18/25 @ 13:59 by JOEL Luke) Osteoarthritis Coarse tremors Surgical History H/O tubal ligation H/O section H/O shoulder surgery Social History Alcohol intake: never Patient Tobacco Use Status: Never used Tobacco Current occupational status: retired Current occupation: right hand Physical Exam Vital Signs: Last Vital Signs Pulse 76 01/16/25 09:53 BP 130/78 01/16/25 09:53 Pulse Ox 98 01/16/25 09:53 Oxygen Delivery Method Room Air 01/16/25 09:53 BMI result Body Mass Index 35.2 Const General: no acute distress Orientation/consciousness: patient oriented x3 Resp Effort & Inspection: normal respiratory effort and able to speak in complete sentences Neuro General: patient oriented x3 Psych Mental Status: mental status grossly normal Speech and movement: Clear speech present Attitude: cooperative Assessment & Plan Assessment & Plan (1) Severe obstructive sleep apnea: Code(s): G47.33 - Obstructive sleep apnea (adult) (pediatric) Category: Medical (2) Forgetfulness: Code(s): R68.89 - Other general symptoms and signs Category: Medical (3) Coarse tremors: Comment: no evidence of parkinsons, likely exaggerated physiologic tremors, essential tremors Code(s): G25.2 - Other specified forms of tremor Category: Medical Plan For KATHY: Reviewed results of in-lab PAP titration sleep study report, results c/w sleep apnea and periodic limb movement of sleep. This patient is reporting bothersome mask least, we will request CPAP mask fitting. At this time, patient denies any bothersome periodic limb movement of sleep symptoms. Thus, we will continue to monitor, and consider further workup and treatment if symptoms become bothersome. Continue CPAP 9 cmH2O w/ EPR 3 nightly > 4 hours, as pt continues to have good clinical effect from use. * Clean CPAP machine and supplies routinely. * Change CPAP supplies routinely. * Use distilled water in CPAP water reservoir. * Pt to contact us or respiratory company with any questions or concerns. For cognitive symptoms: Offered to refer her for ADD/ADHD evaluation, however daughter is concerned about adding another provider to her medical team. Advised them to ask patient's psychiatric provider if they are able to do an ADD/ADHD eval. We will schedule patient for a separate visit to address her cognitive symptoms, and to complete an MMSE. Continue to monitor tremors. Pt to follow-up in 1 month for cognitive eval and in 6 months for follow-up of KATHY or sooner prn. Coding Level of Care Code Est Pt Level 4 (33101) Diagnoses Severe obstructive sleep apnea G47.33 Forgetfulness R68.89 Coarse tremors G25.2
--- OUTSIDE RECORDS SUMMARY | 2025-01-16 10:34 | XMS_ITS | Encounter Summary ---
Author Organization [facility], Address [address] [place] [address] Phone Care Team Providers Care Induction Heat Treater Name Role Phone Fidel Love MD Primary Care Provider +1- [phone] Encounter Details Date Type Department Care Team (Late st Contact Info) Description 05/01/2024 Documentation Only [facility], [address] [place] [address] Jenna Tapia [address] [place] [phone] Social History Tobacco Use Types Packs/Day Years [...] on filedocumented in this encounter Care Teams Induction Heat Treater Relationship Specialty Start Date End Date Fidel Love MD PCP - General Internal Medicine 12/30/21 documented as of this encounter
--- OUTSIDE RECORDS SUMMARY | 2025-01-16 10:34 | XMS_ITS | Data Portability ---
Author Organization [employer] [facility] Address [address] [place] [address] Care Team Providers Care Hat Lacer Name Role Phone [facility] Referring Provider [phone] [facility] Referring Provider Assessment Encounter Date Assessment Date Assessment LastModified by Organization Details LastModified Time 10/19/2021 10/19/2021 I have reviewed and agree with the Assessment and Plan as documented by the Lumber Stacker Operator. I provided real -time medical direction via phone for this encounter, and was available for additional phone based assistance as needed. Patient given the opportunity to ask questions. She aware if develops CP/ significant SOB/ cyanosis/acute AMS/ very hi fever dexter unresponsive to Tylenol should go immediately to the ER- call 911 [email or web address] Not available 10/19/2021 18:07:56 Plan of Treatment Reminders Order Date Submit Date Provider Last Modified By Organization Details Last Modified Time Details Appointments None recorded. Lab rapid flu (A+B) 2021 022 [email or web address], [address] 17:17:01 rapid SARS CoV 2 Ag, QL IA, respiratory specimen 2021 022 [email or web address], [address] 17:17:01 Referral None recorded. Procedures None recorded. [...] specimen positi ve Not Available Main - [facility] ed [address] [place] [address], [phone] 10/19/2021 17:16:36 10/20/19 22 10/19/2021 rapid flu (A+B) Flu negati ve Not Available Main - [facility] ed [address] [place], [address] 10/19/2021 17:16:34 Result Notes None recorded. Medical [...] Pulse oximetry Respiratory rate Body temperature Systolic And Diastolic Systolic And Diastolic Provider Name and Address Organization Details Last Updated DateTime 2 80 /min 99.7 [degF] 97 % 97 % 20 /min 80 /min 97 % 97 % 20 /min 99.7 [degF] 132/74 mm[Hg] 132/74 mm[Hg] Not Available [employer] - production 17:39:36 [...] 1218 Sylvia Caldera MD Main - [facility] [address] [place] [phone] 10/19/2021 17:15:28 03/02/2022 18:07:53 Viral syndrome [id number] B34.9 COVID + Health Concerns Section Related Observation LastModified by Organization Detai ls LastModified Time None Recorded Concern Status LastModified by Organization Details LastModified Time None Recorded Advance Directives Directive None Recorded Payers Insurance Date Sequence Insurance Name Policy Number Policy Ochoa Covered Member ID Ochoa Member ID Guarantor Name 10/19/2021 1 [facility] - DOS PRIOR TO 2022 - DUAL ELIGIBLE (MEDICARE REPLACEMENT/ADV ANTAGE - HMO) Chrissy Graff [id number] Chrissy Graff Notes Date Note Type Note Provider Name and Address Organization Details Recorded Time 10/19/2021 text/html ROS as noted in the HPI HPI: Call received from member's daughter, Berta (ph# [phone]) to the CRU. Berta reports cruzitor has not felt well with flu like symptoms and PCP would not see member d/t symptoms and recommended home visit through [facility]. Berta reports mbr with sx for the [...] .................. .................. .................. .................. .................. .................. ............... Lumber Stacker Operator Note: Patient is a 71 year old [...] ............... Disposition: Fulfilled Sylvia Caldera MD [address] [facility],[address], [place], [address], SY - [employer] 10/19/2021 18:08:08 OBGyn Episode No OBEpisode recorded.
--- OUTSIDE RECORDS SUMMARY | 2025-01-16 10:34 | XMS_ITS | Encounter Summary ---
Author Organization [employer] Address [address] [place] [address] Care Team Providers Care Rn Psychiatric Name Role Phone Fidel Love MD Primary Care Provider +[phone] Reason for Visit * Reason Onset Date Comments Medication Question 01/14/2024 Encounter Details Date Type Department Care Team ([facility] st Contact Info) Description 01/14/2024 Telephone [facility] MEDICINE [address] [place] [address] Fidel Love MD [address] [place] [address] Medication Question Social History Tobacco Use Types [...] Telephone call to Mateo , pharmacist at [facility] . Mateo was advised that Dr. Love [...] Care Team (Late st Contact Info) Description 03/05/2025 2:30 PM EDT Office Visit [facility] MED & PEDS [address] [place], [place] [phone] Fidel Love MD [address] [place] [address] documented as of this encounter Visit Diagnoses Diagnosis SERRANO (dyspnea on exertion) Other dyspnea and respiratory abnormality documented in this encounter Additional Health Concerns Assessment Noted Time PHQ-9 Depression Total Score: 9 11/07/19 23 4:10 PM EDT documented as of this encounter Care Teams Rn Psychiatric Relationship Specialty Start Date End Date Fidel Love MD [address] [place] [address] PCP - General Internal Medicine 04/25/12 documented as of this encounter
== END 2025-01-16 11:31 | disposition home or self-care (01) ==
LOC: HO.HSMS 10:18
PROVIDERS: PCP Internal Medicine; Visit Provider Nurse Practitioner Family
DX: G47.33 Obstructive sleep apnea (adult) (pediatric) (principal); R68.89 Other general symptoms and signs; G25.2 Other specified forms of tremor
CPT/HCPCS: 99214

== ENCOUNTER → 2025-01-16 10:18 | Outpatient (BNVA) | payer OTHER, SELFPAY | PROVIDERS: PCP Internal Medicine; Visit Provider Nurse Practitioner Family | DX: G25.2 Other specified forms of tremor (principal); R68.89 Other general symptoms and signs; G47.33 Obstructive sleep apnea (adult) (pediatric); G47.61 Periodic limb movement disorder; Z99.89 Dependence on other enabling machines and devices | CPT/HCPCS: 99212 ==

== ENCOUNTER 2025-06-10 11:05 | Outpatient (REF) | payer OTHER, SELFPAY ==
--- NOTE | ~2025-06-10 | XR_ITS ---
EXAMINATION: XR HAND, LEFT CLINICAL INFORMATION: M79.642 - Pain in left hand COMPARISON: None available. TECHNIQUE: PA, lateral, and oblique views of the left hand. FINDINGS: There is diffuse osteopenia. No fracture is identified. Joint spaces are preserved. There are no erosions. XR/XR hand LT min 3V IMPRESSION: Osteopenia. Electronically signed by: William Bradford MD 06/10/2025 03:07 PM [facility]
--- OUTSIDE RECORDS SUMMARY | 2025-06-10 14:37 | XMS_ITS | Encounter Summary ---
Author Organization [email or web address] Address [address] [facility] 7t [place] [address] Care Team Providers Care Human Services Professional Name Role Phone Fidel Love MD Primary Care Provider +1- [phone] Reason for Visit * Reason Onset Date Comments Durable Medical Equipment 06/04/2025 Encounter Details Date Type Department Care Team ([facility] st Contact Info) Description 06/04/[address] [facility] MED & PEDS [address] [place] [address] Fidel Love MD [address] [place], [place] [phone] Durable Medical Equipment Social History Tobacco Use Types Packs/Day Years Used Date Smoking Tobacco: Never Passive Smoke Exposure: Never Smokeless Tobacco: Never Depression Answer Date Recorded Patient Health Questionnaire-9 Score 9 12/10/2024 Patient Health Questionnaire-9 Score 9 12/10/2024 Last PHQ-9: Questionnaire Data Not on file 0 12/10/2024 Housing Stability Answer Date Recorded What is your housing situation today? I have otis lundy 12/10/[address] you li ve. Do you have problems with any of the following? None of the above 12/10/2024 Food Insecurity Answer Date Recorded Within the past 12 months, y ou worried that your food would run out before you got money to buy more: Never True 12/10/2024 Within the past 12 months,th e food you bought just didn't last and you didn't have enough money to get more: Never True Transportation Answer Date Recorded In the past 12 months, has l ack of transportation kept you from medical appts, meetings, work or from getting things needed for daily living? No 12/10/2024 Utilities Answer Date Recorded In the past 12 months, has t he electric, gas, oil or water company threatened to shut off services in your home? No 12/10/2024 Depression Answer Date Recorded Patient Health Questionnaire-2 Score 3 12/10/2024 Internet Access Answer Date Recorded Internet Access Q1 Yes 12/10/2024 Internet Access Q2 Not on file 12/10/2024 Comments Unknown Sex and Gender Information Value Date Recorded Sex Assigned at Female 04/24/2022 10:18 AM EDT Legal Sex Female 10:18 AM EDT Gender Identity Female 02/12/2023 10:14 AM EDT Sexual Orientation Straight 04/24/2022 10 :18 AM EDT documented as of this encounter Miscellaneous Notes * Telephone Encounter - Elisabet Villarreal LPN - 06/09/2025 11:22 AM EST Rx generated AND FAXED TO [facility] As pt daughter was checking out at , pt daughter requested wipes and pads for incontinence for pt. Advised will send to PCP for review * Telephone Encounter - Hui Topete RN - 06/04/2025 4:14 PM EST As pt daughter was checking out at , pt daughter requested wipes and pads for incontinence for pt. Advised will send to PCP for review documented in this encounter Plan of Treatment Upcoming Encounters Date Type Department Care Team ([facility] st Contact Info) Description 06/16/2025 3:30 PM EST Office Visit [facility] MED & PEDS [address] [place] [address] Fidel Love MD [address] [place] [address] 08/21/2025 4:00 PM EST Office Visit [facility] MED & PEDS [address] [place] [address] Fidel Love MD [address] [place] [address] documented as of this encounter Visit Diagnoses Not on filedocumented in this encounter Additional Health Concerns Assessment Noted Time PHQ-9 Depression Total Score: 9 12/11/19 25 4:00 PM EDT documented as of this encounter Care Teams Human Services Professional Relationship Specialty Start Date End Date Fidel Love MD [address] [place] [address] PCP - General Internal Medicine 04/25/12 documented as of this encounter
--- OUTSIDE RECORDS SUMMARY | 2025-06-10 14:37 | XMS_ITS | Encounter Summary ---
Author Organization [employer] Address [address] [facility] 7 [place] [address] Care Team Providers Care Linen Keeper Name Role Phone Fidel Love MD Primary Care Provider [phone]- [phone] Reason for Visit * Reason Onset Date Comments Med Refill 09/11/2024 Encounter Details Date Type Department Care Team ([facility] st Contact Info) Description 09/11/2024 Refill [facility] MED & PEDS [address] [place] [address] Fidel Love MD [address] [place] [address] Obesity (BMI 30-39.9) Social History Tobacco Use [...] Care Team (Late st Contact Info) Description 06/16/2025 3:30 PM EST Office Visit [facility] MED & PEDS [address] [place] [address] Fidel Love MD [address] [place] [address] 08/21/2025 4:00 PM EST Office Visit [facility] MED & PEDS [address] [place] [address] Fidel Love MD [address] [place] [address] documented as of this encounter Visit Diagnoses Diagnosis Obesity (BMI 30-39.9) documented in this encounter Additional Health Concerns Assessment Noted Time PHQ-9 Depression Total Score: 0 05/27/20 24 1:20 PM EST documented as of this encounter Care Teams Linen Keeper Relationship Specialty Start Date End Date Fidel Love MD [address] [place] [address] PCP - General Internal Medicine 04/25/12 documented as of this encounter
--- OUTSIDE RECORDS SUMMARY | 2025-06-10 14:37 | XMS_ITS | Encounter Summary ---
Author Organization [employer] Address 75 [facility] 7 [place] [address] Care Team Providers Care Hand Alterations Tailor Name Role Phone Fidel Love MD Primary Care Provider +1- [phone] Reason for Visit * Reason Onset Date Comments Med Refill 06/08/2025 Encounter Details Date Type Department Care Team ([facility] st Contact Info) Description 06/08/2025 Refill [facility] MED & PEDS [address] [place] [address] Fidel Love MD [address] [place] [address] Social History Tobacco Use Types Packs/Day Years [...] encounter Miscellaneous Notes * Telephone Encounter - Avani Torres LPN - 06/08/2025 10:35 AM EST Last seen 06.04.25 * Telephone Encounter - Kalia Hidalgo - 06/08/2025 10:29 AM EST TC from pt requesting medication refill. Medications needing refill : Calcium + Vitamin D3 600-10 MG-MCG tablet alendronate (Fosamax) 70 MG tablet To be sent to: [facility] [address] [place] [address] - [address] [place] [address] Pt leaving country today due to a family emergency for 3 months documented in this encounter Plan of Treatment Upcoming Encounters Date Type Department Care Team ([facility] st Contact Info) Description 06/16/2025 3:30 PM EST Office Visit [facility] [address] [place] [address] Fidel Love MD [address] [place] [address] 08/21/2025 4:00 PM EST Office Visit [facility] [address] [place] [address] Fidel Love MD [address] [place] [address] documented as of this encounter Visit Diagnoses Not on filedocumented in this encounter Additional Health Concerns Assessment Noted Time PHQ-9 Depression Total Score: 9 12/11/19 25 4:00 PM EDT documented as of this encounter Care Teams Hand Alterations Tailor Relationship Specialty Start Date End Date Fidel Love MD [address] [place] [address] PCP - General Internal Medicine 04/25/12 documented as of this encounter
--- OUTSIDE RECORDS SUMMARY | 2025-06-10 14:37 | XMS_ITS | Encounter Summary ---
Author Organization [employer] Address 75 [facility] 7 [place] [address] Care Team Providers Care Energy Management Specialist Name Role Phone Fidel Love MD Primary Care Provider +1- [phone] Reason for Visit * Reason Onset Date Comments Referral 05/27/2025 Encounter Details Date Type Department Care Team ([facility] st Contact Info) Description 05/27/2025 Telephone [facility] MED & PED[facility] [address] [place] [address] Fidel Love MD [address] [place] [address] Referral Social History Tobacco Use Types Packs/Day [...] encounter Miscellaneous Notes * Telephone Encounter - Kalia Hidalgo - 05/27/2025 1:09 PM EST Tc from pt daughter stating CT referrals needs to be modified as urgent as there is no availabilityuntil next year Contact at [phone] documented in this encounter Plan of Treatment Upcoming Encounters Date Type Department Care Team (Late st Contact Info) Description 06/16/2025 3:30 PM EST Office Visit [facility] [address] [place] [address] Fidel Love MD [address] [place] [address] 08/21/2025 4:00 PM EST Office Visit [facility] [address] [place] [address] Fidel Love MD [address] [place] [address] documented as of this encounter Visit Diagnoses Not on filedocumented in this encounter Additional Health Concerns Assessment Noted Time PHQ-9 Depression Total Score: 9 12/11/19 25 4:00 PM EDT documented as of this encounter Care Teams Energy Management Specialist Relationship Specialty Start Date End Date Fidel Love MD [address] [place] [address] PCP - General Internal Medicine 04/25/12 documented as of this encounter
--- OUTSIDE RECORDS SUMMARY | 2025-06-10 14:38 | XMS_ITS | Encounter Summary ---
Author Organization [employer] Address 75 [facility] 7 [place] [address] Care Team Providers Care Tire Wrapper Name Role Phone Fidel Love MD Primary Care Provider +1- [phone] Reason for Visit * Reason Onset Date Comments Med Refill 06/08/2025 Encounter Details Date Type Department Care Team ([facility] st Contact Info) Description 06/08/2025 Refill [facility] MED & PEDS [address] [place] [address] Fidel Love MD [address] [place] [address] Anxious mood; Primary insomnia Social History Tobacco Use Types Packs/Day Years [...] encounter Miscellaneous Notes * Telephone Encounter - Fidel Love MD - 06/08/2025 11:09 AM EST Yes. Please give the authorization for an early refill. * Telephone Encounter - Kalia Hidalgo - 06/08/2025 10:32 AM EST TC from pt requesting medication refill. Medications needing refill : clonazePAM (KlonoPIN) 0.5 MG tablet To be sent to: [facility] [address] [place] [address] Pt leaving country due to family emergency for 3 months documented in this encounter Plan of Treatment Upcoming Encounters Date Type Department Care Team ([facility] st Contact Info) Description 06/16/2025 3:30 PM EST Office Visit [facility] MED & PEDS [address] [place] [address] Fidel Love MD [address] [place] [address] 08/21/2025 4:00 PM EST Office Visit [facility] [address] [place] [address] Fidel Love MD [address] [place] [address] documented as of this encounter Visit Diagnoses Diagnosis Anxious mood Anxiety state, unspecified Primary insomnia Persistent disorder of initiating or maintaining sleep documented in this encounter Additional Health Concerns Assessment Noted Time PHQ-9 Depression Total Score: 9 12/11/19 25 4:00 PM EDT documented as of this encounter Care Teams Tire Wrapper Relationship Specialty Start Date End Date Fidel Love MD [address] [place] [address] PCP - General Internal Medicine 04/25/12 documented as of this encounter
--- OUTSIDE RECORDS SUMMARY | 2025-06-10 14:38 | XMS_ITS | Encounter Summary ---
Author Organization [employer] Address [address] [facility] [address] 7t [place] [address] Care Team Providers Care Lens Shaper Grinder Name Role Phone Fidel Love MD Primary Care Provider +1- [phone] Reason for Visit * Reason Onset Date Comments Medication Question 01/14/2024 Encounter Details Date Type Department Care Team ([facility] st Contact Info) Description 01/14/2024 Telephone [facility] [address] [place] [address] Fidel Love MD [address] [place] [address] Medication Question Social History Tobacco Use Types [...] Telephone call to Mateo , pharmacist at [facility] . Mateo was advised that [...] Description 06/16/2025 3:30 PM EST Office Visit [facility]ED[facility] [address] [place] [address] Fidel Love MD [address] [place] [address] 08/21/2025 4:00 PM EST Office Visit [facility] [address] [place] [address] Fidel Love MD 505 [place] [address] documented as of this encounter Visit Diagnoses Diagnosis SERRANO (dyspnea on exertion) Other dyspnea and respiratory abnormality documented in this encounter Additional Health Concerns Assessment Noted Time PHQ-9 Depression Total Score: 9 11/07/19 23 4:10 PM EDT documented as of this encounter Care Teams Lens Shaper Grinder Relationship Specialty Start Date End Date Fidel Love MD [address] [place] [address] PCP - General Internal Medicine 04/25/12 documented as of this encounter
--- OUTSIDE RECORDS SUMMARY | 2025-06-10 14:38 | XMS_ITS | Encounter Summary ---
Author Organization [employer] Address 75 [facility] 7t [place] [address] Care Team Providers Care Vocational Training Teacher Name Role Phone Fidel Love MD Primary Care Provider [phone]- [phone] Encounter Details Date Type Department Care Team ([facility] st Contact Info) Description 02/18/2025 Orders Only [facility] MED & PEDS [address] [place], [place] [phone] Fidel Love MD [address] [place] [address] Social History Tobacco Use Types Packs/Day Years [...] Description 06/16/2025 3:30 PM EST Office Visit [facility] MED & PEDS [address] [place] [address] Fidel Love MD [address] [place] [address] 08/21/2025 4:00 PM EST Office Visit [facility] MED [facility] PED[facility] [address] [place] [address] Fidel Love MD [address] [place] [address] documented as of this encounter Visit Diagnoses Not on filedocumented in this encounter Additional Health Concerns Assessment Noted Time PHQ-9 Depression Total Score: 9 12/11/19 25 4:00 PM EDT documented as of this encounter Care Teams Vocational Training Teacher Relationship Specialty Start Date End Date Fidel Love MD [address] [place] [address] PCP - General Internal Medicine 04/25/12 documented as of this encounter
--- OUTSIDE RECORDS SUMMARY | 2025-06-10 14:38 | XMS_ITS | Encounter Summary ---
Author Organization [employer] Address 75 [facility] 7t [place] [address] Care Team Providers Care Supervisor Whipped Topping Name Role Phone Fidel Love MD Primary Care Provider [phone] Encounter Details Date Type Department Care Team ([facility] st Contact Info) Description 11/16/2023 Orders Only [facility] MED & PEDS [address] [place], [place] [phone] Fidel Love MD [address] [place] [address] Seasonal allergies (Primary Dx); Achilles tendinitis of [...] Description 06/16/2025 3:30 PM EST Office Visit [facility] P[facility] [address] [place] [address] Fidel Love MD [address] [place] [address] 08/21/2025 4:00 PM EST Office Visit [facility] [address] [place] [address] Fidel Love MD [address] [place] [address] documented as of this encounter Visit Diagnoses Diagnosis Seasonal allergies- Primary Allergic rhinitis, cause unspecified Achilles tendinitis of right lower extremity documented in this encounter Additional Health Concerns Assessment Noted Time PHQ-9 Depression Total Score: 9 11/07/19 23 4:10 PM EDT documented as of this encounter Care Teams Supervisor Whipped Topping Relationship Specialty Start Date End Date Fidel Love MD [address] [place] [address] PCP - General Internal Medicine 04/25/12 documented as of this encounter
--- OUTSIDE RECORDS SUMMARY | 2025-06-10 14:38 | XMS_ITS | Encounter Summary ---
Author Organization [employer] Address 75 [facility] 7t [place] [address] Care Team Providers Care Coke Worker Name Role Phone Fidel Love MD Primary Care Provider [phone] [phone] Encounter Details Date Type Department Care Team ([facility] st Contact Info) Description 07/08/2024 Telephone [facility] MED & PEDS [address] [place], [place] [phone] Fidel Love MD [address] [place] [address] Social History Tobacco Use Types Packs/Day Years [...] Styles - 07/08/2024 3:23 PM EST Tc ric [facility] calling to inform medication Phentermine- Topiramate 3.75-23 MG capsule sustained-release 24 hr would need to be order to a specialty pharmacy . Any question may contact phone # [phone]. documented in this encounter Plan of Treatment Upcoming Encounters Date Type Department Care Team (Late st Contact Info) Description 06/16/2025 3:30 PM EST Office Visit [facility] MED & PEDS [address] [place] [address] Fidel Love MD [address] [place] [address] 08/21/2025 4:00 PM EST Office Visit [facility] MED & PEDS [address] [place] [address] Fidel Love MD [address] [place] [address] documented as of this encounter Visit Diagnoses Not on filedocumented in this encounter Additional Health Concerns Assessment Noted Time PHQ-9 Depression Total Score: 0 05/27/20 24 1:20 PM EST documented as of this encounter Care Teams Coke Worker Relationship Specialty Start Date End Date Fidel Love MD [address] [place] [address] PCP - General Internal Medicine 04/25/12 documented as of this encounter
--- OUTSIDE RECORDS SUMMARY | 2025-06-10 14:38 | XMS_ITS | Encounter Summary ---
Author Organization [employer] Address 75 [facility] 7t [place] [address] Care Team Providers Care Compotype Operator Name Role Phone Fidel Love MD Primary Care Provider [phone] Encounter Details Date Type Department Care Team (Late st Contact Info) Description 05/16/2024 Orders Only [facility] [address] [place] [address] Provider, MD Chris Social History Tobacco Use Types Packs/Day Years Used Date Smoking Tobacco: Never Passive Smoke Exposure: Never Smokeless Tobacco: Never Depression Answer Date Recorded Patient Health Questionnaire-9 Score 9 11/06/2022 Housing Stability Answer Date Recorded What is your housing situation today? I have otis nikkie [address] you li [...] Description 06/16/2025 3:30 PM EST Office Visit [facility] MED & PEDS [address] [place] [address] Fidel Love MD [address] [place] [address] 08/21/2025 4:00 PM EST Office Visit [facility] MED [facility] PED[facility] [address] [place] [address] Fidel Love MD [address] [place] [address] documented as of this encounter Procedures Procedure [...] PM EST Narrative 07/24/2024 11:17 AM EST [facility] [address] [place] [address] XRay Report Signed Patient: Chrissy Graff MR#: [id number] : 1950 Acct:[id number] Age/Sex: 74 / F ADM Date: 06/06/24 Loc: [facility] Attending Dr: Pa MALONE Ordering Physician: Mariana Haji Date of Service: 06/06/24 Procedure(s): XR lumbar spine 2-3V Accession Number(s): [id number] cc: Fidel Love MD; Mariana Haji EXAMINATION: [...] 07/24/24 1115 DD/ 1203 TD/TT: 06/06/24 1209 Camera Engineer: ZACHERY Procedure Note Donotuseinterpreter, Image - 07/24/2024 [facility] [address] [place] [address] XRay Report Signed Patient: Dunae Graff#: [id number] : 8Acct:[id number] Age/Sex: 74 / FADM Date: 06/06/24 Loc: [facility] Attending Dr: Pa MALONE Ordering Physician: Mariana Haji Date of Service: 06/06/24 Procedure(s): XR lumbar spine 2-3V Accession Number(s): [id number] cc: Fidel Love MD; Mariana Haji EXAMINATION: [...] by: Casimiro Aceves MD 07/24/2024 11:15 AM [facility] Dictated By: Casimiro Aceves MD Signed By: <Electronically signed by Casimiro Aceves MD in OV> 07/24/24 1115 DD/ 1203 TD/TT: 06/06/24 1209 Camera Engineer: EF [facility] External Provider IMG XR PROCEDURES Final Result * Transthoracic echo (TTE) complete (05/15/2024 10:24 AM EST) Historical Provider CV ECHO PROCEDURES Final Result documented in this encounter Visit Diagnoses Not on filedocumented in this encounter Additional Health Concerns Assessment Noted Time PHQ-9 Depression Total Score: 9 11/07/19 23 4:10 PM EDT documented as of this encounter Care Teams Compotype Operator Relationship Specialty Start Date End Date Fidel Love MD [address] [place] [address] PCP - General Internal Medicine 04/25/12 documented as of this encounter
--- OUTSIDE RECORDS SUMMARY | 2025-06-10 14:38 | XMS_ITS | Encounter Summary ---
Author Organization [employer] Address 75 [facility] 7 [place] [address] Care Team Providers Care Tenter Frame Back Tender Name Role Phone Fidel Love MD Primary Care Provider [phone] Encounter Details Date Type Department Care Team ([facility] st Contact Info) Description 07/07/2024 Orders Only [facility] MED & PEDS [address] [place], [place] [phone] Fdiel Love MD [address] [place] [address] Obesity (BMI 30-39.9) (Primary Dx) Social History [...] 3:30 PM EST Office Visit [facility] P[facility] [address] [place] [address] Fidel Love MD [address] [place] [address] 08/21/2025 4:00 PM EST Office Visit [facility] [address] [place] [address] Fidel Love MD [address] [place] [address] documented as of this encounter Visit Diagnoses Diagnosis Obesity (BMI 30-39.9)- Primary documented in this encounter Additional Health Concerns Assessment Noted Time PHQ-9 Depression Total Score: 0 05/27/20 24 1:20 PM EST documented as of this encounter Care Teams Tenter Frame Back Tender Relationship Specialty Start Date End Date Fidel Love MD [address] [place] [address] PCP - General Internal Medicine 04/25/12 documented as of this encounter
--- OUTSIDE RECORDS SUMMARY | 2025-06-10 14:38 | XMS_ITS | Encounter Summary ---
Author Organization [employer] Address 75 [facility] 7 [place] [address] Care Team Providers Care Poultry Picker Name Role Phone Fidel Love MD Primary Care Provider [phone]- [phone] Reason for Visit * Reason Onset Date Comments Med Refill 11/26/2024 Encounter Details Date Type Department Care Team ([facility] st Contact Info) Description 11/26/2024 Refill [facility] MED & PEDS [address] [place] [address] Fidel Love MD [address] [place] [address] Social History Tobacco Use Types Packs/Day Years [...] 06/16/2025 3:30 PM EST Office Visit [facility] P[facility] [address] [place] [address] Fidel Love MD [address] [place] [address] 08/21/2025 4:00 PM EST Office Visit [facility] PEDS [address] [place] [address] Fidel Love MD [address] [place] [address] documented as of this encounter Visit Diagnoses Not on filedocumented in this encounter Additional Health Concerns Assessment Noted Time PHQ-9 Depression Total Score: 0 05/27/20 24 1:20 PM EST documented as of this encounter Care Teams Poultry Picker Relationship Specialty Start Date End Date Fidel Love MD [address] [place] [address] PCP - General Internal Medicine 04/25/12 documented as of this encounter
--- OUTSIDE RECORDS SUMMARY | 2025-06-10 14:38 | XMS_ITS | Encounter Summary ---
Author Organization [employer] Address [address] [place] [address] [address], [place] [address] Care Team Providers Care Head End Desizing Machine Operator Name Role Phone Fidel Love MD Primary Care Provider +1- [phone] Reason for Referral * Imaging (Routine) - Authorized Specialty Diagnoses / Procedures Referred By Contac t Referred To Contact Radiology Diagnoses Other constipation Right lower quadrant abdominal pain Procedures CT Abdomen Pelvis w/ Contrast Fidel Love MD [address] [place] [address] Phone: tel: fax: [address] [address] Phone: tel: fax: Referral ID Status Reason Start Date Expiration Date V isits Requested Visits Authorized [id number] Authorized 03/11/2025 03/11/2026 1 1 Encounter Details Date Type Department Care Team (Late st Contact Info) Description 03/11/2025 Orders Only [facility] MED & PEDS [address] [place], [place] [phone] Fidel Love MD [address] [place], [place] [phone] Other constipation (Primary Dx); Right lower quadrant abdominal pain Social History Tobacco Use Types Packs/Day Years [...] Upcoming Encounters Date Type Department Care Team ([facility] st Contact Info) Description 06/16/2025 3:30 PM EST Office Visit [facility] MED & PEDS [address] [place] [address] Fidel Love MD [address] [place] [address] 08/21/2025 4:00 PM EST Office Visit [facility] MED & PEDS [address] [place] [address] Fidel Love MD [address] [place] [address] Scheduled Orders Name Type Priority Associated Diagnoses Orde r Schedule CT Abdomen Pelvis w/ Contrast Imaging Routine Other constipation Right lower quadrant abdominal pain Expected: 03/11/2025, Expires: 03/11/2026 documented as of this encounter Visit Diagnoses Diagnosis Other constipation- Primary Right lower quadrant abdominal pain documented in this encounter Additional Health Concerns Assessment Noted Time PHQ-9 Depression Total Score: 9 12/11/19 25 4:00 PM EDT documented as of this encounter Care Teams Head End Desizing Machine Operator Relationship Specialty Start Date End Date Fidel Love MD [address] [place] [address] PCP - General Internal Medicine 04/25/12 documented as of this encounter
--- OUTSIDE RECORDS SUMMARY | 2025-06-10 14:38 | XMS_ITS | Encounter Summary ---
Author Organization [employer] Address 75 [facility] 7 [place] [address] Care Team Providers Care Partition Notcher Name Role Phone Fidel Love MD Primary Care Provider +1- [phone] Reason for Visit * Reason Onset Date Comments Prior Authorization 06/09/2025 Encounter Details Date Type Department Care Team ([facility] st Contact Info) Description 06/09/2025 Telephone [facility] MED & PEDS [address] [place] [address] Fidel Love MD [address] [place], [place] [phone] Prior Authorization Social History Tobacco Use Types Packs/Day Years [...] encounter Miscellaneous Notes * Telephone Encounter - Hui Topete RN - 06/09/2025 11:15 AM EST Pt and pt daughter in law walked into office to request if office has received requests from [facility] for CT scan. Advised received request that PA is needed for CT scan. Advised will reach out to diagnostic PA department and inquire of status as it also appears [facility] was sent CT. Pt verbalized understanding and agreement with plan.. documented in this encounter Plan of Treatment Upcoming Encounters Date Type Department Care Team (Late st Contact Info) Description 06/16/2025 3:30 PM EST Office Visit [facility] MED & PEDS [address] [place] [address] Fidel Love MD [address] [place] [address] 08/21/2025 4:00 PM EST Office Visit [facility] MED & PEDS [address] [place] [address] Fidel Love MD [address] [place] [address] documented as of this encounter Visit Diagnoses Not on filedocumented in this encounter Additional Health Concerns Assessment Noted Time PHQ-9 Depression Total Score: 9 12/11/19 25 4:00 PM EDT documented as of this encounter Care Teams Partition Notcher Relationship Specialty Start Date End Date Fidel Love MD [address] [place] [address] PCP - General Internal Medicine 04/25/12 documented as of this encounter
--- OUTSIDE RECORDS SUMMARY | 2025-06-10 14:38 | XMS_ITS | Encounter Summary ---
Author Organization [employer] Address 75 [facility] 7t [place] [address] Care Team Providers Care Histopathologist Name Role Phone Fidel Love MD Primary Care Provider +1 [phone] Encounter Details Date Type Department Care Team ([facility] st Contact Info) Description 07/17/2023 Orders Only [facility] MED & PEDS [address] [place], [place] [phone] Fidel Love MD [address] [place] [address] Tremor (Primary Dx) Social History Tobacco Use [...] 3:30 PM EST Office Visit [facility] MED & PEDS [address] [place] [address] Fidel Love MD [address] [place] [address] 08/21/2025 4:00 PM EST Office Visit [facility] MED & PEDS [address] [place] [address] Fidel Love MD [address] [place] [address] documented as of this encounter Visit Diagnoses Diagnosis Tremor- Primary Abnormal involuntary movements documented in this encounter Additional Health Concerns Assessment Noted Time PHQ-9 Depression Total Score: 9 11/07/19 23 4:10 PM EDT documented as of this encounter Care Teams Histopathologist Relationship Specialty Start Date End Date Fidel Love MD [address] [place] [address] PCP - General Internal Medicine 04/25/12 documented as of this encounter
--- OUTSIDE RECORDS SUMMARY | 2025-06-10 14:38 | XMS_ITS | Clinical Summary ---
Author Organization [employer] Address [address] [employer] [address] [employer] 7t [place] [address] Care Team Providers Care Customer Technical Services Manager Name Role Phone Fidel Love MD Primary Care Provider [phone] Allergies No known active allergies Medications * [...] a day 100 g 06/15/20 23 Active hydrocortisone acetate 1 % ointment Apply 1 Application. topically if needed in the morning and at bedtime (rectal pain/itching ). 30 g 3 03/13/20 24 Active nystatin (Nystop) 697137 UNIT/GM powderIndicatio ns:Skin rash Apply topically 2 times daily. 60 g 1 06/23/20 24 025 Active fexofenadine (Gogo Allergy) 180 MG tabletIndicatio ns:Rash due to allergy TAKE 1 TABLET BY MOUTH EVERY MORNING 30 tablet 5 07/03/19 25 Active cholecalciferol (Vitamin D-3) 50 MCG (1999 UT) capsuleIndicati ons:Low vitamin D level Take 1 capsule (50 mcg) by mouth Once per day. 30 capsule 11 01/29/20 25 Active doxepin (SINEquan) 100 MG capsuleIndicati ons:Reactive depression Take 1 capsule (100 mg) by mouth at bedtime. 30 capsule 03/05/20 25 026 Active PARoxetine (Paxil) 20 MG tabletIndicatio ns:Moderate episode of recurrent major depressive disorder (CMS/HCC) (HCC) TAKE 1 TABLET BY MOUTH EVERY DAY 30 tablet 03/13/20 25 Active simvastatin (Zocor) 40 MG tabletIndicatio ns:Hypercholest erolemia TAKE 1 TABLET BY MOUTH AT BEDTIME 30 tablet 03/13/20 25 Active Tirzepatide (Mounjaro) 5 MG/0.5ML solution auto-injectorIn dications:Class 1 obesity due to excess calories with serious comorbidity and body mass index (BMI) of 33.0 to 33.9 in adult Inject 5 mg under the skin 1 (one) time per week. 2 mL 3 06/04/20 25 Active alendronate (Fosamax) 70 MG tablet Take 1 tablet (70 mg) by mouth every 7 (seven) days. Take in the morning with a full glass of water, on an empty stomach, and do not take anything else by mouth or lie down for the next 30 min. 12 tablet 1 06/08/20 25 Active Calcium + Vitamin D3 600-10 MG-MCG tablet Place 600 mg into mouth between cheek and gum Once per day. TAKE 1 TABLET BY MOUTH TWICE A DAILY 180 tablet 1 06/08/20 25 Active clonazePAM (KlonoPIN) 0.5 MG tabletIndicatio ns:Anxious mood,Primary insomnia Take 1 tablet (0.5 mg) by mouth 2 times daily. Pt is traveling. Ok for an early refill 06/08/25 per PCP. 20 tablet 06/08/20 25 026 Active Tirzepatide-Vikas ght Management (Zepbound) 5 MG/0.5ML solutionIndicat ions:Obesity (BMI 30-39.9) Inject 5 mg under the skin 1 (one) time per week. 2 mL 2 11/15/19 25 025 Discontinued(Th erapy completed) Tirzepatide-Vikas ght Management (Zepbound) 7.5 MG/0.5ML solution auto-injectorIn dications:Class 1 obesity due to excess calories with serious comorbidity and body mass index (BMI) of 33.0 to 33.9 in adult Inject 0.5 mL (7.5 mg) under the skin 1 (one) time per week. 2 mL 2 12/11/19 25 025 Discontinued(Th erapy completed) Calcium + Vitamin D3 600-10 MG-MCG tablet Place 600 mg into mouth between cheek and gum Once per day. TAKE 1 TABLET BY MOUTH TWICE A DAILY 60 tablet 5 01/28/20 25 025 Discontinued(Re order (will not trigger notification to Pharmacy)) Tirzepatide (Mounjaro) 2.5 MG/0.5ML solution auto-injectorIn dications:Obesi ty (BMI 30-39.9),Obstru ctive sleep apnea syndrome Inject 2.5 mg under the skin 1 (one) time per week. 2 mL 3 03/05/20 25 025 Discontinued(Th erapy completed) alendronate (Fosamax) 70 MG tablet Take 1 tablet (70 mg) by mouth every 7 (seven) days. Take in the morning with a full glass of water, on an empty stomach, and do not take anything else by mouth or lie down for the next 30 min. 4 tablet 1 05/08/20 25 025 Discontinued(Re order (will not trigger notification to Pharmacy)) clonazePAM (KlonoPIN) 0.5 MG tabletIndicatio ns:Anxious mood,Primary insomnia Take 1 tablet (0.5 mg) by mouth 2 times daily. 20 tablet 06/04/20 25 025 Discontinued(Re order (will not trigger notification to Pharmacy)) Active Problems Problem Noted Date Diagnosed Date Sleep apnea 03/05/2025 Overview (03/05/2025): Patient is to continue with her CPAP use. She would greatly benefit from weight loss given her history of sleep apnea Epigastric burning sensation 03/06/2024 Fracture of twelfth thoracic vertebra (CMS/HCC) 03/06/2024 Internal hemorrhoids 03/06/2024 Microalbuminuria 03/06/2024 Severe obesity (BMI 35.0-39.9) with comorbidity (CMS/HCC) 03/06/2024 Stricture of anus 03/06/2024 Benign hypertension [...] Encounters Date Type Department Care Team Description 06/10/2025 Orders Only [facility] [address] [place] [address] Fidel Love MD Abdominal pain, unspecified abdominal location (Primary Dx) 06/09/2025 Telephone [facility] [address] [place] [address] Fidel Love MD Prior Authorization 06/08/2025 Refill [facility] [address] [place] [address] Fidel Love MD Anxious mood; Primary insomnia 06/08/2025 Refill [facility] [address] [place] [address] Fidel Love MD 06/04/2025 3:30 PM EST Office Visit [facility] [address] [place] [address] Fidel Love MD Abdominal pain, unspecified abdominal location (Primary Dx); Class 1 obesity due to excess calories with serious comorbidity and body mass index (BMI) of 33.0 to 33.9 in adult; Left hand pain; Anxious mood; Primary insomnia 06/04/2025 Telephone [facility] [address] [place] [address] Fidel Love MD Durable Medical Equipment 06/04/2025 Travel 05/27/2025 Telephone [facility] [address] [place] [address] Fidel Love MD Referral 05/27/2025 Telephone [facility] [address] [place] [address] Fidel Love MD Nurse Triage 05/08/2025 Refill [facility] [address] [place] [address] Fidel Love MD 03/13/2025 Refill [facility] [address] [place] [address] Fidel Love MD Hypercholesterolemia 03/13/2025 Refill [facility] [address] [place] [address] Fidel Love MD Moderate episode of recurrent major depressive disorder (CMS/HCC) 03/11/2025 Orders Only [facility] [address] [place] [address] Fidel Love MD Other constipation (Primary Dx); Right lower quadrant abdominal pain 03/11/2025 Telephone [employer] [address] [place] [address] [phone] [address] ABD/PELVIS ORDER from Last 3 Months Social History Tobacco [...] Sign Reading Time Taken Comments Blood Pressure 148/81 06/04/2025 3:39 PM EST Pulse 85 06/04/2025 3:39 PM EST Temperature 36.8 C (98.3 F) 06/04/2025 3:39 PM EST Respiratory Rate 20 06/04/2025 3:39 PM EST Oxygen Saturation 92% 06/04/2025 3:39 PM EST Inhaled Oxygen Concentration - - Weight 79.4 kg (175 lb) 06/04/2025 3:39 PM EST Height 157.5 cm (5' 2 ) 06/04/2025 3:39 PM EST Body Mass Index 32.01 06/04/2025 3:39 PM EST Plan of Treatment Upcoming Encounters Date Type Department Care Team (Late st Contact Info) Description 06/16/2025 3:30 PM EST Office Visit [facility] [address] [place] [address] Fidel Love MD [address] [place] [address] 08/21/2025 4:00 PM EST Office Visit [facility] [address] [place] [address] Fidel Love MD [address] [place] [address] Health Maintenance Due Date Last Done Comments DTaP/Tdap/Td Vaccines (2 - Td or Tdap) 07/22/2020 07/22/2010 Zoster Vaccines (3 of 3) 03/02/2022 01/05/2022, 09/24 RSV Patients and Patients Aged 60 years or older (1 - 1-dose 75+ series) 2023 COVID-19 Vaccine ( season) 2025 04/22/2022, 06/23/2021, 10/20/2020, Additional history exists Influenza Vaccine (#1) 2025 8, 05/07/2017, 2014, Additional history exists Depression Monitoring 06/11/2025 12/10/2024, 025 Alcohol/Substance Use Screening 12/10/2025 12/10/2024 SDOH Screening 12/10/2025 12/10/2024 Tobacco Screening 06/04/2026 06/04/2025 Lipid Panel 12/10/2029 12/10/2024, 11/24, 08/11/2021, Additional history exists Colonoscopy Discontinued 06/08/2015 Colorectal Cancer Screening Discontinued Pneumococcal Vaccine: 50+ Years Completed 01/05/2022, 05/07/2017, 05/17/2010 Hepatitis C Screening Completed 12/10/2024 CT Colonography Discontinued FIT DNA/Cologuard Discontinued FIT [...] patient's age to complete this topic Meningococcal B Vaccine Aged Out No l onger eligible based on patient's age to complete [...] Procedure Name Priority Date/Time Associated Diagnosis Comments HEPATITIS C AB W/REFL TO HCV RNA, QN, PCR Routine 12/10/2024 11:45 AM EDT Chronic kidney disease, stage 2 (mild) LIPID PANEL, STANDARD Routine 12/10/2024 11:45 AM EDT Chronic kidney disease, stage 2 (mild) COLONOSCOPY Routine 06/08/2015 from Last 3 Months or Most Recently Relevant to Health Maintenance Results * Hepatitis C Antibody with Reflex to HCV, RNA, Quantitative, Real-Time PCR (12/10/2024 11:45 AM EDT) Hepatitis C Antibody Nonreactive Nonreactive [facility] Comment:Antibodies to HCV no t detected; does not exclude early acuteHCV infection. Blood Venous blood specimen / Unknown 12/10/2024 11:45 AM EDT 12/10/2024 2:06 PM EDT us Fidel Love MD LAB BLOOD ORDERABLES Final Result Performing Organization Address City/[facility]/ZIP Co de Phone Number [facility] [address] [place] [phone] [phone] * Lipid Panel, Standard (12/10/2024 11:45 AM EDT) Triglycerides 113 <150 mg/dL [facility] Comment:Desirable Triglyceri de: less than 150 mg/dLBorderline High Triglyceride 150-199 mg/dLHigh Triglyceride: 200-499 mg/dLVery High Triglyceride: greater than or equal to 5OO mg/dL Cholesterol 154 <200 mg/dL [facility] Comment:Desirable Cholestero l: less than 200 mg/dLBorderline High Cholesterol: 200-239 mg/dLHigh Cholesterol: greater than 239 mg/dL LDL Cholesterol Calculated 78 <100 mg/dL [facility] Comment:Desirable LDL: less than 100 mg/dLNear Optimal/Above Optimal LDL: 110- 129 mg/dLBorderline High LDL: 130-159 mg/dLHigh LDL: 160-189 mg/dLVery High LDL: greater than or equal to 190 mg/dL HDL Cholesterol 54 >40 mg/dL [facility] Comment:Desirable HDL: great er than 40 mg/dL Note: This HDL assay may give artificially low results in patients with liver disease. Blood Venous blood specimen / Unknown 12/10/2024 11:45 AM EDT 12/10/2024 2:06 PM EDT us Fidel Love MD LAB BLOOD ORDERABLES Final Result Performing Organization Address City/[facility]/ZIP Co de Phone Number [facility] [address] [place] [phone] [phone] * Hm Colonoscopy (06/08/2015) Colonoscopy Normal Normal Narrative Ericka Liao - 06/08/2015 Recommended 10 year follow up Historical Provider HEALTH MAINTENANCE Final Result from Last 3 Months or Most Recently Relevant to Health Maintenance Insurance [facility] [employer] [facility] [employer] (HMO D-SNP) Care Teams Customer Technical Services Manager Relationship Specialty Start Date End Date Fidel Love MD [address] [place] [address] PCP - General Internal Medicine 04/25/12
--- OUTSIDE RECORDS SUMMARY | 2025-06-10 14:38 | XMS_ITS | Encounter Summary ---
Author Organization [employer] Address [address] [facility] 7t [place] [address] Care Team Providers Care Seismometer Operator Name Role Phone Fidel Love MD Primary Care Provider [phone] Encounter Details Date Type Department Care Team ([facility] st Contact Info) Description 12/18/2024 Orders Only [facility] [address] [place], [place] [phone] Fidel Love MD [address] [place] [address] Vitamin D deficiency (Primary Dx) Social History Tobacco Use Types [...] Description 06/16/2025 3:30 PM EST Office Visit [facility] [address] [place] [address] Fidel Love MD [address] [place] [address] 08/21/2025 4:00 PM EST Office Visit [facility] [address] [place] [address] Fidel Love MD [address] [place] [address] documented as of this encounter Visit Diagnoses Diagnosis Vitamin D deficiency- Primary documented in this encounter Additional Health Concerns Assessment Noted Time PHQ-9 Depression Total Score: 9 12/11/19 25 4:00 PM EDT documented as of this encounter Care Teams Seismometer Operator Relationship Specialty Start Date End Date Fidel Love MD [address] [place] [address] PCP - General Internal Medicine 04/25/12 documented as of this encounter
--- OUTSIDE RECORDS SUMMARY | 2025-06-10 14:38 | XMS_ITS | Encounter Summary ---
Author Organization [employer] Address [address] [facility] 7t [place] [address] Care Team Providers Care Motor Bus Driver Name Role Phone Fidel Love MD Primary Care Provider [phone] Encounter Details Date Type Department Care Team ([facility] st Contact Info) Description 04/02/2024 Orders Only [facility] [address] [place], [place] [phone] Fidel Love MD [address] [place] [address] Low back pain at multiple sites (Primary [...] 06/16/2025 3:30 PM EST Office Visit [facility] [address] [place] [address] Fidel Love MD [address] [place] [address] 08/21/2025 4:00 PM EST Office Visit [facility] [address] [place] [address] Fidel Love MD [address] [place] [address] documented as of this encounter Visit Diagnoses Diagnosis Low back pain at multiple sites- Primary documented in this encounter Additional Health Concerns Assessment Noted Time PHQ-9 Depression Total Score: 9 11/07/19 23 4:10 PM EDT documented as of this encounter Care Teams Motor Bus Driver Relationship Specialty Start Date End Date Fidel Love MD [address] [place] [address] PCP - General Internal Medicine 04/25/12 documented as of this encounter
--- OUTSIDE RECORDS SUMMARY | 2025-06-10 14:38 | XMS_ITS | Encounter Summary ---
Author Organization [employer] Address [address] [facility] 7 [place] [address] Care Team Providers Care Watch Crystal Grinder Name Role Phone Fidel Love MD Primary Care Provider [phone] Reason for Visit * Reason Onset Date Comments Med Refill 11/26/2024 Encounter Details Date Type Department Care Team ([facility] st Contact Info) Description 11/26/2024 Refill [facility] [address] [place] [address] Fidel Love MD [address] [place] [address] Social History Tobacco Use Types Packs/Day Years [...] 3:30 PM EST Office Visit [facility] [address] [place] [address] Fidel Love MD [address] [place] [address] 08/21/2025 4:00 PM EST Office Visit [facility] [address] [place] [address] Fidel Love MD [address] [place] [address] documented as of this encounter Visit Diagnoses Not on filedocumented in this encounter Additional Health Concerns Assessment Noted Time PHQ-9 Depression Total Score: 0 05/27/20 24 1:20 PM EST documented as of this encounter Care Teams Watch Crystal Grinder Relationship Specialty Start Date End Date Fidel Love MD [address] [place] [address] PCP - General Internal Medicine 04/25/12 documented as of this encounter
--- OUTSIDE RECORDS SUMMARY | 2025-06-10 14:38 | XMS_ITS | Encounter Summary ---
Author Organization [employer] Address [address] [facility] 7t [place] [address] Care Team Providers Care Acid Adjuster Name Role Phone Fidel Love MD Primary Care Provider [phone]- [phone] Reason for Visit * Reason Onset Date Comments Med Refill 03/26/2023 Encounter Details Date Type Department Care Team ([facility] st Contact Info) Description 03/26/2023 Telephone [facility] [address] [place] [address] Fidel Love MD [address] [place], [place] [phone] Med Refill Social History Tobacco Use Types [...] - 03/26/2023 2:30 PM EDT Tc from [facility] requesting med refill for medication lisinopril 40 MG tablet. documented in this encounter Plan of Treatment Upcoming Encounters Date Type Department Care Team (Late st Contact Info) Description 06/16/2025 3:30 PM EST Office Visit [facility] [address] [place] [address] Fidel Love MD [address] [place] [address] 08/21/2025 4:00 PM EST Office Visit [facility] [address] [place] [address] Fidel Love MD [address] [place] [address] documented as of this encounter Visit Diagnoses Not on filedocumented in this encounter Additional Health Concerns Assessment Noted Time PHQ-9 Depression Total Score: 9 11/07/19 23 4:10 PM EDT documented as of this encounter Care Teams Acid Adjuster Relationship Specialty Start Date End Date Fidel Love MD [address] [place] [address] PCP - General Internal Medicine 04/25/12 documented as of this encounter
--- OUTSIDE RECORDS SUMMARY | 2025-06-10 14:38 | XMS_ITS | Encounter Summary ---
Author Organization [employer] Address [address] [facility] 7t [place] [address] Care Team Providers Care Director Global Strategic Publisher Sales Name Role Phone Fidel Love MD Primary Care Provider [phone] Encounter Details Date Type Department Care Team ([facility] st Contact Info) Description 01/28/2025 Orders Only [facility] [address] [place], [place] [phone] Fidel Love MD [address] [place] [address] Low vitamin D level (Primary Dx) Social History Tobacco Use Types [...] 06/16/2025 3:30 PM EST Office Visit [facility] [address] [place] [address] Fidel Love MD [address] [place] [address] 08/21/2025 4:00 PM EST Office Visit [facility] [address] [place] [address] Fidel Love MD [address] [place] [address] documented as of this encounter Visit Diagnoses Diagnosis Low vitamin D level- Primary documented in this encounter Additional Health Concerns Assessment Noted Time PHQ-9 Depression Total Score: 9 12/11/19 25 4:00 PM EDT documented as of this encounter Care Teams Director Global Strategic Publisher Sales Relationship Specialty Start Date End Date Fidel Love MD [address] [place] [address] PCP - General Internal Medicine 04/25/12 documented as of this encounter
--- OUTSIDE RECORDS SUMMARY | 2025-06-10 14:38 | XMS_ITS | Encounter Summary ---
Author Organization [employer] Address [address] [facility] 7 [place] [address] Care Team Providers Care Telephone Operator Name Role Phone Fidel Love MD Primary Care Provider [phone] Encounter Details Date Type Department Care Team ([facility] st Contact Info) Description 11/14/2024 Orders Only [facility] [address] [place], [place] [phone] Fidel Love MD [address] [place] [address] Other constipation (Primary Dx); Obesity (BMI 30-39.9) Social History Tobacco Use [...] [facility] [address] [place] [address] Fidel Love MD [address] [place] [address] 08/21/2025 4:00 PM EST Office Visit [facility] [address] [place] [address] Fidel Love MD [address] [place] [address] documented as of this encounter Visit Diagnoses Diagnosis Other constipation- Primary Obesity (BMI 30-39.9) documented in this encounter Additional Health Concerns Assessment Noted Time PHQ-9 Depression Total Score: 0 05/27/20 24 1:20 PM EST documented as of this encounter Care Teams Telephone Operator Relationship Specialty Start Date End Date Fidel Love MD [address] [place] [address] PCP - General Internal Medicine 04/25/12 documented as of this encounter
--- OUTSIDE RECORDS SUMMARY | 2025-06-10 14:38 | XMS_ITS | Encounter Summary ---
Author Organization [employer] Address [address] [facility] [address] 7[address] [place] [address] Care Team Providers Care Marketing Production Specialist Name Role Phone Fidel Love MD Primary Care Provider [phone] Encounter Details Date Type Department Care Team ([facility] st Contact Info) Description 04/19/2023 Abstract [facility] [address] [place] [address] Ericka Liao Social History Tobacco Use Types Packs/Day Years Used Date Smoking Tobacco: Never Passive Smoke Exposure: Never Smokeless Tobacco: Never Depression Answer Date Recorded Patient Health Questionnaire-9 Score 9 11/06/2022 Housing Stability Answer Date Recorded What is your housing situation today? I have otis lnudy [address] you li [...] [facility] [address] [place] [address] Fidel Love MD [address] [place] [address] 08/21/2025 4:00 PM EST Office Visit [facility] [address] [place] [address] Fidel Love MD [address] [place] [address] documented as of this encounter Procedures Procedure Name Priority Date/Time Associated Diagnosis Comments COLONOSCOPY Routine 06/08/2015 documented in this encounter Results * Colonoscopy (06/08/2015) [facility] Signature Colonoscopy Normal Normal Narrative Ericka Liao - 06/08/2015 Recommended 10 year follow up Historical Provider HEALTH MAINTENANCE Final Result documented in this encounter Visit Diagnoses Not on filedocumented in this encounter Additional Health Concerns Assessment Noted Time PHQ-9 Depression Total Score: 9 11/07/19 23 4:10 PM EDT documented as of this encounter Care Teams Marketing Production Specialist Relationship Specialty Start Date End Date Fidel Love MD [address] [place] [address] PCP - General Internal Medicine 04/25/12 documented as of this encounter
--- OUTSIDE RECORDS SUMMARY | 2025-06-10 14:38 | XMS_ITS | Encounter Summary ---
Author Organization [employer] Address [address] [facility] 7 [place] [address] Care Team Providers Care Pilot Manager Name Role Phone Fidel Love MD Primary Care Provider [phone] Encounter Details Date Type Department Care Team ([facility] st Contact Info) Description 10/29/2024 Orders Only [facility] [address] [place], [place] [phone] Fidel Love MD [address] [place] [address] Obesity (BMI 30-39.9) (Primary Dx) Social History [...] 06/16/2025 3:30 PM EST Office Visit [facility] [address] [place] [address] Fidel Love MD [address] [place] [address] 08/21/2025 4:00 PM EST Office Visit [facility] [address] [place] [address] Fidel Love MD [address] [place] [address] documented as of this encounter Visit Diagnoses Diagnosis Obesity (BMI 30-39.9)- Primary documented in this encounter Additional Health Concerns Assessment Noted Time PHQ-9 Depression Total Score: 0 05/27/20 24 1:20 PM EST documented as of this encounter Care Teams Pilot Manager Relationship Specialty Start Date End Date Fidel Love MD [address] [place] [address] PCP - General Internal Medicine 04/25/12 documented as of this encounter
== END 2025-06-10 11:06 | disposition home or self-care (01) ==
LOC: HO.HOSX 11:05
DX: M65.332 Trigger finger, left middle finger (principal)
CPT/HCPCS: 73130

== ENCOUNTER 2025-06-10 14:55 | Outpatient (AMB) | payer OTHER, SELFPAY ==
--- OUTSIDE RECORDS SUMMARY | 2020-11-23 09:14 | XMS_ITS | Continuity of Care Document ---
Author Organization [facility] Address [address] [address] Phone Care Team Providers Care Developer Analyst Name Role Phone Shabbir Yeh PA-C Unavailable Unavaila ble Advance Directives Directive Yes / No Effective Date File Name No Information Encounters Encounter Description Practice Location Reason(s) For Visit Diagnoses Date Provider [facility], [address] [address], [place], [place], [id number], [place] tel:[phone] [facility] No Information [address] [place], [place], [id number], [place]. tel:[phone] Family History Family Member Type Diagnosis Age At Onset No Information Payers Payer name Insurance type Covered green party ID Authoriza tion(s) No Information Social History Type Description Quantity Date Captured Comments Sex Female Smoking Status No Information Chief Complaint And Reason For Visit No Information History Of Present Illness Encounter Date Complaint History Of Prese nt Illness No Information Instructions Date Instruction Additional Infor mation No Information Assessments Type Assessment Date No Information
--- NOTE | 2025-06-10 15:16 | MHC.OFFVIS ---
Vital Signs 06/10/25 15:17 Height 5 ft Weight 180 lb BMI 35.2 Intake Visit Reasons: New prob- L MF RF bumps, hx of surgery Intake Note: Chrissy 75 yr old right hand dominant female presents today with her daughter Berta, for a new problem for her left hand. States she she noticed a lump at her 3rd MCP on her palm kside of hand. She states her middle finger is locking for the few months. Patient explains her finger locks especially in the morning. Allergies latex Allergy (Intermediate, Verified 06/10/25 15:27) Rash HPI HPI New prob- L MF RF bumps, hx of surgery: Details: Chrissy is a 75 year old right hand dominant Armenian speaking woman who returns with complaints of left middle finger locking. She complains of painful locking & catching of the left middle finger. She also complains of a bump at the base of her middle finger. PFS Medical History (Updated 06/10/25 @ 15:31 by Mg Tovar) Osteoarthritis Coarse tremors Surgical History H/O tubal ligation H/O section H/O shoulder surgery Social History Alcohol intake: never Patient Tobacco Use Status: Never used Tobacco Current occupational status: retired Current occupation: right hand Review of Systems Const All systems reviewed & are unremarkable except as noted in HPI and below Physical Exam Vital Signs: BMI result Body Mass Index 35.2 Const General: no acute distress and alert Orientation/consciousness: patient oriented x3 Neuro General: patient oriented x3 Extrem Other: Evaluation of Left Upper Extremity: The patient is alert, oriented, and in no acute distress Neuro: Median, Ulnar, Radial nerves motor and sensory intact and sensation is normal to the tips of all digits Vascular: Cap refill brisk ROM: She can make a fist and extend all her digits Visible & palpable locking & catching of the middle finger Tender over the middle finger a1 jennifer Palpable bump at the base of the middle finger, 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 Left middle finger trigger finger I educated her about this condition I discussed operative and non-operative treatment options The patient would like to proceed with surgery The risks and benefits of operative treatment were discussed with the patient and the patient wishes to proceed with surgery. These risks include, but are not limited to risk of damage to blood vessels, nerves, tendons, infection, recurrence, incomplete relief of preoperative symptoms, persistent pain, possible need for further surgery and the risks associated with regional blocks and anesthesia. The plan is to take the patient to the operating room sometime in the next few weeks for the following procedures: 1. Left middle finger trigger release, under local All of the preoperative paperwork including the consent was reviewed today. All the patient's questions were answered. The patient understands that they will be contacted by our crew scheduler soon to schedule this procedure She denies Diabetes, blood thinners, asthma, heart, lung, kidney issues 2. Carpal tunnel syndrome, S/p release DOS: 08/13/24 Pre-operative symptoms intermittent, daily, worse night Now with normal sensation 3. Carpal tunnel syndrome, S/P release DOS 03/31/24 Pre-operative symptoms intermittent, daily, worse night Now with normal sensation Scribed for Sujata Gates MD by Mg Tovar, medical appointment clerk, on 06/10/25 at 3:30 PM, EST. Orders: Orders XR hand LT min 3V Today M79.642 - Pain in left hand Coding Level of Care Code Est Pt Level 4 (11888) Diagnoses Trigger middle finger of left hand M65.332
[2025-06-10 15:17] VITALS: BMI 35.2
--- OUTSIDE RECORDS SUMMARY | 2025-06-10 19:51 | XMS_ITS | Encounter Summary ---
Author Organization [facility], Address [address] [place] [address] Phone Care Team Providers Care Spike Driver Name Role Phone Fidel Love MD Primary Care Provider [phone]- [phone] Encounter Details Date Type Department Care Team (Late st Contact Info) Description 05/01/2024 Documentation Only [facility], [address] [place] [address] Jenna Tapia [address] [place] [phone] Social History Tobacco Use Types Packs/Day Years [...] on filedocumented in this encounter Care Teams Spike Driver Relationship Specialty Start Date End Date Fidel Love MD PCP - General Internal Medicine 12/30/21 documented as of this encounter
--- OUTSIDE RECORDS SUMMARY | 2025-06-10 19:52 | XMS_ITS | Encounter Summary ---
Author Organization [facility], Address [address] [place] [address] Phone Care Team Providers Care Logistic Specialist Name Role Phone Fidel Love MD Primary Care Provider [phone]- [phone] Encounter Details Date Type Department Care Team (Late st Contact Info) Description 12/30/2021 Documentation Only [facility], [address] [place] [address] Fidel Love MD [address] [place] [id number] Social History Tobacco Use Types Packs/Day Years [...] on filedocumented in this encounter Care Teams Logistic Specialist Relationship Specialty Start Date End Date Fidel Love MD PCP - General Internal Medicine 12/30/21 documented as of this encounter
--- OUTSIDE RECORDS SUMMARY | 2025-06-10 19:52 | XMS_ITS | Clinical Summary ---
Author Organization [facility], Address [address] [place] [address] [place] [address] Phone Care Team Providers Care Ceramic Products Sales Engineer Name Role Phone Fidel Love MD Primary Care Provider [phone]- [phone] Allergies No known active allergies Medications Calcium [...] and 10 mg in the evening. Active amLODIPine (NORVASC) 5 MG tablet Take 1 tablet (5 mg total) by mouth 1 (one) time each day 30 tablet 11 04/07/2024 Active Dapagliflozin Propanediol 10 MG tablet Take 10 mg by mouth 1 (one) time each day in the morning 30 tablet 11 10/31/2024 Active lisinopril 40 MG tablet Take 1 tablet (40 mg total) by mouth 1 (one) time each day 90 tablet 3 01/26/2025 01/27/20 26 Active Active Problems Problem Noted Date Diagnosed Date Chronic kidney disease, stage 2 (mild) Hypertension 02/09/2022 Hyperlipidemia 02/09/2022 Proteinuria 02/09/2022 Microalbuminuria Immunizations Immunization Administration Dates Next Due Carlosa SARS-COV-2 10/20/2020,09/22/2020 Social History Tobacco Use Types [...] Mass Index - - Plan of Treatment Health Maintenance Due Date Last Done Comments Pneumococcal Vaccine: 50+ Ye ars (1 of 2 - PCV) 1969 Influenza Vaccine (#1) 2025 Hepatitis B Vaccine Aged Out No longe r eligible based on patient's age to complete this topic Insurance [employer] Dual SNP ([id number]) [place]AL [place] [id number] Care Teams Ceramic Products Sales Engineer Relationship Specialty Start Date End Date Fidel Love MD PCP - General Internal Medicine 12/30/21
--- OUTSIDE RECORDS SUMMARY | 2025-06-10 19:52 | XMS_ITS | Encounter Summary ---
Author Organization [facility], Address [address] [place] [address] Phone Care Team Providers Care Cable Television Installer Name Role Phone Fidel Love MD Primary Care Provider [phone]- [phone] Encounter Details Date Type Department Care Team (Late st Contact Info) Description 05/01/2024 Documentation Only [facility], [address] [place] [address] Jenna Tapia [address] [place] [phone] Social History Tobacco Use Types Packs/Day Years [...] on filedocumented in this encounter Care Teams Cable Television Installer Relationship Specialty Start Date End Date Fidel Love MD PCP - General Internal Medicine 12/30/21 documented as of this encounter
--- OUTSIDE RECORDS SUMMARY | 2025-06-10 19:52 | XMS_ITS | Encounter Summary ---
Author Organization [facility], Address [address] [place] [address] Phone Care Team Providers Care Solar Energy System Installer Name Role Phone Fidel Love MD Primary Care Provider [phone]- [phone] Encounter Details Date Type Department Care Team (Late st Contact Info) Description 05/01/2024 Documentation Only [facility], [address] [place] [address] Jenna Tapia [address] [place] [phone] Social History Tobacco Use Types Packs/Day Years [...] on filedocumented in this encounter Care Teams Solar Energy System Installer Relationship Specialty Start Date End Date Fidel Love MD PCP - General Internal Medicine 12/30/21 documented as of this encounter
--- OUTSIDE RECORDS SUMMARY | 2025-06-10 19:52 | XMS_ITS | Data Portability ---
Author Organization [facility] [facility], [facility] Address [address] [place] [phone] Care Team Providers Care Mortgage Loan Funder Name Role Phone [facility] Referring Provider [phone] Unavailable Referring Provider [phone] Assessment Encounter Date Assessment Date Assessment LastModified by Organization Details LastModified Time 10/19/2021 10/19/2021 I have reviewed and agree with the Assessment and Plan as documented by the Director Of Government Sales. I provided real -time medical direction via phone for this encounter, and was available for additional phone based assistance as needed. Patient given the opportunity to ask questions. She aware if develops CP/ significant SOB/ cyanosis/acute AMS/ very hi fever dexter unresponsive to Tylenol should go immediately to the ER- call 911 [email or web address] Not available 10/19/2021 18:07:56 Plan of Treatment Reminders Order Date Submit Date Provider Last Modified By Organization Details Last Modified Time Details Appointments None recorded. Lab rapid flu (A+B) 2021 022 [email or web address], [phone] 17:17:01 rapid SARS CoV 2 Ag, QL IA, respiratory specimen 2021 022 [email or web address], [phone] 17:17:01 Referral None recorded. Procedures None recorded. [...] specimen positi ve Not Available Main - [facility] ed [address] [place] [address], [phone] 10/19/2021 17:16:36 10/20/19 22 10/19/2021 rapid flu (A+B) Flu negati ve Not Available [facility] - [facility] ed [address] [place] [address], [phone] 10/19/2021 17:16:34 Result Notes None recorded. Medical [...] Recorded Heart rate Body temperature Oxygen saturation Respiratory rate Heart rate Oxygen saturation Respiratory rate Body temperature Systolic And Diastolic Systolic And Diastolic Provider Name and Address Organization Details Last Updated DateTime 2 80 /min 99.7 [degF] 97 % 20 /min 80 /min 97 % 20 /min 99.7 [degF] 132/74 [...] Diagnosis SNOMED-CT Code Diagnosis ICD10 Code Diagnosis IMO Codes Diagnosis Note 1218 Sylvia Caldera MD Main - [facility] [address] [place] [phone] 10/19/2021 17:15:28 03/02/2022 18:07:53 Viral syndrome [id number] B34.9 COVID + Health Concerns Section Related Observation LastModified by Organization Detai ls LastModified Time None Recorded Concern Status LastModified by Organization Details LastModified Time None Recorded Advance Directives Directive None Recorded Payers Insurance Date Sequence Insurance Name Policy Number Policy Ochoa Covered Member ID Ochoa Member ID Guarantor Name 10/19/2021 1 [facility] - DOS PRIOR TO 2022 - DUAL ELIGIBLE (MEDICARE REPLACEMENT/ADV ANTAGE - HMO) Chrissy Graff [id number] Chrissy Graff Notes Date Note Type Note Provider Name and Address Organization Details Recorded Time 10/19/2021 text/html ROS as noted in the HPI HPI: Call received from member's daughter, Berta (ph# [phone]) to the [facility]. Berta reports cruzitor has not felt well with flu like symptoms and PCP would not see member d/t symptoms and recommended home visit through [facility]. Berta reports mbr with sx for [...] .................. .................. .................. .................. .................. .................. ............... Director Of Government Sales Note: Patient is a 71 year old [...] health and symptoms for any changes. Contact [facility] for re-visit if symptoms persist. Contact 911 for any discussed red flags or other emergencies. .................. .................. .................. .................. .................. .................. .................. ............... Disposition: Js Caldera MD [address] [facility],[address], [place], [phone], [employer] 10/19/2021 18:08:08 OBGyn Episode No OBEpisode recorded.
--- OUTSIDE RECORDS SUMMARY | 2025-06-10 19:52 | XMS_ITS | Encounter Summary ---
Author Organization [facility], Address [address] [place] [address] Phone Care Team Providers Care Dealmaker Name Role Phone Fidel Love MD Primary Care Provider [phone]- [phone] Encounter Details Date Type Department Care Team (Late st Contact Info) Description 12/30/2021 Documentation Only [facility], [address] [place] [address] Fidel Love MD [address] [place] [phone] Social History Tobacco Use Types Packs/Day Years [...] on filedocumented in this encounter Care Teams Dealmaker Relationship Specialty Start Date End Date Fidel Love MD PCP - General Internal Medicine 12/30/21 documented as of this encounter
--- OUTSIDE RECORDS SUMMARY | 2025-06-10 19:52 | XMS_ITS | Encounter Summary ---
Author Organization [facility], Address [address] [place] [address] Phone Care Team Providers Care City Alderman Name Role Phone Fidel Love MD Primary Care Provider [phone]- [phone] Encounter Details Date Type Department Care Team (Late st Contact Info) Description 07/30/2024 Documentation Only [facility], [address] [place] [phone] Gennaro Multani MD [address] [place] [address] Social History Tobacco Use Types Packs/Day Years [...] on filedocumented in this encounter Care Teams City Alderman Relationship Specialty Start Date End Date Fidel Love MD PCP - General Internal Medicine 12/30/21 documented as of this encounter
== END 2025-06-10 15:41 | disposition home or self-care (01) ==
PROVIDERS: PCP Internal Medicine; Visit Provider Orthopaedic Surgery
DX: M65.332 Trigger finger, left middle finger (principal)
CPT/HCPCS: 99214

== ENCOUNTER → 2025-06-10 14:57 | Outpatient (BNV) | payer OTHER, SELFPAY | PROVIDERS: Visit Provider Radiology Diagnostic Radiology | DX: M85.842 Other specified disorders of bone density and structure, left hand (principal) | CPT/HCPCS: 73130 ==